=== PATIENT | male | born 1950 | race Caucasian/White ===

== ENCOUNTER 2018-07-17 23:53 | Inpatient (IN) | payer OTHER ==
--- NOTE | 2018-07-18 00:19 | PDOC ---
History of Present Illness - History of Present Illness Initial Comments: 07/18/18 00:20 Mr. Colon is a 68 yo male w/ pmh of alcohol abuse who presents for evaluation of N/V for the past 2 days. Patient reports this started after he was found by a neighbor in a stairwell on 07/16. Patient does not know how he ended up there. Reports he drinks up to 10 mini bottles of vodka per day. He has had nausea and vomiting after this episode. Was encouraged to present by friends. Currently complaining of posterior head pain. Has no other complaints at this time. The patient denies chest pain, shortness of breath and dizziness. Denies fever, chills, diarrhea and constipation. Denies dysuria, frequency, urgency and hematuria. <Socrates Gentile - Last Filed: 07/18/18 07:20> <Zainab Reardon - Last Filed: 07/18/18 07:39> - General Chief Complaint: Nausea/Vomiting Stated Complaint: VOMIT Time Seen by Provider: 07/18/18 00:19 Past History - Suicide/Smoking/Psychosocial Hx Smoking History: Never smoked Have you smoked in the past 12 months: No Information on smoking cessation initiated: No Hx Alcohol Use: No Drug/Substance Use Hx: No <Socrates Gentile - Last Filed: 07/18/18 07:20> <Zainab Reardon - Last Filed: 07/18/18 07:39> - Past Medical History Allergies/Adverse Reactions: Allergies Allergy/AdvReac Type Severity Reaction Status Date / Time No Known Allergies Allergy Verified 07/18/18 00:16 Home Medications: Ambulatory Orders NK [No Known Home Medication] 07/18/18 Review of Systems - Review of Systems Comments:: 07/18/18 00:19 GENERAL/CONSTITUTIONAL: No fever or chills. No weakness. HEAD, EYES, EARS, NOSE AND THROAT: No change in vision. No ear pain or discharge. No sore throat. CARDIOVASCULAR: No chest pain or shortness of breath RESPIRATORY: No cough, wheezing, or hemoptysis. GASTROINTESTINAL: No nausea, vomiting, diarrhea or constipation. GENITOURINARY: No dysuria, frequency, or change in urination. MUSCULOSKELETAL: No joint or muscle swelling or pain. No neck or back pain. SKIN: No rash NEUROLOGIC: +Headache w/ possible fall / LOC as described. No change in strength /sensation. ENDOCRINE: No increased thirst. No abnormal weight change HEMATOLOGIC/LYMPHATIC: No anemia, easy bleeding, or history of blood clots. ALLERGIC/IMMUNOLOGIC: No hives or skin allergy. <Socrates Gentile - Last Filed: 07/18/18 07:20> *Physical Exam - Vital Signs Last Vital Signs Temp Pulse Resp BP Pulse Ox 98.1 F 105 H 20 114/70 98 07/17/18 23:55 07/17/18 23:55 07/17/18 23:55 07/17/18 23:55 07/17/18 23:55 - Physical Exam Comments: 07/18/18 00:19 GENERAL: Awake, alert, and fully oriented, in no acute distress HEAD: +Small swelling noted to posterior head. Normocephalic EYES: PERRLA, EOMI, sclera anicteric, conjunctiva clear ENT: Auricles normal inspection, hearing grossly normal, nares patent, oropharynx clear without exudates. Moist mucosa NECK: Normal ROM, supple, no lymphadenopathy, JVD, or masses LUNGS: No distress, speaks full sentences, clear to auscultation bilaterally HEART: Regular rate and rhythm, normal S1 and S2, no murmurs, rubs or gallops, peripheral pulses normal and equal bilaterally. ABDOMEN: Soft, nontender, normoactive bowel sounds. No guarding, no rebound. No masses EXTREMITIES: Normal inspection, Normal range of motion, no edema. No clubbing or cyanosis. NEUROLOGICAL: Cranial nerves II through XII grossly intact. Normal speech, normal gait, no focal sensorimotor deficits SKIN: Warm, Dry, normal turgor, no rashes or lesions noted. <Socrates Gentile - Last Filed: 07/18/18 07:20> - Vital Signs Last Vital Signs Temp Pulse Resp BP Pulse Ox 98.1 F 88 20 112/62 97 07/17/18 23:55 07/18/18 04:19 07/18/18 04:19 07/18/18 04:19 07/18/18 04:19 <Zainab Reardon - Last Filed: 07/18/18 07:39> ED Treatment Course - LABORATORY CBC & Chemistry Diagram: 07/18/18 01:01 07/18/18 01:01 <Socrates Gentile - Last Filed: 07/18/18 07:20> - LABORATORY CBC & Chemistry Diagram: 07/18/18 01:01 07/18/18 01:01 - ADDITIONAL ORDERS Additional order review: Laboratory Results 07/18/18 07/18/18 05:35 01:01 PT with INR Cancelled INR Cancelled PTT (Actin FS) Cancelled Sodium 137 Potassium 3.6 Chloride 100 Carbon Dioxide 27 Anion Gap 10 BUN 10 Creatinine 1.0 Creat Clearance w eGFR > 60 Random Glucose 133 H Calcium 9.4 Total Bilirubin 1.7 H AST 53 H ALT 82 H Alkaline Phosphatase 94 Creatine Kinase 259 Creatine Kinase Index 0.3 CK-MB (CK-2) 1.0 Troponin I < 0.02 Total Protein 7.1 Albumin 3.9 07/18/18 01:01 RBC 4.17 MCV 102.3 H MCHC 35.3 RDW 13.5 MPV 9.2 Neutrophils % 83.5 H Lymphocytes % 5.4 L Monocytes % 10.9 H Eosinophils % 0.0 Basophils % 0.2 - Medications Given in the ED: ED Medications Discontinued Medications Generic Name Dose Route Start Last Admin Trade Name Freq PRN Reason Stop Dose Admin Chlordiazepoxide HCl 50 mg 07/18/18 06:38 07/18/18 06:45 Librium - PO 07/18/18 06:39 50 mg ONCE ONE Administration Levetiracetam 1,000 mg 07/18/18 03:29 07/18/18 04:07 Keppra Injection - IVPB 07/18/18 03:30 1,000 mg ONCE ONE Administration <Zainab Reardon - Last Filed: 07/18/18 07:39> Medical Decision Making - Medical Decision Making 07/18/18 02:49 Mr. Colon is a 68 yo male w/ pmh as described who presents for evaluation after suspected fall. Patient evaluation started w/ head CT and EKG/labs to evaluate for acute causes / injury. CT Head Read: Bilateral acute subdural hematoma measuring approximately 7 mm thick over frontal lobes, 2-3 mm thick over temporal lobes, up to 9 mm thick along right anterior falx and 5 mm thick along left tentorium. Acute bilateral subarachnoid hemorrhage. Acute parenchymal hematomas in left frontal lobe (1.6 cm and 2.5 cm) , and left temporal lobe (1.1 cm), each with surrounding edema but no substantial midline shift. Possible additional 1.6 cm acute cortical hematoma anterior right temporal lobe. Areas of bilateral sulcal effacement could be related to diffuse edema, generalized mass effect, and/or subarachnoid hemorrhage. Subarachnoid cisterns remain grossly patent. Acute comminuted fracture occipital bone near midline posterior, with fracture lines also extending to right jugular foramen and anterior aspect of foramen magnum, incompletely seen. Advise correlation with cervical spin CT. Age-related involutional changes. Mucoperiosteal thickening sphenoid sinuses with small fluid on left. Visualized mastoid air cells clear. Neurosurgery paged. 07/18/18 03:[address] Hayes (Neurosurgery) who recommended admission for observation and repeat CT in 24 hours as well as keppra for seizure prophylaxis. Patient pending CT C-spine for further evaluation. 07/18/18 06:35 C-spine negative for acute fracture. Admitting patient to hospitalist for further evaluation. 07/18/18 07:19 Patient signed out to Dr. Reardon for further evaluation. <Socrates Gentile - Last Filed: 07/18/18 07:20> *DC/Admit/Observation/Transfer - Discharge Dispostion Decision to Admit order: Yes <Socrates Gentile - Last Filed: 07/18/18 07:20> - Discharge Dispostion Decision to Admit order: Yes <Zainab Reardon - Last Filed: 07/18/18 07:39> Diagnosis at time of Disposition: Subdural hematoma, Subarachnoid hemorrhage Occipital bone fracture Qualifiers: Encounter type: initial encounter Fracture type: closed Occipital fracture type : unspecified fracture of occiput - Discharge Dispostion Condition at time of disposition: Fair
--- NOTE | 2018-07-18 00:39 | PDOC ---
Attending Attestation - Resident Resident Name: Socrates Gentile - HPI HPI: 07/18/18 01:43 Pt presents to the Ed complaining of nausea and vomiting after an episode of heavy drinking 2 days ago. Also reports that he fell during this episode. Vomit is non bloody non billious. Denies abdominal pain. Reports history of heavy drinking > 10 shots of vodka/day. 07/18/18 01:44 - Physicial Exam PE: 07/18/18 01:47 Agree with resident exam. Patient is alert and oriented x 3 and ambulatory with a steady gait. No tremor or tongue fasiculations. 07/18/18 01:50 - Medical Decision Making 07/18/18 01:50 Pt presents to the ED complaining of nausea and vomiting after heavy drinking two days ago. No signs of ETOH withdrawal. Will check labs to evaluate for infection or electrolyte disturbance. Will check CT head to evaluate for intracranial bleed.
[2018-07-18 01:44] LABS: BASO % 0.2 % (0-2.0); HEMATOCRIT 42.7 % (35.4-49); HEMOGLOBIN 15.1 GM/dL (11.7-16.9); LYMPH % 5.4 % (8-40); MCH 36.1 pg (25.7-33.7); MCHC 35.3 g/dl (32.0-35.9); MEAN CELL VOLUME 102.3 fl (80-96); MEAN PLT VOLUME 9.2 fl (7.5-11.1); MONO % 10.9 % (3.8-10.2); NEUT % 83.5 % (42.8-82.8); PLATELET COUNT 183 K/MM3 (134-434); RBC 4.17 M/mm3 (4.00-5.60); RDW 13.5 % (11.9-15.9); WHITE BLOOD COUNT 14.5 K/mm3 (4.0-10.0)
[2018-07-18 02:27] LABS: ALBUMIN 3.9 g/dl (3.4-5.0); ALK PHOS 94 U/L (45-117); ANION GAP 10 MMOL/L (8-16); BILIRUBIN,TOTAL 1.7 mg/dL (0.2-1); BLOOD UREA NITROGEN 10 mg/dL (7-18); CALCIUM 9.4 mg/dL (8.5-10.1); CHLORIDE 100 mmol/L (98-107); CO2 27 mmol/L (21-32); GLUCOSE,RANDOM 133 mg/dL (74-106); POTASSIUM 3.6 mmol/L (3.5-5.1); SGOT/AST 53 U/L (15-37); SGPT/ALT 82 U/L (13-61); SODIUM 137 mmol/L (136-145); TOT PROT 7.1 g/dl (6.4-8.2)
[2018-07-18] MEDS ORDERED: levETIRAcetam 500 MG/5 ML INJECTION VIAL IVPB ONE ×3 (03:29→03:52)
[2018-07-18] MEDS ORDERED: chlordiazePOXIDE HCL 25 MG CAPSULE PO ONE (06:38)
[2018-07-18] MEDS ORDERED: chlordiazePOXIDE HCL 25 MG CAPSULE ONE (06:40)
--- NOTE | 2018-07-18 07:33 | PDOC ---
*Physical Exam - Vital Signs Last Vital Signs Temp Pulse Resp BP Pulse Ox 98.1 F 88 20 112/62 97 07/17/18 23:55 07/18/18 04:19 07/18/18 04:19 07/18/18 04:19 07/18/18 04:19 ED Treatment Course - LABORATORY CBC & Chemistry Diagram: 07/18/18 08:00 07/18/18 08:00 - ADDITIONAL ORDERS Additional order review: Laboratory Results 07/18/18 07/18/18 05:35 01:01 PT with INR Cancelled INR Cancelled PTT (Actin FS) Cancelled Sodium 137 Potassium 3.6 Chloride 100 Carbon Dioxide 27 Anion Gap 10 BUN 10 Creatinine 1.0 Creat Clearance w eGFR > 60 Random Glucose 133 H Calcium 9.4 Total Bilirubin 1.7 H AST 53 H ALT 82 H Alkaline Phosphatase 94 Creatine Kinase 259 Creatine Kinase Index 0.3 CK-MB (CK-2) 1.0 Troponin I < 0.02 Total Protein 7.1 Albumin 3.9 07/18/18 01:01 RBC 4.17 MCV 102.3 H MCHC 35.3 RDW 13.5 MPV 9.2 Neutrophils % 83.5 H Lymphocytes % 5.4 L Monocytes % 10.9 H Eosinophils % 0.0 Basophils % 0.2 - Medications Given in the ED: ED Medications Discontinued Medications Generic Name Dose Route Start Last Admin Trade Name Freq PRN Reason Stop Dose Admin Chlordiazepoxide HCl 50 mg 07/18/18 06:38 07/18/18 06:45 Librium - PO 07/18/18 06:39 50 mg ONCE ONE Administration Levetiracetam 1,000 mg 07/18/18 03:29 07/18/18 04:07 Keppra Injection - IVPB 07/18/18 03:30 1,000 mg ONCE ONE Administration Medical Decision Making - Medical Decision Making Pt was signed out to me by resident Dr. Gentile, who explained the presentation, ED course, any pending results, and needed interventions. Pending results include admission. Pt is currently stable and is lying comfortably. 07/18/18 07:33 Spoke with admitting team (Dr. Hill) who spoke with neurosurgery and is requesting admission to the ICU. Will page ICU team. 07/18/18 07:40 Spoke with ICU team, who will accept the pt for admission. Beds are full, but they will be down within the hour to examine the pt. Pt is being moved from holding for frequent neuro checks. 07/18/18 07:53 Vitals stable (BP 101/70, HR 80s), pt lying comfortably and is responsive. No focal neurologic deficits. 07/18/18 10:30 Pt has become agitated/confused in the ER. Called ICU team, who have been busy with patients upstairs and have not been able to see the pt yet. Paging admitting team to determine librium vs repeat head CT. Pending call-back. 07/18/18 11:[address] De La Rosa, who will see the pt and go to the ICU. We will provide librium as, Dr. De La Rosa gave PRN order. Pt due for CT scan at 2 pm. 07/18/18 12:02 Pt with fever (100.7) per nursing staff, no IV tylenol order (pt is NPO). Admitting team informed. 07/18/18 13:37 Pt was taken to the ICU. Stable during ER stay. No focal neurologic deficits. 07/18/18 14:21 *DC/Admit/Observation/Transfer Diagnosis at time of Disposition: Subdural hematoma, Subarachnoid hemorrhage Occipital bone fracture Qualifiers: Encounter type: initial encounter Fracture type: closed Occipital fracture type : unspecified fracture of occiput Laterality: unspecified laterality Qualified Code(s): S02.119A - Unspecified fracture of occiput, initial encounter for closed fracture - Discharge Dispostion Condition at time of disposition: Fair - Referrals - Patient Instructions - Post Discharge Activity
--- NOTE | 2018-07-18 07:41 | HP ---
CHIEF COMPLAINT: S/P fall, N/V PCP: HISTORY OF PRESENT ILLNESS: 68 year old Alcoholic male presented to the hospital S/p fall, N/V for 2 days. his neighbor found him in stairs [place], last drink last night , he drink 10 shots of Vodka daily. pt is poor historian, he reports headache occipital, 5/10 , pulsating, local non radiating, he complain of neck pain as well. Pt dont remember what happened, he lost his consciousness, does not know how long he staid on the floor. Pt denies any fever, chills, blurry vision , denies any chest pain , palp- itation, denies any abdominal pain, D/C, denies any urinary symptoms, denies any withdrawal symptoms, anxiety. ER course was notable for: (1)Head CT with SDH, SAH (2)CBC, CMP (3)Neurosurgery consult Dr Hayes Recent Travel: denies PAST MEDICAL HISTORY: Alcoholic PAST SURGICAL HISTORY: none Social History: Smokin PPD since teenage Alcohol:10 small vodka daily Drugs: denies Family History: Allergies No Known Allergies Allergy (Verified 07/18/18 00:16) HOME MEDICATIONS: Home Medications Medication Instructions Recorded NK [No Known Home Medication] 07/18/18 REVIEW OF SYSTEMS CONSTITUTIONAL: Absent: fever, chills, diaphoresis, generalized weakness, malaise, loss of appetite, weight change HEENT: Absent: rhinorrhea, nasal congestion, throat pain, throat swelling, difficulty swallowing, mouth swelling, ear pain, eye pain, visual changes CARDIOVASCULAR: Absent: chest pain, syncope, palpitations, irregular heart rate, lightheadedness , peripheral edema RESPIRATORY: Absent: cough, shortness of breath, dyspnea with exertion, orthopnea, wheezing, stridor, hemoptysis GASTROINTESTINAL: Absent: abdominal pain, abdominal distension, nausea, vomiting, diarrhea, constipation, melena, hematochezia GENITOURINARY: Absent: dysuria, frequency, urgency, hesitancy, hematuria, flank pain, genital pain MUSCULOSKELETAL: Absent: myalgia, arthralgia, joint swelling, back pain, neck pain SKIN: Absent: rash, itching, pallor HEMATOLOGIC/IMMUNOLOGIC: Absent: easy bleeding, easy bruising, lymphadenopathy, frequent infections NEUROLOGIC: headache Absent:, focal weakness or paresthesias, dizziness, unsteady gait, seizure, mental status changes, bladder or bowel incontinence PSYCHIATRIC: Absent: anxiety, depression, suicidal or homicidal ideation, hallucinations. PHYSICAL EXAMINATION Vital Signs - 24 hr 07/17/18 07/18/18 07/18/18 23:55 04:19 07:36 Temperature 98.1 F 98.5 F Pulse Rate 105 H Pulse Rate [ 88 86 Apical] Respiratory 20 20 16 Rate Blood Pressure 114/70 Blood Pressure 112/62 114/51 L [Left Arm] O2 Sat by Pulse 98 97 97 Oximetry (%) GENERAL: AAOx3 in NAD , poor dental hygiene, HEAD: small parietal lump, no skin laceration EYES: pin point pupil , extraocular movements intact, ENT: dry mucous membranes. NECK: Normal range of motion, supple without lymphadenopathy, JVD, or masses.cervical tenderness. LUNGS: Breath sounds equal, clear to auscultation bilaterally. No wheezes, and no crackles. No accessory muscle use. HEART: Regular rate and rhythm, normal S1 and S2 without murmur, rub or gallop. ABDOMEN: Soft, nontender, not distended, normoactive bowel sounds, no guarding, MUSCULOSKELETAL: Normal range of motion at all joints. No bony deformities or tenderness. No CVA tenderness. UPPER EXTREMITIES: 2+ pulses, warm, well-perfused. No cyanosis. No clubbing. No peripheral edema. LOWER EXTREMITIES: 2+ pulses, warm, well-perfused. No calf tenderness. No peripheral edema. NEUROLOGICAL: Cranial nerves II-XII intact. Normal speech. Normal gait.no dysmetria, romberg negative PSYCHIATRIC: Cooperative. Good eye contact. SKIN: Warm, dry, Laboratory Results - last 24 hr 07/18/18 07/18/18 07/18/18 01:01 01:01 05:35 WBC 14.5 H RBC 4.17 Hgb 15.1 Hct 42.7 MCV 102.3 H MCH 36.1 H MCHC 35.3 RDW 13.5 Plt Count 183 MPV 9.2 Absolute Neuts (auto) 12.1 H Neutrophils % 83.5 H Lymphocytes % 5.4 L Monocytes % 10.9 H Eosinophils % 0.0 Basophils % 0.2 Nucleated RBC % 0 PT with INR Cancelled INR Cancelled PTT (Actin FS) Cancelled Sodium 137 Potassium 3.6 Chloride 100 Carbon Dioxide 27 Anion Gap 10 BUN 10 Creatinine 1.0 Creat Clearance w eGFR > 60 Random Glucose 133 H Calcium 9.4 Total Bilirubin 1.7 H AST 53 H ALT 82 H Alkaline Phosphatase 94 Creatine Kinase 259 Creatine Kinase Index 0.3 CK-MB (CK-2) 1.0 Troponin I < 0.02 Total Protein 7.1 Albumin 3.9 Blood Type Antibody Screen 07/18/18 05:35 WBC RBC Hgb Hct MCV MCH MCHC RDW Plt Count MPV Absolute Neuts (auto) Neutrophils % Lymphocytes % Monocytes % Eosinophils % Basophils % Nucleated RBC % PT with INR INR PTT (Actin FS) Sodium Potassium Chloride Carbon Dioxide Anion Gap BUN Creatinine Creat Clearance w eGFR Random Glucose Calcium Total Bilirubin AST ALT Alkaline Phosphatase Creatine Kinase Creatine Kinase Index CK-MB (CK-2) Troponin I Total Protein Albumin Blood Type B NEGATIVE Antibody Screen Negative CT Head Read:Primary read Bilateral acute subdural hematoma measuring approximately 7 mm thick over frontal lobes, 2-3 mm thick over temporal lobes, up to 9 mm thick along right anterior falx and 5 mm thick along left tentorium. Acute bilateral subarachnoid hemorrhage. Acute parenchymal hematomas in left frontal lobe (1.6 cm and 2.5 cm) , and left temporal lobe (1.1 cm), each with surrounding edema but no substantial midline shift. Possible additional 1.6 cm acute cortical hematoma anterior right temporal lobe. Areas of bilateral sulcal effacement could be related to diffuse edema, generalized mass effect, and/or subarachnoid hemorrhage. Subarachnoid cisterns remain grossly patent. Acute comminuted fracture occipital bone near midline posterior, with fracture lines also extending to right jugular foramen and anterior aspect of foramen magnum, incompletely seen. Advise correlation with cervical spin CT. # CT C spine with no fx per ED Pending official reading CBC, BMP 07/18/18 01:01 07/18/18 01:01 ASSESSMENT/PLAN: 68 year old male with pmhx of alcoholic abuse presented to the ED by his neighbor S/P fall, last drink last night. was found to have SDH/SAH ,admitted to ICU for further evaluation. # SDH, SAH * Noted on images * Complain of slight headache, no current focal deficit , needs neurocheck Q 1 hour * Monitor in ICU * Monitor BP * Seizure proph, Keppra * Neurosurgery consulted Dr Marcelino Hayes recommendation appreciated * Repeat CT scan later today * coagulation studies , LFts, PT, PTT , type and screen, type and cross * Tylenol for headache * Acoid Ibuprofen, ASA, risk of bleeding * CK, CKP to R/L rhabdo # S/p Fall * Fall precautions * continuous bed rest * PT after 24 hour * # alcohol abuse * Alcohol level * uine tox * no withdrawal symptoms yet * Banana bag * Thiamin, folic acid * Libirium PRN for anxiety or tremor * Educated about quit drinking , * Monitor LFts , coag studies # leuckocytosis likely reaction to bleeding * repeat in AM * no signs of infection or fever # FEN * F: Banan bag * E: WNL , monitor * N: NPO till we repeat CT @ 2 PM # proph * DVT: SCDS * GI: # Dispo * Admit to ICU * will repeat CT scan this afternoon Visit type - Emergency Visit Emergency Visit: Yes ED Registration Date: 07/18/18 Care time: The patient presented to the Emergency Department on the above date and was hospitalized for further evaluation of their emergent condition. - New Patient This patient is new to me today: Yes Date on this admission: 07/18/18 - Critical Care Critical Care patient: Yes Total Critical Care Time (in minutes): 45 Critical Care Statement: The care of this patient involved high complexity decision making to prevent further life threatening deterioration of the patient 's condition and/or to evaluate & treat vital organ system(s) failure or risk of failure.
[2018-07-18 08:16] LABS: BASO % 0.4 % (0-2.0); HEMATOCRIT 41.4 % (35.4-49); HEMOGLOBIN 13.8 GM/dL (11.7-16.9); LYMPH % 6.3 % (8-40); MCH 34.4 pg (25.7-33.7); MCHC 33.3 g/dl (32.0-35.9); MEAN CELL VOLUME 103.1 fl (80-96); MEAN PLT VOLUME 8.7 fl (7.5-11.1); MONO % 12.5 % (3.8-10.2); NEUT % 80.8 % (42.8-82.8); PLATELET COUNT 140 K/MM3 (134-434); RBC 4.01 M/mm3 (4.00-5.60); RDW 13.1 % (11.9-15.9); WHITE BLOOD COUNT 13.3 K/mm3 (4.0-10.0)
--- NOTE | 2018-07-18 08:20 | PN ---
Progress Note (short form) - Note Progress Note: NEUROSURGERY CONSULT DICTATED Chart reviewed Pt examined Poor historian CT scans reviewed H/A, N/V for the x 2 days. Found by a neighbor in a stairwell on 07/16. Drinks up to 10 shots of vodka per day. Headaches both anterior and posterior. No witnessed sz. PE: AF, VSS HEENT- no significant exterior sign of trauma; Neck- supple; Cor- RR; Lungs- CTA B; Abd- benign; Ext- no sign of DVT A/A/Ox3 CN- intact; Motor- 5/5 without drift; Sensation- intact LT; DTR- 1+ WBC 14.5, platelet 183k Head CT- Occipital bone midline fx to inion; B frontal hemorrhagic contusion with SDH; B anterior temporal contusion with SAH R > L and small SDH C spine CT- no C spine fx, preserved lordosis B fronto-temporal hemorrhagic contusion, SDH, SAH Keppra ICU monitoring Check INR/PTT and transfuse FFP prn elevated INR/PTT f/u Head CT later this afternoon to ascertain stability (some radiographic progression likely)
[2018-07-18] MEDS ORDERED: PROMETHAZINE HCL 25 MG/1 ML VIAL IM PRN (08:28)
[2018-07-18] MEDS ORDERED: ACETAMINOPHEN 325 MG TABLET (FP) PO PRN (08:28)
[2018-07-18 08:33] LABS: INR 0.84 (0.83-1.09); PROTHROMBIN TIME (PATIENT) 9.9 SEC (9.7-13.0)
[2018-07-18 08:35] LABS: ACTIVATED PTT 25.8 SECONDS (25.2-36.5)
[2018-07-18] MEDS ORDERED: FOLIC ACID INJECTION - 1 MG, THIAMINE HCL 100 MG, MULTIVIT INJECTION ADULT 10 ML in SOD... IVPB ONE (08:35)
[2018-07-18 09:28] LABS: BLOOD UREA NITROGEN 8 mg/dL (7-18); GLUCOSE,RANDOM 120 mg/dL (74-106)
[2018-07-18 09:29] LABS: CHLORIDE 104 mmol/L (98-107); CREATININE 0.7 mg/dL (0.55-1.3); POTASSIUM 3.7 mmol/L (3.5-5.1); SODIUM 140 mmol/L (136-145)
[2018-07-18 09:30] LABS: ALBUMIN 3.3 g/dl (3.4-5.0); ALK PHOS 83 U/L (45-117); ANION GAP 10 MMOL/L (8-16); BILIRUBIN,TOTAL 1.3 mg/dL (0.2-1); CALCIUM 8.7 mg/dL (8.5-10.1); CO2 26 mmol/L (21-32); SGOT/AST 47 U/L (15-37); SGPT/ALT 70 U/L (13-61); TOT PROT 6.3 g/dl (6.4-8.2)
[2018-07-18 09:48] LABS: BILIRUBIN,DIRECT 0.6 mg/dL (0.0-0.2); BILIRUBIN,TOTAL 1.7 mg/dL (0.2-1)
[2018-07-18] MEDS ORDERED: THIAMINE HCL 200 MG/2 ML VIAL IVPB SCH (10:00)
[2018-07-18] MEDS: levETIRAcetam 500 MG/5 ML INJECTION VIAL IVPB SCH ×2 (10:05→22:23)
[2018-07-18 10:12] LABS: PHOSPHOROUS 2.2 mg/dL (2.5-4.9)
--- NOTE | 2018-07-18 10:38 | EKG ---
Test Reason : Blood Pressure : / mmHG Vent. Rate : 088 BPM Atrial Rate : 088 BPM P-R Int : 130 ms QRS Dur : 080 ms QT Int : 372 ms P-R-T Axes : 069 073 044 degrees QTc Int : 450 ms SINUS RHYTHM WITH OCCASIONAL PREMATURE VENTRICULAR COMPLEXES OTHERWISE NORMAL ECG NO PREVIOUS ECGS AVAILABLE Confirmed by Chirag Mathew MD ([id number]) on 07/18/2018 10:38:23 AM Referred By: Confirmed By:Chirag Mathew MD
[2018-07-18] MEDS ORDERED: chlordiazePOXIDE 5 MG CAPSULE ONE (12:13)
[2018-07-18] MEDS: chlordiazePOXIDE 5 MG CAPSULE PO PRN ×2 (12:17→22:23)
--- NOTE | 2018-07-18 12:23 | CONS ---
DATE OF CONSULTATION: 07/18/2018 REQUESTING PHYSICIAN: Bello Santos MD, and the emergency department. CONSULTING PHSYICIAN: Marcelino Hyman MD, neurosurgery. CHIEF COMPLAINT: Status post probable fall/intoxication with hemorrhagic contusions, subdural hematoma, traumatic subarachnoid hemorrhage. HISTORY OF PRESENT ILLNESS: The patient is a 68-year-old right-handed male with history of heavy alcohol use, who was reportedly drinking about 2 days ago, was found by a staircase by his friends. He did not recall what happened. He complains of headache, mostly anterior and posterior. He has no neck pain, has no cervical radicular symptoms. He does experience nausea and vomiting. He had no witnessed seizure activity. He denies diplopia. He has not experienced any symptoms otherwise. He denies fever, chills. He has no chest pain. PAST MEDICAL HISTORY: Is significant for heavy alcohol use daily. MEDICATIONS: He does not take any medications. ALLERGIES: There are no known drug allergies. SOCIAL HISTORY: He smokes about 1 pack of cigarettes a day. He drinks 10 shots of vodka a day. He lives at home. He does not work. REVIEW OF SYSTEMS: Otherwise negative for other major constitutional, head and neck, cardiovascular, pulmonary, gastrointestinal, genitourinary, endocrinological, neurological, or psychological problems except for the above. PHYSICAL EXAMINATION: Vital signs: Temperature is 98.1, blood pressure is 114/51 with a pulse rate of 86, O2 saturation is 97% on room air. HEENT: Examination shows no significant external signs of clinical trauma. Neck: Supple with no carotid bruit. Coronary: Examination demonstrated regular rhythm. Lungs: Clear bilaterally. Abdomen: Benign. Extremities: Examination showed no signs of DVT. Neurologic: He is awake and alert and oriented x3. Cranial nerve examination is intact 2-12. Motor examination shows 5/5 strength without drift. Sensory examination is intact to light touch. Deep tendon reflexes are 1+ throughout. There is no pathological long tract sign. His gait was not tested for safety reasons. Cerebellar examination demonstrated no resting tremor. He has reasonably intact [id number] examination. LABORATORY EXAMINATION: Shows the white blood cell count to be 14.5, hemoglobin is 15.1, platelet count is 183,000. INR and PT are pending. Serum sodium is 137, potassium is 3.6, BUN is 10, creatinine is 1.0, glucose 133, calcium is 8.4. LFTs are slightly elevated in terms of a total bilirubin, AST, and ALT, alkaline phosphatase is normal at 94. Troponin was less than 0.02. Albumin 3.9. CT scan of the head preliminary reading demonstrated midline occipital fracture extending from the foramen magnum up to the inion. There was also bifrontal hemorrhagic contusion of mixed density with associated subdural hematoma as well as foramen subarachnoid and retinal hemorrhage. There was also a falcine subdural hematoma in the anterior midline. There is bitemporal hemorrhagic contusion with traumatic subarachnoid hemorrhoid and a distal mid Sylvian fissure, right greater than left. There was also a small area of associated subdural hematoma. C- spine CT scan demonstrated no cervical spine fracture. Cervical lordosis was well maintained. IMPRESSION: 1. Status post probable mechanical fall/intoxication with bifrontal and bitemporal hemorrhagic contusion, traumatic subarachnoid hemorrhage, and subdural hematoma. 2. Ethyl alcohol dependence. RECOMMENDATIONS: The patient presents with a mechanical fall most likely after intoxication. He has no other obvious trauma. He has sustained significant head trauma with significant bilateral frontal and temporal hemorrhagic contusions, traumatic subarachnoid hemorrhage, and subdural hematoma. These lesions could potentially blossom, and these should be monitored. INR and PT are still pending, and if they are abnormal, transfusion with FFP is recommended. He is recommended starting Keppra for seizure prophylaxis. He should also be observed for DTs because of his heavy regular alcohol abuse. Radiographic and clinical deterioration can occur. Hopefully, this will be somewhat less likely because his initial fall was 2 days ago, more than 1 day ago. The patient is surprisingly neurologically intact at this point, which is a good sign for him. He is advised, strongly urged to eventually quit drinking with alcohol rehabilitation program at some point when he is neurologically stabilized from his current medical problems. The above was discussed with the admitting team. MARCELINO HYMAN M.D. BELÉN/[id number] MTDD
--- NOTE | 2018-07-18 13:10 | CONSULT ---
Consultation: REQUESTING PROVIDER: CONSULT REQUEST: ICU HISTORY OF PRESENT ILLNESS: 68 yo alcoholic male, presented to the ED s/p fall 2 days ago. His friend found him unconscious, on the floor. Patient says he was drunk the night of the fall. He says he's been having nausea, vomiting and an pulsating, occipital headache since the fall. He rated the headache pain 5/10. He drinks 10 shots of Vodka daily. He currently denies symptoms. In the ER patient had a Head CT which revealed B frontal hemorrhagic contusion with SDH; B anterior temporal contusion with SAH R > L and small SDH. Dr. Benson was consulted who requested ICU monitoring. REVIEW OF SYSTEMS: CONSTITUTIONAL: Absent: fever, chills, diaphoresis, generalized weakness, malaise, loss of appetite, weight change HEENT: Absent: rhinorrhea, nasal congestion, throat pain, throat swelling, difficulty swallowing, mouth swelling, ear pain, eye pain, visual changes CARDIOVASCULAR: Absent: chest pain, syncope, palpitations, irregular heart rate, lightheadedness , peripheral edema RESPIRATORY: Absent: cough, shortness of breath, dyspnea with exertion, orthopnea, wheezing, stridor, hemoptysis GASTROINTESTINAL: Absent: abdominal pain, abdominal distension, nausea, vomiting, diarrhea, constipation, melena, hematochezia MUSCULOSKELETAL: Absent: myalgia, arthralgia, joint swelling, back pain, neck pain NEUROLOGIC: Absent: headache, focal weakness or paresthesias, dizziness, unsteady gait, seizure, mental status changes, bladder or bowel incontinence PSYCHIATRIC: Absent: anxiety, depression, suicidal or homicidal ideation, hallucinations. PHYSICAL EXAMINATION Vital Signs - 24 hr 07/17/18 07/18/18 07/18/18 23:55 04:19 07:36 Temperature 98.1 F 98.5 F Pulse Rate 105 H Pulse Rate [ 88 86 Apical] Respiratory 20 20 16 Rate Blood Pressure 114/70 Blood Pressure 112/62 114/51 L [Left Arm] O2 Sat by Pulse 98 97 97 Oximetry (%) 07/18/18 07/18/18 07/18/18 08:44 10:16 10:35 Temperature 97.8 F 99.8 F H 101.7 F H Pulse Rate Pulse Rate [ 84 92 H Apical] Respiratory 16 16 Rate Blood Pressure Blood Pressure 115/80 101/71 [Left Arm] O2 Sat by Pulse 98 97 Oximetry (%) 07/18/18 07/18/18 11:14 11:51 Temperature Pulse Rate Pulse Rate [ 92 H 76 Apical] Respiratory 16 16 Rate Blood Pressure Blood Pressure 137/59 L 104/71 [Left Arm] O2 Sat by Pulse 98 98 Oximetry (%) GENERAL: Awake, alert, and fully oriented, in no acute distress. HEAD: Normal with no signs of trauma. EYES: Pupils equal, round and reactive to light, extraocular movements intact, sclera anicteric, conjunctiva clear. No lid lag. EARS, NOSE, THROAT: Ears normal, nares patent, oropharynx clear without exudates. Moist mucous membranes. NECK: Normal range of motion, supple without lymphadenopathy, JVD, or masses. LUNGS: Breath sounds equal, clear to auscultation bilaterally. No wheezes, and no crackles. No accessory muscle use. HEART: Regular rate and rhythm, normal S1 and S2 without murmur, rub or gallop. ABDOMEN: Soft, nontender, not distended, normoactive bowel sounds, no guarding, no rebound, no masses. No hepatomegaly or splenomegaly. MUSCULOSKELETAL: Normal range of motion at all joints. No bony deformities or tenderness. No CVA tenderness. UPPER EXTREMITIES: 2+ pulses, warm, well-perfused. No cyanosis. No clubbing. Cap refill <2 seconds. No peripheral edema. LOWER EXTREMITIES: 2+ pulses, warm, well-perfused. No calf tenderness. No peripheral edema. NEUROLOGICAL: Cranial nerves II-XII intact. Normal speech. Normal gait. PSYCHIATRIC: Cooperative. Good eye contact. Appropriate mood and affect. SKIN: Warm, dry, normal turgor, no rashes or lesions noted. Laboratory Results - last 24 hr 07/18/18 07/18/18 07/18/18 01:01 01:01 05:35 WBC 14.5 H RBC 4.17 Hgb 15.1 Hct 42.7 MCV 102.3 H MCH 36.1 H MCHC 35.3 RDW 13.5 Plt Count 183 MPV 9.2 Absolute Neuts (auto) 12.1 H Neutrophils % 83.5 H Lymphocytes % 5.4 L Monocytes % 10.9 H Eosinophils % 0.0 Basophils % 0.2 Nucleated RBC % 0 PT with INR Cancelled INR Cancelled PTT (Actin FS) Cancelled Sodium 137 Potassium 3.6 Chloride 100 Carbon Dioxide 27 Anion Gap 10 BUN 10 Creatinine 1.0 Creat Clearance w eGFR > 60 Random Glucose 133 H Lactic Acid Calcium 9.4 Phosphorus Magnesium Total Bilirubin 1.7 H Direct Bilirubin AST 53 H ALT 82 H Alkaline Phosphatase 94 Creatine Kinase 259 Creatine Kinase Index 0.3 CK-MB (CK-2) 1.0 Troponin I < 0.02 Total Protein 7.1 Albumin 3.9 Alcohol, Quantitative Blood Type Antibody Screen 07/18/18 07/18/18 07/18/18 05:35 08:00 08:00 WBC 13.3 H RBC 4.01 Hgb 13.8 Hct 41.4 MCV 103.1 H MCH 34.4 H MCHC 33.3 RDW 13.1 Plt Count 140 D MPV 8.7 Absolute Neuts (auto) 10.7 H Neutrophils % 80.8 Lymphocytes % 6.3 L Monocytes % 12.5 H Eosinophils % 0.0 Basophils % 0.4 Nucleated RBC % 0 PT with INR 9.90 INR 0.84 PTT (Actin FS) 25.8 Sodium Potassium Chloride Carbon Dioxide Anion Gap BUN Creatinine Creat Clearance w eGFR Random Glucose Lactic Acid Calcium Phosphorus Magnesium Total Bilirubin Direct Bilirubin AST ALT Alkaline Phosphatase Creatine Kinase Creatine Kinase Index CK-MB (CK-2) Troponin I Total Protein Albumin Alcohol, Quantitative Blood Type B NEGATIVE Antibody Screen Negative 07/18/18 07/18/18 07/18/18 08:00 08:00 09:00 WBC RBC Hgb Hct MCV MCH MCHC RDW Plt Count MPV Absolute Neuts (auto) Neutrophils % Lymphocytes % Monocytes % Eosinophils % Basophils % Nucleated RBC % PT with INR INR PTT (Actin FS) Sodium 140 Potassium 3.7 Chloride 104 Carbon Dioxide 26 Anion Gap 10 BUN 8 Creatinine 0.7 Creat Clearance w eGFR > 60 Random Glucose 120 H Lactic Acid 1.3 Calcium 8.7 Phosphorus Magnesium Total Bilirubin 1.3 H Direct Bilirubin AST 47 H ALT 70 H Alkaline Phosphatase 83 Creatine Kinase 300 Creatine Kinase Index 0.4 CK-MB (CK-2) 1.2 Troponin I < 0.01 Total Protein 6.3 L Albumin 3.3 L Alcohol, Quantitative Blood Type B NEGATIVE Antibody Screen 07/18/18 07/18/18 07/18/18 09:01 09:01 09:01 WBC RBC Hgb Hct MCV MCH MCHC RDW Plt Count MPV Absolute Neuts (auto) Neutrophils % Lymphocytes % Monocytes % Eosinophils % Basophils % Nucleated RBC % PT with INR INR PTT (Actin FS) Sodium Potassium Chloride Carbon Dioxide Anion Gap BUN Creatinine Creat Clearance w eGFR Random Glucose Lactic Acid Calcium Phosphorus 2.2 L Magnesium 2.0 Total Bilirubin 1.7 H Direct Bilirubin 0.6 H AST ALT Alkaline Phosphatase Creatine Kinase Cancelled Creatine Kinase Index Cancelled CK-MB (CK-2) Cancelled Troponin I Total Protein Albumin Alcohol, Quantitative < 3.0 Blood Type Antibody Screen 07/18/18 09:01 WBC RBC Hgb Hct MCV MCH MCHC RDW Plt Count MPV Absolute Neuts (auto) Neutrophils % Lymphocytes % Monocytes % Eosinophils % Basophils % Nucleated RBC % PT with INR INR PTT (Actin FS) Sodium Potassium Chloride Carbon Dioxide Anion Gap BUN Creatinine Creat Clearance w eGFR Random Glucose Lactic Acid Calcium Phosphorus Magnesium Total Bilirubin Direct Bilirubin AST ALT Alkaline Phosphatase Creatine Kinase Creatine Kinase Index CK-MB (CK-2) Cancelled Troponin I Total Protein Albumin Alcohol, Quantitative Blood Type Antibody Screen Active Medications Generic Name Dose Route Start Last Admin Trade Name Freq PRN Reason Stop Dose Admin Acetaminophen 650 mg 07/18/18 08:28 Tylenol - PO Q6H PRN PAIN Chlordiazepoxide HCl 5 mg 07/18/18 08:43 07/18/18 12:17 Librium - PO 5 mg Q6H PRN Administration ANXIETY Chlorhexidine Gluconate 1 applic 07/18/18 22:00 Hibiclens For Decolonization - TP HS TRISHA Folic Acid 1 mg 07/19/18 10:00 Folic Acid - PO DAILY TRISHA Folic Acid 1 mg/ Thiamine HCl 1,000 mls @ 125 mls/hr 07/18/18 08:35 07/18/18 09:13 100 mg/ Multivitamins/Minerals IVPB 07/18/18 16:34 125 mls/hr 10 ml/ Sodium Chloride ONCE ONE Administration Levetiracetam 500 mg 07/18/18 10:00 07/18/18 10:05 Keppra Injection - IVPB 500 mg BID TRISHA Administration Mupirocin 1 applic 07/18/18 10:00 Bactroban Ointment (For Decolonization) - NS 07/23/18 09:59 BID TRISHA Promethazine HCl 25 mg 07/18/18 08:28 Phenergan Injection - IM Q6H PRN NAUSEA AND/OR VOMITING Thiamine HCl 100 mg 07/19/18 10:00 Vitamin B1 - PO DAILY TRISHA ASSESSMENT/PLAN: Neuro -Head CT which revealed B frontal hemorrhagic contusion with SDH; B anterior temporal contusion with SAH R > L and small SDH. -Neurosurgery on board: Dr. Hayes -SUAD repeat Head CT -Tylenol prn for headache -Neurochecks q1 -no current focal deficit -monitor BP -IV Keppra 500mg BID -Thiamine -No alcohol withdrawal symptoms at this time. -SCDs -No ASA, NSAIDS, antiplatelets -Follow Neuro exam #FEN Banana bag WNL , monitor NPO till we repeat CT @ 2 PM Dispo: We will continue to follow the patient. Thank you for this consultative opportunity. Visit type - Emergency Visit Emergency Visit: Yes ED Registration Date: 07/18/18 Care time: The patient presented to the Emergency Department on the above date and was hospitalized for further evaluation of their emergent condition. - New Patient This patient is new to me today: Yes Date on this admission: 07/19/18 - Critical Care Critical Care patient: Yes Total Critical Care Time (in minutes): 35 Critical Care Statement: The care of this patient involved high complexity decision making to prevent further life threatening deterioration of the patient 's condition and/or to evaluate & treat vital organ system(s) failure or risk of failure.
[2018-07-18 13:14] LABS: ANISOCYTOSIS 1+; MACROCYTOSIS 1+; OVALOCYTE 1+; PLATELET ESTIMATE DECREASED; TEAR DROP CELLS 1+
[2018-07-18 13:42] LABS: COCAINE, UR NEGATIVE ng/ml (CUTOFF=300); METHADONE, UR NEGATIVE ng/ml (CUTOFF=300); OPIATES, URI NEGATIVE ng/ml (CUTOFF=300); PHENCYCLIDINE,URINE NEGATIVE ng/ml (CUTOFF=25); URINE AMPHETAMINES NEGATIVE ng/ml (CUTOFF=500); URINE BARBITURATES NEGATIVE ng/ml (CUTOFF=200)
[2018-07-18] MEDS ORDERED: ACETAMINOPHEN 1000 MG/100 ML VIAL (NON FORMULARY) IVPB ONE (13:45)
--- NOTE | 2018-07-18 13:51 | PN ---
Teaching Attending Note Name of Resident: Prem Noble ATTENDING PHYSICIAN STATEMENT I saw and evaluated the patient. I reviewed the resident's note and discussed the case with the resident. I agree with the resident's findings and plan as documented. SUBJECTIVE: Patient seen and examined in the ICU. Awake and alert. No acute events overnight. Seen by Neurosurgery overnight. Recommended to monitor in ICU due to SDH / SAH. Intake & Output 07/15/18 07/16/18 07/17/18 07/18/18 23:59 23:59 23:59 23:59 Weight 140 lb Last Vital Signs Temp Pulse Resp BP Pulse Ox 101.7 F H 92 H 16 151/85 97 07/18/18 10:35 07/18/18 13:35 07/18/18 13:35 07/18/18 13:35 07/18/18 13:35 Active Medications Acetaminophen (Tylenol -) 650 mg PO Q6H PRN PRN Reason: PAIN Acetaminophen (Ofirmev Injection -) 1,000 mg IVPB ONCE ONE Stop: 07/18/18 13:46 Chlordiazepoxide HCl (Librium -) 5 mg PO Q6H PRN PRN Reason: ANXIETY Last Admin: 07/18/18 12:17 Dose: 5 mg Chlorhexidine Gluconate (Hibiclens For Decolonization -) 1 applic TP HS [facility] Folic Acid (Folic Acid -) 1 mg PO DAILY [facility] Folic Acid 1 mg/ Thiamine HCl 100 mg/ Multivitamins/Minerals 10 ml/ Sodium Chloride 1,000 mls @ 125 mls/hr IVPB ONCE ONE Stop: 07/18/18 16:34 Last Admin: 07/18/18 09:13 Dose: 125 mls/hr Levetiracetam (Keppra Injection -) 500 mg IVPB BID [facility] Last Admin: 07/18/18 10:05 Dose: 500 mg Mupirocin (Bactroban Ointment (For Decolonization) -) 1 applic NS BID [facility] Stop: 07/23/18 09:59 Promethazine HCl (Phenergan Injection -) 25 mg IM Q6H PRN PRN Reason: NAUSEA AND/OR VOMITING Thiamine HCl (Vitamin B1 -) 100 mg PO DAILY [facility] GENERAL: Awake, alert, and fully oriented, NAD HEAD: Normal with no signs of trauma. EYES: Pupils equal, round and reactive to light, extraocular movements intact, sclera anicteric, conjunctiva clear. No lid lag. EARS, NOSE, THROAT: Ears normal, nares patent, oropharynx clear without exudates. Moist mucous membranes. NECK: Normal range of motion, supple without lymphadenopathy, JVD, or masses. LUNGS: Breath sounds equal, clear to auscultation bilaterally. No wheezes, and no crackles. No accessory muscle use. HEART: Regular rate and rhythm, normal S1 and S2 without murmur, rub or gallop. ABDOMEN: Soft, nontender, not distended, normoactive bowel sounds, no guarding, no rebound, no masses. No hepatomegaly or splenomegaly. MUSCULOSKELETAL: Normal range of motion at all joints. No bony deformities or tenderness. No CVA tenderness. UPPER EXTREMITIES: 2+ pulses, warm, well-perfused. No cyanosis. No clubbing. Cap refill <2 seconds. No peripheral edema. LOWER EXTREMITIES: 2+ pulses, warm, well-perfused. No calf tenderness. No peripheral edema. NEUROLOGICAL: Non-focal PSYCHIATRIC: Agitated SKIN: Warm, dry, normal turgor, no rashes or lesions noted. Laboratory Results - last 24 hr 07/18/18 07/18/18 07/18/18 01:01 01:01 05:35 WBC 14.5 H RBC 4.17 Hgb 15.1 Hct 42.7 MCV 102.3 H MCH 36.1 H MCHC 35.3 RDW 13.5 Plt Count 183 MPV 9.2 Absolute Neuts (auto) 12.1 H Neutrophils % 83.5 H Lymphocytes % 5.4 L Monocytes % 10.9 H Eosinophils % 0.0 Basophils % 0.2 Nucleated RBC % 0 PT with INR Cancelled INR Cancelled PTT (Actin FS) Cancelled Sodium 137 Potassium 3.6 Chloride 100 Carbon Dioxide 27 Anion Gap 10 BUN 10 Creatinine 1.0 Creat Clearance w eGFR > 60 Random Glucose 133 H Lactic Acid Calcium 9.4 Phosphorus Magnesium Total Bilirubin 1.7 H Direct Bilirubin AST 53 H ALT 82 H Alkaline Phosphatase 94 Creatine Kinase 259 Creatine Kinase Index 0.3 CK-MB (CK-2) 1.0 Troponin I < 0.02 Total Protein 7.1 Albumin 3.9 Alcohol, Quantitative Blood Type Antibody Screen 07/18/18 07/18/18 07/18/18 05:35 08:00 08:00 WBC 13.3 H RBC 4.01 Hgb 13.8 Hct 41.4 MCV 103.1 H MCH 34.4 H MCHC 33.3 RDW 13.1 Plt Count 140 D MPV 8.7 Absolute Neuts (auto) 10.7 H Neutrophils % 80.8 Lymphocytes % 6.3 L Monocytes % 12.5 H Eosinophils % 0.0 Basophils % 0.4 Nucleated RBC % 0 PT with INR 9.90 INR 0.84 PTT (Actin FS) 25.8 Sodium Potassium Chloride Carbon Dioxide Anion Gap BUN Creatinine Creat Clearance w eGFR Random Glucose Lactic Acid Calcium Phosphorus Magnesium Total Bilirubin Direct Bilirubin AST ALT Alkaline Phosphatase Creatine Kinase Creatine Kinase Index CK-MB (CK-2) Troponin I Total Protein Albumin Alcohol, Quantitative Blood Type B NEGATIVE Antibody Screen Negative 07/18/18 07/18/18 07/18/18 08:00 08:00 09:00 WBC RBC Hgb Hct MCV MCH MCHC RDW Plt Count MPV Absolute Neuts (auto) Neutrophils % Lymphocytes % Monocytes % Eosinophils % Basophils % Nucleated RBC % PT with INR INR PTT (Actin FS) Sodium 140 Potassium 3.7 Chloride 104 Carbon Dioxide 26 Anion Gap 10 BUN 8 Creatinine 0.7 Creat Clearance w eGFR > 60 Random Glucose 120 H Lactic Acid 1.3 Calcium 8.7 Phosphorus Magnesium Total Bilirubin 1.3 H Direct Bilirubin AST 47 H ALT 70 H Alkaline Phosphatase 83 Creatine Kinase 300 Creatine Kinase Index 0.4 CK-MB (CK-2) 1.2 Troponin I < 0.01 Total Protein 6.3 L Albumin 3.3 L Alcohol, Quantitative Blood Type B NEGATIVE Antibody Screen 07/18/18 07/18/18 07/18/18 09:01 09:01 09:01 WBC RBC Hgb Hct MCV MCH MCHC RDW Plt Count MPV Absolute Neuts (auto) Neutrophils % Lymphocytes % Monocytes % Eosinophils % Basophils % Nucleated RBC % PT with INR INR PTT (Actin FS) Sodium Potassium Chloride Carbon Dioxide Anion Gap BUN Creatinine Creat Clearance w eGFR Random Glucose Lactic Acid Calcium Phosphorus 2.2 L Magnesium 2.0 Total Bilirubin 1.7 H Direct Bilirubin 0.6 H AST ALT Alkaline Phosphatase Creatine Kinase Cancelled Creatine Kinase Index Cancelled CK-MB (CK-2) Cancelled Troponin I Total Protein Albumin Alcohol, Quantitative < 3.0 Blood Type Antibody Screen 07/18/18 09:01 WBC RBC Hgb Hct MCV MCH MCHC RDW Plt Count MPV Absolute Neuts (auto) Neutrophils % Lymphocytes % Monocytes % Eosinophils % Basophils % Nucleated RBC % PT with INR INR PTT (Actin FS) Sodium Potassium Chloride Carbon Dioxide Anion Gap BUN Creatinine Creat Clearance w eGFR Random Glucose Lactic Acid Calcium Phosphorus Magnesium Total Bilirubin Direct Bilirubin AST ALT Alkaline Phosphatase Creatine Kinase Creatine Kinase Index CK-MB (CK-2) Cancelled Troponin I Total Protein Albumin Alcohol, Quantitative Blood Type Antibody Screen IMP: SAH SDH ETOH abuse S/P Fall Leukocytosis PLAN: Keppra for Seizure prophylaxis Fall precautions Follow head CT in 24 hours from first study or if new symptoms Coags are currently normal, follow and correct if appropriate No ASA / NSAIDS / antiplatelets Follow Neuro exam SCDs MVI Thiamine replacement FA ICU monitoring for close Neuro checks Dr Haskins Critical care time spent in reviewing chart, evaluating patient and formulating plan - 36 minutes.
[2018-07-18 14:04] LABS: URINE BENZODIAZEPINES POSITIVE ng/ml (CUTOFF=200)
[2018-07-18 15:39] LABS: URINE APPEARANCE CLEAR; URINE BILIRUBIN NEGATIVE (<2.0 mg/dL); URINE COLOR YELLOW; URINE GLUCOSE (UA) NEGATIVE (NEGATIVE); URINE KETONE TRACE (NEGATIVE); URINE LEUK ESTERASE NEGATIVE (NEGATIVE); URINE NITRITE NEGATIVE (NEGATIVE); URINE PROTEIN NEGATIVE (NEGATIVE)
--- NOTE | 2018-07-18 18:36 | PN ---
Teaching Attending Note Name of Resident: Johnny De La Rosa ATTENDING PHYSICIAN STATEMENT I saw and evaluated the patient. I reviewed the resident's note and discussed the case with the resident. I agree with the resident's findings and plan as documented with exceptions below. SUBJECTIVE: 68 yom with PMHx of alcohol abuse, brought in with fall 2 days ago. Patient with no recollection of events, reports drinks heavily daily. Per neighbor, fall 2 days ago, patient refused to come, so called 911 today and patient was brought in. Patient was noted with SDH/SAH/Intra parenchymal haemorrhage and occipital bone fracture. Patient reports some headache and pain back of the head, but no visual changes, chest pain, palpitations, dyspnea, dizziness, abdominal pain, diarrhea. Had some vomiting prior to admission but none since. 12 point ROS done, neg except above. OBJECTIVE: Vital Signs Period Temp Pulse Resp BP Sys/Dawn Pulse Ox Last 24 Hr 97.8 F-101.7 F 76-105 16-20 101-153/51-85 97-99 Intake & Output 07/15/18 07/16/18 07/17/18 07/18/18 23:59 23:59 23:59 23:59 Weight 140 lb GENERAL: Awake, alert, and fully oriented, in no acute distress. HEAD: Normal with no signs of trauma. EYES: Pupils 1 mm reactive to light symmetric, EOMI EARS, NOSE, THROAT: Ears normal, nares patent, oropharynx clear without exudates. Mildly dry mucous membrane NECK: Normal range of motion, supple without lymphadenopathy, JVD, or masses. LUNGS: Breath sounds equal, clear to auscultation bilaterally. No wheezes, and no crackles. No accessory muscle use. HEART: S1S2 regular rate rhythm ABDOMEN: Soft, nontender, not distended, normoactive bowel sounds, no guarding, no rebound, no masses. MUSCULOSKELETAL: Normal range of motion at all joints. No bony deformities or tenderness. No CVA tenderness. UPPER EXTREMITIES: 2+ pulses, warm, well-perfused. No cyanosis. No clubbing. No peripheral edema, some pain with left wrist ROM, mild ecchymosis over left elbow. LOWER EXTREMITIES: 2+ pulses, warm, well-perfused. No calf tenderness. No peripheral edema. NEUROLOGICAL: AAOX3, power 5/5 sensation intact and symmetric to light touch, DTR bilaterally symmetric, EOMI, tongue midline, facial symmetry, no pronator drift, toes down going PSYCHIATRIC: Cooperative. Good eye contact. Appropriate mood and affect. SKIN: Warm, dry, normal turgor, no rashes or lesions noted, normal capillary refill. Home Medications Medication Instructions Recorded NK [No Known Home Medication] 07/18/18 Active Medications Acetaminophen (Tylenol -) 650 mg PO Q6H PRN PRN Reason: PAIN Chlordiazepoxide HCl (Librium -) 5 mg PO Q6H PRN PRN Reason: ANXIETY Last Admin: 07/18/18 12:17 Dose: 5 mg Chlorhexidine Gluconate (Hibiclens For Decolonization -) 1 applic TP HS TRISHA Folic Acid (Folic Acid -) 1 mg PO DAILY [facility] Levetiracetam (Keppra Injection -) 500 mg IVPB BID [facility] Last Admin: 07/18/18 10:05 Dose: 500 mg Mupirocin (Bactroban Ointment (For Decolonization) -) 1 applic NS BID [facility] Stop: 07/23/18 09:59 Promethazine HCl (Phenergan Injection -) 25 mg IM Q6H PRN PRN Reason: NAUSEA AND/OR VOMITING Thiamine HCl (Vitamin B1 -) 100 mg PO DAILY [facility] Laboratory Results - last 24 hr 07/18/18 07/18/18 07/18/18 01:01 01:01 05:35 WBC 14.5 H RBC 4.17 Hgb 15.1 Hct 42.7 MCV 102.3 H MCH 36.1 H MCHC 35.3 RDW 13.5 Plt Count 183 MPV 9.2 Absolute Neuts (auto) 12.1 H Neutrophils % 83.5 H Neutrophils % (Manual) Band Neutrophils % Lymphocytes % 5.4 L Lymphocytes % (Manual) Monocytes % 10.9 H Monocytes % (Manual) Eosinophils % 0.0 Eosinophils % (Manual) Basophils % 0.2 Basophils % (Manual) Myelocytes % (Man) Promyelocytes % (Man) Blast Cells % (Manual) Nucleated RBC % 0 Metamyelocytes Hypochromia Platelet Estimate Polychromasia Poikilocytosis Anisocytosis Microcytosis Macrocytosis Tear Drop Cells Ovalocytes PT with INR Cancelled INR Cancelled PTT (Actin FS) Cancelled Sodium 137 Potassium 3.6 Chloride 100 Carbon Dioxide 27 Anion Gap 10 BUN 10 Creatinine 1.0 Creat Clearance w eGFR > 60 Random Glucose 133 H Lactic Acid Calcium 9.4 Phosphorus Magnesium Total Bilirubin 1.7 H Direct Bilirubin AST 53 H ALT 82 H Alkaline Phosphatase 94 Creatine Kinase 259 Creatine Kinase Index 0.3 CK-MB (CK-2) 1.0 Troponin I < 0.02 Total Protein 7.1 Albumin 3.9 Urine Color Urine Appearance Urine pH Ur Specific [place] Urine Protein Urine Glucose (UA) Urine Ketones Urine Blood Urine Nitrite Urine Bilirubin Urine Urobilinogen Ur Leukocyte Esterase Opiates Screen Methadone Screen Barbiturate Screen Phencyclidine Screen Ur Amphetamines Screen MDMA (Ecstasy) Screen Benzodiazepines Screen Cocaine Screen U Marijuana (THC) Screen Alcohol, Quantitative Blood Type Antibody Screen 07/18/18 07/18/18 07/18/18 05:35 08:00 08:00 WBC 13.3 H RBC 4.01 Hgb 13.8 Hct 41.4 MCV 103.1 H MCH 34.4 H MCHC 33.3 RDW 13.1 Plt Count 140 D MPV 8.7 Absolute Neuts (auto) 10.7 H Neutrophils % 80.8 Neutrophils % (Manual) 85.0 H Band Neutrophils % 1.0 Lymphocytes % 6.3 L Lymphocytes % (Manual) 3.0 L Monocytes % 12.5 H Monocytes % (Manual) 9 Eosinophils % 0.0 Eosinophils % (Manual) 0.0 Basophils % 0.4 Basophils % (Manual) 0.0 Myelocytes % (Man) 0 Promyelocytes % (Man) 0 Blast Cells % (Manual) 0 Nucleated RBC % 0 Metamyelocytes 0 Hypochromia 0 Platelet Estimate Decreased Polychromasia 0 Poikilocytosis 0 Anisocytosis 1+ Microcytosis 0 Macrocytosis 1+ Tear Drop Cells 1+ Ovalocytes 1+ PT with INR 9.90 INR 0.84 PTT (Actin FS) 25.8 Sodium Potassium Chloride Carbon Dioxide Anion Gap BUN Creatinine Creat Clearance w eGFR Random Glucose Lactic Acid Calcium Phosphorus Magnesium Total Bilirubin Direct Bilirubin AST ALT Alkaline Phosphatase Creatine Kinase Creatine Kinase Index CK-MB (CK-2) Troponin I Total Protein Albumin Urine Color Urine Appearance Urine pH Ur Specific [place] Urine Protein Urine Glucose (UA) Urine Ketones Urine Blood Urine Nitrite Urine Bilirubin Urine Urobilinogen Ur Leukocyte Esterase Opiates Screen Methadone Screen Barbiturate Screen Phencyclidine Screen Ur Amphetamines Screen MDMA (Ecstasy) Screen Benzodiazepines Screen Cocaine Screen U Marijuana (THC) Screen Alcohol, Quantitative Blood Type B NEGATIVE Antibody Screen Negative 07/18/18 07/18/18 07/18/18 08:00 08:00 09:00 WBC RBC Hgb Hct MCV MCH MCHC RDW Plt Count MPV Absolute Neuts (auto) Neutrophils % Neutrophils % (Manual) Band Neutrophils % Lymphocytes % Lymphocytes % (Manual) Monocytes % Monocytes % (Manual) Eosinophils % Eosinophils % (Manual) Basophils % Basophils % (Manual) Myelocytes % (Man) Promyelocytes % (Man) Blast Cells % (Manual) Nucleated RBC % Metamyelocytes Hypochromia Platelet Estimate Polychromasia Poikilocytosis Anisocytosis Microcytosis Macrocytosis Tear Drop Cells Ovalocytes PT with INR INR PTT (Actin FS) Sodium 140 Potassium 3.7 Chloride 104 Carbon Dioxide 26 Anion Gap 10 BUN 8 Creatinine 0.7 Creat Clearance w eGFR > 60 Random Glucose 120 H Lactic Acid 1.3 Calcium 8.7 Phosphorus Magnesium Total Bilirubin 1.3 H Direct Bilirubin AST 47 H ALT 70 H Alkaline Phosphatase 83 Creatine Kinase 300 Creatine Kinase Index 0.4 CK-MB (CK-2) 1.2 Troponin I < 0.01 Total Protein 6.3 L Albumin 3.3 L Urine Color Urine Appearance Urine pH Ur Specific [place] Urine Protein Urine Glucose (UA) Urine Ketones Urine Blood Urine Nitrite Urine Bilirubin Urine Urobilinogen Ur Leukocyte Esterase Opiates Screen Methadone Screen Barbiturate Screen Phencyclidine Screen Ur Amphetamines Screen MDMA (Ecstasy) Screen Benzodiazepines Screen Cocaine Screen U Marijuana (THC) Screen Alcohol, Quantitative Blood Type B NEGATIVE Antibody Screen 07/18/18 07/18/18 07/18/18 09:01 09:01 09:01 WBC RBC Hgb Hct MCV MCH MCHC RDW Plt Count MPV Absolute Neuts (auto) Neutrophils % Neutrophils % (Manual) Band Neutrophils % Lymphocytes % Lymphocytes % (Manual) Monocytes % Monocytes % (Manual) Eosinophils % Eosinophils % (Manual) Basophils % Basophils % (Manual) Myelocytes % (Man) Promyelocytes % (Man) Blast Cells % (Manual) Nucleated RBC % Metamyelocytes Hypochromia Platelet Estimate Polychromasia Poikilocytosis Anisocytosis Microcytosis Macrocytosis Tear Drop Cells Ovalocytes PT with INR INR PTT (Actin FS) Sodium Potassium Chloride Carbon Dioxide Anion Gap BUN Creatinine Creat Clearance w eGFR Random Glucose Lactic Acid Calcium Phosphorus 2.2 L Magnesium 2.0 Total Bilirubin 1.7 H Direct Bilirubin 0.6 H AST ALT Alkaline Phosphatase Creatine Kinase Cancelled Creatine Kinase Index Cancelled CK-MB (CK-2) Cancelled Troponin I Total Protein Albumin Urine Color Urine Appearance Urine pH Ur Specific [place] Urine Protein Urine Glucose (UA) Urine Ketones Urine Blood Urine Nitrite Urine Bilirubin Urine Urobilinogen Ur Leukocyte Esterase Opiates Screen Methadone Screen Barbiturate Screen Phencyclidine Screen Ur Amphetamines Screen MDMA (Ecstasy) Screen Benzodiazepines Screen Cocaine Screen U Marijuana (THC) Screen Alcohol, Quantitative < 3.0 Blood Type Antibody Screen 07/18/18 07/18/18 07/18/18 09:01 11:45 15:26 WBC RBC Hgb Hct MCV MCH MCHC RDW Plt Count MPV Absolute Neuts (auto) Neutrophils % Neutrophils % (Manual) Band Neutrophils % Lymphocytes % Lymphocytes % (Manual) Monocytes % Monocytes % (Manual) Eosinophils % Eosinophils % (Manual) Basophils % Basophils % (Manual) Myelocytes % (Man) Promyelocytes % (Man) Blast Cells % (Manual) Nucleated RBC % Metamyelocytes Hypochromia Platelet Estimate Polychromasia Poikilocytosis Anisocytosis Microcytosis Macrocytosis Tear Drop Cells Ovalocytes PT with INR INR PTT (Actin FS) Sodium Potassium Chloride Carbon Dioxide Anion Gap BUN Creatinine Creat Clearance w eGFR Random Glucose Lactic Acid Calcium Phosphorus Magnesium Total Bilirubin Direct Bilirubin AST ALT Alkaline Phosphatase Creatine Kinase Creatine Kinase Index CK-MB (CK-2) Cancelled Troponin I Total Protein Albumin Urine Color Yellow Urine Appearance Clear Urine pH 8.0 Ur Specific [place] 1.011 Urine Protein Negative Urine Glucose (UA) Negative Urine Ketones Trace H Urine Blood Negative Urine Nitrite Negative Urine Bilirubin Negative Urine Urobilinogen 2.0 Ur Leukocyte Esterase Negative Opiates Screen Negative Methadone Screen Negative Barbiturate Screen Negative Phencyclidine Screen Negative Ur Amphetamines Screen Negative MDMA (Ecstasy) Screen Negative Benzodiazepines Screen Positive A* Cocaine Screen Negative U Marijuana (THC) Screen Negative Alcohol, Quantitative Blood Type Antibody Screen CT head and repeat CT head images and results reviewed CXR/left wrist/left elbow xrays results reviewed CT C-spine results reviewed EKG NSR, no acute ST-T changes ASSESSMENT AND PLAN: 68 yom with alcohol abuse, with unwitnessed fall, suspected 2 days ago admitted with SDH/SAH/Intraparenchymal Haemorrhage with edema, Occipital bone fracture. -SDH/SAH/intraparenchymal haemorrhage with edema, suspect traumatic -Occipital bone fracture -Alcohol abuse/withdrawal -Fever, ?Aspiration Pneumonitis in the setting of vomiting/alcohol use Plan: Neurosurgery input appreciated. Jesse, neuro checks q1-2 h[address] ICU [address] head noted. IVF D5NS with K. Replete Phos Libirium withdrawal protocol, avoid aggressive benzos x 24 hours as will confound neurological exam Detox consult. Blood cx. Hold off on abx for now Repeat CXR in AM if recurrent fevers. CXR/urinalysis neg so far. DVTPPX with SCDs dispo admit to ICU given bleed with occipital bone fracture and edema. Total critical care time spent including discussion with patient, nursing, Dr. Hayes, ED, ICU and co-ordination of care 50 min.
[2018-07-18] MEDS: D5-NS + 20 MEQ KCL - 20 MEQ/1,000 ML INFUS.BAG IV SCH (18:56)
[2018-07-18] MEDS ORDERED: SODIUM PHOSPHATE - 20 MM in DEXTROSE 5%-WATER - 250 ML IVPB ONE (19:30)
[2018-07-18] MEDS: CHLORHEXIDINE GLUCONATE 4% CLEANSER FOR DECOLONIZATION TP SCH (22:23)
[2018-07-18] MEDS ORDERED: LORazepam 2 MG/ML SDV VIAL IVPUSH ONE (22:55)
[2018-07-18] MEDS ORDERED: chlordiazePOXIDE HCL 25 MG CAPSULE PO PRN (22:56)
[2018-07-18] MEDS ORDERED: chlordiazePOXIDE HCL 25 MG CAPSULE PO SCH (23:00)
[2018-07-18] MEDS: MUPIROCIN 2% TOPICAL OINTMENT FOR DECOLONIZATION NS SCH (23:00)
[2018-07-18] MEDS: chlordiazePOXIDE HCL 25 MG CAPSULE PO SCH (23:45)
[2018-07-19] MEDS: LORazepam 2 MG/ML SDV VIAL IVPUSH PRN ×3 (01:35→22:54)
[2018-07-19] MEDS: chlordiazePOXIDE HCL 25 MG CAPSULE PO SCH ×2 (05:49→10:22)
[2018-07-19 06:20] LABS: BASO % 0.4 % (0-2.0); EOS % 0.2 % (0-4.5); HEMOGLOBIN 13.3 GM/dL (11.7-16.9); LYMPH % 12.3 % (8-40); MCH 34.7 pg (25.7-33.7); MCHC 33.4 g/dl (32.0-35.9); MEAN CELL VOLUME 103.8 fl (80-96); MEAN PLT VOLUME 8.6 fl (7.5-11.1); MONO % 13.3 % (3.8-10.2); NEUT % 73.8 % (42.8-82.8); PLATELET COUNT 131 K/MM3 (134-434); RBC 3.85 M/mm3 (4.00-5.60); RDW 13.4 % (11.9-15.9); WHITE BLOOD COUNT 9.9 K/mm3 (4.0-10.0)
[2018-07-19 07:04] LABS: ALBUMIN 3.1 g/dl (3.4-5.0); ALK PHOS 82 U/L (45-117); ANION GAP 9 MMOL/L (8-16); BILIRUBIN,TOTAL 1.2 mg/dL (0.2-1); BLOOD UREA NITROGEN 6 mg/dL (7-18); CALCIUM 8.4 mg/dL (8.5-10.1); CHLORIDE 106 mmol/L (98-107); CO2 27 mmol/L (21-32); CREATININE 0.7 mg/dL (0.55-1.3); GLUCOSE,RANDOM 100 mg/dL (74-106); MAGNESIUM 2.2 mg/dL (1.8-2.4); PHOSPHOROUS 3.4 mg/dL (2.5-4.9); POTASSIUM 3.2 mmol/L (3.5-5.1); SGOT/AST 44 U/L (15-37); SGPT/ALT 63 U/L (13-61); SODIUM 143 mmol/L (136-145); TOT PROT 6.2 g/dl (6.4-8.2)
[2018-07-19] MEDS ORDERED: POTASSIUM CHLORIDE 20 MEQ PREMIX IVPB 100 ML IVPB ONE (08:05)
[2018-07-19 08:23] LABS: INR 0.9 (0.83-1.09); PROTHROMBIN TIME (PATIENT) 10.6 SEC (9.7-13.0)
[2018-07-19 08:25] LABS: ACTIVATED PTT 27.6 SECONDS (25.2-36.5)
[2018-07-19] MEDS: KCL 10 MEQ IVPB 10 MEQ/100 ML INFUS.BAG IVPB SCH ×3 (08:57→10:30)
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
[2018-07-19] MEDS ORDERED: FOLIC ACID INJECTION - 1 MG, THIAMINE HCL 100 MG, MULTIVIT INJECTION ADULT 10 ML in SOD... IVPB ONE (09:00)
[2018-07-19] MEDS: levETIRAcetam 500 MG/5 ML INJECTION VIAL IVPB SCH ×2 (09:47→21:52)
[2018-07-19] MEDS: NICOTINE 21 MG/24 HOURS TOPICAL PATCH TD SCH (09:48)
[2018-07-19] MEDS ORDERED: PNEUMOC 13-VAL CONJ-DIP CRM/PF 0.5 ML DISP.SYRIN IM ONE (10:00)
[2018-07-19] MEDS ORDERED: FLU VACCINE QUAD 60 MCG/0.5 ML (MDV 18-19) IM ONE (10:00)
[2018-07-19] MEDS ORDERED: FOLIC ACID 1 MG TABLET (FP) PO SCH (10:00)
[2018-07-19] MEDS ORDERED: THIAMINE HCL 100 MG TABLET (FP) PO SCH (10:00)
[2018-07-19] MEDS ORDERED: PT OWN MED DRAWER 7, Y5N ONE ×2 (10:10→21:49)
[2018-07-19] MEDS ORDERED: LORazepam 2 MG/ML SDV VIAL ONE (10:22)
[2018-07-19] MEDS ORDERED: LORazepam 2 MG/ML SDV VIAL IVPUSH ONE ×3 (10:24→16:40)
[2018-07-19] MEDS: MUPIROCIN 2% TOPICAL OINTMENT FOR DECOLONIZATION NS SCH ×2 (10:30→21:47)
--- NOTE | 2018-07-19 10:56 | EKG ---
Test Reason : Blood Pressure : / mmHG Vent. Rate : 098 BPM Atrial Rate : 098 BPM P-R Int : 122 ms QRS Dur : 084 ms QT Int : 332 ms P-R-T Axes : 076 077 033 degrees QTc Int : 423 ms NORMAL SINUS RHYTHM NORMAL ECG WHEN COMPARED WITH ECG OF 18-JUL-2018 01:12, PREMATURE VENTRICULAR COMPLEXES ARE NO LONGER PRESENT Confirmed by KARIS FATIMA, JOSÉ ([id number]) on 07/19/2018 10:55:54 AM Referred By: USMAN LEAL Confirmed By:JOSÉ DYSON MD
[2018-07-19] MEDS ORDERED: LABETALOL HCL 5 MG/1 ML (100MG/20 ML VIAL) IVPUSH PRN ×2 (12:06→12:18)
[2018-07-19] MEDS: D5-NS + 20 MEQ KCL - 20 MEQ/1,000 ML INFUS.BAG IV SCH ×2 (12:15→19:10)
--- NOTE | 2018-07-19 12:17 | PN ---
Physical Exam: SUBJECTIVE: Patient seen and examined Ativan given just prior to examination due to agitation. Arousable, able to follow simple commands. OBJECTIVE: Vital Signs Period Temp Pulse Resp BP Sys/Dawn Pulse Ox Last 24 Hr 98.3 F-101.8 F 86-101 15-108 118-170/69-88 97-99 GENERAL: lethargic 2/2 ativan HEAD: Normal with no signs of trauma. EYES: PERRL, extraocular movements intact, sclera anicteric, conjunctiva clear. No nystagmus. No ptosis. ENT: dry mucosa NECK: Trachea midline LUNGS: slightly coarse breath sounds bilaterally, no wheezes, no crackles, no accessory muscle use. HEART: Regular rate and rhythm, S1, S2 without murmur, rub or gallop. ABDOMEN: Soft, nontender, nondistended, normoactive bowel sounds, no guarding, no rebound, no hepatosplenomegaly, no masses. EXTREMITIES: 2+ pulses, warm, well-perfused, no edema. NEUROLOGICAL: lethargic 2/2 ativan SKIN: Warm, dry, normal turgor, no rashes or lesions noted Laboratory Results - last 24 hr 07/18/18 07/18/18 07/18/18 08:00 11:45 15:26 WBC RBC Hgb Hct MCV MCH MCHC RDW Plt Count MPV Absolute Neuts (auto) Neutrophils % Neutrophils % (Manual) 85.0 H Band Neutrophils % 1.0 Lymphocytes % Lymphocytes % (Manual) 3.0 L Monocytes % Monocytes % (Manual) 9 Eosinophils % Eosinophils % (Manual) 0.0 Basophils % Basophils % (Manual) 0.0 Myelocytes % (Man) 0 Promyelocytes % (Man) 0 Blast Cells % (Manual) 0 Nucleated RBC % Metamyelocytes 0 Hypochromia 0 Platelet Estimate Decreased Polychromasia 0 Poikilocytosis 0 Anisocytosis 1+ Microcytosis 0 Macrocytosis 1+ Tear Drop Cells 1+ Ovalocytes 1+ PT with INR INR PTT (Actin FS) Sodium Potassium Chloride Carbon Dioxide Anion Gap BUN Creatinine Creat Clearance w eGFR Random Glucose Calcium Phosphorus Magnesium Total Bilirubin AST ALT Alkaline Phosphatase Total Protein Albumin Urine Color Yellow Urine Appearance Clear Urine pH 8.0 Ur Specific [place] 1.011 Urine Protein Negative Urine Glucose (UA) Negative Urine Ketones Trace H Urine Blood Negative Urine Nitrite Negative Urine Bilirubin Negative Urine Urobilinogen 2.0 Ur Leukocyte Esterase Negative Opiates Screen Negative Methadone Screen Negative Barbiturate Screen Negative Phencyclidine Screen Negative Ur Amphetamines Screen Negative MDMA (Ecstasy) Screen Negative Benzodiazepines Screen Positive A* Cocaine Screen Negative U Marijuana (THC) Screen Negative 07/19/18 07/19/18 07/19/18 05:30 05:30 05:30 WBC 9.9 RBC 3.85 L Hgb 13.3 Hct 40.0 MCV 103.8 H MCH 34.7 H MCHC 33.4 RDW 13.4 Plt Count 131 L MPV 8.6 Absolute Neuts (auto) 7.3 Neutrophils % 73.8 Neutrophils % (Manual) Band Neutrophils % Lymphocytes % 12.3 D Lymphocytes % (Manual) Monocytes % 13.3 H Monocytes % (Manual) Eosinophils % 0.2 D Eosinophils % (Manual) Basophils % 0.4 Basophils % (Manual) Myelocytes % (Man) Promyelocytes % (Man) Blast Cells % (Manual) Nucleated RBC % 0 Metamyelocytes Hypochromia Platelet Estimate Polychromasia Poikilocytosis Anisocytosis Microcytosis Macrocytosis Tear Drop Cells Ovalocytes PT with INR 10.60 INR 0.90 PTT (Actin FS) 27.6 Sodium 143 Potassium 3.2 L Chloride 106 Carbon Dioxide 27 Anion Gap 9 BUN 6 L Creatinine 0.7 Creat Clearance w eGFR > 60 Random Glucose 100 Calcium 8.4 L Phosphorus 3.4 Magnesium 2.2 Total Bilirubin 1.2 H AST 44 H ALT 63 H Alkaline Phosphatase 82 Total Protein 6.2 L Albumin 3.1 L Urine Color Urine Appearance Urine pH Ur Specific [place] Urine Protein Urine Glucose (UA) Urine Ketones Urine Blood Urine Nitrite Urine Bilirubin Urine Urobilinogen Ur Leukocyte Esterase Opiates Screen Methadone Screen Barbiturate Screen Phencyclidine Screen Ur Amphetamines Screen MDMA (Ecstasy) Screen Benzodiazepines Screen Cocaine Screen U Marijuana (THC) Screen Active Medications Generic Name Dose Route Start Last Admin Trade Name Freq PRN Reason Stop Dose Admin Acetaminophen 650 mg 07/18/18 08:28 Tylenol - PO Q6H PRN PAIN Chlorhexidine Gluconate 1 applic 07/18/18 22:00 07/18/18 22:23 Hibiclens For Decolonization - TP 1 applic HS TRISHA Administration Folic Acid 1 mg 07/19/18 10:00 07/19/18 11:46 Folic Acid - PO Not Given DAILY TRISHA Dextrose/Sodium Chloride 20 meq in 1,000 mls @ 100 mls/hr 07/18/18 18:45 18:56 Dextrose 5%-Normal Saline+20 Meq Kcl - IV 100 mls/hr ASDIR TRISHA Administration Folic Acid 1 mg/ Thiamine HCl 1,000 mls @ 125 mls/hr 07/19/18 09:00 07/19/18 10:30 100 mg/ Multivitamins/Minerals IVPB 07/19/18 16:59 125 mls/hr 10 ml/ Sodium Chloride ONCE ONE Administration Famotidine/Sodium Chloride 20 mg in 50 mls @ 100 mls/hr 07/19/18 12:15 Pepcid 20 Mg Premixed Ivpb - IVPB DAILY@0800 [facility] Labetalol HCl 10 mg 07/19/18 12:06 Normodyne Injection - IVPUSH PRN PRN HYPERTENSION Levetiracetam 500 mg 07/18/18 10:00 07/19/18 09:47 Keppra Injection - IVPB 500 mg BID TRISHA Administration Lorazepam 2 mg 07/19/18 18:00 Ativan Injection - IVPUSH Q6H PRN ANXIETY Mupirocin 1 applic 07/18/18 22:15 07/19/18 10:30 Bactroban Ointment (For Decolonization) - NS 07/23/18 22:14 1 applic BID TRISHA Administration Nicotine 21 mg 07/19/18 10:00 07/19/18 09:48 Nicoderm Patch - TD 21 mg DAILY TRISHA Administration Promethazine HCl 25 mg 07/18/18 08:28 Phenergan Injection - IM Q6H PRN NAUSEA AND/OR VOMITING Thiamine HCl 100 mg 07/19/18 10:00 07/19/18 11:46 Vitamin B1 - PO Not Given DAILY [facility] ASSESSMENT/PLAN: 68 alcoholic man presenting s/p fall 3 days ago with N,V and headaches, found to have bilateral frontal contusion, subdural and subarachnoid hemorrhage and comminuted fracture of the occipital bone. Now with agitation and possible symptoms of alcohol withdrawal. No seizures witnessed. Neuro Subdural, subarachnoid, occipital fracture - Neurocheck Q1H - Keppra 500 mg BID seizure ppx - Ativan 2mg Q6H for agitation - Neurosurgery following (Dr. Hayes) - stable (07/18 - 07/19) recommend cont ICU monitoring and observe/tx for DT - Tylenol PRN for headaches - HOB elevated to 30degrees + - Repeat head CT Pulm Aspiration Risk - CXR daily - chlorhexidine mouthwash - oral suctioning - incentive spirometry HTN - Labetolol 5mg for SBP >140 F/E/N Alcohol Withdrawal, Hypokalemia - Banana bag daily - KCl repletion for K of 3.2, pending K recheck at 1400, trend - Glucose fingerstick Q4H GI ppx - Pepcid 20mg daily DVT ppx - SCDs Visit type - Emergency Visit Emergency Visit: Yes ED Registration Date: 07/18/18 Care time: The patient presented to the Emergency Department on the above date and was hospitalized for further evaluation of their emergent condition. - New Patient This patient is new to me today: Yes Date on this admission: 07/19/18 - Critical Care Critical Care patient: Yes Total Critical Care Time (in minutes): 35 Critical Care Statement: The care of this patient involved high complexity decision making to prevent further life threatening deterioration of the patient 's condition and/or to evaluate & treat vital organ system(s) failure or risk of failure.
[2018-07-19] MEDS ORDERED: LABETALOL HCL 5 MG/1 ML (100MG/20 ML VIAL) IVPUSH ONE ×2 (12:31)
[2018-07-19] MEDS: FAMOTIDINE 20 MG/50 ML IVPB 20 MG/50 ML MG IVPB SCH (12:33)
[2018-07-19] MEDS ORDERED: ACETAMINOPHEN 1000 MG/100 ML VIAL (NON FORMULARY) IVPB ONE (13:12)
--- NOTE | 2018-07-19 15:03 | PN ---
Teaching Attending Note Name of Resident: Nina Campos ATTENDING PHYSICIAN STATEMENT I saw and evaluated the patient. I reviewed the resident's note and discussed the case with the resident. I agree with the resident's findings and plan as documented. SUBJECTIVE: Pt seen and examined in the ICU. Poorly responsive but received sedation for agitation. Intermittent fevers overnight. OBJECTIVE: Vital Signs Period Temp Pulse Resp BP Sys/Dawn Pulse Ox Last 24 Hr 98.3 F-101.8 F 86-101 15-108 144-170/69-88 97-99 Intake & Output 07/16/18 07/17/18 07/18/18 07/19/18 23:59 23:59 23:59 23:59 Intake Total 100 850 Balance 100 850 Weight 63.503 kg 64.524 kg 64.524 kg Gen: lethargic Heart: RRR Lung: scattered rhonchi Abd: soft, nontender Ext: no edema CBC, BMP 07/19/18 05:30 07/19/18 05:30 Active Medications Acetaminophen (Tylenol -) 650 mg PO Q6H PRN PRN Reason: PAIN Chlorhexidine Gluconate (Hibiclens For Decolonization -) 1 applic TP HS [facility] Last Admin: 07/18/18 22:23 Dose: 1 applic Dextrose/Sodium Chloride (Dextrose 5%-Normal Saline+20 Meq Kcl -) 20 meq in 1, 000 mls @ 100 mls/hr IV ASDIR [facility] Last Admin: 07/19/18 12:15 Dose: 100 mls/hr Folic Acid 1 mg/ Thiamine HCl 100 mg/ Multivitamins/Minerals 10 ml/ Sodium Chloride 1,000 mls @ 125 mls/hr IVPB ONCE ONE Stop: 07/19/18 16:59 Last Admin: 07/19/18 10:30 Dose: 125 mls/hr Famotidine/Sodium Chloride (Pepcid 20 Mg Premixed Ivpb -) 20 mg in 50 mls @ 100 mls/hr IVPB DAILY@0800 [facility] Last Admin: 07/19/18 12:33 Dose: 100 mls/hr Folic Acid 1 mg/ Thiamine HCl 100 mg/ Multivitamins/Minerals 10 ml/ Sodium Chloride 1,000 mls @ 125 mls/hr IVPB ONCE ONE Stop: 07/20/18 13:59 Levetiracetam (Keppra Injection -) 500 mg IVPB BID [facility] Last Admin: 07/19/18 09:47 Dose: 500 mg Lorazepam (Ativan Injection -) 2 mg IVPUSH Q6H PRN PRN Reason: ANXIETY Mupirocin (Bactroban Ointment (For Decolonization) -) 1 applic NS BID [facility] Stop: 07/23/18 22:14 Last Admin: 07/19/18 10:30 Dose: 1 applic Nicotine (Nicoderm Patch -) 21 mg TD DAILY [facility] Last Admin: 07/19/18 09:48 Dose: 21 mg Promethazine HCl (Phenergan Injection -) 25 mg IM Q6H PRN PRN Reason: NAUSEA AND/OR VOMITING ASSESSMENT AND PLAN: s/p Fall Subarachnoid Hemorrhage Subdural Hematoma Alcohol Abuse r/o Alcohol Withdrawal Thrombocytopenia - continue empiric antiepileptics - neurosurgery f/u appreciated - benzos as needed - aspiration precautions - NPO - continue ICU monitoring for tenuous respiratory status/neuro checks critical care time spent in reviewing chart, evaluating patient and formulating plan 35 min
[2018-07-19 16:14] LABS: ALBUMIN 2.8 g/dl (3.4-5.0); ALK PHOS 72 U/L (45-117); ANION GAP 8 MMOL/L (8-16); BLOOD UREA NITROGEN 6 mg/dL (7-18); CHLORIDE 113 mmol/L (98-107); CO2 24 mmol/L (21-32); CREATININE 0.6 mg/dL (0.55-1.3); GLUCOSE,RANDOM 97 mg/dL (74-106); MAGNESIUM 1.9 mg/dL (1.8-2.4); PHOSPHOROUS 2.4 mg/dL (2.5-4.9); POTASSIUM 3.4 mmol/L (3.5-5.1); SGOT/AST 33 U/L (15-37); SGPT/ALT 53 U/L (13-61); SODIUM 145 mmol/L (136-145); TOT PROT 5.6 g/dl (6.4-8.2)
--- NOTE | 2018-07-19 16:28 | PN ---
S Progress Note (SOAP) Subjective: addiction medicine consult requested for this 68 y.o. male patient who presented to ED with nausea/ vomiting x 2 days after fall on stairs , reported 10 vodka drinks/ day , found to have subdural hematoma and occipital comminuted fracture , currently on prn Lorazepam 2 mg q 6 hrs . Patient is poor historian , sedated , unable to answer questions . Objective: patient is sedated , minimally responsive to verbal stimuli, awakens briefly when name is called . 07/19/18 16:24 Vital Signs Period Temp Pulse Resp BP Sys/Dawn Pulse Ox Last 24 Hr 98.3 F-101.8 F 84-101 15-108 137-170/69-88 98-99 Vital Signs - 24 hr 07/18/18 07/18/18 07/18/18 18:39 21:29 22:00 Temperature 98.8 F 98.3 F Pulse Rate 90 Pulse Rate [ 88 88 Apical] Respiratory 16 18 15 Rate Blood Pressure 163/82 Blood Pressure 149/75 148/70 [Left Arm] O2 Sat by Pulse 98 99 Oximetry (%) 07/19/18 07/19/18 07/19/18 00:00 02:00 04:00 Temperature 99 F Pulse Rate 95 H 95 H 91 H Pulse Rate [ Apical] Respiratory 15 16 15 Rate Blood Pressure 170/88 152/76 150/82 Blood Pressure [Left Arm] O2 Sat by Pulse Oximetry (%) 07/19/18 07/19/18 07/19/18 06:00 07:00 08:00 Temperature 100 F H 100.1 F H Pulse Rate 101 H 93 H 97 H Pulse Rate [ Apical] Respiratory 108 H 20 20 Rate Blood Pressure 167/83 144/78 156/78 Blood Pressure [Left Arm] O2 Sat by Pulse Oximetry (%) 07/19/18 07/19/18 07/19/18 10:00 11:30 12:00 Temperature 100 F H 101.8 F H Pulse Rate 98 H 88 86 Pulse Rate [ Apical] Respiratory 20 20 20 Rate Blood Pressure 144/81 150/78 153/80 Blood Pressure [Left Arm] O2 Sat by Pulse Oximetry (%) 07/19/18 14:00 Temperature 100.8 F H Pulse Rate 84 Pulse Rate [ Apical] Respiratory 20 Rate Blood Pressure 137/75 Blood Pressure [Left Arm] O2 Sat by Pulse Oximetry (%) 07/19/18 16:27 Assessment: 07/19/18 16:25 Alcohol use SUbdural Hematoma Occipital fracture - Plan: continue prn Lorazepam x 5 days , patient is on Levetiracetam 500 mg bid for seizure prophylaxis .
[2018-07-19] MEDS ORDERED: LORazepam 2 MG/ML SDV VIAL IVPUSH PRN (18:00)
--- NOTE | 2018-07-19 18:15 | PN ---
Physical Exam: SUBJECTIVE: Patient seen and examined at bedside. Poorly responsive. 101.8 fever earlier today. Received Ativan multiple times today due to agitation. OBJECTIVE: Vital Signs Period Temp Pulse Resp BP Sys/Dawn Pulse Ox Last 24 Hr 98.3 F-101.8 F 81-101 15-108 137-170/66-88 98-99 GENERAL: Snoring, difficult to arouse S/P ativan HEAD: Nl with no signs of External trauma. EYES: Conjunctiva not injected, no scleral icterus. Pupils symmetric ENT: dry mucosa NECK: Trachea midline LUNGS: Scattered Rhonchi. HEART: RRR No MRG [id number] ABDOMEN: NDNT EXTREMITIES: 2+ pulses, warm, well-perfused, no edema. NEUROLOGICAL: lethargic 2/2 ativan SKIN: Warm, dry, normal turgor, no rashes or lesions noted Laboratory Results - last 24 hr 07/19/18 07/19/18 07/19/18 05:30 05:30 05:30 WBC 9.9 RBC 3.85 L Hgb 13.3 Hct 40.0 MCV 103.8 H MCH 34.7 H MCHC 33.4 RDW 13.4 Plt Count 131 L MPV 8.6 Absolute Neuts (auto) 7.3 Neutrophils % 73.8 Lymphocytes % 12.3 D Monocytes % 13.3 H Eosinophils % 0.2 D Basophils % 0.4 Nucleated RBC % 0 PT with INR 10.60 INR 0.90 PTT (Actin FS) 27.6 Sodium 143 Potassium 3.2 L Chloride 106 Carbon Dioxide 27 Anion Gap 9 BUN 6 L Creatinine 0.7 Creat Clearance w eGFR > 60 Random Glucose 100 Calcium 8.4 L Phosphorus 3.4 Magnesium 2.2 Total Bilirubin 1.2 H AST 44 H ALT 63 H Alkaline Phosphatase 82 Total Protein 6.2 L Albumin 3.1 L 07/19/18 14:50 WBC RBC Hgb Hct MCV MCH MCHC RDW Plt Count MPV Absolute Neuts (auto) Neutrophils % Lymphocytes % Monocytes % Eosinophils % Basophils % Nucleated RBC % PT with INR INR PTT (Actin FS) Sodium 145 Potassium 3.4 L Chloride 113 H Carbon Dioxide 24 Anion Gap 8 BUN 6 L Creatinine 0.6 Creat Clearance w eGFR > 60 Random Glucose 97 Calcium 8.0 L Phosphorus 2.4 L Magnesium 1.9 Total Bilirubin 1.0 AST 33 ALT 53 Alkaline Phosphatase 72 Total Protein 5.6 L Albumin 2.8 L Active Medications Generic Name Dose Route Start Last Admin Trade Name Freq PRN Reason Stop Dose Admin Acetaminophen 650 mg 07/18/18 08:28 Tylenol - PO Q6H PRN PAIN Chlorhexidine Gluconate 1 applic 07/18/18 22:00 07/18/18 22:23 Hibiclens For Decolonization - TP 1 applic HS TRISHA Administration Dextrose/Sodium Chloride 20 meq in 1,000 mls @ 100 mls/hr 07/18/18 18:45 12:15 Dextrose 5%-Normal Saline+20 Meq Kcl - IV 100 mls/hr ASDIR TRISHA Administration Famotidine/Sodium Chloride 20 mg in 50 mls @ 100 mls/hr 07/19/18 12:15 12:33 Pepcid 20 Mg Premixed Ivpb - IVPB 100 mls/hr DAILY@0800 TRISHA Administration Folic Acid 1 mg/ Thiamine HCl 1,000 mls @ 125 mls/hr 07/20/18 06:00 100 mg/ Multivitamins/Minerals IVPB 07/20/18 13:59 10 ml/ Sodium Chloride ONCE ONE Levetiracetam 500 mg 07/18/18 10:00 07/19/18 09:47 Keppra Injection - IVPB 500 mg BID TRISHA Administration Lorazepam 2 mg 07/19/18 18:00 Ativan Injection - IVPUSH Q6H PRN ANXIETY Mupirocin 1 applic 07/18/18 22:15 07/19/18 10:30 Bactroban Ointment (For Decolonization) - NS 07/23/18 22:14 1 applic BID TRISHA Administration Nicotine 21 mg 07/19/18 10:00 07/19/18 09:48 Nicoderm Patch - TD 21 mg DAILY TRISHA Administration Promethazine HCl 25 mg 07/18/18 08:28 Phenergan Injection - IM Q6H PRN NAUSEA AND/OR VOMITING Imaging: IMPRESSION: Midline and left parasagittal nondepressed occipital bone fracture extending to the suboccipital region. There is also a a fracture of the right occipital condyle with minimal displacement, medially of approximately 2 mm deforming the right lateral wall of the foramen magnum. Small bilateral subdural acute hemorrhage with layering over the tentorium, left more the right as well as blood seen in the interhemispheric fissure measuring 11 mm in width, superiorly. There is also bilateral subarachnoid hemorrhage with blood seen along the anterior and lateral aspect of the frontal and temporal sulci including the sylvian fissures, right more than left. Focal intraparenchymal hematoma and the anterior/inferior aspect of the left frontal lobe and probably a smaller focus of intraparenchymal hematoma in the left temporal lobe, anteriorly. There is no shift of the midline structures Close follow-up is recommended. A preliminary report was forwarded by the [facility], [employer] CT scan of the cervical spine without intravenous contrast Coronal and sagittal reconstruction images were obtained. No gross fracture, subluxation or prevertebral soft tissue swelling is seen. No jumped facets are identified. There is marked left facet hypertrophy at C3-C4 level, moderate right facet hypertrophy at C4-C5 level and marked left facet hypertrophy at C5-C6 level. Lymph nodes are identified. Small calcified plaque at the right and left common carotid bifurcation. The airway is patent and symmetric without gross narrowing. Lung windows demonstrates biapical pleural thickening and suggestion of mild COPD changes. ASSESSMENT/PLAN: 68 alcoholic man presenting s/p fall 3 days ago with N,V and headaches, found to have bilateral frontal contusion, subdural and subarachnoid hemorrhage and comminuted fracture of the occipital bone. Now with agitation and possible symptoms of alcohol withdrawal. No seizures witnessed. 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 - New Patient This patient is new to me today: Yes Date on this admission: 07/19/18 - Critical Care Critical Care patient: Yes Total Critical Care Time (in minutes): 35 Critical Care Statement: The care of this patient involved high complexity decision making to prevent further life threatening deterioration of the patient 's condition and/or to evaluate & treat vital organ system(s) failure or risk of failure. - Discharge Referral Referred to [facility] Med P.C.: No
--- NOTE | 2018-07-19 18:51 | PN ---
Teaching Attending Note Name of Resident: Sebastien Villalobos ATTENDING PHYSICIAN STATEMENT I saw and evaluated the patient. I reviewed the resident's note and discussed the case with the resident. I agree with the resident's findings and plan as documented with exceptions below. SUBJECTIVE: Patient seen and examined. just sedated with ativan, per RN, was agitated and attempting to get out of bed. OBJECTIVE: Vital Signs Period Temp Pulse Resp BP Sys/Dawn Pulse Ox Last 24 Hr 98.3 F-101.8 F 81-101 13-108 137-170/66-88 95-99 Intake & Output 07/16/18 07/17/18 07/18/18 07/19/18 23:59 23:59 23:59 23:59 Intake Total 100 850 Balance 100 850 Weight 140 lb 142 lb 4 oz 142 lb 4 oz General: lying in bed, sedated, poorly responsive Chest: poor effort, limited exam Abdomen:soft, ND, positive bowel sounds Extremities: restrained, no new edema Neuro: sedated, facial symmetry, withdraws all extremities to pain, pupils reactive unchanged Active Medications Acetaminophen (Tylenol -) 650 mg PO Q6H PRN PRN Reason: PAIN Chlorhexidine Gluconate (Hibiclens For Decolonization -) 1 applic TP HS [facility] Last Admin: 07/18/18 22:23 Dose: 1 applic Dextrose/Sodium Chloride (Dextrose 5%-Normal Saline+20 Meq Kcl -) 20 meq in 1, 000 mls @ 100 mls/hr IV ASDIR [facility] Last Admin: 07/19/18 12:15 Dose: 100 mls/hr Famotidine/Sodium Chloride (Pepcid 20 Mg Premixed Ivpb -) 20 mg in 50 mls @ 100 mls/hr IVPB DAILY@0800 [facility] Last Admin: 07/19/18 12:33 Dose: 100 mls/hr Folic Acid 1 mg/ Thiamine HCl 100 mg/ Multivitamins/Minerals 10 ml/ Sodium Chloride 1,000 mls @ 125 mls/hr IVPB ONCE ONE Stop: 07/20/18 13:59 Ampicillin Sodium/Sulbactam (Sodium 3 gm/ Sodium Chloride) 100 mls @ 200 mls/ hr IVPB Q6H-IV TRISHA Levetiracetam (Keppra Injection -) 500 mg IVPB BID [facility] Last Admin: 07/19/18 09:47 Dose: 500 mg Lorazepam (Ativan Injection -) 2 mg IVPUSH Q6H PRN PRN Reason: ANXIETY Mupirocin (Bactroban Ointment (For Decolonization) -) 1 applic NS BID [facility] Stop: 07/23/18 22:14 Last Admin: 07/19/18 10:30 Dose: 1 applic Nicotine (Nicoderm Patch -) 21 mg TD DAILY [facility] Last Admin: 07/19/18 09:48 Dose: 21 mg Promethazine HCl (Phenergan Injection -) 25 mg IM Q6H PRN PRN Reason: NAUSEA AND/OR VOMITING Laboratory Results - last 24 hr 07/19/18 07/19/18 07/19/18 05:30 05:30 05:30 WBC 9.9 RBC 3.85 L Hgb 13.3 Hct 40.0 MCV 103.8 H MCH 34.7 H MCHC 33.4 RDW 13.4 Plt Count 131 L MPV 8.6 Absolute Neuts (auto) 7.3 Neutrophils % 73.8 Lymphocytes % 12.3 D Monocytes % 13.3 H Eosinophils % 0.2 D Basophils % 0.4 Nucleated RBC % 0 PT with INR 10.60 INR 0.90 PTT (Actin FS) 27.6 Sodium 143 Potassium 3.2 L Chloride 106 Carbon Dioxide 27 Anion Gap 9 BUN 6 L Creatinine 0.7 Creat Clearance w eGFR > 60 Random Glucose 100 Calcium 8.4 L Phosphorus 3.4 Magnesium 2.2 Total Bilirubin 1.2 H AST 44 H ALT 63 H Alkaline Phosphatase 82 Total Protein 6.2 L Albumin 3.1 L 07/19/18 14:50 WBC RBC Hgb Hct MCV MCH MCHC RDW Plt Count MPV Absolute Neuts (auto) Neutrophils % Lymphocytes % Monocytes % Eosinophils % Basophils % Nucleated RBC % PT with INR INR PTT (Actin FS) Sodium 145 Potassium 3.4 L Chloride 113 H Carbon Dioxide 24 Anion Gap 8 BUN 6 L Creatinine 0.6 Creat Clearance w eGFR > 60 Random Glucose 97 Calcium 8.0 L Phosphorus 2.4 L Magnesium 1.9 Total Bilirubin 1.0 AST 33 ALT 53 Alkaline Phosphatase 72 Total Protein 5.6 L Albumin 2.8 L Microbiology 07/18/18 14:30 Blood - Peripheral Venous Blood Culture - Preliminary NO GROWTH OBTAINED AFTER 24 HOURS, INCUBATION TO CONTINUE FOR 4 DAYS. 07/18/18 14:10 Blood - Peripheral Venous Blood Culture - Preliminary NO GROWTH OBTAINED AFTER 24 HOURS, INCUBATION TO CONTINUE FOR 4 DAYS. ASSESSMENT AND PLAN: 68 yom with alcohol abuse, with unwitnessed fall, suspected 2 days ago admitted with SDH/SAH/Intraparenchymal Haemorrhage with edema, Occipital bone fracture. -SDH/SAH/intraparenchymal haemorrhage with edema, suspect traumatic -Occipital bone fracture -Alcohol abuse/withdrawal, likely delirium tremens -Fever, ?Aspiration Pneumonitis in the setting of vomiting/alcohol use, ? central fevers, low suspicion of intracranial source Plan: Repeat CT head stable. Neurosurgery input noted. Keppra day 2, No ASA/NSAIDs/AC. Neuro checks. Persistent fevers, given AMS/sedation, aspiration high on differential. Start unasyn, Follow up blood cx sent on admission,neg so far. u/a, cXR noted. Low suspicion for intracranial source. ID input. IVF D5NS with K. NPO till mental status improved. Detox consult noted. Ativan. Replete lytes prn DVTPPX with SCDs dispo total critical care time spent in ICU 35min.
[2018-07-19] MEDS: CHLORHEXIDINE GLUCONATE 4% CLEANSER FOR DECOLONIZATION TP SCH (21:47)
[2018-07-19] MEDS: AMPICILLIN NA/SULBACTAM NA 3 GM in SODIUM CHLORIDE 100 ML IVPB SCH (21:52)
[2018-07-19] MEDS ORDERED: chlordiazePOXIDE HCL 25 MG CAPSULE PO SCH ×2 (23:00)
[2018-07-20] MEDS ORDERED: LABETALOL HCL 5 MG/1 ML (100MG/20 ML VIAL) IVPUSH ONE ×2 (01:28→21:26)
[2018-07-20] MEDS: LORazepam 2 MG/ML SDV VIAL IVPUSH PRN ×5 (02:41→19:51)
[2018-07-20] MEDS ORDERED: PT OWN MED DRAWER 7, Y5N ONE ×4 (03:44→19:26)
[2018-07-20] MEDS: AMPICILLIN NA/SULBACTAM NA 3 GM in SODIUM CHLORIDE 100 ML IVPB SCH ×4 (03:44→21:23)
[2018-07-20] MEDS ORDERED: FOLIC ACID INJECTION - 1 MG, THIAMINE HCL 100 MG, MULTIVIT INJECTION ADULT 10 ML in SOD... IVPB ONE (06:00)
[2018-07-20 06:07] LABS: BASO % 0.8 % (0-2.0); HEMATOCRIT 40.4 % (35.4-49); HEMOGLOBIN 13.5 GM/dL (11.7-16.9); LYMPH % 8.4 % (8-40); MCH 34.9 pg (25.7-33.7); MCHC 33.4 g/dl (32.0-35.9); MEAN CELL VOLUME 104.4 fl (80-96); MEAN PLT VOLUME 8.2 fl (7.5-11.1); MONO % 13.5 % (3.8-10.2); NEUT % 76.3 % (42.8-82.8); PLATELET COUNT 162 K/MM3 (134-434); RBC 3.87 M/mm3 (4.00-5.60)
[2018-07-20] MEDS: LABETALOL HCL 5 MG/1 ML (100MG/20 ML VIAL) IVPUSH PRN ×2 (06:14→10:30)
[2018-07-20 06:40] LABS: ALBUMIN 2.9 g/dl (3.4-5.0); ALK PHOS 78 U/L (45-117); ANION GAP 10 MMOL/L (8-16); BILIRUBIN,TOTAL 1.1 mg/dL (0.2-1); BLOOD UREA NITROGEN 5 mg/dL (7-18); CALCIUM 8.3 mg/dL (8.5-10.1); CHLORIDE 115 mmol/L (98-107); CO2 26 mmol/L (21-32); CREATININE 0.7 mg/dL (0.55-1.3); GLUCOSE,RANDOM 83 mg/dL (74-106); PHOSPHOROUS 2.7 mg/dL (2.5-4.9); POTASSIUM 3.6 mmol/L (3.5-5.1); SGOT/AST 33 U/L (15-37); SGPT/ALT 55 U/L (13-61); SODIUM 151 mmol/L (136-145); TOT PROT 5.9 g/dl (6.4-8.2)
--- NOTE | 2018-07-20 07:43 | CON.ID ---
Consult Consult Specialty:: infectious disease Referred by:: hospitalist Reason for Consultation:: fever - History of Present Illness Chief Complaint: fever History of Present Illness: 68 yo man PMH of ETOH use (drinkds cathydka), [facility] He was admitted 07/18 and found to have bilateral occipital fractures, bilateral SDH and bilateral SAH yesterday he started having fevers he has been agitated and trying to climb out of bed receiving ativan PRN started on unasyn last night for possible aspiration afebrile today - History Source History Provided By: Medical Record Limitations to Obtaining History: Clinical Condition - Alcohol/Substance Use Hx Alcohol Use: Yes - Smoking History Smoking history: Unknown if ever smoked Have you smoked in the past 12 months: No Aproximately how many cigarettes per day: 20 - Social History Usual Living Arrangement: Alone Home Medications - Allergies Allergies/Adverse Reactions: Allergies Allergy/AdvReac Type Severity Reaction Status Date / Time No Known Allergies Allergy Verified 07/18/18 00:16 - Home Medications Home Medications: Ambulatory Orders NK [No Known Home Medication] 07/18/18 Family Disease History - Family Disease History Family History: Unable to Obtain Review of Systems Unable to obtain ROS, reason: unable to obtain Physical Exam Vital Signs: Vital Signs Temperature 98.5 F 07/20/18 06:00 Pulse Rate 81 07/20/18 06:00 Respiratory Rate 18 07/20/18 06:00 Blood Pressure 165/86 07/20/18 06:00 O2 Sat by Pulse Oximetry (%) 100 07/19/18 22:00 Constitutional: Yes: Thin (mild agitation, squeezes hands to command, intermittently answers questions) Neck: Yes: Supple Cardiovascular: Yes: Regular Rate and Rhythm Respiratory: Yes: CTA Bilaterally, Diminished Gastrointestinal: Yes: Normal Bowel Sounds, Soft. No: Tenderness, Rebound Renal/: No: CVA Tenderness - Left, CVA Tenderness - Right Extremities: Yes: WNL Edema: No Neurological: Yes: Confusion Labs: CBC, BMP 07/20/18 05:30 07/20/18 05:30 Microbiology 07/18/18 14:30 Blood - Peripheral Venous Blood Culture - Preliminary NO GROWTH OBTAINED AFTER 24 HOURS, INCUBATION TO CONTINUE FOR 4 DAYS. 07/18/18 14:10 Blood - Peripheral Venous Blood Culture - Preliminary NO GROWTH OBTAINED AFTER 24 HOURS, INCUBATION TO CONTINUE FOR 4 DAYS. Imaging - Results Chest X-ray: Report Reviewed, Image Reviewed Cat Scan: Report Reviewed Problem List - Problems (1) Fever Code(s): R50.9 - FEVER, UNSPECIFIED (2) Subarachnoid hemorrhage Code(s): I60.9 - NONTRAUMATIC SUBARACHNOID HEMORRHAGE, UNSPECIFIED (3) Subdural hematoma Code(s): S06.5X9A - TRAUM SUBDR HEM W LOC OF UNSP DURATION, INIT (4) Alcohol abuse Code(s): F10.10 - ALCOHOL ABUSE, UNCOMPLICATED Assessment/Plan fevers- most likely etoh withdrawal, ?central from blood in his brain on unasyn, can continue awaiting repeat cxray this am and cultures if cxray and cultures are negative will d/c unasyn in am ETOH abuse 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
[2018-07-20] MEDS ORDERED: D5-1/2NS+20 MEQ KCL - 20 MEQ/1,000 ML INFUS.BAG IV SCH (07:45)
[2018-07-20] MEDS: FAMOTIDINE 20 MG/50 ML IVPB 20 MG/50 ML MG IVPB SCH (08:17)
[2018-07-20] MEDS: levETIRAcetam 500 MG/5 ML INJECTION VIAL IVPB SCH ×2 (09:36→21:24)
[2018-07-20] MEDS: MUPIROCIN 2% TOPICAL OINTMENT FOR DECOLONIZATION NS SCH ×2 (09:36→21:23)
[2018-07-20] MEDS: NICOTINE 21 MG/24 HOURS TOPICAL PATCH TD SCH (09:45)
--- NOTE | 2018-07-20 09:58 | PN ---
Progress Note (short form) - Note Progress Note: NEUROSURGERY Mild H/A On Unasyn PE: Tmax 98.3, VSS; mild systolic hypertension HEENT- no significant exterior sign of trauma; Neck- supple; Cor- RR; Lungs- CTA B; Abd- benign; Ext- no sign of DVT Received Ativan earlier, off librium Somewhat drowsy, arousable; garbled speech CN- intact; Motor- 4+-5/5; Sensation- intact LT; DTR- 1+ WBC 10 Blood culture negative to date Head CT- Occipital bone midline fx to inion, smaller occipital condylar fx; B frontal hemorrhagic contusion with SDH/SAH; B anterior temporal contusion with SAH R > L and small SDH F/U Head CT -- Bifrontal/bitemporal hemorrhagic contusion with associated SDH R frontal most prominent; less JOSIE F/U Head CT -- motion artifact; SDH settling along tentorium L > R; stable appearing contusions B fronto-temporal hemorrhagic contusion, SDH, SAH, overall pattern stable Keppra for sz prophylaxis ICU monitoring Observe/tx for DT Incentive spirometry Mechanical DVT prophylaxis Repeat CT tomorrow, if stable, could consider transfering out of ICU from neurosurgical standpoint
[2018-07-20] MEDS: D5-1/2NS+20 MEQ KCL - 20 MEQ/1,000 ML INFUS.BAG IV SCH (10:15)
--- NOTE | 2018-07-20 10:59 | PN ---
Teaching Attending Note Name of Resident: Prem Noble ATTENDING PHYSICIAN STATEMENT I saw and evaluated the patient. I reviewed the resident's note and discussed the case with the resident. I agree with the resident's findings and plan as documented. SUBJECTIVE: Pt seen and examined in the ICU. Remains lethargic. Fever curve trending down. OBJECTIVE: Vital Signs Period Temp Pulse Resp BP Sys/Dawn Pulse Ox Last 24 Hr 97.8 F-101.8 F 78-100 13-23 137-165/66-89 100-100 Intake & Output 07/17/18 07/18/18 07/19/18 07/20/18 23:59 23:59 23:59 23:59 Intake Total 100 4100 1550 Balance 100 4100 1550 Weight 63.503 kg 64.524 kg 64.524 kg 63.049 kg Gen: lethargic Heart: RRR Lung: scattered rhonchi Abd: soft, nontender Ext: no edema CBC, BMP 07/20/18 05:30 07/20/18 05:30 Active Medications Acetaminophen (Tylenol -) 650 mg PO Q6H PRN PRN Reason: PAIN Chlorhexidine Gluconate (Hibiclens For Decolonization -) 1 applic TP HS [facility]S INCLUDE 234 BEDS AT THE [facility] Last Admin: 07/19/18 21:47 Dose: 1 applic Famotidine/Sodium Chloride (Pepcid 20 Mg Premixed Ivpb -) 20 mg in 50 mls @ 100 mls/hr IVPB DAILY@0800 COUNTS INCLUDE 234 BEDS AT THE [facility] Last Admin: 07/20/18 08:17 Dose: 100 mls/hr Ampicillin Sodium/Sulbactam (Sodium 3 gm/ Sodium Chloride) 100 mls @ 200 mls/ hr IVPB Q6H-IV TRISHA Last Admin: 07/20/18 08:40 Dose: 200 mls/hr Potassium Chloride/Dextrose/Sod Cl (D5-1/2ns+20 Meq Kcl -) 20 meq in 1,000 mls @ 75 mls/hr IV ASDIR COUNTS INCLUDE 234 BEDS AT THE [facility] Last Admin: 07/20/18 10:15 Dose: 75 mls/hr Levetiracetam (Keppra Injection -) 500 mg IVPB BID COUNTS INCLUDE 234 BEDS AT THE [facility] Last Admin: 07/20/18 09:36 Dose: 500 mg Lorazepam (Ativan Injection -) 1 mg IVPUSH Q3H PRN PRN Reason: ANXIETY Last Admin: 07/20/18 07:25 Dose: 1 mg Mupirocin (Bactroban Ointment (For Decolonization) -) 1 applic NS BID COUNTS INCLUDE 234 BEDS AT THE [facility] Stop: 07/23/18 22:14 Last Admin: 07/20/18 09:36 Dose: 1 applic Nicotine (Nicoderm Patch -) 21 mg TD DAILY COUNTS INCLUDE 234 BEDS AT THE [facility] Last Admin: 07/20/18 09:45 Dose: 21 mg Promethazine HCl (Phenergan Injection -) 25 mg IM Q6H PRN PRN Reason: NAUSEA AND/OR VOMITING ASSESSMENT AND PLAN: s/p Fall Subarachnoid Hemorrhage Subdural Hematoma Alcohol Abuse r/o Alcohol Withdrawal Thrombocytopenia - continue empiric antiepileptics - hypotonic IVF - benzos as needed - agree with d/c antibiotics if CXR clear - aspiration precautions - NPO - continue ICU monitoring for tenuous respiratory status/neuro checks critical care time spent in reviewing chart, evaluating patient and formulating plan 35 min
--- NOTE | 2018-07-20 11:25 | PN ---
Physical Exam: SUBJECTIVE: Patient seen and examined. Lethargic. Afebrile overnight. OBJECTIVE: Vital Signs Period Temp Pulse Resp BP Sys/Dawn Pulse Ox Last 24 Hr 97.8 F-101.8 F 78-100 13-23 137-165/66-89 100-100 GENERAL: lethargic EYES: Conjunctiva not injected, no scleral icterus. Pupils symmetric ENT: dry mucous membranes NECK: Trachea midline LUNGS: Scattered Rhonchi. HEART: RRR No MRG S1S2 ABDOMEN: NDNT EXTREMITIES: 2+ pulses, warm, well-perfused, no edema. NEUROLOGICAL: lethargic Laboratory Results - last 24 hr 07/19/18 07/19/18 07/19/18 05:48 10:49 14:05 WBC RBC Hgb Hct MCV MCH MCHC RDW Plt Count MPV Absolute Neuts (auto) Neutrophils % Lymphocytes % Monocytes % Eosinophils % Basophils % Nucleated RBC % Sodium Potassium Chloride Carbon Dioxide Anion Gap BUN Creatinine Creat Clearance w eGFR POC Glucometer 108.53858 109.94989 111.40665 Random Glucose Calcium Phosphorus Magnesium Total Bilirubin AST ALT Alkaline Phosphatase Total Protein Albumin 07/19/18 07/19/18 07/20/18 14:50 17:47 05:30 WBC RBC Hgb Hct MCV MCH MCHC RDW Plt Count MPV Absolute Neuts (auto) Neutrophils % Lymphocytes % Monocytes % Eosinophils % Basophils % Nucleated RBC % Sodium 145 151 H Potassium 3.4 L 3.6 Chloride 113 H 115 H Carbon Dioxide 24 26 Anion Gap 8 10 BUN 6 L 5 L Creatinine 0.6 0.7 Creat Clearance w eGFR > 60 > 60 POC Glucometer 127.19534 Random Glucose 97 83 Calcium 8.0 L 8.3 L Phosphorus 2.4 L 2.7 Magnesium 1.9 2.0 Total Bilirubin 1.0 1.1 H AST 33 33 ALT 53 55 Alkaline Phosphatase 72 78 Total Protein 5.6 L 5.9 L Albumin 2.8 L 2.9 L 07/20/18 05:30 WBC 10.0 RBC 3.87 L Hgb 13.5 Hct 40.4 MCV 104.4 H MCH 34.9 H MCHC 33.4 RDW 13.0 Plt Count 162 D MPV 8.2 Absolute Neuts (auto) 7.6 Neutrophils % 76.3 Lymphocytes % 8.4 D Monocytes % 13.5 H Eosinophils % 1.0 D Basophils % 0.8 Nucleated RBC % 0 Sodium Potassium Chloride Carbon Dioxide Anion Gap BUN Creatinine Creat Clearance w eGFR POC Glucometer Random Glucose Calcium Phosphorus Magnesium Total Bilirubin AST ALT Alkaline Phosphatase Total Protein Albumin Active Medications Generic Name Dose Route Start Last Admin Trade Name Freq PRN Reason Stop Dose Admin Acetaminophen 650 mg 07/18/18 08:28 Tylenol - PO Q6H PRN PAIN Chlorhexidine Gluconate 1 applic 07/18/18 22:00 07/19/18 21:47 Hibiclens For Decolonization - TP 1 applic HS TRISHA Administration Famotidine/Sodium Chloride 20 mg in 50 mls @ 100 mls/hr 07/19/18 12:15 08:17 Pepcid 20 Mg Premixed Ivpb - IVPB 100 mls/hr DAILY@0800 TRISHA Administration Ampicillin Sodium/Sulbactam 100 mls @ 200 mls/hr 07/19/18 21:00 07/20/18 08: 40 Sodium 3 gm/ Sodium Chloride IVPB 200 mls/hr Q6H-IV TRISHA Administration Potassium Chloride/Dextrose/Sod Cl 20 meq in 1,000 mls @ 75 mls/hr 07/20/18 10 :15 07/20/18 10:15 D5-1/2ns+20 Meq Kcl - IV 75 mls/hr ASDIR TRISHA Administration Levetiracetam 500 mg 07/18/18 10:00 07/20/18 09:36 Keppra Injection - IVPB 500 mg BID TRISHA Administration Lorazepam 1 mg 07/19/18 19:08 07/20/18 07:25 Ativan Injection - IVPUSH 1 mg Q3H PRN Administration ANXIETY Mupirocin 1 applic 07/18/18 22:15 07/20/18 09:36 Bactroban Ointment (For Decolonization) - NS 07/23/18 22:14 1 applic BID TRISHA Administration Nicotine 21 mg 07/19/18 10:00 07/20/18 09:45 Nicoderm Patch - TD 21 mg DAILY TRISHA Administration Promethazine HCl 25 mg 07/18/18 08:28 Phenergan Injection - IM Q6H PRN NAUSEA AND/OR VOMITING ASSESSMENT/PLAN: 68 alcoholic man presenting s/p fall 3 days ago with N,V and headaches, found to have bilateral frontal contusion, subdural and subarachnoid hemorrhage and comminuted fracture of the occipital bone. Now with agitation and possible symptoms of alcohol withdrawal. No seizures witnessed. Neuro Subdural, subarachnoid, occipital fracture - Neurocheck Q1H - Keppra 500 mg BID seizure ppx - Ativan 2mg Q6H for agitation - Neurosurgery following (Dr. Hayes) - Tylenol PRN for headaches - HOB elevated to 30degrees + - Repeat head CT Pulm Aspiration Risk - CXR daily - chlorhexidine mouthwash - oral suctioning - incentive spirometry HTN - Labetolol 5mg for SBP >140 F/E/N Alcohol Withdrawal, Hypokalemia - D5 / NS @ 75 w K - KCl repletion GI ppx - Pepcid 20mg daily DVT ppx - SCDs Visit type - Emergency Visit Emergency Visit: Yes ED Registration Date: 07/18/18 Care time: The patient presented to the Emergency Department on the above date and was hospitalized for further evaluation of their emergent condition. - New Patient This patient is new to me today: Yes Date on this admission: 07/24/18 - Critical Care Critical Care patient: Yes Total Critical Care Time (in minutes): 35 Critical Care Statement: The care of this patient involved high complexity decision making to prevent further life threatening deterioration of the patient 's condition and/or to evaluate & treat vital organ system(s) failure or risk of failure.
--- NOTE | 2018-07-20 14:42 | PN ---
Teaching Attending Note Name of Resident: Sebastien Villalobos ATTENDING PHYSICIAN STATEMENT I saw and evaluated the patient. I reviewed the resident's note and discussed the case with the resident. I agree with the resident's findings and plan as documented with exceptions below. SUBJECTIVE: Patient seen and examined. Just received ativan, sleeping, unable to do ROS. OBJECTIVE: Vital Signs Period Temp Pulse Resp BP Sys/Dawn Pulse Ox Last 24 Hr 97.8 F-99.9 F 78-100 13-23 137-165/66-89 100-100 Intake & Output 07/17/18 07/18/18 07/19/18 07/20/18 23:59 23:59 23:59 23:59 Intake Total 100 4100 1550 Balance 100 4100 1550 Weight 140 lb 142 lb 4 oz 142 lb 4 oz 139 lb General: sleeping in bed no acute distress CVS:S1s2 regular Chest; limited exam given lack of effort or co-operation, decreased air entry, no rales or wheezing appreciated Abdomen:Soft,ND, positive bowel sounds Extremities: no edema, resolving left elbow ecchymosis Neuro: Sleeping, grimacing to sternal rub, withdraws all extremities to pain, facial symmetry, PERRL Active Medications Acetaminophen (Tylenol -) 650 mg PO Q6H PRN PRN Reason: PAIN Chlorhexidine Gluconate (Hibiclens For Decolonization -) 1 applic TP HS [facility] Last Admin: 07/19/18 21:47 Dose: 1 applic Famotidine/Sodium Chloride (Pepcid 20 Mg Premixed Ivpb -) 20 mg in 50 mls @ 100 mls/hr IVPB DAILY@0800 [facility] Last Admin: 07/20/18 08:17 Dose: 100 mls/hr Ampicillin Sodium/Sulbactam (Sodium 3 gm/ Sodium Chloride) 100 mls @ 200 mls/ hr IVPB Q6H-IV [facility] Last Admin: 07/20/18 08:40 Dose: 200 mls/hr Potassium Chloride/Dextrose/Sod Cl (D5-1/2ns+20 Meq Kcl -) 20 meq in 1,000 mls @ 75 mls/hr IV ASDIR [facility] Last Admin: 07/20/18 10:15 Dose: 75 mls/hr Levetiracetam (Keppra Injection -) 500 mg IVPB BID [facility] Last Admin: 07/20/18 09:36 Dose: 500 mg Lorazepam (Ativan Injection -) 1 mg IVPUSH Q3H PRN PRN Reason: ANXIETY Last Admin: 07/20/18 12:24 Dose: 1 mg Mupirocin (Bactroban Ointment (For Decolonization) -) 1 applic NS BID [facility] Stop: 07/23/18 22:14 Last Admin: 07/20/18 09:36 Dose: 1 applic Nicotine (Nicoderm Patch -) 21 mg TD DAILY [facility] Last Admin: 07/20/18 09:45 Dose: 21 mg Promethazine HCl (Phenergan Injection -) 25 mg IM Q6H PRN PRN Reason: NAUSEA AND/OR VOMITING Laboratory Results - last 24 hr 07/19/18 07/19/18 07/19/18 05:48 10:49 14:05 WBC RBC Hgb Hct MCV MCH MCHC RDW Plt Count MPV Absolute Neuts (auto) Neutrophils % Lymphocytes % Monocytes % Eosinophils % Basophils % Nucleated RBC % Sodium Potassium Chloride Carbon Dioxide Anion Gap BUN Creatinine Creat Clearance w eGFR POC Glucometer 108.94354 109.58258 111.50464 Random Glucose Calcium Phosphorus Magnesium Total Bilirubin AST ALT Alkaline Phosphatase Total Protein Albumin 07/19/18 07/19/18 07/20/18 14:50 17:47 05:30 WBC RBC Hgb Hct MCV MCH MCHC RDW Plt Count MPV Absolute Neuts (auto) Neutrophils % Lymphocytes % Monocytes % Eosinophils % Basophils % Nucleated RBC % Sodium 145 151 H Potassium 3.4 L 3.6 Chloride 113 H 115 H Carbon Dioxide 24 26 Anion Gap 8 10 BUN 6 L 5 L Creatinine 0.6 0.7 Creat Clearance w eGFR > 60 > 60 POC Glucometer 127.08535 Random Glucose 97 83 Calcium 8.0 L 8.3 L Phosphorus 2.4 L 2.7 Magnesium 1.9 2.0 Total Bilirubin 1.0 1.1 H AST 33 33 ALT 53 55 Alkaline Phosphatase 72 78 Total Protein 5.6 L 5.9 L Albumin 2.8 L 2.9 L 07/20/18 05:30 WBC 10.0 RBC 3.87 L Hgb 13.5 Hct 40.4 MCV 104.4 H MCH 34.9 H MCHC 33.4 RDW 13.0 Plt Count 162 D MPV 8.2 Absolute Neuts (auto) 7.6 Neutrophils % 76.3 Lymphocytes % 8.4 D Monocytes % 13.5 H Eosinophils % 1.0 D Basophils % 0.8 Nucleated RBC % 0 Sodium Potassium Chloride Carbon Dioxide Anion Gap BUN Creatinine Creat Clearance w eGFR POC Glucometer Random Glucose Calcium Phosphorus Magnesium Total Bilirubin AST ALT Alkaline Phosphatase Total Protein Albumin Microbiology 07/18/18 14:10 Blood - Peripheral Venous Blood Culture - Preliminary NO GROWTH OBTAINED AFTER 48 HOURS, INCUBATION TO CONTINUE FOR 3 DAYS. 07/18/18 13:45 Urine - Urine Clean Catch Urine Culture - Final NO GROWTH OBTAINED 07/18/18 14:30 Blood - Peripheral Venous Blood Culture - Preliminary NO GROWTH OBTAINED AFTER 24 HOURS, INCUBATION TO CONTINUE FOR 4 DAYS. CXR images reviewed, await official read. ASSESSMENT AND PLAN: 68 yom with alcohol abuse, with unwitnessed fall, suspected 2 days ago admitted with SDH/SAH/Intraparenchymal Haemorrhage with edema, Occipital bone fracture. -SDH/SAH/intraparenchymal haemorrhage with edema, suspect traumatic -Occipital bone fracture -Alcohol abuse/withdrawal, likely delirium tremens -Fever, ?Aspiration Pneumonitis in the setting of vomiting/alcohol use, ? central fevers, low suspicion of intracranial source -Hypernatremia, suspect from lack of oral intake and fluids with NS. Plan: Repeat CT head stable. Neurosurgery input noted. CT brain in AM. Keppra day 3, No ASA/NSAIDs/AC. Neuro checks. No further fevers. Follow up repeat CXR. Will d/c unasyn if non concerning. ID input appreciated Change IVF to D5-1/2 NS with K. discussed with nursing to try po once patient more awake. Detox consult noted. Ativan. Replete lytes prn DVTPPX with SCDs Plan discussed with nursing. Dispo total critical care time spent in ICU 35min.
--- NOTE | 2018-07-20 18:40 | PN ---
Physical Exam: SUBJECTIVE: Patient seen and examined at bedside. S/P ativan. Snoring loudly. Unresponsive. OBJECTIVE: Vital Signs Period Temp Pulse Resp BP Sys/Dawn Pulse Ox Last 24 Hr 97.8 F-98.9 F 78-100 13-23 144-165/73-89 100-100 GENERAL: Resting in bed, unresponsive to verbal stimuli. HEAD: NC/At no signs of external trauma EYES: Conjunctiva not injected, no scleral icterus. Pupils symmetric ENT: MMM NECK: Trachea midline No JVD LUNGS: Scattered Rhonchi HEART: RRR No MRG S1S2 ABDOMEN: NDNT EXTREMITIES: No CCE NEUROLOGICAL: lethargic 2/2 ativan SKIN: No rashes or lesions appreciated Laboratory Results - last 24 hr 07/19/18 07/19/18 07/19/18 05:48 10:49 14:05 WBC RBC Hgb Hct MCV MCH MCHC RDW Plt Count MPV Absolute Neuts (auto) Neutrophils % Lymphocytes % Monocytes % Eosinophils % Basophils % Nucleated RBC % Sodium Potassium Chloride Carbon Dioxide Anion Gap BUN Creatinine Creat Clearance w eGFR POC Glucometer 108.53831 109.05512 111.50816 Random Glucose Calcium Phosphorus Magnesium Total Bilirubin AST ALT Alkaline Phosphatase Total Protein Albumin 07/19/18 07/20/18 07/20/18 17:47 05:30 05:30 WBC 10.0 RBC 3.87 L Hgb 13.5 Hct 40.4 MCV 104.4 H MCH 34.9 H MCHC 33.4 RDW 13.0 Plt Count 162 D MPV 8.2 Absolute Neuts (auto) 7.6 Neutrophils % 76.3 Lymphocytes % 8.4 D Monocytes % 13.5 H Eosinophils % 1.0 D Basophils % 0.8 Nucleated RBC % 0 Sodium 151 H Potassium 3.6 Chloride 115 H Carbon Dioxide 26 Anion Gap 10 BUN 5 L Creatinine 0.7 Creat Clearance w eGFR > 60 POC Glucometer 127.37328 Random Glucose 83 Calcium 8.3 L Phosphorus 2.7 Magnesium 2.0 Total Bilirubin 1.1 H AST 33 ALT 55 Alkaline Phosphatase 78 Total Protein 5.9 L Albumin 2.9 L Active Medications Generic Name Dose Route Start Last Admin Trade Name Freq PRN Reason Stop Dose Admin Acetaminophen 650 mg 07/18/18 08:28 Tylenol - PO Q6H PRN PAIN Chlorhexidine Gluconate 1 applic 07/18/18 22:00 11/21/18 21:47 Hibiclens For Decolonization - TP 1 applic HS TRISHA Administration Famotidine/Sodium Chloride 20 mg in 50 mls @ 100 mls/hr 07/19/18 12:15 08:17 Pepcid 20 Mg Premixed Ivpb - IVPB 100 mls/hr DAILY@0800 TRISHA Administration Ampicillin Sodium/Sulbactam 100 mls @ 200 mls/hr 07/19/18 21:00 07/20/18 15: 49 Sodium 3 gm/ Sodium Chloride IVPB 200 mls/hr Q6H-IV TRISHA Administration Potassium Chloride/Dextrose/Sod Cl 20 meq in 1,000 mls @ 75 mls/hr 07/20/18 10 :15 07/20/18 10:15 D5-1/2ns+20 Meq Kcl - IV 75 mls/hr ASDIR TRISHA Administration Levetiracetam 500 mg 07/18/18 10:00 07/20/18 09:36 Keppra Injection - IVPB 500 mg BID TRISHA Administration Lorazepam 1 mg 07/19/18 19:08 07/20/18 16:25 Ativan Injection - IVPUSH 1 mg Q3H PRN Administration ANXIETY Mupirocin 1 applic 07/18/18 22:15 07/20/18 09:36 Bactroban Ointment (For Decolonization) - NS 07/23/18 22:14 1 applic BID TRISHA Administration Nicotine 21 mg 07/19/18 10:00 07/20/18 09:45 Nicoderm Patch - TD 21 mg DAILY TRISHA Administration Promethazine HCl 25 mg 07/18/18 08:28 Phenergan Injection - IM Q6H PRN NAUSEA AND/OR VOMITING ASSESSMENT/PLAN: 68 alcoholic man presenting s/p fall 3 days ago with N,V and headaches, found to have bilateral frontal contusion, subdural and subarachnoid hemorrhage and comminuted fracture of the occipital bone. Now with agitation and possible symptoms of alcohol withdrawal. No seizures witnessed. #SDH/SAH 2/2 Mechanical Fall - Neurocheck Q1H - Keppra 500 mg BID seizure ppx - Ativan 2mg Q6H for agitation - Neurosurgery on board - Tylenol PRN for headaches - HOB elevated to 30degrees + - Head CT- Occipital bone midline fx to inion; B frontal hemorrhagic contusion with SDH; B anterior temporal contusion with SAH R > L and small SDH -Repeat Head CT in AM -Started on Unasyn yesterday for possible aspiration, reese D/C in am if CXR improved. - Hypernatremic in light of NS and no oral intake. Fluids with d5 1/2 NS+K. Continue to follow. #Substance Abuse medicaid billing specialist on board, Dr Ayala--> continue prn Lorazepam x 5 days - Ativan 2 mg ivpush Q6H PRN -Monitor for signs of DT -Banana bag -Phenergan 25 MG IM Q6H PRN -Nicotine Patch #HTN - Labetolol 5mg for SBP >140, PRN #FEN: Dextrose 5%-Normal Saline+20 Meq [place] Monitor Electrolytes NPO GI ppx - Pepcid 20mg daily DVT ppx - SCDs Visit type - Emergency Visit Emergency Visit: Yes ED Registration Date: 07/18/18 Care time: The patient presented to the Emergency Department on the above date and was hospitalized for further evaluation of their emergent condition. - New Patient This patient is new to me today: No - Critical Care Critical Care patient: No - Discharge Referral Referred to [facility] Med P.C.: No
[2018-07-20] MEDS ORDERED: LABETALOL HCL 5 MG/1 ML (100MG/20 ML VIAL) ONE (21:16)
[2018-07-20] MEDS: CHLORHEXIDINE GLUCONATE 4% CLEANSER FOR DECOLONIZATION TP SCH (21:24)
[2018-07-20] MEDS ORDERED: LABETALOL HCL 5 MG/1 ML (100MG/20 ML VIAL) IVPUSH PRN (21:47)
[2018-07-20] MEDS ORDERED: chlordiazePOXIDE 5 MG CAPSULE PO SCH ×2 (23:00)
[2018-07-21] MEDS: LORazepam 2 MG/ML SDV VIAL IVPUSH PRN ×4 (02:16→23:25)
[2018-07-21] MEDS: AMPICILLIN NA/SULBACTAM NA 3 GM in SODIUM CHLORIDE 100 ML IVPB SCH ×2 (02:17→09:03)
[2018-07-21] MEDS ORDERED: ACETAMINOPHEN 1000 MG/100 ML VIAL (NON FORMULARY) IVPB ONE (06:03)
[2018-07-21 06:09] LABS: HEMATOCRIT 37.6 % (35.4-49); HEMOGLOBIN 12.9 GM/dL (11.7-16.9); MCH 35.5 pg (25.7-33.7); MCHC 34.3 g/dl (32.0-35.9); MEAN CELL VOLUME 103.4 fl (80-96); MEAN PLT VOLUME 8.5 fl (7.5-11.1); PLATELET COUNT 183 K/MM3 (134-434); RBC 3.64 M/mm3 (4.00-5.60); RDW 12.7 % (11.9-15.9); WHITE BLOOD COUNT 7.4 K/mm3 (4.0-10.0)
[2018-07-21 06:37] LABS: ALBUMIN 2.7 g/dl (3.4-5.0); ALK PHOS 76 U/L (45-117); ANION GAP 8 MMOL/L (8-16); BLOOD UREA NITROGEN 6 mg/dL (7-18); CALCIUM 8.5 mg/dL (8.5-10.1); CHLORIDE 111 mmol/L (98-107); CO2 26 mmol/L (21-32); CREATININE 0.6 mg/dL (0.55-1.3); GLUCOSE,RANDOM 97 mg/dL (74-106); PHOSPHOROUS 3.3 mg/dL (2.5-4.9); POTASSIUM 3.6 mmol/L (3.5-5.1); SGOT/AST 38 U/L (15-37); SGPT/ALT 50 U/L (13-61); SODIUM 145 mmol/L (136-145); TOT PROT 5.7 g/dl (6.4-8.2)
--- NOTE | 2018-07-21 08:36 | PN ---
Progress Note (short form) - Note Progress Note: NEUROSURGERY Mild H/A On Unasyn PE: Tmax 101.4, VSS; BP trending down HEENT- no significant exterior sign of trauma; Neck- supple; Cor- RR; Lungs- CTA B; Abd- benign; Ext- no sign of DVT Somewhat drowsy, arousable; garbled speech CN- intact; Motor- 4+-5/5; Sensation- intact LT; DTR- 1+ WBC 7.4 Blood culture negative to date Head CT- Occipital bone midline fx to inion, smaller occipital condylar fx; B frontal hemorrhagic contusion with SDH/SAH; B anterior temporal contusion with SAH R > L and small SDH F/U Head CT 07-18- Bifrontal/bitemporal hemorrhagic contusion with associated SDH R frontal most prominent; less JOSIE F/U Head CT 07-19- motion artifact; SDH settling along tentorium L > R; stable appearing contusions B fronto-temporal hemorrhagic contusion, SDH, SAH, overall pattern stable Keppra for sz prophylaxis Observe/tx for DT Incentive spirometry Mechanical DVT prophylaxis Repeat CT, if stable, could consider transferring out of ICU from neurosurgical standpoint D/w Dr De La O
[2018-07-21] MEDS ORDERED: PT OWN MED DRAWER 7, Y5N ONE ×2 (09:01→17:06)
[2018-07-21] MEDS: FAMOTIDINE 20 MG/50 ML IVPB 20 MG/50 ML MG IVPB SCH (09:03)
[2018-07-21] MEDS: MUPIROCIN 2% TOPICAL OINTMENT FOR DECOLONIZATION NS SCH ×2 (09:04→21:22)
[2018-07-21] MEDS: levETIRAcetam 500 MG/5 ML INJECTION VIAL IVPB SCH ×2 (09:04→21:23)
[2018-07-21] MEDS: NICOTINE 21 MG/24 HOURS TOPICAL PATCH TD SCH (09:04)
--- NOTE | 2018-07-21 09:13 | PN ---
Progress Note (short form) - Note Progress Note: intermittent fevers receiving ativan prn for agitation NAD Vital Signs Period Temp Pulse Resp BP Sys/Dawn Pulse Ox Last 24 Hr 98.2 F-101.4 F 83-98 13- 107-169/74-97 100-100 cor-rrr lungs clear abd soft,nt ext no edema CBC, BMP 07/21/18 05:30 07/21/18 05:30 Microbiology 07/18/18 14:30 Blood - Peripheral Venous Blood Culture - Preliminary NO GROWTH OBTAINED AFTER 48 HOURS, INCUBATION TO CONTINUE FOR 3 DAYS. 07/18/18 14:10 Blood - Peripheral Venous Blood Culture - Preliminary NO GROWTH OBTAINED AFTER 48 HOURS, INCUBATION TO CONTINUE FOR 3 DAYS. 07/18/18 13:45 Urine - Urine Clean Catch Urine Culture - Final NO GROWTH OBTAINED cxray no infiltrate Current Medications Acetaminophen (Tylenol -) 650 mg PO Q6H PRN PRN Reason: PAIN Chlorhexidine Gluconate (Hibiclens For Decolonization -) 1 applic TP HS [facility] Last Admin: 07/20/18 21:24 Dose: 1 applic Famotidine/Sodium Chloride (Pepcid 20 Mg Premixed Ivpb -) 20 mg in 50 mls @ 100 mls/hr IVPB DAILY@0800 [facility] Last Admin: 07/21/18 09:03 Dose: 100 mls/hr Ampicillin Sodium/Sulbactam (Sodium 3 gm/ Sodium Chloride) 100 mls @ 200 mls/ hr IVPB Q6H-IV [facility] Last Admin: 07/21/18 09:03 Dose: 200 mls/hr Potassium Chloride/Dextrose/Sod Cl (D5-1/2ns+20 Meq Kcl -) 20 meq in 1,000 mls @ 75 mls/hr IV ASDIR [facility] Last Admin: 07/20/18 10:15 Dose: 75 mls/hr Levetiracetam (Keppra Injection -) 500 mg IVPB BID [facility] Last Admin: 07/21/18 09:04 Dose: 500 mg Lorazepam (Ativan Injection -) 1 mg IVPUSH Q3H PRN PRN Reason: ANXIETY Last Admin: 07/21/18 08:27 Dose: 1 mg Mupirocin (Bactroban Ointment (For Decolonization) -) 1 applic NS BID [facility] Stop: 07/23/18 22:14 Last Admin: 07/21/18 09:04 Dose: 1 applic Nicotine (Nicoderm Patch -) 21 mg TD DAILY [facility] Last Admin: 07/21/18 09:04 Dose: 21 mg Promethazine HCl (Phenergan Injection -) 25 mg IM Q6H PRN PRN Reason: NAUSEA AND/OR VOMITING a/p fevers- no signs infection suspect either etoh withdrawal or from blood in [employer] cultures negative willl d/c unasyn s/p fall with fracture/SDH/SAH d/w Dr Hayes d/w hospitalist Problem List - Problems (1) Fever Code(s): R50.9 - FEVER, UNSPECIFIED (2) Subarachnoid hemorrhage Code(s): I60.9 - NONTRAUMATIC SUBARACHNOID HEMORRHAGE, UNSPECIFIED (3) Subdural hematoma Code(s): S06.5X9A - TRAUM SUBDR HEM W LOC OF UNSP DURATION, INIT (4) Alcohol abuse Code(s): F10.10 - ALCOHOL ABUSE, UNCOMPLICATED
--- NOTE | 2018-07-21 10:27 | PN ---
Physical Exam: SUBJECTIVE: Patient seen and examined Patient more conversational, but lethargic 2/2 ativan Febrile to 101.4F overnight. ua,ucx, blood cx sent, CXR repeated OBJECTIVE: Vital Signs Period Temp Pulse Resp BP Sys/Dawn Pulse Ox Last 24 Hr 98.3 F-101.4 F 78-98 13-20 107-169/74-105 100-100 GENERAL: lethargic 2/2 ativan HEAD: Normal with no signs of trauma. EYES: PERRL, extraocular movements intact, sclera anicteric, conjunctiva clear. No nystagmus. No ptosis. ENT: dry mucosa NECK: Trachea midline LUNGS: slightly coarse breath sounds bilaterally w/ some rhonchi, no wheezes, no crackles, no accessory muscle use. HEART: Regular rate and rhythm, S1, S2 without murmur, rub or gallop. ABDOMEN: Soft, nontender, nondistended, normoactive bowel sounds, no guarding, no rebound, no hepatosplenomegaly, no masses. EXTREMITIES: 2+ pulses, warm, well-perfused, no edema. NEUROLOGICAL: lethargic 2/2 ativan SKIN: Warm, dry, normal turgor, no rashes or lesions noted Laboratory Results - last 24 hr 07/19/18 07/19/18 07/19/18 05:48 10:49 14:05 WBC RBC Hgb Hct MCV MCH MCHC RDW Plt Count MPV Sodium Potassium Chloride Carbon Dioxide Anion Gap BUN Creatinine Creat Clearance w eGFR POC Glucometer 108.08985 109.29440 111.61157 Random Glucose Calcium Phosphorus Magnesium Total Bilirubin AST ALT Alkaline Phosphatase Total Protein Albumin 07/21/18 07/21/18 05:30 05:30 WBC 7.4 RBC 3.64 L Hgb 12.9 Hct 37.6 MCV 103.4 H MCH 35.5 H MCHC 34.3 RDW 12.7 Plt Count 183 MPV 8.5 Sodium 145 Potassium 3.6 Chloride 111 H Carbon Dioxide 26 Anion Gap 8 BUN 6 L Creatinine 0.6 Creat Clearance w eGFR > 60 POC Glucometer Random Glucose 97 Calcium 8.5 Phosphorus 3.3 Magnesium 2.0 Total Bilirubin 1.0 AST 38 H ALT 50 Alkaline Phosphatase 76 Total Protein 5.7 L Albumin 2.7 L Active Medications Generic Name Dose Route Start Last Admin Trade Name Freq PRN Reason Stop Dose Admin Acetaminophen 650 mg 11/20/18 08:28 Tylenol - PO Q6H PRN PAIN Chlorhexidine Gluconate 1 applic 07/18/18 22:00 07/20/18 21:24 Hibiclens For Decolonization - TP 1 applic HS TRISHA Administration Chlorhexidine Gluconate 15 ml 07/21/18 10:00 Peridex - MM BID TRISHA Famotidine/Sodium Chloride 20 mg in 50 mls @ 100 mls/hr 07/19/18 12:15 09:03 Pepcid 20 Mg Premixed Ivpb - IVPB 100 mls/hr DAILY@0800 TR[facility] Administration Ampicillin Sodium/Sulbactam 100 mls @ 200 mls/hr 07/19/18 21:00 07/21/18 09: 03 Sodium 3 gm/ Sodium Chloride IVPB 200 mls/hr Q6H-IV [facility]IS[facility] Administration Potassium Chloride/Dextrose/Sod Cl 20 meq in 1,000 mls @ 75 mls/hr 07/20/18 10 :15 07/20/18 10:15 D5-1/2ns+20 Meq Kcl - IV 75 mls/hr ASDIR TRISHA Administration Levetiracetam 500 mg 07/18/18 10:00 07/21/18 09:04 Keppra Injection - IVPB 500 mg BID TRIS[facility] Administration Lorazepam 1 mg 07/19/18 19:08 07/21/18 08:27 Ativan Injection - IVPUSH 1 mg Q3H PRN Administration ANXIETY Mupirocin 1 applic 07/18/18 22:15 07/21/18 09:04 Bactroban Ointment (For Decolonization) - NS 07/23/18 22:14 1 applic BID TRISHA Administration Nicotine 21 mg 07/19/18 10:00 07/21/18 09:04 Nicoderm Patch - TD 21 mg DAILY [facility]IS[facility] Administration Promethazine HCl 25 mg 07/18/18 08:28 Phenergan Injection - IM Q6H PRN NAUSEA AND/OR VOMITING ASSESSMENT/PLAN: 68 alcoholic man presenting s/p fall 3with N,V and headaches, found to have bilateral frontal contusion, subdural and subarachnoid hemorrhage and comminuted fracture of the occipital bone. Now with agitation and possible symptoms of alcohol withdrawal. No seizures witnessed. Neuro Subdural, subarachnoid, occipital fracture - Per neurosurgery: Head CT this AM if stable, can transfer - Neurocheck Q1H - Keppra 500 mg BID seizure ppx - Ativan 2mg Q6H for agitation - Neurosurgery following (Dr. Hayes) - Tylenol PRN for headaches - HOB elevated to 30degrees + Pulm Aspiration Risk - CXR daily - chlorhexidine mouthwash - oral suctioning - incentive spirometry ID Fever (central vs infectious) - D/c unasyn 2/2 negative cultures - fever overnight (07/20), pending UA, Ucx, blood cx HTN - Labetolol 5mg for SBP >140 F/E/N Alcohol Withdrawal, Hypokalemia - Trend K, replete as necessary - Glucose fingerstick Q4H - D51/2 NS + 20mEq KCl @ 75ml/hr GI ppx - Pepcid 20mg daily DVT ppx - SCDs Dispo: Repeat head CT if stable, transfer Visit type - Emergency Visit Emergency Visit: No - New Patient This patient is new to me today: No - Critical Care Critical Care patient: No
[2018-07-21] MEDS ORDERED: LORazepam 2 MG/ML SDV VIAL IVPUSH ONE (10:47)
--- NOTE | 2018-07-21 11:08 | PN ---
Teaching Attending Note Name of Resident: Nina Campos ATTENDING PHYSICIAN STATEMENT I saw and evaluated the patient. I reviewed the resident's note and discussed the case with the resident. I agree with the resident's findings and plan as documented. SUBJECTIVE: Pt seen and examined in the ICU. More awake, alert. Remains confused. Intermittent fevers. OBJECTIVE: Vital Signs Period Temp Pulse Resp BP Sys/Dawn Pulse Ox Last 24 Hr 98.3 F-101.4 F 78-98 13-20 107-169/74-105 100-100 Intake & Output 07/18/18 07/19/18 07/20/18 07/21/18 23:59 23:59 23:59 23:59 Intake Total 100 4100 2783.7 625 Balance 100 4100 2783.7 625 Weight 64.524 kg 64.524 kg 63.049 kg 63.503 kg Gen: somnolent but arousable Heart: RRR Lung: decreased breath sounds at the bases Abd: soft, nontender Ext: no edema CBC, BMP 07/21/18 05:30 07/21/18 05:30 Active Medications Acetaminophen (Tylenol -) 650 mg PO Q6H PRN PRN Reason: PAIN Chlorhexidine Gluconate (Hibiclens For Decolonization -) 1 applic TP HS [facility] Last Admin: 07/20/18 21:24 Dose: 1 applic Chlorhexidine Gluconate (Peridex -) 15 ml MM BID [facility] Famotidine/Sodium Chloride (Pepcid 20 Mg Premixed Ivpb -) 20 mg in 50 mls @ 100 mls/hr IVPB DAILY@0800 [facility] Last Admin: 07/21/18 09:03 Dose: 100 mls/hr Potassium Chloride/Dextrose/Sod Cl (D5-1/2ns+20 Meq Kcl -) 20 meq in 1,000 mls @ 75 mls/hr IV ASDIR [facility] Last Admin: 07/20/18 10:15 Dose: 75 mls/hr Levetiracetam (Keppra Injection -) 500 mg IVPB BID [facility] Last Admin: 07/21/18 09:04 Dose: 500 mg Lorazepam (Ativan Injection -) 1 mg IVPUSH Q3H PRN PRN Reason: ANXIETY Last Admin: 07/21/18 08:27 Dose: 1 mg Mupirocin (Bactroban Ointment (For Decolonization) -) 1 applic NS BID [facility] Stop: 07/23/18 22:14 Last Admin: 07/21/18 09:04 Dose: 1 applic Nicotine (Nicoderm Patch -) 21 mg TD DAILY [facility] Last Admin: 07/21/18 09:04 Dose: 21 mg Promethazine HCl (Phenergan Injection -) 25 mg IM Q6H PRN PRN Reason: NAUSEA AND/OR VOMITING ASSESSMENT AND PLAN: s/p Fall Subarachnoid Hemorrhage Subdural Hematoma Alcohol Abuse r/o Alcohol Withdrawal Thrombocytopenia - repeat CT head - continue empiric antiepileptics - hypotonic IVF - benzos as needed - agree with monitoring off antibiotics - aspiration precautions - NPO - can monitor on floor if repeat CT head unchanged critical care time spent in reviewing chart, evaluating patient and formulating plan 35 min
[2018-07-21] MEDS: CHLORHEXIDINE GLUCONATE 0.12% 15ML CUP MM SCH ×2 (11:37→21:23)
[2018-07-21] MEDS: D5-1/2NS+20 MEQ KCL - 20 MEQ/1,000 ML INFUS.BAG IV SCH ×2 (11:37→16:30)
--- NOTE | 2018-07-21 15:21 | PN ---
Physical Exam: SUBJECTIVE: Patient seen and examined at beside. Spiked fever of 10.4 overnight. Blood cultures taken. More alert today. OBJECTIVE: Vital Signs Period Temp Pulse Resp BP Sys/Dawn Pulse Ox Last 24 Hr 98.3 F-101.4 F 78-98 13-20 91-169/74-105 100-100 GENERAL: Responds to come commands, more alert HEAD: NC/At no signs of external trauma EYES: Pupils constricted b/l. Symmetric ENT: MMM NECK: Trachea midline No JVD LUNGS: Crackles Left Base HEART: RRR No MRG S1S2 ABDOMEN: NDNT EXTREMITIES: No CCE NEUROLOGICAL: Lethargic, responds to verbal and physical stimuli. SKIN: No rashes or lesions appreciated Laboratory Results - last 24 hr 07/21/18 07/21/18 05:30 05:30 WBC 7.4 RBC 3.64 L Hgb 12.9 Hct 37.6 MCV 103.4 H MCH 35.5 H MCHC 34.3 RDW 12.7 Plt Count 183 MPV 8.5 Sodium 145 Potassium 3.6 Chloride 111 H Carbon Dioxide 26 Anion Gap 8 BUN 6 L Creatinine 0.6 Creat Clearance w eGFR > 60 Random Glucose 97 Calcium 8.5 Phosphorus 3.3 Magnesium 2.0 Total Bilirubin 1.0 AST 38 H ALT 50 Alkaline Phosphatase 76 Total Protein 5.7 L Albumin 2.7 L Active Medications Generic Name Dose Route Start Last Admin Trade Name Freq PRN Reason Stop Dose Admin Acetaminophen 650 mg 07/18/18 08:28 Tylenol - PO Q6H PRN PAIN Chlorhexidine Gluconate 1 applic 07/18/18 22:00 07/20/18 21:24 Hibiclens For Decolonization - TP 1 applic HS [facility] Administration Chlorhexidine Gluconate 15 ml 07/21/18 10:00 Peridex - MM BID [facility] Famotidine/Sodium Chloride 20 mg in 50 mls @ 100 mls/hr 07/19/18 12:15 09:03 Pepcid 20 Mg Premixed Ivpb - IVPB 100 mls/hr DAILY@0800 [facility] Administration Potassium Chloride/Dextrose/Sod Cl 20 meq in 1,000 mls @ 75 mls/hr 07/20/18 10 :15 07/21/18 11:37 D5-1/2ns+20 Meq Kcl - IV Not Given ASDIR [facility] Levetiracetam 500 mg 07/18/18 10:00 07/21/18 09:04 Keppra Injection - IVPB 500 mg BID [facility] Administration Lorazepam 1 mg 07/19/18 19:08 07/21/18 13:40 Ativan Injection - IVPUSH 1 mg Q3H PRN Administration ANXIETY Mupirocin 1 applic 07/18/18 22:15 07/21/18 09:04 Bactroban Ointment (For Decolonization) - NS 07/23/18 22:14 1 applic BID [facility] Administration Nicotine 21 mg 07/19/18 10:00 07/21/18 09:04 Nicoderm Patch - TD 21 mg DAILY [facility] Administration Promethazine HCl 25 mg 07/18/18 08:28 Phenergan Injection - IM Q6H PRN NAUSEA AND/OR VOMITING ASSESSMENT/PLAN: 68 alcoholic man presenting s/p fall 3 days ago with N,V and headaches, found to have bilateral frontal contusion, subdural and subarachnoid hemorrhage and comminuted fracture of the occipital bone. Now with agitation and possible symptoms of alcohol withdrawal. No seizures witnessed. #SDH/SAH 2/2 Mechanical Fall - Neurocheck Q1H - Keppra 500 mg BID seizure ppx - Ativan 2mg Q6H for agitation - Neurosurgery on board Dr Marcelino Hayes - Tylenol PRN for headaches - HOB elevated to 30degrees + - Head CT- Occipital bone midline fx to inion; B frontal hemorrhagic contusion with SDH; B anterior temporal contusion with SAH R > L and small SDH -Repeat Head CT this AM 07/21/18---> interval increase edema in the left frontal lobe -Unasyn d/c'ed -Fever overnight (07/20), pending UA, Ucx, blood cx - Hypernatremic in light of NS and no oral intake. Fluids with d5 1/2 NS+K. Continue to follow. 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 - New Patient This patient is new to me today: No - Critical Care Critical Care patient: No - Discharge Referral Referred to [facility] Med [facility].: No
--- NOTE | 2018-07-21 17:29 | PN ---
Teaching Attending Note Name of Resident: Sebastien Villalobos ATTENDING PHYSICIAN STATEMENT I saw and evaluated the patient. I reviewed the resident's note and discussed the case with the resident. I agree with the resident's findings and plan as documented with exceptions below. SUBJECTIVE: Patient seen and examined. Sedated, but more responsive today, attempting to get out of bed, incomprehensible speech but monosyllable responses to questions. OBJECTIVE: Vital Signs Period Temp Pulse Resp BP Sys/Dawn Pulse Ox Last 24 Hr 98.3 F-101.4 F 78-98 13-20 91-169/74-105 100-100 Intake & Output 07/18/18 07/19/18 07/20/18 07/21/18 23:59 23:59 23:59 23:59 Intake Total 100 4100 2783.7 1575 Balance 100 4100 2783.7 1575 Weight 142 lb 4 oz 142 lb 4 oz 139 lb 140 lb General: sedated, in bed, attempting to get out of bed CVS:S1S2 regular Chest: decreased effort, no rales or wheezing appreciated Abdomen:Soft, ND, positive bowel sounds Extremities: no edema Neuro: sedated, few monosyllable responses, overall speech incomprehensible, pupils reactive bilaterally, moves all extremities freely, facial symmetry Home Medications Medication Instructions Recorded NK [No Known Home Medication] 07/18/18 Active Medications Acetaminophen (Tylenol -) 650 mg PO Q6H PRN PRN Reason: PAIN Chlorhexidine Gluconate (Hibiclens For Decolonization -) 1 applic TP HS [facility] Last Admin: 07/20/18 21:24 Dose: 1 applic Chlorhexidine Gluconate (Peridex -) 15 ml MM BID [facility] Famotidine/Sodium Chloride (Pepcid 20 Mg Premixed Ivpb -) 20 mg in 50 mls @ 100 mls/hr IVPB DAILY@0800 [facility] Last Admin: 07/21/18 09:03 Dose: 100 mls/hr Potassium Chloride/Dextrose/Sod Cl (D5-1/2ns+20 Meq Kcl -) 20 meq in 1,000 mls @ 75 mls/hr IV ASDIR [facility] Last Admin: 07/21/18 16:30 Dose: 75 mls/hr Levetiracetam (Keppra Injection -) 500 mg IVPB BID [facility] Last Admin: 07/21/18 09:04 Dose: 500 mg Lorazepam (Ativan Injection -) 1 mg IVPUSH Q3H PRN PRN Reason: ANXIETY Last Admin: 07/21/18 13:40 Dose: 1 mg Mupirocin (Bactroban Ointment (For Decolonization) -) 1 applic NS BID [facility] Stop: 07/23/18 22:14 Last Admin: 07/21/18 09:04 Dose: 1 applic Nicotine (Nicoderm Patch -) 21 mg TD DAILY [facility] Last Admin: 07/21/18 09:04 Dose: 21 mg Promethazine HCl (Phenergan Injection -) 25 mg IM Q6H PRN PRN Reason: NAUSEA AND/OR VOMITING Laboratory Results - last 24 hr 07/21/18 07/21/18 05:30 05:30 WBC 7.4 RBC 3.64 L Hgb 12.9 Hct 37.6 MCV 103.4 H MCH 35.5 H MCHC 34.3 RDW 12.7 Plt Count 183 MPV 8.5 Sodium 145 Potassium 3.6 Chloride 111 H Carbon Dioxide 26 Anion Gap 8 BUN 6 L Creatinine 0.6 Creat Clearance w eGFR > 60 Random Glucose 97 Calcium 8.5 Phosphorus 3.3 Magnesium 2.0 Total Bilirubin 1.0 AST 38 H ALT 50 Alkaline Phosphatase 76 Total Protein 5.7 L Albumin 2.7 L Microbiology 07/18/18 14:30 Blood - Peripheral Venous Blood Culture - Preliminary NO GROWTH OBTAINED AFTER 72 HOURS, INCUBATION TO CONTINUE FOR 2 DAYS. 07/18/18 14:10 Blood - Peripheral Venous Blood Culture - Preliminary NO GROWTH OBTAINED AFTER 72 HOURS, INCUBATION TO CONTINUE FOR 2 DAYS. 07/18/18 13:45 Urine - Urine Clean Catch Urine Culture - Final NO GROWTH OBTAINED ASSESSMENT AND PLAN: 68 yom with alcohol abuse, with unwitnessed fall, suspected 2 days ago admitted with SDH/SAH/Intraparenchymal Haemorrhage with edema, Occipital bone fracture. -SDH/SAH/intraparenchymal haemorrhage with edema, suspect traumatic -Occipital bone fracture -Alcohol abuse/withdrawal, likely delirium tremens -Fever, ?Aspiration Pneumonitis in the setting of vomiting/alcohol use, ? central fevers, low suspicion of intracranial source -Hypernatremia, suspect from lack of oral intake and fluids with NS. Plan: Repeat CT head with some worsening edema. Discussed with ICU, plan for monitor in ICU, hold off on steroids for now. Neuro checks. Tiburcioppra day 4, No ASA/NSAIDs/AC. Neuro checks. No further fevers. repeat CXR noted, ID input noted. Unasyn d/silas, monitor for now. Blood cx neg. Hypotonic fluids, discussed with nursing to try po once patient more awake. Detox consult noted. Ativan. Replete lytes prn DVTPPX with SCDs Plan discussed with nursing. Dispo total critical care time spent in ICU 35min.
[2018-07-21] MEDS: CHLORHEXIDINE GLUCONATE 4% CLEANSER FOR DECOLONIZATION TP SCH (21:22)
[2018-07-21] MEDS ORDERED: chlordiazePOXIDE 5 MG CAPSULE PO SCH ×2 (23:00)
[2018-07-22 05:55] LABS: BASO % 1.2 % (0-2.0); EOS % 2.9 % (0-4.5); HEMATOCRIT 38.7 % (35.4-49); HEMOGLOBIN 13.2 GM/dL (11.7-16.9); LYMPH % 9.8 % (8-40); MEAN PLT VOLUME 8.8 fl (7.5-11.1); MONO % 18.8 % (3.8-10.2); NEUT % 67.3 % (42.8-82.8); PLATELET COUNT 215 K/MM3 (134-434); RBC 3.76 M/mm3 (4.00-5.60); RDW 12.9 % (11.9-15.9); WHITE BLOOD COUNT 9.1 K/mm3 (4.0-10.0)
[2018-07-22 06:43] LABS: ALBUMIN 2.7 g/dl (3.4-5.0); ALK PHOS 83 U/L (45-117); ANION GAP 6 MMOL/L (8-16); BLOOD UREA NITROGEN 6 mg/dL (7-18); CALCIUM 8.7 mg/dL (8.5-10.1); CHLORIDE 109 mmol/L (98-107); CO2 27 mmol/L (21-32); CREATININE 0.6 mg/dL (0.55-1.3); GLUCOSE,RANDOM 105 mg/dL (74-106); PHOSPHOROUS 2.8 mg/dL (2.5-4.9); POTASSIUM 3.6 mmol/L (3.5-5.1); SGOT/AST 34 U/L (15-37); SGPT/ALT 47 U/L (13-61); SODIUM 142 mmol/L (136-145); TOT PROT 5.9 g/dl (6.4-8.2)
[2018-07-22] MEDS: FAMOTIDINE 20 MG/50 ML IVPB 20 MG/50 ML MG IVPB SCH (09:00)
[2018-07-22] MEDS: levETIRAcetam 500 MG/5 ML INJECTION VIAL IVPB SCH ×2 (09:00→21:47)
[2018-07-22] MEDS: NICOTINE 21 MG/24 HOURS TOPICAL PATCH TD SCH (09:00)
[2018-07-22] MEDS: MUPIROCIN 2% TOPICAL OINTMENT FOR DECOLONIZATION NS SCH ×2 (09:00→21:48)
[2018-07-22] MEDS: CHLORHEXIDINE GLUCONATE 0.12% 15ML CUP MM SCH ×2 (09:01→21:49)
--- NOTE | 2018-07-22 09:08 | PN ---
Physical Exam: SUBJECTIVE: Patient seen and examined at bedside. No acute events overnight. REVIEW OF SYSTEMS: Unable to obtain. OBJECTIVE: Vital Signs Period Temp Pulse Resp BP Sys/Dawn Pulse Ox Last 24 Hr 98.7 F-100.5 F 78-103 14-20 91-143/68-105 100-100 GENERAL: lethargic 2/2 ativan HEAD: Normal with no signs of trauma. EYES: PERRL, extraocular movements intact, sclera anicteric, conjunctiva clear. No nystagmus. No ptosis. ENT: dry mucosa NECK: Trachea midline LUNGS: slightly coarse breath sounds bilaterally w/ some rhonchi, no wheezes, no crackles, no accessory muscle use. HEART: Regular rate and rhythm, S1, S2 without murmur, rub or gallop. ABDOMEN: Soft, nontender, nondistended, normoactive bowel sounds, no guarding, no rebound, no hepatosplenomegaly, no masses. EXTREMITIES: 2+ pulses, warm, well-perfused, no edema. NEUROLOGICAL: lethargic 2/2 ativan SKIN: Warm, dry, normal turgor, no rashes or lesions noted Laboratory Results - last 24 hr 07/22/18 07/22/18 05:15 05:15 WBC 9.1 RBC 3.76 L Hgb 13.2 Hct 38.7 MCV 103.0 H MCH 35.0 H MCHC 34.0 RDW 12.9 Plt Count 215 MPV 8.8 Absolute Neuts (auto) 6.1 Neutrophils % 67.3 Lymphocytes % 9.8 Monocytes % 18.8 H Eosinophils % 2.9 D Basophils % 1.2 Nucleated RBC % 0 Sodium 142 Potassium 3.6 Chloride 109 H Carbon Dioxide 27 Anion Gap 6 L BUN 6 L Creatinine 0.6 Creat Clearance w eGFR > 60 Random Glucose 105 Calcium 8.7 Phosphorus 2.8 Magnesium 2.0 Total Bilirubin 1.0 AST 34 ALT 47 Alkaline Phosphatase 83 Total Protein 5.9 L Albumin 2.7 L Active Medications Generic Name Dose Route Start Last Admin Trade Name Freq PRN Reason Stop Dose Admin Acetaminophen 650 mg 07/18/18 08:28 Tylenol - PO Q6H PRN PAIN Chlorhexidine Gluconate 1 applic 07/18/18 22:00 07/21/18 21:22 Hibiclens For Decolonization - TP 1 applic HS [facility] Administration Chlorhexidine Gluconate 15 ml 11/23/18 10:00 07/22/18 09:01 Peridex - MM 15 ml BID [facility] Administration Famotidine/Sodium Chloride 20 mg in 50 mls @ 100 mls/hr 07/19/18 12:15 09:00 Pepcid 20 Mg Premixed Ivpb - IVPB 100 mls/hr DAILY@0800 [facility] Administration Potassium Chloride/Dextrose/Sod Cl 20 meq in 1,000 mls @ 75 mls/hr 07/20/18 10 :15 07/21/18 16:30 D5-1/2ns+20 Meq Kcl - IV 75 mls/hr ASDIR [facility] Administration Levetiracetam 500 mg 07/18/18 10:00 07/22/18 09:00 Keppra Injection - IVPB 500 mg BID [facility] Administration Lorazepam 1 mg 07/19/18 19:08 07/21/18 23:25 Ativan Injection - IVPUSH 1 mg Q3H PRN Administration ANXIETY Mupirocin 1 applic 07/18/18 22:15 07/22/18 09:00 Bactroban Ointment (For Decolonization) - NS 07/23/18 22:14 1 applic BID [facility] Administration Nicotine 21 mg 07/19/18 10:00 07/22/18 09:00 Nicoderm Patch - TD 21 mg DAILY [facility] Administration Promethazine HCl 25 mg 07/18/18 08:28 Phenergan Injection - IM Q6H PRN NAUSEA AND/OR VOMITING ASSESSMENT/PLAN: 68 alcoholic man presenting s/p fall 3with N,V and headaches, found to have bilateral frontal contusion, subdural and subarachnoid hemorrhage and comminuted fracture of the occipital bone. Now with agitation and possible symptoms of alcohol withdrawal. No seizures witnessed. Neuro #Subdural, subarachnoid, occipital fracture - Repeat Head CT showed interval increasing edema in L frontal lobe, anteriorly. - Per neurosurg, rec to repeat Head CT. Head CT ordered, await results. - Neurocheck Q1H - Keppra 500 mg BID seizure ppx - Ativan 1mg Q6H for agitation - Nicotine patch - Neurosurgery following (Dr. Hayes) - Tylenol PRN for headaches - HOB elevated to 30degrees + Pulm Aspiration Risk - CXR daily - chlorhexidine mouthwash - oral suctioning - incentive spirometry ID Fever (central vs infectious) - Unasyn D/C'd, BCx neg x24, x72 - Per ID, fevers may likely be due to EtOH withdrawal vs. central process; no signs of infection at this time. HTN - Labetolol 5mg for SBP >140 F/E/N Alcohol Withdrawal, Hypokalemia - Trend K, replete as necessary, - Glucose fingerstick BID, B9/B12 repleted - D51/2 NS + 20mEq KCl @ 75ml/hr GI ppx - Pepcid 20mg daily DVT ppx - SCDs Visit type - Emergency Visit Emergency Visit: Yes ED Registration Date: 07/18/18 Care time: The patient presented to the Emergency Department on the above date and was hospitalized for further evaluation of their emergent condition. - New Patient This patient is new to me today: Yes Date on this admission: 07/22/18 - Critical Care Critical Care patient: Yes Total Critical Care Time (in minutes): 30 Critical Care Statement: The care of this patient involved high complexity decision making to prevent further life threatening deterioration of the patient 's condition and/or to evaluate & treat vital organ system(s) failure or risk of failure.
--- NOTE | 2018-07-22 09:39 | PN ---
Progress Note, Physician History of Present Illness: Awake but confused in ICU Offers no complaints Low grade temp WBC WNL BC (-) - Current Medication List Current Medications: Active Medications Acetaminophen (Tylenol -) 650 mg PO Q6H PRN PRN Reason: PAIN Chlorhexidine Gluconate (Hibiclens For Decolonization -) 1 applic TP HS [facility] Last Admin: 07/21/18 21:22 Dose: 1 applic Chlorhexidine Gluconate (Peridex -) 15 ml MM BID [facility] Last Admin: 07/22/18 09:01 Dose: 15 ml Famotidine/Sodium Chloride (Pepcid 20 Mg Premixed Ivpb -) 20 mg in 50 mls @ 100 mls/hr IVPB DAILY@0800 [facility] Last Admin: 07/22/18 09:00 Dose: 100 mls/hr Potassium Chloride/Dextrose/Sod Cl (D5-1/2ns+20 Meq Kcl -) 20 meq in 1,000 mls @ 75 mls/hr IV ASDIR [facility] Last Admin: 07/21/18 16:30 Dose: 75 mls/hr Levetiracetam (Keppra Injection -) 500 mg IVPB BID [facility] Last Admin: 07/22/18 09:00 Dose: 500 mg Lorazepam (Ativan Injection -) 1 mg IVPUSH Q3H PRN PRN Reason: ANXIETY Last Admin: 07/21/18 23:25 Dose: 1 mg Mupirocin (Bactroban Ointment (For Decolonization) -) 1 applic NS BID [facility] Stop: 07/23/18 22:14 Last Admin: 07/22/18 09:00 Dose: 1 applic Nicotine (Nicoderm Patch -) 21 mg TD DAILY [facility] Last Admin: 07/22/18 09:00 Dose: 21 mg Promethazine HCl (Phenergan Injection -) 25 mg IM Q6H PRN PRN Reason: NAUSEA AND/OR VOMITING - Objective Vital Signs: Vital Signs Temperature 98.9 F 07/22/18 09:12 Pulse Rate 92 H 07/22/18 09:00 Respiratory Rate 18 07/22/18 09:00 Blood Pressure 130/98 07/22/18 09:00 O2 Sat by Pulse Oximetry (%) 100 07/22/18 08:30 Constitutional: Yes: No Distress Cardiovascular: Yes: Regular Rate and Rhythm, S1, S2 Respiratory: Yes: Diminished Gastrointestinal: Yes: Normal Bowel Sounds, Soft. No: Tenderness Edema: No Labs: CBC, BMP 07/22/18 05:15 07/22/18 05:15 INR, PTT INR 0.90 (0.83-1.09) 07/19/18 05:30 Assessment/Plan Low grade fever SDH/SAH Off antibiotics Observe Reculture for recurent temp
[2018-07-22] MEDS ORDERED: FOLIC ACID 5 MG/1 ML IVPB ONE (09:55)
--- NOTE | 2018-07-22 10:22 | PN ---
Physical Exam: SUBJECTIVE: Patient seen and examined at bedside. Pt poorly responsive. Speaks, but not clearly. Did not verbalize any complaint when asked. OBJECTIVE: Vital Signs Period Temp Pulse Resp BP Sys/Dawn Pulse Ox Last 24 Hr 98.7 F-100.5 F 82-103 14-20 91-143/68-99 100-100 Gen: rousable, oriented x 2, mumbling speech HEENT: moist membranes, Poor dentition, uncooperative for eye exam Neck: no jvd Cardio: rrr, normal s1s2, no mrg appreciated Pulm: limited exam. mild bibasilar rales Abd: nondistended, soft, no guarding Ext: no edema, 2+ pulses Neuro: limited exam. somnolent but rousable. obeys commands. squeezes hands when asked. Laboratory Results - last 24 hr 07/22/18 07/22/18 05:15 05:15 WBC 9.1 RBC 3.76 L Hgb 13.2 Hct 38.7 MCV 103.0 H MCH 35.0 H MCHC 34.0 RDW 12.9 Plt Count 215 MPV 8.8 Absolute Neuts (auto) 6.1 Neutrophils % 67.3 Lymphocytes % 9.8 Monocytes % 18.8 H Eosinophils % 2.9 D Basophils % 1.2 Nucleated RBC % 0 Sodium 142 Potassium 3.6 Chloride 109 H Carbon Dioxide 27 Anion Gap 6 L BUN 6 L Creatinine 0.6 Creat Clearance w eGFR > 60 Random Glucose 105 Calcium 8.7 Phosphorus 2.8 Magnesium 2.0 Total Bilirubin 1.0 AST 34 ALT 47 Alkaline Phosphatase 83 Total Protein 5.9 L Albumin 2.7 L Active Medications Generic Name Dose Route Start Last Admin Trade Name Freq PRN Reason Stop Dose Admin Acetaminophen 650 mg 07/18/18 08:28 Tylenol - PO Q6H PRN PAIN Chlorhexidine Gluconate 1 applic 07/18/18 22:00 07/21/18 21:22 Hibiclens For Decolonization - TP 1 applic HS [facility] Administration Chlorhexidine Gluconate 15 ml 07/21/18 10:00 07/22/18 09:01 Peridex - MM 15 ml BID [facility] Administration Cyanocobalamin 1,000 mcg 07/22/18 10:00 Vitamin B12 Injection - IM DAILY [facility] Folic Acid 0.4 mg 07/22/18 09:55 Folic Acid Injection - IVPB 11/24/18 09:56 DAILY [facility] Famotidine/Sodium Chloride 20 mg in 50 mls @ 100 mls/hr 07/19/18 12:15 09:00 Pepcid 20 Mg Premixed Ivpb - IVPB 100 mls/hr DAILY@0800 [facility] Administration Potassium Chloride/Dextrose/Sod Cl 20 meq in 1,000 mls @ 75 mls/hr 07/20/18 10 :15 07/21/18 16:30 D5-1/2ns+20 Meq Kcl - IV 75 mls/hr ASDIR [facility] Administration Levetiracetam 500 mg 07/18/18 10:00 07/22/18 09:00 Keppra Injection - IVPB 500 mg BID [facility] Administration Lorazepam 1 mg 07/19/18 19:08 07/21/18 23:25 Ativan Injection - IVPUSH 1 mg Q3H PRN Administration ANXIETY Mupirocin 1 applic 07/18/18 22:15 07/22/18 09:00 Bactroban Ointment (For Decolonization) - NS 07/23/18 22:14 1 applic BID [facility] Administration Nicotine 21 mg 07/19/18 10:00 07/22/18 09:00 Nicoderm Patch - TD 21 mg DAILY [facility] Administration Promethazine HCl 25 mg 07/18/18 08:28 Phenergan Injection - IM Q6H PRN NAUSEA AND/OR VOMITING Thiamine HCl 200 mg 07/22/18 10:00 Vitamin B1 Injection - IVPB DAILY [facility] ASSESSMENT/PLAN: Pt is a 68 y/o M with alcoholism and complaint of fall. Pt is in ICU with intracrainal bleed and skull fracture. #SAH/Subdural/intraparenchymal hemorrhage w/ occipital fracture -last CT with edema. Repeat today -Neurosurg on board. No intervention at this time. No indication for decadron at this time -c/w Keppra -avoid AC, NSAIDs -c/w neuro checks #EtOH abuse -Ativan PRN for signs of withdrawal -? DT's -Detox consulted #Fevers -pt currently afebrile -continue monitoring for fever #FEN -D5 1/2 NS with 20 Meq K -hyperchloremia -NPO currently. Will advance diet when pt can tolerate #PPx -no ac due to brain bleed #Dispo -ICU Sebastien Hilmy, MD PGY-2 IM Visit type - Emergency Visit Emergency Visit: No - New Patient This patient is new to me today: No - Critical Care Critical Care patient: Yes Total Critical Care Time (in minutes): 45 Critical Care Statement: The care of this patient involved high complexity decision making to prevent further life threatening deterioration of the patient 's condition and/or to evaluate & treat vital organ system(s) failure or risk of failure.
--- NOTE | 2018-07-22 10:38 | PN ---
Progress Note (short form) - Note Progress Note: NEUROSURGERY Mild H/A On Unasyn PE: Tmax 100.5, afebrile now, VSS HEENT- NC/AT; Neck- supple; Cor- RR; Lungs- CTA B; Abd- benign; Ext- no sign of DVT Somewhat drowsy, more awake than yesteday; arousable; garbled speech; following commands CN- intact; Motor- 4+-5/5; Sensation- intact LT; DTR- 1+ Blood culture negative to date Head CT- Occipital bone midline fx to inion, smaller occipital condylar fx; B frontal hemorrhagic contusion with SDH/SAH; B anterior temporal contusion with SAH R > L and small SDH F/U Head CT 07-18- Bifrontal/bitemporal hemorrhagic contusion with associated SDH R frontal most prominent; less JOSIE F/U Head CT 07-19- motion artifact; SDH settling along tentorium L > R; stable appearing contusions F/U Head CT 07-22- stable, minimally increased L anterior frontal lobe edema ( could be change of scan angle) B fronto-temporal hemorrhagic contusion, SDH, SAH, overall pattern stable Keppra for sz prophylaxis Incentive spirometry Mechanical DVT prophylaxis Edema is cytotoxic and steroid not indicated Repeat CT one more time, doubt additional edema 5-6 days out after hemorrhagic contusion
--- NOTE | 2018-07-22 10:42 | PN ---
Teaching Attending Note Name of Resident: Shu Bowen ATTENDING PHYSICIAN STATEMENT I saw and evaluated the patient. I reviewed the resident's note and discussed the case with the resident. I agree with the resident's findings and plan as documented. SUBJECTIVE: Pt seen and examined in the ICU. Lethargic but arousable. Low grade temps. Repeat CT head showing increased frontal edema. OBJECTIVE: Vital Signs Period Temp Pulse Resp BP Sys/Dawn Pulse Ox Last 24 Hr 98.7 F-100.5 F 82-103 14-20 91-143/68-99 100-100 Intake & Output 07/19/18 07/20/18 07/21/18 07/22/18 23:59 23:59 23:59 23:59 Intake Total 4100 2783.7 1974 525 Balance 4100 2783.7 1974 525 Weight 64.524 kg 63.049 kg 63.503 kg 63.503 kg Gen: lethargic but arousable Heart:RRR Lung: scattered rhonchi Abd: soft, nontender Ext: no edema CBC, BMP 07/22/18 05:15 07/22/18 05:15 Active Medications Acetaminophen (Tylenol -) 650 mg PO Q6H PRN PRN Reason: PAIN Chlorhexidine Gluconate (Hibiclens For Decolonization -) 1 applic TP HS [facility] Last Admin: 07/21/18 21:22 Dose: 1 applic Chlorhexidine Gluconate (Peridex -) 15 ml MM BID [facility] Last Admin: 07/22/18 09:01 Dose: 15 ml Cyanocobalamin (Vitamin B12 Injection -) 1,000 mcg IM DAILY [facility] Folic Acid (Folic Acid Injection -) 0.4 mg IVPB DAILY [facility] Stop: 07/22/18 09:56 Famotidine/Sodium Chloride (Pepcid 20 Mg Premixed Ivpb -) 20 mg in 50 mls @ 100 mls/hr IVPB DAILY@0800 [facility] Last Admin: 07/22/18 09:00 Dose: 100 mls/hr Potassium Chloride/Dextrose/Sod Cl (D5-1/2ns+20 Meq Kcl -) 20 meq in 1,000 mls @ 75 mls/hr IV ASDIR [facility] Last Admin: 07/21/18 16:30 Dose: 75 mls/hr Levetiracetam (Keppra Injection -) 500 mg IVPB BID [facility] Last Admin: 07/22/18 09:00 Dose: 500 mg Lorazepam (Ativan Injection -) 1 mg IVPUSH Q3H PRN PRN Reason: ANXIETY Last Admin: 07/21/18 23:25 Dose: 1 mg Mupirocin (Bactroban Ointment (For Decolonization) -) 1 applic NS BID [facility] Stop: 07/23/18 22:14 Last Admin: 07/22/18 09:00 Dose: 1 applic Nicotine (Nicoderm Patch -) 21 mg TD DAILY [facility] Last Admin: 07/22/18 09:00 Dose: 21 mg Promethazine HCl (Phenergan Injection -) 25 mg IM Q6H PRN PRN Reason: NAUSEA AND/OR VOMITING Thiamine HCl (Vitamin B1 Injection -) 200 mg IVPB DAILY [facility] ASSESSMENT AND PLAN: s/p Fall Subarachnoid Hemorrhage Subdural Hematoma Alcohol Abuse r/o Alcohol Withdrawal Thrombocytopenia - neurosurgery f/u - continue empiric antiepileptics - continue IVF - benzos as needed - monitoring off antibiotics - aspiration precautions - NPO - disposition per NS
[2018-07-22] MEDS: THIAMINE HCL 200 MG/2 ML VIAL IVPB SCH (10:53)
[2018-07-22] MEDS: CYANOCOBALAMIN (VITAMIN B-12) 1000 MCG/1 ML VIAL IM SCH (10:56)
[2018-07-22] MEDS: LORazepam 2 MG/ML SDV VIAL IVPUSH PRN ×3 (11:57→23:29)
[2018-07-22 12:15] LABS: HEMATOCRIT 38.9 % (35.4-49); HEMOGLOBIN 13.2 GM/dL (11.7-16.9); MCH 34.7 pg (25.7-33.7); MCHC 33.8 g/dl (32.0-35.9); MEAN CELL VOLUME 102.4 fl (80-96); PLATELET COUNT 228 K/MM3 (134-434); RDW 12.8 % (11.9-15.9); WHITE BLOOD COUNT 9.6 K/mm3 (4.0-10.0)
[2018-07-22] MEDS: D5-1/2NS+20 MEQ KCL - 20 MEQ/1,000 ML INFUS.BAG IV SCH ×2 (12:35→23:38)
[2018-07-22] MEDS ORDERED: PT OWN MED DRAWER 7, Y5N ONE (12:43)
[2018-07-22] MEDS: FOLIC ACID 5 MG/1 ML IVPB SCH (12:45)
--- NOTE | 2018-07-22 12:47 | PN ---
Teaching Attending Note Name of Resident: Sebastien Nolasco ATTENDING PHYSICIAN STATEMENT I saw and evaluated the patient. I reviewed the resident's note and discussed the case with the resident. I agree with the resident's findings and plan as documented with exceptions below. SUBJECTIVE: Patient seen and examined, few responses, but sleepy, trying to get out of bed. OBJECTIVE: Vital Signs Period Temp Pulse Resp BP Sys/Dawn Pulse Ox Last 24 Hr 98.7 F-100.5 F 82-103 14-20 91-144/68-102 100-100 Intake & Output 07/19/18 07/20/18 07/21/18 07/22/18 23:59 23:59 23:59 23:59 Intake Total 4100 2783.7 1974 525 Balance 4100 2783.7 1974 525 Weight 142 lb 4 oz 139 lb 140 lb 140 lb General: drowsy, attempting to get out of bed, confused, no acute distress Chest: poor effort, unable to appreciate rales or wheezing Abdomen:soft, ND, positive bowel sounds Extremities: restrained, no new edema Neuro: drowsy, PERRL, moves all extremities symmetrically, mono syllable responses to questions, oriented to self, further exam limited, overall calmer and more interactive than yesterday Active Medications Acetaminophen (Tylenol -) 650 mg PO Q6H PRN PRN Reason: PAIN Chlorhexidine Gluconate (Hibiclens For Decolonization -) 1 applic TP HS [facility] Last Admin: 07/21/18 21:22 Dose: 1 applic Chlorhexidine Gluconate (Peridex -) 15 ml MM BID [facility] Last Admin: 07/22/18 09:01 Dose: 15 ml Cyanocobalamin (Vitamin B12 Injection -) 1,000 mcg IM DAILY [facility] Last Admin: 07/22/18 10:56 Dose: 1,000 mcg Folic Acid (Folic Acid Injection -) 1 mg IVPB DAILY [facility] Last Admin: 07/22/18 12:45 Dose: 1 mg Famotidine/Sodium Chloride (Pepcid 20 Mg Premixed Ivpb -) 20 mg in 50 mls @ 100 mls/hr IVPB DAILY@0800 [facility] Last Admin: 07/22/18 09:00 Dose: 100 mls/hr Potassium Chloride/Dextrose/Sod Cl (D5-1/2ns+20 Meq Kcl -) 20 meq in 1,000 mls @ 75 mls/hr IV ASDIR [facility] Last Admin: 07/22/18 12:35 Dose: 75 mls/hr Levetiracetam (Keppra Injection -) 500 mg IVPB BID [facility] Last Admin: 07/22/18 09:00 Dose: 500 mg Lorazepam (Ativan Injection -) 1 mg IVPUSH Q3H PRN PRN Reason: ANXIETY Last Admin: 07/22/18 11:57 Dose: 1 mg Mupirocin (Bactroban Ointment (For Decolonization) -) 1 applic NS BID [facility] Stop: 07/23/18 22:14 Last Admin: 07/22/18 09:00 Dose: 1 applic Nicotine (Nicoderm Patch -) 21 mg TD DAILY [facility] Last Admin: 07/22/18 09:00 Dose: 21 mg Promethazine HCl (Phenergan Injection -) 25 mg IM Q6H PRN PRN Reason: NAUSEA AND/OR VOMITING Thiamine HCl (Vitamin B1 Injection -) 200 mg IVPB DAILY [facility] Last Admin: 07/22/18 10:53 Dose: 200 mg Laboratory Results - last 24 hr 07/22/18 07/22/18 07/22/18 05:15 05:15 11:30 WBC 9.1 9.6 RBC 3.76 L 3.80 L Hgb 13.2 13.2 Hct 38.7 38.9 MCV 103.0 H 102.4 H MCH 35.0 H 34.7 H MCHC 34.0 33.8 RDW 12.9 12.8 Plt Count 215 228 MPV 8.8 8.0 Absolute Neuts (auto) 6.1 Neutrophils % 67.3 Lymphocytes % 9.8 Monocytes % 18.8 H Eosinophils % 2.9 D Basophils % 1.2 Nucleated RBC % 0 Sodium 142 Potassium 3.6 Chloride 109 H Carbon Dioxide 27 Anion Gap 6 L BUN 6 L Creatinine 0.6 Creat Clearance w eGFR > 60 Random Glucose 105 Calcium 8.7 Phosphorus 2.8 Magnesium 2.0 Total Bilirubin 1.0 AST 34 ALT 47 Alkaline Phosphatase 83 Total Protein 5.9 L Albumin 2.7 L Microbiology 07/21/18 07:30 Blood - Peripheral Venous Blood Culture - Preliminary NO GROWTH OBTAINED AFTER 24 HOURS, INCUBATION TO CONTINUE FOR 4 DAYS. 07/18/18 14:30 Blood - Peripheral Venous Blood Culture - Preliminary NO GROWTH OBTAINED AFTER 72 HOURS, INCUBATION TO CONTINUE FOR 2 DAYS. 07/18/18 14:10 Blood - Peripheral Venous Blood Culture - Preliminary NO GROWTH OBTAINED AFTER 72 HOURS, INCUBATION TO CONTINUE FOR 2 DAYS. 07/18/18 13:45 Urine - Urine Clean Catch Urine Culture - Final NO GROWTH OBTAINED ASSESSMENT AND PLAN: 68 yom with alcohol abuse, with unwitnessed fall, suspected 2 days ago admitted with SDH/SAH/Intraparenchymal Haemorrhage with edema, Occipital bone fracture. -SDH/SAH/intraparenchymal haemorrhage with edema, suspect traumatic -Occipital bone fracture -Alcohol abuse/withdrawal, likely delirium tremens -Fever, ?Aspiration Pneumonitis in the setting of vomiting/alcohol use, ? central fevers, low suspicion of intracranial source -Hypernatremia, suspect from lack of oral intake and fluids with NS. Plan: Neurosurgery input noted. REpeat CT head today. Neuro checks, ICU monitoring. Keppra day 5, No ASA/NSAIDs/AC. No further fevers. repeat CXR noted, ID input noted. Unasyn d/silas, monitor for now. Blood cx neg. Hypotonic fluids, discussed with nursing to try po once patient more awake. Detox consult noted. Ativan. Replete lytes prn DVTPPX with SCDs Plan discussed with nursing. Dispo total critical care time spent in ICU 35min.
[2018-07-22] MEDS: CHLORHEXIDINE GLUCONATE 4% CLEANSER FOR DECOLONIZATION TP SCH (21:48)
[2018-07-23 05:50] LABS: BASO % 0.7 % (0-2.0); EOS % 3.4 % (0-4.5); HEMATOCRIT 38.9 % (35.4-49); HEMOGLOBIN 13.3 GM/dL (11.7-16.9); LYMPH % 11.1 % (8-40); MCH 34.8 pg (25.7-33.7); MCHC 34.1 g/dl (32.0-35.9); MEAN CELL VOLUME 102.2 fl (80-96); MEAN PLT VOLUME 7.8 fl (7.5-11.1); NEUT % 65.8 % (42.8-82.8); PLATELET COUNT 262 K/MM3 (134-434); RBC 3.81 M/mm3 (4.00-5.60); RDW 12.4 % (11.9-15.9); WHITE BLOOD COUNT 8.9 K/mm3 (4.0-10.0)
[2018-07-23 06:22] LABS: ALBUMIN 2.7 g/dl (3.4-5.0); ALK PHOS 84 U/L (45-117); ANION GAP 7 MMOL/L (8-16); BLOOD UREA NITROGEN 8 mg/dL (7-18); CALCIUM 8.8 mg/dL (8.5-10.1); CHLORIDE 107 mmol/L (98-107); CO2 26 mmol/L (21-32); CREATININE 0.7 mg/dL (0.55-1.3); GLUCOSE,RANDOM 111 mg/dL (74-106); MAGNESIUM 1.9 mg/dL (1.8-2.4); POTASSIUM 3.7 mmol/L (3.5-5.1); SGOT/AST 30 U/L (15-37); SGPT/ALT 43 U/L (13-61); SODIUM 141 mmol/L (136-145); TOT PROT 5.9 g/dl (6.4-8.2)
[2018-07-23] MEDS ORDERED: ACETAMINOPHEN 1000 MG/100 ML VIAL (NON FORMULARY) IVPB ONE (08:45)
[2018-07-23] MEDS: FAMOTIDINE 20 MG/50 ML IVPB 20 MG/50 ML MG IVPB SCH (09:30)
[2018-07-23] MEDS: THIAMINE HCL 200 MG/2 ML VIAL IVPB SCH (10:45)
[2018-07-23] MEDS: CYANOCOBALAMIN (VITAMIN B-12) 1000 MCG/1 ML VIAL IM SCH (10:45)
--- NOTE | 2018-07-23 10:49 | PN ---
Progress Note (short form) - Note Progress Note: NEUROSURGERY Denies H/A Off abx PE: Tmax 100, afebrile now, VSS HEENT- NC/AT; Neck- supple; Cor- RR; Lungs- CTA B; Abd- benign; Ext- no sign of DVT Somewhat drowsy, arousable; garbled speech; following commands CN- intact; Motor- 4+-5/5; Sensation- intact LT; DTR- 1+ Blood culture negative to date Head CT- Occipital bone midline fx to inion, smaller occipital condylar fx; B frontal hemorrhagic contusion with SDH/SAH; B anterior temporal contusion with SAH R > L and small SDH F/U Head CT 07-18- Bifrontal/bitemporal hemorrhagic contusion with associated SDH R frontal most prominent; less JOSIE F/U Head CT 07-19- motion artifact; SDH settling along tentorium L > R; stable appearing contusions F/U Head CT 07-21- stable, minimally increased L anterior frontal lobe edema ( could be change of scan angle) F/U Head CT 07-22- no significant changes c/w prior scan B fronto-temporal hemorrhagic contusion, SDH, SAH, overall pattern stable Keppra for sz prophylaxis Incentive spirometry Mechanical DVT prophylaxis Stable from neurosurgical standpoint for tx to floor care
[2018-07-23] MEDS: D5-1/2NS+20 MEQ KCL - 20 MEQ/1,000 ML INFUS.BAG IV SCH (10:50)
[2018-07-23] MEDS: CHLORHEXIDINE GLUCONATE 0.12% 15ML CUP MM SCH ×2 (10:56→21:14)
[2018-07-23] MEDS: NICOTINE 21 MG/24 HOURS TOPICAL PATCH TD SCH (11:03)
[2018-07-23] MEDS: levETIRAcetam 500 MG/5 ML INJECTION VIAL IVPB SCH ×2 (11:03→21:13)
[2018-07-23] MEDS: MUPIROCIN 2% TOPICAL OINTMENT FOR DECOLONIZATION NS SCH ×2 (12:01→21:10)
[2018-07-23] MEDS: FOLIC ACID 5 MG/1 ML IVPB SCH (12:02)
--- NOTE | 2018-07-23 12:11 | PN ---
Teaching Attending Note Name of Resident: Prem Noble ATTENDING PHYSICIAN STATEMENT I saw and evaluated the patient. I reviewed the resident's note and discussed the case with the resident. I agree with the resident's findings and plan as documented. SUBJECTIVE: Pt seen and examined in the ICU. Remains lethargic but arousable. Low grade fever this AM. OBJECTIVE: Vital Signs Period Temp Pulse Resp BP Sys/Dawn Pulse Ox Last 24 Hr 98.2 F-100.5 F 88-111 16-28 104-143/84-106 100-100 Intake & Output 07/20/18 07/21/18 07/22/18 07/23/18 23:59 23:59 23:59 23:59 Intake Total 2783.7 1974 Balance 2783.7 1974 Weight 63.049 kg 63.503 kg 63.503 kg 62.414 kg Gen: lethargic Heart: RRR Lung: scattered rhonchi Abd: soft, nontender Ext: no edema CBC, BMP 07/23/18 05:30 07/23/18 05:30 Active Medications Acetaminophen (Tylenol -) 650 mg PO Q6H PRN PRN Reason: PAIN Chlorhexidine Gluconate (Hibiclens For Decolonization -) 1 applic TP HS [facility] Last Admin: 07/22/18 21:48 Dose: 1 applic Chlorhexidine Gluconate (Peridex -) 15 ml MM BID [facility] Last Admin: 07/23/18 10:56 Dose: 15 ml Cyanocobalamin (Vitamin B12 Injection -) 1,000 mcg IM DAILY [facility] Last Admin: 07/23/18 10:45 Dose: 1,000 mcg Folic Acid (Folic Acid Injection -) 1 mg IVPB DAILY [facility] Last Admin: 07/23/18 12:02 Dose: Not Given Famotidine/Sodium Chloride (Pepcid 20 Mg Premixed Ivpb -) 20 mg in 50 mls @ 100 mls/hr IVPB DAILY@0800 [facility] Last Admin: 07/23/18 09:30 Dose: 100 mls/hr Potassium Chloride/Dextrose/Sod Cl (D5-1/2ns+20 Meq Kcl -) 20 meq in 1,000 mls @ 75 mls/hr IV ASDIR [facility] Last Admin: 07/23/18 10:50 Dose: 75 mls/hr Levetiracetam (Keppra Injection -) 500 mg IVPB BID [facility] Last Admin: 07/23/18 11:03 Dose: 500 mg Lorazepam (Ativan Injection -) 1 mg IVPUSH Q3H PRN PRN Reason: ANXIETY Last Admin: 07/22/18 23:29 Dose: 1 mg Mupirocin (Bactroban Ointment (For Decolonization) -) 1 applic NS BID [facility] Stop: 07/23/18 22:14 Last Admin: 07/23/18 12:01 Dose: 1 applic Nicotine (Nicoderm Patch -) 21 mg TD DAILY [facility] Last Admin: 07/23/18 11:03 Dose: 21 mg Promethazine HCl (Phenergan Injection -) 25 mg IM Q6H PRN PRN Reason: NAUSEA AND/OR VOMITING Thiamine HCl (Vitamin B1 Injection -) 200 mg IVPB DAILY [facility] Last Admin: 07/23/18 10:45 Dose: 200 mg ASSESSMENT AND PLAN: s/p Fall Subarachnoid Hemorrhage Subdural Hematoma Alcohol Abuse r/o Alcohol Withdrawal Thrombocytopenia - continue empiric antiepileptics - continue IVF - benzos as needed - monitoring off antibiotics - aspiration precautions - NPO - can transfer to floor
--- NOTE | 2018-07-23 12:15 | PN ---
Physical Exam: SUBJECTIVE: Patient seen and examined. Lethargic but arousable. febrile this am @ 100.5. OBJECTIVE: Vital Signs Period Temp Pulse Resp BP Sys/Dawn Pulse Ox Last 24 Hr 98.2 F-100.5 F 88-111 16-28 104-143/84-106 100-100 GENERAL: lethargic 2/2 ativan HEAD: Normal with no signs of trauma. EYES: PERRL, extraocular movements intact, sclera anicteric, conjunctiva clear. No nystagmus. No ptosis. ENT: dry mucosa NECK: Trachea midline LUNGS: slightly coarse breath sounds bilaterally w/ some rhonchi, no wheezes, no crackles, no accessory muscle use. HEART: Regular rate and rhythm, S1, S2 without murmur, rub or gallop. ABDOMEN: Soft, nontender, nondistended, normoactive bowel sounds, no guarding, no rebound, no hepatosplenomegaly, no masses. EXTREMITIES: 2+ pulses, warm, well-perfused, no edema. NEUROLOGICAL: lethargic 2/2 ativan SKIN: Warm, dry, normal turgor, no rashes or lesions noted Laboratory Results - last 24 hr 07/22/18 07/23/18 07/23/18 11:30 05:30 05:30 WBC 9.6 8.9 RBC 3.80 L 3.81 L Hgb 13.2 13.3 Hct 38.9 38.9 MCV 102.4 H 102.2 H MCH 34.7 H 34.8 H MCHC 33.8 34.1 RDW 12.8 12.4 Plt Count 228 262 MPV 8.0 7.8 Absolute Neuts (auto) 5.9 Neutrophils % 65.8 Lymphocytes % 11.1 Monocytes % 19.0 H Eosinophils % 3.4 Basophils % 0.7 Nucleated RBC % 0 Sodium 141 Potassium 3.7 Chloride 107 Carbon Dioxide 26 Anion Gap 7 L BUN 8 Creatinine 0.7 Creat Clearance w eGFR > 60 Random Glucose 111 H Calcium 8.8 Phosphorus 3.0 Magnesium 1.9 Total Bilirubin 1.0 AST 30 ALT 43 Alkaline Phosphatase 84 Total Protein 5.9 L Albumin 2.7 L Active Medications Generic Name Dose Route Start Last Admin Trade Name Freq PRN Reason Stop Dose Admin Acetaminophen 650 mg 07/18/18 08:28 Tylenol - PO Q6H PRN PAIN Chlorhexidine Gluconate 1 applic 07/18/18 22:00 07/22/18 21:48 Hibiclens For Decolonization - TP 1 applic HS [facility] Administration Chlorhexidine Gluconate 15 ml 07/21/18 10:00 07/23/18 10:56 Peridex - MM 15 ml BID [facility] Administration Cyanocobalamin 1,000 mcg 07/22/18 10:00 07/23/18 10:45 Vitamin B12 Injection - IM 1,000 mcg DAILY [facility] Administration Folic Acid 1 mg 07/22/18 11:15 07/23/18 12:02 Folic Acid Injection - IVPB Not Given DAILY [facility] Famotidine/Sodium Chloride 20 mg in 50 mls @ 100 mls/hr 07/19/18 12:15 09:30 Pepcid 20 Mg Premixed Ivpb - IVPB 100 mls/hr DAILY@0800 [facility] Administration Potassium Chloride/Dextrose/Sod Cl 20 meq in 1,000 mls @ 75 mls/hr 07/20/18 10 :15 07/23/18 10:50 D5-1/2ns+20 Meq Kcl - IV 75 mls/hr ASDIR [facility] Administration Levetiracetam 500 mg 07/18/18 10:00 07/23/18 11:03 Keppra Injection - IVPB 500 mg BID [facility] Administration Lorazepam 1 mg 07/19/18 19:08 07/22/18 23:29 Ativan Injection - IVPUSH 1 mg Q3H PRN Administration ANXIETY Mupirocin 1 applic 07/18/18 22:15 07/23/18 12:01 Bactroban Ointment (For Decolonization) - NS 07/23/18 22:14 1 applic BID [facility] Administration Nicotine 21 mg 07/19/18 10:00 07/23/18 11:03 Nicoderm Patch - TD 21 mg DAILY [facility] Administration Promethazine HCl 25 mg 07/18/18 08:28 Phenergan Injection - IM Q6H PRN NAUSEA AND/OR VOMITING Thiamine HCl 200 mg 07/22/18 10:00 07/23/18 10:45 Vitamin B1 Injection - IVPB 200 mg DAILY [facility] Administration ASSESSMENT/PLAN: 68 alcoholic man presenting s/p fall 3with N,V and headaches, found to have bilateral frontal contusion, subdural and subarachnoid hemorrhage and comminuted fracture of the occipital bone. Now with agitation and possible symptoms of alcohol withdrawal. No seizures witnessed. Neuro #Subdural, subarachnoid, occipital fracture - Repeat Head CT showed interval increasing edema in L frontal lobe, anteriorly. - Per neurosurg, rec to repeat Head CT. Head CT ordered, await results. - Neurocheck Q1H - Keppra 500 mg BID seizure ppx - Ativan 1mg Q6H for agitation - Nicotine patch - Neurosurgery following (Dr. Hayes) - Tylenol PRN for headaches, fevers - HOB elevated to 30degrees + Pulm Aspiration Risk - CXR daily - chlorhexidine mouthwash - oral suctioning - incentive spirometry ID Fever (central vs infectious) - Unasyn D/C'd, BCx x72 - Per ID, fevers may likely be due to EtOH withdrawal vs. central process; no signs of infection at this time. HTN - Labetolol 5mg for SBP >140 F/E/N Alcohol Withdrawal, Hypokalemia - Trend K, replete as necessary, - Glucose fingerstick BID, B9/B12 repleted - D51/2 NS + 20mEq KCl @ 75ml/hr GI ppx - Pepcid 20mg daily DVT ppx - SCDs Can transfer to Med-surge Visit type - Emergency Visit Emergency Visit: Yes ED Registration Date: 07/18/18 Care time: The patient presented to the Emergency Department on the above date and was hospitalized for further evaluation of their emergent condition. - New Patient This patient is new to me today: No - Critical Care Critical Care patient: Yes Total Critical Care Time (in minutes): 30 Critical Care Statement: The care of this patient involved high complexity decision making to prevent further life threatening deterioration of the patient 's condition and/or to evaluate & treat vital organ system(s) failure or risk of failure.
[2018-07-23] MEDS ORDERED: PT OWN MED DRAWER 7, Y5N ONE ×3 (12:19→21:12)
--- NOTE | 2018-07-23 15:05 | PN ---
Physical Exam: SUBJECTIVE: Patient seen and examined, lethargic, responds in mono syllables, less agitated today. Denies any pain. OBJECTIVE: Vital Signs Period Temp Pulse Resp BP Sys/Dawn Pulse Ox Last 24 Hr 98.2 F-100.5 F 88-111 16-28 104-143/84-106 100-100 GENERAL: drowsy in bed, answers in mono syllables,intermittent incomprehensible speech. calmer, not trying to get out of bed Chest: poor effort, positive air entry, limited exam Abdomen: soft, NT, ND Extremities: mitten, no edema Neuro: drowsy as above, some interaction in monosyllables, otherwise exam unchanged Laboratory Results - last 24 hr 07/23/18 07/23/18 05:30 05:30 WBC 8.9 RBC 3.81 L Hgb 13.3 Hct 38.9 MCV 102.2 H MCH 34.8 H MCHC 34.1 RDW 12.4 Plt Count 262 MPV 7.8 Absolute Neuts (auto) 5.9 Neutrophils % 65.8 Lymphocytes % 11.1 Monocytes % 19.0 H Eosinophils % 3.4 Basophils % 0.7 Nucleated RBC % 0 Sodium 141 Potassium 3.7 Chloride 107 Carbon Dioxide 26 Anion Gap 7 L BUN 8 Creatinine 0.7 Creat Clearance w eGFR > 60 Random Glucose 111 H Calcium 8.8 Phosphorus 3.0 Magnesium 1.9 Total Bilirubin 1.0 AST 30 ALT 43 Alkaline Phosphatase 84 Total Protein 5.9 L Albumin 2.7 L Active Medications Generic Name Dose Route Start Last Admin Trade Name Freq PRN Reason Stop Dose Admin Acetaminophen 650 mg 07/18/18 08:28 Tylenol - PO Q6H PRN PAIN Chlorhexidine Gluconate 1 applic 07/18/18 22:00 07/22/18 21:48 Hibiclens For Decolonization - TP 1 applic HS [facility] Administration Chlorhexidine Gluconate 15 ml 07/21/18 10:00 07/23/18 10:56 Peridex - MM 15 ml BID [facility] Administration Cyanocobalamin 1,000 mcg 07/22/18 10:00 07/23/18 10:45 Vitamin B12 Injection - IM 1,000 mcg DAILY [facility] Administration Folic Acid 1 mg 07/22/18 11:15 07/23/18 12:02 Folic Acid Injection - IVPB Not Given DAILY [facility] Famotidine/Sodium Chloride 20 mg in 50 mls @ 100 mls/hr 07/19/18 12:15 09:30 Pepcid 20 Mg Premixed Ivpb - IVPB 100 mls/hr DAILY@0800 [facility] Administration Potassium Chloride/Dextrose/Sod Cl 20 meq in 1,000 mls @ 75 mls/hr 07/20/18 10 :15 07/23/18 10:50 D5-1/2ns+20 Meq Kcl - IV 75 mls/hr ASDIR [facility] Administration Levetiracetam 500 mg 07/18/18 10:00 07/23/18 11:03 Keppra Injection - IVPB 500 mg BID [facility] Administration Lorazepam 1 mg 07/19/18 19:08 07/22/18 23:29 Ativan Injection - IVPUSH 1 mg Q3H PRN Administration ANXIETY Mupirocin 1 applic 07/18/18 22:15 07/23/18 12:01 Bactroban Ointment (For Decolonization) - NS 07/23/18 22:14 1 applic BID [facility] Administration Nicotine 21 mg 07/19/18 10:00 07/23/18 11:03 Nicoderm Patch - TD 21 mg DAILY [facility] Administration Promethazine HCl 25 mg 07/18/18 08:28 Phenergan Injection - IM Q6H PRN NAUSEA AND/OR VOMITING Thiamine HCl 200 mg 07/22/18 10:00 07/23/18 10:45 Vitamin B1 Injection - IVPB 200 mg DAILY [facility] Administration repeat CT brain unchanged. ASSESSMENT/PLAN: 68 yom with alcohol abuse, with unwitnessed fall, suspected 2 days ago admitted with SDH/SAH/Intraparenchymal Haemorrhage with edema, Occipital bone fracture. -SDH/SAH/intraparenchymal haemorrhage with edema, suspect traumatic -Occipital bone fracture -Alcohol abuse/withdrawal/Delirium tremens -Fever, ?Aspiration Pneumonitis in the setting of vomiting/alcohol use, ? central fevers, low suspicion of intracranial source -Hypernatremia, suspect from lack of oral intake and fluids with NS. Plan: Neurosurgery input noted. Repeat CT head unchanged. Keppra day 6, No ASA/NSAIDs/AC. Unasyn d/silas. Monitor off antibitocs. Low grade temps today suspect from aspiration vs atelectasis. Aspiration precautions and monitor for now. Hypotonic fluids, discussed with nursing to try po once patient more awake. Detox consult noted. Ativan. Overall patient seems calmer than before, requiring less ativan. continue to treat for withdrawal. Replete lytes prn DVTPPX with SCDs Plan discussed with nursing and ICU team. Agree with transfer to telemetry. Total critical care time spent in ICU 35min. Visit type - Emergency Visit Emergency Visit: Yes ED Registration Date: 07/18/18 Care time: The patient presented to the Emergency Department on the above date and was hospitalized for further evaluation of their emergent condition. - New Patient This patient is new to me today: No - Critical Care Critical Care patient: Yes Total Critical Care Time (in minutes): 35 Critical Care Statement: The care of this patient involved high complexity decision making to prevent further life threatening deterioration of the patient 's condition and/or to evaluate & treat vital organ system(s) failure or risk of failure.
[2018-07-23] MEDS: CHLORHEXIDINE GLUCONATE 4% CLEANSER FOR DECOLONIZATION TP SCH (21:09)
[2018-07-24 05:50] LABS: HEMOGLOBIN 13.7 GM/dL (11.7-16.9); MCH 34.7 pg (25.7-33.7); MCHC 34.3 g/dl (32.0-35.9); MEAN CELL VOLUME 101.3 fl (80-96); MEAN PLT VOLUME 7.9 fl (7.5-11.1); PLATELET COUNT 322 K/MM3 (134-434); RBC 3.95 M/mm3 (4.00-5.60); RDW 12.8 % (11.9-15.9); WHITE BLOOD COUNT 9.8 K/mm3 (4.0-10.0)
[2018-07-24 06:51] LABS: ALBUMIN 2.9 g/dl (3.4-5.0); ALK PHOS 95 U/L (45-117); ANION GAP 9 MMOL/L (8-16); BILIRUBIN,TOTAL 0.9 mg/dL (0.2-1); BLOOD UREA NITROGEN 7 mg/dL (7-18); CALCIUM 8.7 mg/dL (8.5-10.1); CHLORIDE 103 mmol/L (98-107); CO2 26 mmol/L (21-32); CREATININE 0.6 mg/dL (0.55-1.3); GLUCOSE,RANDOM 98 mg/dL (74-106); MAGNESIUM 2.2 mg/dL (1.8-2.4); PHOSPHOROUS 2.8 mg/dL (2.5-4.9); POTASSIUM 3.4 mmol/L (3.5-5.1); SGOT/AST 32 U/L (15-37); SGPT/ALT 41 U/L (13-61); SODIUM 138 mmol/L (136-145); TOT PROT 6.3 g/dl (6.4-8.2)
[2018-07-24] MEDS: FAMOTIDINE 20 MG/50 ML IVPB 20 MG/50 ML MG IVPB SCH (08:24)
--- NOTE | 2018-07-24 09:10 | PN ---
Progress Note (short form) - Note Progress Note: more awake Vital Signs Period Temp Pulse Resp BP Sys/Dawn Pulse Ox Last 24 Hr 98.1 F-99.6 F 80-96 12-23 103-151/73-112 100-100 cor-rrr lungs clear abd soft,nt ext no edema cxray no infiltrate CBC, BMP 07/24/18 05:30 07/24/18 05:[address] unchanged Microbiology 07/21/18 07:30 Blood - Peripheral Venous Blood Culture - Preliminary NO GROWTH OBTAINED AFTER 72 HOURS, INCUBATION TO CONTINUE FOR 2 DAYS. 07/18/18 14:30 Blood - Peripheral Venous Blood Culture - Final NO GROWTH AFTER 5 DAYS INCUBATION 07/18/18 14:10 Blood - Peripheral Venous Blood Culture - Final NO GROWTH AFTER 5 DAYS INCUBATION 07/18/18 13:45 Urine - Urine Clean Catch Urine Culture - Final NO GROWTH OBTAINED a/p fevers- resolving suspect either etoh withdrawal or from blood in [place] cultures negative stable off antibiotics s/p fall with fracture/SDH/SAH etoh abuse stable from ID standpoint please clal back if needed Problem List - Problems (1) Fever Code(s): R50.9 - FEVER, UNSPECIFIED (2) Subarachnoid hemorrhage Code(s): I60.9 - NONTRAUMATIC SUBARACHNOID HEMORRHAGE, UNSPECIFIED (3) Subdural hematoma Code(s): S06.5X9A - TRAUM SUBDR HEM W LOC OF UNSP DURATION, INIT (4) Alcohol abuse Code(s): F10.10 - ALCOHOL ABUSE, UNCOMPLICATED
[2018-07-24] MEDS: levETIRAcetam 500 MG/5 ML INJECTION VIAL IVPB SCH ×2 (11:00→21:47)
[2018-07-24] MEDS: THIAMINE HCL 200 MG/2 ML VIAL IVPB SCH (11:07)
[2018-07-24] MEDS: CYANOCOBALAMIN (VITAMIN B-12) 1000 MCG/1 ML VIAL IM SCH (11:07)
[2018-07-24] MEDS: D5-1/2NS+20 MEQ KCL - 20 MEQ/1,000 ML INFUS.BAG IV SCH (11:08)
[2018-07-24] MEDS: CHLORHEXIDINE GLUCONATE 0.12% 15ML CUP MM SCH (11:08)
[2018-07-24] MEDS: NICOTINE 21 MG/24 HOURS TOPICAL PATCH TD SCH (11:12)
[2018-07-24] MEDS ORDERED: PT OWN MED DRAWER 7, Y5N ONE (11:59)
[2018-07-24] MEDS: FOLIC ACID 5 MG/1 ML IVPB SCH (12:02)
--- NOTE | 2018-07-24 12:43 | PN ---
Physical Exam: SUBJECTIVE: Patient seen and examined Patient more alert, responsive, able to follow commands. OBJECTIVE: Vital Signs Period Temp Pulse Resp BP Sys/Dawn Pulse Ox Last 24 Hr 98.1 F-99.4 F 80-99 10-20 95-151/66-112 100-100 GENERAL: The patient is awake, alert, in no acute distress. HEAD: Normal with no signs of trauma. EYES: PERRL, extraocular movements intact, sclera anicteric, conjunctiva clear. No ptosis. ENT: moist mucous membranes. NECK: Trachea midline LUNGS: + slightly coarse breath sounds bilaterally, no wheezes, no crackles, no accessory muscle use. HEART: Regular rate and rhythm, S1, S2 without murmur, rub or gallop. ABDOMEN: Soft, nontender, nondistended, normoactive bowel sounds, no guarding, no rebound, no hepatosplenomegaly, no masses. EXTREMITIES: 2+ pulses, warm, well-perfused, no edema. NEUROLOGICAL: Cranial nerves II through XII grossly intact. Normal speech PSYCH: Normal mood, normal affect. SKIN: Warm, dry, normal turgor, no rashes or lesions noted Laboratory Results - last 24 hr 07/24/18 07/24/18 05:30 05:30 WBC 9.8 RBC 3.95 L Hgb 13.7 Hct 40.0 MCV 101.3 H MCH 34.7 H MCHC 34.3 RDW 12.8 Plt Count 322 D MPV 7.9 Sodium 138 Potassium 3.4 L Chloride 103 Carbon Dioxide 26 Anion Gap 9 BUN 7 Creatinine 0.6 Creat Clearance w eGFR > 60 Random Glucose 98 Calcium 8.7 Phosphorus 2.8 Magnesium 2.2 Total Bilirubin 0.9 AST 32 ALT 41 Alkaline Phosphatase 95 Total Protein 6.3 L Albumin 2.9 L Active Medications Generic Name Dose Route Start Last Admin Trade Name Freq PRN Reason Stop Dose Admin Acetaminophen 650 mg 07/18/18 08:28 Tylenol - PO Q6H PRN PAIN Chlorhexidine Gluconate 1 applic 07/18/18 22:00 07/23/18 21:09 Hibiclens For Decolonization - TP Not Given HS TRISHA Chlorhexidine Gluconate 15 ml 07/21/18 10:00 07/24/18 11:08 Peridex - MM 15 ml BID TRISHA Administration Cyanocobalamin 1,000 mcg 07/22/18 10:00 07/24/18 11:07 Vitamin B12 Injection - IM 1,000 mcg DAILY TR[facility] Administration Folic Acid 1 mg 07/22/18 11:15 07/24/18 12:02 Folic Acid Injection - IVPB 1 mg DAILY TRISHA Administration Famotidine/Sodium Chloride 20 mg in 50 mls @ 100 mls/hr 07/19/18 12:15 08:24 Pepcid 20 Mg Premixed Ivpb - IVPB 100 mls/hr DAILY@0800 [facility] Administration Potassium Chloride/Dextrose/Sod Cl 20 meq in 1,000 mls @ 75 mls/hr 07/20/18 10 :15 07/24/18 11:08 D5-1/2ns+20 Meq Kcl - IV 75 mls/hr ASDIR TRISHA Administration Levetiracetam 500 mg 07/18/18 10:00 07/24/18 11:00 Keppra Injection - IVPB 500 mg BID TRISHA Administration Nicotine 21 mg 07/19/18 10:00 07/24/18 11:12 Nicoderm Patch - TD 21 mg DAILY TRIS[facility] Administration Promethazine HCl 25 mg 07/18/18 08:28 Phenergan Injection - IM Q6H PRN NAUSEA AND/OR VOMITING Thiamine HCl 200 mg 07/22/18 10:00 07/24/18 11:07 Vitamin B1 Injection - IVPB 200 mg DAILY TRIS[facility] Administration ASSESSMENT/PLAN: 68 alcoholic man presenting s/p fall 3with N,V and headaches, found to have bilateral frontal contusion, subdural and subarachnoid hemorrhage and comminuted fracture of the occipital bone. Now with agitation and possible symptoms of alcohol withdrawal. No seizures witnessed. Neuro #Subdural, subarachnoid, occipital fracture Head CT with out interval changes btw 07/21-07/22, with neurological improvement , requiring less frequent Ativan for agitation, last dose 07/22. Neurosurgery cleared for transfer to med/surg. - Neurocheck Q1H - Keppra 500 mg BID seizure ppx - Ativan 1mg Q6H PRN for agitation - Nicotine patch - Neurosurgery following (Dr. Hayes) - Tylenol PRN for headaches, fevers - HOB elevated to 30degrees + Pulm Aspiration Risk - CXR daily - no changes from 07/22 - 07/24 - chlorhexidine mouthwash - oral suctioning - incentive spirometry ID Fever (central vs infectious) - Per ID, fevers may likely be due to EtOH withdrawal vs. central process; no signs of infection at this time. - Unasyn D/C'd, BCx x72 Cardiac BP at time of ICH between 150-220, sbp goal < 140 to improve functional outcomes. - Labetolol 5mg for SBP >140 F/E/N Alcohol Withdrawal, Hypokalemia - Trend K, replete as necessary, - Glucose fingerstick BID, B9/B12 repleted - D51/2 NS + 20mEq KCl @ 75ml/hr GI ppx - Pepcid 20mg daily DVT ppx - SCDs Dispo: Can transfer to Med-surg Visit type - Emergency Visit Emergency Visit: No - New Patient This patient is new to me today: No - Critical Care Critical Care patient: No
[2018-07-24] MEDS ORDERED: POTASSIUM CHLORIDE 20 MEQ PREMIX IVPB 100 ML IVPB ONE (12:59)
[2018-07-24] MEDS ORDERED: KCL 20 MEQ PREMIX BAG 100 ML IVPB ONE (13:30)
--- NOTE | 2018-07-24 13:46 | PN ---
Teaching Attending Note Name of Resident: Nina Campos ATTENDING PHYSICIAN STATEMENT I saw and evaluated the patient. I reviewed the resident's note and discussed the case with the resident. I agree with the resident's findings and plan as documented. SUBJECTIVE: Pt seen and examined in the ICU. More alert, awake. Oriented to place, person. OBJECTIVE: Vital Signs Period Temp Pulse Resp BP Sys/Dawn Pulse Ox Last 24 Hr 98.1 F-99.4 F 80-99 10-20 95-151/66-112 100-100 Intake & Output 07/21/18 07/22/18 07/23/18 07/24/18 23:59 23:59 23:59 23:59 Intake Total 1974 1974 1624 1000 Balance 1974 1974 1624 1000 Weight 63.503 kg 63.503 kg 62.414 kg 63 kg Gen: more alert, awake Heart: RRR Lung: scattered rhonchi Abd: soft, nontender Ext: no edema CBC, BMP 07/24/18 05:30 07/24/18 05:30 Active Medications Acetaminophen (Tylenol -) 650 mg PO Q6H PRN PRN Reason: PAIN Chlorhexidine Gluconate (Hibiclens For Decolonization -) 1 applic TP HS [facility] Last Admin: 07/23/18 21:09 Dose: Not Given Chlorhexidine Gluconate (Peridex -) 15 ml MM BID [facility] Last Admin: 07/24/18 11:08 Dose: 15 ml Cyanocobalamin (Vitamin B12 Injection -) 1,000 mcg IM DAILY [facility] Last Admin: 07/24/18 11:07 Dose: 1,000 mcg Folic Acid (Folic Acid Injection -) 1 mg IVPB DAILY [facility] Last Admin: 07/24/18 12:02 Dose: 1 mg Famotidine/Sodium Chloride (Pepcid 20 Mg Premixed Ivpb -) 20 mg in 50 mls @ 100 mls/hr IVPB DAILY@0800 [facility] Last Admin: 07/24/18 08:24 Dose: 100 mls/hr Potassium Chloride/Dextrose/Sod Cl (D5-1/2ns+20 Meq Kcl -) 20 meq in 1,000 mls @ 75 mls/hr IV ASDIR [facility] Last Admin: 07/24/18 11:08 Dose: 75 mls/hr Potassium Chloride (Potassium Chloride 20 Meq Premix Ivpb -) 100 mls @ 100 mls/ hr IVPB ONCE ONE Stop: 07/24/18 14:29 Levetiracetam (Keppra Injection -) 500 mg IVPB BID [facility] Last Admin: 07/24/18 11:00 Dose: 500 mg Nicotine (Nicoderm Patch -) 21 mg TD DAILY [facility] Last Admin: 07/24/18 11:12 Dose: 21 mg Promethazine HCl (Phenergan Injection -) 25 mg IM Q6H PRN PRN Reason: NAUSEA AND/OR VOMITING Thiamine HCl (Vitamin B1 Injection -) 200 mg IVPB DAILY [facility] Last Admin: 07/24/18 11:07 Dose: 200 mg ASSESSMENT AND PLAN: s/p Fall Subarachnoid Hemorrhage Subdural Hematoma Alcohol Abuse r/o Alcohol Withdrawal Thrombocytopenia - continue empiric antiepileptics - continue IVF - benzos as needed - monitoring off antibiotics - aspiration precautions - start PO - can transfer to floor
[2018-07-24] MEDS ORDERED: KCL 10 MEQ IVPB 10 MEQ/100 ML INFUS.BAG IVPB SCH (14:45)
--- NOTE | 2018-07-24 15:01 | PN ---
Teaching Attending Note Name of Resident: Sebastien Villalobos ATTENDING PHYSICIAN STATEMENT I saw and evaluated the patient. I reviewed the resident's note and discussed the case with the resident. I agree with the resident's findings and plan as documented with exceptions below. SUBJECTIVE: Patient seen and examined. More awake, calm, interactive. No complaints. OBJECTIVE: Vital Signs Period Temp Pulse Resp BP Sys/Dawn Pulse Ox Last 24 Hr 98.1 F-99.4 F 80-99 10-20 95-164/66-112 100-100 Intake & Output 07/21/18 07/22/18 07/23/18 07/24/18 23:59 23:59 23:59 23:59 Intake Total 1974 1974 1624 1000 Balance 1974 1974 1624 1000 Weight 140 lb 140 lb 137 lb 9.6 oz 138 lb 14.259 oz General: sitting in bed, more awake, responds in few words Chest: decreased effort, no rales or wheezing appreciated Abdomen: soft, NT, ND Extremities: no edema Neuro: calmer, few word responses, not agitated or getting out of bed, unchanged exam otherwise Active Medications Acetaminophen (Tylenol -) 650 mg PO Q6H PRN PRN Reason: PAIN Chlorhexidine Gluconate (Hibiclens For Decolonization -) 1 applic TP HS [facility] Last Admin: 07/23/18 21:09 Dose: Not Given Chlorhexidine Gluconate (Peridex -) 15 ml MM BID [facility] Last Admin: 07/24/18 11:08 Dose: 15 ml Cyanocobalamin (Vitamin B12 Injection -) 1,000 mcg IM DAILY [facility] Last Admin: 07/24/18 11:07 Dose: 1,000 mcg Folic Acid (Folic Acid Injection -) 1 mg IVPB DAILY [facility] Last Admin: 07/24/18 12:02 Dose: 1 mg Famotidine/Sodium Chloride (Pepcid 20 Mg Premixed Ivpb -) 20 mg in 50 mls @ 100 mls/hr IVPB DAILY@0800 [facility] Last Admin: 07/24/18 08:24 Dose: 100 mls/hr Potassium Chloride/Dextrose/Sod Cl (D5-1/2ns+20 Meq Kcl -) 20 meq in 1,000 mls @ 75 mls/hr IV ASDIR [facility] Last Admin: 07/24/18 11:08 Dose: 75 mls/hr Potassium Chloride (Potassium Chloride 10 Meq Premix Ivpb -) 10 meq in 100 mls @ 100 mls/hr IVPB Q60M [facility] Stop: 07/24/18 15:44 Levetiracetam (Keppra Injection -) 500 mg IVPB BID [facility] Last Admin: 07/24/18 11:00 Dose: 500 mg Nicotine (Nicoderm Patch -) 21 mg TD DAILY [facility] Last Admin: 07/24/18 11:12 Dose: 21 mg Promethazine HCl (Phenergan Injection -) 25 mg IM Q6H PRN PRN Reason: NAUSEA AND/OR VOMITING Thiamine HCl (Vitamin B1 Injection -) 200 mg IVPB DAILY [facility] Last Admin: 07/24/18 11:07 Dose: 200 mg Laboratory Results - last 24 hr 07/24/18 07/24/18 05:30 05:30 WBC 9.8 RBC 3.95 L Hgb 13.7 Hct 40.0 MCV 101.3 H MCH 34.7 H MCHC 34.3 RDW 12.8 Plt Count 322 D MPV 7.9 Sodium 138 Potassium 3.4 L Chloride 103 Carbon Dioxide 26 Anion Gap 9 BUN 7 Creatinine 0.6 Creat Clearance w eGFR > 60 Random Glucose 98 Calcium 8.7 Phosphorus 2.8 Magnesium 2.2 Total Bilirubin 0.9 AST 32 ALT 41 Alkaline Phosphatase 95 Total Protein 6.3 L Albumin 2.9 L Microbiology 07/21/18 07:30 Blood - Peripheral Venous Blood Culture - Preliminary NO GROWTH OBTAINED AFTER 72 HOURS, INCUBATION TO CONTINUE FOR 2 DAYS. 07/18/18 14:30 Blood - Peripheral Venous Blood Culture - Final NO GROWTH AFTER 5 DAYS INCUBATION 07/18/18 14:10 Blood - Peripheral Venous Blood Culture - Final NO GROWTH AFTER 5 DAYS INCUBATION 07/18/18 13:45 Urine - Urine Clean Catch Urine Culture - Final NO GROWTH OBTAINED ASSESSMENT AND PLAN: 68 yom with alcohol abuse, with unwitnessed fall, suspected 2 days ago admitted with SDH/SAH/Intraparenchymal Haemorrhage with edema, Occipital bone fracture. -SDH/SAH/intraparenchymal haemorrhage with edema, suspect traumatic -Occipital bone fracture -Alcohol abuse/withdrawal/Delirium tremens -Fever, ?Aspiration Pneumonitis in the setting of vomiting/alcohol use, ? central fevers, low suspicion of intracranial source -Hypernatremia, suspect from lack of oral intake and fluids with NS. Plan: Neurosurgery input noted. Repeat CT head unchanged. Tiburcioppra day 7, No ASA/NSAIDs/AC. Unasyn d/silas. Low grade temps today suspect from aspiration vs atelectasis. Monitor off antibiotics. Aspiration precautions and monitor for now. Mental status improving. D/c IV ativan. PO intake when awake. Bed side swallow eval. Speech/swallow eval. Detox consult noted. Replete lytes prn DVTPPX with SCDs Encourage OOB, PT eval. Agree with transfer to [facility] [place]. Dispo d/c planning in 24-48 hours if continues to improve Plan discussed with nursing and ICU team. Total critical care time spent in ICU 35min.
--- NOTE | 2018-07-24 15:14 | CONSULT ---
Admitting History and Physical - Primary Care Physician PCP: Natanael Santos - Admission History of Present Illness: 68 yo man PMH of ETOH use (drinkds vodka), found by neighbor in [facility] and called for ambulance He was admitted 07/18 and found to have bilateral occipital fractures, bilateral SDH and bilateral SAH Head CT- Occipital bone midline fx to inion, smaller occipital condylar fx; B frontal hemorrhagic contusion with SDH/SAH; B anterior temporal contusion with SAH R > L and small SDH F/U Head CT 07-18- Bifrontal/bitemporal hemorrhagic contusion with associated SDH R frontal most prominent; less JOSIE F/U Head CT 07-19- motion artifact; SDH settling along tentorium L > R; stable appearing contusions F/U Head CT 07-21- stable, minimally increased L anterior frontal lobe edema ( could be change of scan angle) F/U Head CT 07-22- no significant changes c/w prior scan B fronto-temporal hemorrhagic contusion, SDH, SAH, Occipital bone fx Per ID-fevers- resolving suspect either etoh withdrawal or from blood in [employer] cultures negative stable off antibiotics Pt npo. Extensive mouth care provided by nursing. This is my first consult with this pt. Per EMR-Upon admission, elvia was alert and oriented x 3 and ambulatory with a steady gait. History Source: Medical Record Limitations to Obtaining History: Clinical Condition - Smoking History Smoking history: Unknown if ever smoked Have you smoked in the past 12 months: No Aproximately how many cigarettes per day: 20 - Alcohol/Substance Use Hx Alcohol Use: Yes History - Admission Reason For Visit: SUBDURAL HEMATOMA FX OF OCCIPITAL - Diagnostics X-ray: Report Reviewed CT Scan: Report Reviewed - General Mental Status: Confused, Lethargic Attention: Severe Impairment Ability to Follow Directions: Poor Head/Neck Control: Needs Assist - Hearing Hearing: Normal Speech Evaluation - Communication Primary Language: [place] Oral Expression Ability: Yes: Severe Impairment - Speech Production Able to Make Needs Known: Yes: Severely Impaired Intelligibility: Yes: Severely Impaired - Speech Characteristics Voice Loudness: Moderately Soft/Quiet Voice Pitch: Yes: Normal Voice Phonatory-based Quality: Yes: Weak Speech Pattern: Impaired Speech Clarity: < 25% Nasal Resonance: Hypernasal Articulation: Yes: Imprecise Rate of Speech: Too Fast - Language/Auditory Comprehension Observation: Able to respond to yes/no queries: No, Comprehends Conversational Speech: Yes (simple social maybe) - Language/Verbal Expression Able to Respond to Simple Queries: Yes: Severely Impaired Able to Communicate Wants and Needs: Yes: Severely Impaired - Swallow Evaluation/Bedside Assessment Current Nutritional Intake: NPO Oral Secretions: Yes: Dryness Dentition: Yes: Missing Teeth Recommendations - Speech Evaluation, Impression/Plan Impression: Bifrontal hem contusion/edema,Head injury, Ativan over 24 hours ago , detox, on Kepra. Limited ability to cooperate, eyes insufficiently open, mumbles, gave me first name only. Unable to respond to questions. Did not orally manipulate applesauce and swallow. Pt was reportedly more interactive this am and somewhat verbal. - Dysphagia Impressions/Plan Swallowing Skills: Impaired Dysphagia Impressions: Suspect Aspiration *Silent aspiration: cannot be R/O at bedside Recommendations: Other (To reassess when more alert and cooperative. Defer NGT if pt continues to thrash,roll around in bed, throw legs over railing. Risk of aspiration with NGT at present.Pt reported to be very strong bilaterally. Will resist restraints with NGT.) - Recommendations Diet Consistency: NPO Liquids: NPO Supplement: Other (Consider Clinimix if not medically contraindicated.)
[2018-07-24] MEDS ORDERED: PROMETHAZINE HCL 25 MG/1 ML VIAL IM PRN (16:29)
[2018-07-24] MEDS ORDERED: D5-1/2NS+20 MEQ KCL - 20 MEQ/1,000 ML INFUS.BAG IV SCH (16:29)
[2018-07-24 17:13] LABS: ANION GAP 11 MMOL/L (8-16); BLOOD UREA NITROGEN 9 mg/dL (7-18); CALCIUM 8.5 mg/dL (8.5-10.1); CHLORIDE 105 mmol/L (98-107); CO2 22 mmol/L (21-32); CREATININE 0.6 mg/dL (0.55-1.3); GLUCOSE,RANDOM 81 mg/dL (74-106); POTASSIUM 3.4 mmol/L (3.5-5.1); SODIUM 137 mmol/L (136-145)
[2018-07-24] MEDS: MULTIVIT INJ. ADULT COMBO WITH VIT K 1 COMBO 10 ML VIAL IV SCH (18:24)
[2018-07-24] MEDS: AMINO ACIDS 4.25%/D5W 1,000 ML IV SCH (18:24)
--- NOTE | 2018-07-24 19:37 | PN ---
Physical Exam: SUBJECTIVE: Patient seen and examined at bedside. No acute events overnight. OBJECTIVE: Vital Signs Period Temp Pulse Resp BP Sys/Dawn Pulse Ox Last 24 Hr 98.1 F-99.1 F 84-99 10-19 95-164/66-103 100-100 GENERAL: Somnolent, NAD HEAD: NC/AT EYES:Pupils symmetric constricted. ENT: MMM LUNGS: Poor inspiratory effort HEART: RRR ABDOMEN: Soft No facial grimacing to deep palpation EXTREMITIES: No CCE NEUROLOGICAL:Responds to commands, squeezes hands when prompted. garbled speech PSYCH: Normal mood, normal affect. SKIN: No rashes or lesions appreciated Laboratory Results - last 24 hr 07/24/18 07/24/18 07/24/18 05:30 05:30 15:40 WBC 9.8 RBC 3.95 L Hgb 13.7 Hct 40.0 MCV 101.3 H MCH 34.7 H MCHC 34.3 RDW 12.8 Plt Count 322 D MPV 7.9 Sodium 138 137 Potassium 3.4 L 3.4 L Chloride 103 105 Carbon Dioxide 26 22 Anion Gap 9 11 BUN 7 9 Creatinine 0.6 0.6 Creat Clearance w eGFR > 60 > 60 POC Glucometer Random Glucose 98 81 Calcium 8.7 8.5 Phosphorus 2.8 Magnesium 2.2 Total Bilirubin 0.9 AST 32 ALT 41 Alkaline Phosphatase 95 Total Protein 6.3 L Albumin 2.9 L 07/24/18 18:29 WBC RBC Hgb Hct MCV MCH MCHC RDW Plt Count MPV Sodium Potassium Chloride Carbon Dioxide Anion Gap BUN Creatinine Creat Clearance w eGFR POC Glucometer 101 Random Glucose Calcium Phosphorus Magnesium Total Bilirubin AST ALT Alkaline Phosphatase Total Protein Albumin Active Medications Generic Name Dose Route Start Last Admin Trade Name Freq PRN Reason Stop Dose Admin Acetaminophen 650 mg 07/24/18 16:29 Tylenol - PO Q6H PRN PAIN LEVEL 1 - 3 Cyanocobalamin 1,000 mcg 07/25/18 10:00 Vitamin B12 Injection - IM DAILY [facility] Folic Acid 1 mg 07/25/18 10:00 Folic Acid Injection - IVPB DAILY [facility] Famotidine/Sodium Chloride 20 mg in 50 mls @ 100 mls/hr 07/25/18 08:00 Pepcid 20 Mg Premixed Ivpb - IVPB DAILY@0800 [facility] Amino Acids 1,000 mls @ 75 mls/hr 07/24/18 18:00 07/24/18 18:24 Clinimix - IV 75 mls/hr Q12H TRISHA Administration Fat Emulsion Intravenous 250 mls @ 20.833 mls/hr 07/24/18 22:00 Intralipid - IV DAILY@2200 TRISHA Levetiracetam 500 mg 07/24/18 22:00 Keppra Injection - IVPB BID [facility] Multivitamins/Minerals 10 ml 07/24/18 18:00 07/24/18 18:24 Infuvite Adult - IV 10 ml DAILY [facility] Administration Nicotine 21 mg 07/25/18 10:00 Nicoderm Patch - TD DAILY [facility] Promethazine HCl 25 mg 07/24/18 16:29 Phenergan Injection - IM Q6H PRN NAUSEA AND/OR VOMITING Thiamine HCl 200 mg 07/25/18 10:00 Vitamin B1 Injection - IVPB DAILY [facility] ASSESSMENT/PLAN: 68 alcoholic man presenting s/p fall 3 days ago with N,V and headaches, found to have bilateral frontal contusion, subdural and subarachnoid hemorrhage and comminuted fracture of the occipital bone. Now with agitation and possible symptoms of alcohol withdrawal. No seizures witnessed. #SDH/SAH 2/2 Mechanical Fall - Neurocheck Q1H - Keppra 500 mg BID seizure ppx - Neurosurgery on board Dr Marcelino Hayes - Tylenol PRN for headaches - HOB elevated to 30degrees + - Head CT- Occipital bone midline fx to inion; B frontal hemorrhagic contusion with SDH; B anterior temporal contusion with SAH R > L and small SDH -Repeat Head CT 07/21/18---> interval increase edema in the left frontal lobe. Head CT 07/22--> unchanged from CT on 07/21/18. #Substance Abuse coding specialist home health on board, Dr Ayala -Phenergan 25 MG IM Q6H PRN -Nicotine Patch #HTN - Labetolol 5mg for SBP >140, PRN #FEN: No Fluids Monitor Electrolytes Speech/Swallow Eval today. Aspiration risk. Started on Clinimix. GI ppx - Pepcid 20mg daily DVT ppx - SCDs Visit type - Emergency Visit Emergency Visit: Yes ED Registration Date: 07/18/18 Care time: The patient presented to the Emergency Department on the above date and was hospitalized for further evaluation of their emergent condition. - New Patient This patient is new to me today: No - Critical Care Critical Care patient: Yes Total Critical Care Time (in minutes): 35 Critical Care Statement: The care of this patient involved high complexity decision making to prevent further life threatening deterioration of the patient 's condition and/or to evaluate & treat vital organ system(s) failure or risk of failure. - Discharge Referral Referred to [facility] Med P.C.: No
[2018-07-24] MEDS ORDERED: FAT EMULSIONS 20% 250 ML PREMIX INFUS.BAG IV SCH (22:00)
[2018-07-24] MEDS: FAT EMULSIONS 250 ML IV SCH (22:34)
[2018-07-25 07:46] LABS: BASO % 0.6 % (0-2.0); EOS % 3.2 % (0-4.5); HEMATOCRIT 38.4 % (35.4-49); HEMOGLOBIN 14.1 GM/dL (11.7-16.9); LYMPH % 13.7 % (8-40); MCH 36.9 pg (25.7-33.7); MCHC 36.7 g/dl (32.0-35.9); MEAN CELL VOLUME 100.4 fl (80-96); MEAN PLT VOLUME 8.5 fl (7.5-11.1); MONO % 18.2 % (3.8-10.2); NEUT % 64.3 % (42.8-82.8); PLATELET COUNT 392 K/MM3 (134-434); RBC 3.82 M/mm3 (4.00-5.60); RDW 12.6 % (11.9-15.9); WHITE BLOOD COUNT 9.9 K/mm3 (4.0-10.0)
[2018-07-25 08:13] LABS: ALBUMIN 2.8 g/dl (3.4-5.0); ALK PHOS 96 U/L (45-117); ANION GAP 8 MMOL/L (8-16); BILIRUBIN,TOTAL 0.8 mg/dL (0.2-1); BLOOD UREA NITROGEN 13 mg/dL (7-18); CALCIUM 8.6 mg/dL (8.5-10.1); CHLORIDE 101 mmol/L (98-107); CO2 27 mmol/L (21-32); CREATININE 0.6 mg/dL (0.55-1.3); GLUCOSE,RANDOM 97 mg/dL (74-106); PHOSPHOROUS 2.6 mg/dL (2.5-4.9); POTASSIUM 3.9 mmol/L (3.5-5.1); SGOT/AST 26 U/L (15-37); SGPT/ALT 36 U/L (13-61); SODIUM 135 mmol/L (136-145); TOT PROT 6.2 g/dl (6.4-8.2)
[2018-07-25] MEDS: FAMOTIDINE 20 MG/50 ML IVPB 20 MG/50 ML MG IVPB SCH (09:52)
[2018-07-25] MEDS: NICOTINE 21 MG/24 HOURS TOPICAL PATCH TD SCH (09:53)
[2018-07-25] MEDS ORDERED: PT OWN MED DRAWER 7, Y5N ONE (10:54)
[2018-07-25] MEDS: MULTIVIT INJ. ADULT COMBO WITH VIT K 1 COMBO 10 ML VIAL IV SCH (10:56)
[2018-07-25] MEDS: THIAMINE HCL 200 MG/2 ML VIAL IVPB SCH (10:56)
[2018-07-25] MEDS: CYANOCOBALAMIN (VITAMIN B-12) 1000 MCG/1 ML VIAL IM SCH (10:56)
[2018-07-25] MEDS: levETIRAcetam 500 MG/5 ML INJECTION VIAL IVPB SCH ×2 (10:57→22:00)
[2018-07-25] MEDS: AMINO ACIDS 4.25%/D5W 1,000 ML IV SCH ×2 (10:59→17:08)
--- NOTE | 2018-07-25 11:37 | PN ---
Progress Note (short form) - Note Progress Note: Somnolent but arousable. No acute events overnight. OBJECTIVE: Intake & Output 07/22/18 07/23/18 07/24/18 07/25/18 23:59 23:59 23:59 23:59 Intake Total 19745 1900 0 Balance 1974 1624 1900 0 Weight 140 lb 137 lb 9.6 oz 138 lb 14.259 oz 133 lb 9.6 oz Last Vital Signs Temp Pulse Resp BP Pulse Ox 97.7 F 87 18 165/90 100 07/25/18 06:00 07/25/18 06:00 07/25/18 06:00 07/25/18 06:00 07/24/18 22:00 Active Medications Acetaminophen (Tylenol -) 650 mg PO Q6H PRN PRN Reason: PAIN LEVEL 1 - 3 Cyanocobalamin (Vitamin B12 Injection -) 1,000 mcg IM DAILY [facility] Last Admin: 07/25/18 10:56 Dose: 1,000 mcg Folic Acid (Folic Acid Injection -) 1 mg IVPB DAILY [facility] Famotidine/Sodium Chloride (Pepcid 20 Mg Premixed Ivpb -) 20 mg in 50 mls @ 100 mls/hr IVPB DAILY@0800 [facility] Last Admin: 07/25/18 09:52 Dose: 100 mls/hr Amino Acids (Clinimix -) 1,000 mls @ 75 mls/hr IV Q12H [facility] Last Admin: 07/25/18 10:59 Dose: 75 mls/hr Fat Emulsion Intravenous (Intralipid -) 250 mls @ 20.833 mls/hr IV DAILY@2200 [facility] Last Admin: 07/24/18 22:34 Dose: 20.833 mls/hr Levetiracetam (Keppra Injection -) 500 mg IVPB BID [facility] Last Admin: 07/25/18 10:57 Dose: 500 mg Multivitamins/Minerals (Infuvite Adult -) 10 ml IV DAILY [facility] Last Admin: 07/25/18 10:56 Dose: 10 ml Nicotine (Nicoderm Patch -) 21 mg TD DAILY [facility] Last Admin: 07/25/18 09:53 Dose: 21 mg Promethazine HCl (Phenergan Injection -) 25 mg IM Q6H PRN PRN Reason: NAUSEA AND/OR VOMITING Thiamine HCl (Vitamin B1 Injection -) 200 mg IVPB DAILY [facility] Last Admin: 07/25/18 10:56 Dose: 200 mg Gen: somnolent, NAD Heart: RRR Lung: scattered rhonchi Abd: soft, nontender Ext: no edema Laboratory Results - last 24 hr 07/24/18 07/24/18 07/25/18 15:40 18:29 06:09 WBC RBC Hgb Hct MCV MCH MCHC RDW Plt Count MPV Absolute Neuts (auto) Neutrophils % Lymphocytes % Monocytes % Eosinophils % Basophils % Nucleated RBC % Sodium 137 Potassium 3.4 L Chloride 105 Carbon Dioxide 22 Anion Gap 11 BUN 9 Creatinine 0.6 Creat Clearance w eGFR > 60 POC Glucometer 101 111 Random Glucose 81 Calcium 8.5 Phosphorus Magnesium Total Bilirubin AST ALT Alkaline Phosphatase Total Protein Albumin 07/25/18 07/25/18 06:15 06:15 WBC 9.9 RBC 3.82 L Hgb 14.1 Hct 38.4 MCV 100.4 H MCH 36.9 H MCHC 36.7 H RDW 12.6 Plt Count 392 D MPV 8.5 Absolute Neuts (auto) 6.4 Neutrophils % 64.3 Lymphocytes % 13.7 D Monocytes % 18.2 H Eosinophils % 3.2 Basophils % 0.6 Nucleated RBC % 0 Sodium 135 L Potassium 3.9 Chloride 101 Carbon Dioxide 27 Anion Gap 8 BUN 13 Creatinine 0.6 Creat Clearance w eGFR > 60 POC Glucometer Random Glucose 97 Calcium 8.6 Phosphorus 2.6 Magnesium 2.0 Total Bilirubin 0.8 AST 26 ALT 36 Alkaline Phosphatase 96 Total Protein 6.2 L Albumin 2.8 L ASSESSMENT AND PLAN: s/p Fall Subarachnoid Hemorrhage Subdural Hematoma Alcohol Abuse r/o Alcohol Withdrawal Thrombocytopenia - continue empiric antiepileptics - IVF - benzos as needed - monitoring off antibiotics - aspiration precautions - Consider NGT feeds if cannot safely take PO Dr Haskins
--- NOTE | 2018-07-25 12:27 | PN ---
Teaching Attending Note Name of Resident: Sebastien Villalobos ATTENDING PHYSICIAN STATEMENT I saw and evaluated the patient. I reviewed the resident's note and discussed the case with the resident. I agree with the resident's findings and plan as documented. SUBJECTIVE:asymptomatic. denies CP, SOB, fever, chills, N/V/C/D OBJECTIVE: Last Vital Signs Temp Pulse Resp BP Pulse Ox 97.7 F 87 18 165/90 100 07/25/18 06:00 07/25/18 06:00 07/25/18 06:00 07/25/18 06:00 07/24/18 22:00 General alert. dysarthric. confused. unable to say name CV S1 S2 RRR no murmur/rub/gallop Lungs CTA B/L no wheezing/rales/rhonchi Neuro confused. follow some commands. very slow to follow commands. ASSESSMENT AND PLAN: 68 yo M with PMH continuous alcohol abuse presented to the ER with unwitnessed fall, suspected 2 days ago admitted with SDH/SAH/Intraparenchymal Haemorrhage with edema, Occipital bone fracture. 1. SDH/SAH/intraparenchymal haemorrhage with edema, suspect traumatic- as per report from staff pt is more alert than he has been since arrival. able to phonate some words which still are slurred and following some commands. has not received any sedating medications for over 48H. will need to cont to monitor mental status closely. high aspiration risk and failed swallowing eval yesterday. will request for them to come re-assess today as well. evaluated by neurosurg with no intervention at this time and repeat CT showing no changes. on keppra for seizure ppx. will cont seizure and fall precautions 2. Occipital bone fracture- due to mechanical fall 3. Fever- possible aspiration. [id number]. repeat CXR negative for signs of aspiration. would hold abx at tis time. swallowing eval. elevate HOB, NPO for now 4. Continuous ETOH abuse- no signs of withdrawal. CIWA 0. hold detox at this time. detox consulted 5. Hypernatremia- resolved 6. DVT ppx- SCD. hold pharmacologic in setting of ICH 7. PT assessment. will liekly require SANAZ on discharge. possible TBI center. will also place call out to family to obtain baseline mental status
--- NOTE | 2018-07-25 12:55 | PN ---
Progress Note, LOGISTICS TEAM LEAD - Note Progress Note: Bifrontal hem contusion/edema,Head injury, Ativan over 36 hours ago?, detox, on Kepra. Selected Entries 07/25/18 07/25/18 07/25/18 02:10 06:00 09:34 Breakfast NPO Temperature 100.9 F H 97.7 F Laboratory Tests 07/25/18 06:15 WBC 9.9 Pt is still lethargic, moving arms and legs in bed. Still with limited ability to cooperate, eyes insufficiently open, mumbles with unintelligible speech. Unable to respond to questions. Continue strict NPO/mouth care. Consider Neurosurgery input regarding anticipated timeline of improvement. Is PEG insertion indicated in short term for improved nutrition?
--- NOTE | 2018-07-25 15:54 | PN ---
Physical Exam: SUBJECTIVE: Patient seen and examined at bedside. Spiked fever of 100.9 overnight. OBJECTIVE: Vital Signs Period Temp Pulse Resp BP Sys/Dawn Pulse Ox Last 24 Hr 97.7 F-100.9 F 82-106 18-20 129-165/74-90 97-100 GENERAL: Remains lethargic, garbled speech HEAD: NC/AT EYES: Pupils symmetric constricted. ENT: MMM LUNGS: Poor inspiratory effort HEART: RRR No MRG S1S2 ABDOMEN: No facial grimacing upon palpation EXTREMITIES: No CCE NEUROLOGICAL: Squeezes hands upon commands. SILT. SKIN: No rashes or lesions appreciated Laboratory Results - last 24 hr 07/24/18 07/24/18 07/25/18 15:40 18:29 06:09 WBC RBC Hgb Hct MCV MCH MCHC RDW Plt Count MPV Absolute Neuts (auto) Neutrophils % Lymphocytes % Monocytes % Eosinophils % Basophils % Nucleated RBC % Sodium 137 Potassium 3.4 L Chloride 105 Carbon Dioxide 22 Anion Gap 11 BUN 9 Creatinine 0.6 Creat Clearance w eGFR > 60 POC Glucometer 101 111 Random Glucose 81 Calcium 8.5 Phosphorus Magnesium Total Bilirubin AST ALT Alkaline Phosphatase Total Protein Albumin 07/25/18 07/25/18 07/25/18 06:15 06:15 12:59 WBC 9.9 RBC 3.82 L Hgb 14.1 Hct 38.4 MCV 100.4 H MCH 36.9 H MCHC 36.7 H RDW 12.6 Plt Count 392 D MPV 8.5 Absolute Neuts (auto) 6.4 Neutrophils % 64.3 Lymphocytes % 13.7 D Monocytes % 18.2 H Eosinophils % 3.2 Basophils % 0.6 Nucleated RBC % 0 Sodium 135 L Potassium 3.9 Chloride 101 Carbon Dioxide 27 Anion Gap 8 BUN 13 Creatinine 0.6 Creat Clearance w eGFR > 60 POC Glucometer 105 Random Glucose 97 Calcium 8.6 Phosphorus 2.6 Magnesium 2.0 Total Bilirubin 0.8 AST 26 ALT 36 Alkaline Phosphatase 96 Total Protein 6.2 L Albumin 2.8 L Active Medications Generic Name Dose Route Start Last Admin Trade Name Freq PRN Reason Stop Dose Admin Acetaminophen 650 mg 07/24/18 16:29 Tylenol - PO Q6H PRN PAIN LEVEL 1 - 3 Cyanocobalamin 1,000 mcg 07/25/18 10:00 07/25/18 10:56 Vitamin B12 Injection - IM 1,000 mcg DAILY TRISHA Administration Folic Acid 1 mg 07/25/18 10:00 Folic Acid Injection - IVPB DAILY TRISHA Famotidine/Sodium Chloride 20 mg in 50 mls @ 100 mls/hr 07/25/18 08:00 09:52 Pepcid 20 Mg Premixed Ivpb - IVPB 100 mls/hr DAILY@0800 TRISHA Administration Amino Acids 1,000 mls @ 75 mls/hr 07/24/18 18:00 07/25/18 10:59 Clinimix - IV 75 mls/hr Q12H TRISHA Administration Fat Emulsion Intravenous 250 mls @ 20.833 mls/hr 07/24/18 22:00 07/24/18 22: 34 Intralipid - IV 20.833 mls/hr DAILY@2200 TRISHA Administration Levetiracetam 500 mg 07/24/18 22:00 07/25/18 10:57 Keppra Injection - IVPB 500 mg BID TRISHA Administration Multivitamins/Minerals 10 ml 07/24/18 18:00 07/25/18 10:56 Infuvite Adult - IV 10 ml DAILY TRISHA Administration Nicotine 21 mg 07/25/18 10:00 07/25/18 09:53 Nicoderm Patch - TD 21 mg DAILY TRISHA Administration Promethazine HCl 25 mg 07/24/18 16:29 Phenergan Injection - IM Q6H PRN NAUSEA AND/OR VOMITING Thiamine HCl 200 mg 07/25/18 10:00 07/25/18 10:56 Vitamin B1 Injection - IVPB 200 mg DAILY TRISHA Administration ASSESSMENT/PLAN: 68 alcoholic man presenting s/p fall 3 days ago with N,V and headaches, found to have bilateral frontal contusion, subdural and subarachnoid hemorrhage and comminuted fracture of the occipital bone. Now with agitation and possible symptoms of alcohol withdrawal. No seizures witnessed. #SDH/SAH 2/2 Mechanical Fall - Neurocheck Q1H - Keppra 500 mg BID seizure ppx - Neurosurgery on board Dr Marcelino Hayes - Tylenol PRN for headaches - HOB elevated to 30degrees + - Head CT- Occipital bone midline fx to inion; B frontal hemorrhagic contusion with SDH; B anterior temporal contusion with SAH R > L and small SDH -Repeat Head CT 07/21/18---> interval increase edema in the left frontal lobe. Head CT 07/22--> unchanged from CT on 07/21/18. -Chest XRAY 07/24/18--> no acute pathology -Blood/Urine cultures both negative - #Substance Abuse internal medicine specialist on board, Dr Ayala -Phenergan 25 MG IM Q6H PRN -Nicotine Patch #HTN - Labetolol 5mg for SBP >140, PRN #FEN: No Fluids Monitor Electrolytes Speech/Swallow Eval today again. Remains Aspiration risk. Clinimix. GI ppx - Pepcid 20mg daily DVT ppx - SCDs Visit type - Emergency Visit Emergency Visit: Yes ED Registration Date: 07/18/18 Care time: The patient presented to the Emergency Department on the above date and was hospitalized for further evaluation of their emergent condition. - New Patient This patient is new to me today: No - Critical Care Critical Care patient: No - Discharge Referral [facility]erred to [facility] Med P.C.: No
--- NOTE | 2018-07-25 16:23 | PN ---
Progress Note (short form) - Note Progress Note: NEUROSURGERY Denies H/A On 8W PE: Tmax 100.9, 99.7 now, VSS HEENT- NC/AT; Neck- supple; Cor- RR; Lungs- CTA B; Abd- benign; Ext- no sign of DVT Somewhat drowsy, arousable; garbled speech; following commands CN- intact; Motor- 4+-5/5; Sensation- intact LT; DTR- 1+ Blood culture negative B fronto-temporal hemorrhagic contusion, SDH, SAH, overall pattern stable Keppra for sz prophylaxis Incentive spirometry Mechanical DVT prophylaxis PT/rehab Drinking cessation urged
[2018-07-25] MEDS: FOLIC ACID 5 MG/1 ML IVPB SCH (16:35)
[2018-07-25] MEDS: FAT EMULSIONS 250 ML IV SCH (22:41)
[2018-07-26] MEDS: AMINO ACIDS 4.25%/D5W 1,000 ML IV SCH ×3 (01:47→18:36)
--- NOTE | 2018-07-26 08:43 | PN ---
Progress Note (short form) - Note Progress Note: NEUROSURGERY Denies H/A On 8W PE: T 97.9 now, VSS HEENT- NC/AT; Neck- supple; Cor- RR; Lungs- CTA B; Abd- benign; Ext- no sign of DVT A little more awake; garbled speech; following commands CN- intact; Motor- 4+-5/5; Sensation- intact LT; DTR- 1+ WBC 9.9 Blood culture negative B fronto-temporal hemorrhagic contusion, SDH, SAH, overall pattern stable Keppra for sz prophylaxis Incentive spirometry Mechanical DVT prophylaxis PT/rehab Drinking cessation urged
[2018-07-26 08:45] LABS: HEMATOCRIT 38.2 % (35.4-49); HEMOGLOBIN 13.5 GM/dL (11.7-16.9); MCHC 35.3 g/dl (32.0-35.9); MEAN CELL VOLUME 99.1 fl (80-96); MEAN PLT VOLUME 8.6 fl (7.5-11.1); PLATELET COUNT 385 K/MM3 (134-434); RBC 3.86 M/mm3 (4.00-5.60); RDW 12.5 % (11.9-15.9); WHITE BLOOD COUNT 9.5 K/mm3 (4.0-10.0)
[2018-07-26 09:30] LABS: ANION GAP 10 MMOL/L (8-16); BLOOD UREA NITROGEN 14 mg/dL (7-18); CALCIUM 8.6 mg/dL (8.5-10.1); CHLORIDE 100 mmol/L (98-107); CO2 22 mmol/L (21-32); CREATININE 0.5 mg/dL (0.55-1.3); GLUCOSE,RANDOM 102 mg/dL (74-106); MAGNESIUM 1.8 mg/dL (1.8-2.4); POTASSIUM 3.3 mmol/L (3.5-5.1); SODIUM 132 mmol/L (136-145)
[2018-07-26] MEDS: FAMOTIDINE 20 MG/50 ML IVPB 20 MG/50 ML MG IVPB SCH (10:58)
[2018-07-26] MEDS: levETIRAcetam 500 MG/5 ML INJECTION VIAL IVPB SCH ×2 (10:59→22:24)
[2018-07-26] MEDS: NICOTINE 21 MG/24 HOURS TOPICAL PATCH TD SCH (10:59)
[2018-07-26] MEDS: CYANOCOBALAMIN (VITAMIN B-12) 1000 MCG/1 ML VIAL IM SCH (10:59)
[2018-07-26] MEDS: THIAMINE HCL 200 MG/2 ML VIAL IVPB SCH (11:00)
--- NOTE | 2018-07-26 12:03 | PN ---
Teaching Attending Note Name of Resident: Sebastien Villalobos ATTENDING PHYSICIAN STATEMENT I saw and evaluated the patient. I reviewed the resident's note and discussed the case with the resident. I agree with the resident's findings and plan as documented. SUBJECTIVE:no complaints. denies CP, SOB, fever, chills, N/V/C/D OBJECTIVE: Last Vital Signs Temp Pulse Resp BP Pulse Ox 97.7 F 78 18 144/75 97 07/26/18 06:00 07/26/18 06:00 07/26/18 06:00 07/26/18 06:00 07/25/18 22:00 General alert. A&O x2 (self and location) CV S1 S2 RRR no murmur/rub/gallop Lungs CTA B/L no wheezing/rales/rhonchi Neuro speech is more fluid, more alert. follow some commands. very slow to follow commands. ASSESSMENT AND PLAN: 68 yo M with PMH continuous alcohol abuse presented to the ER with unwitnessed fall, suspected 2 days ago admitted with SDH/SAH/Intraparenchymal Haemorrhage with edema, Occipital bone fracture. 1. SDH/SAH/intraparenchymal haemorrhage with edema, suspect traumatic- some improvement in mental status from yesterday. some of this is likely due to edema and bleeding however would want to r/o alternative causes of encephalopathy. check VitB12, TSH, RPR, ammonia, folate. cont with daily assessments of swallowing. may need to consider short term PEG if mental status does not improve. speak with neurosurgery to determine expected course from significant bleeding to have mental status impact. consider neuro if pt does not improve. keppra can also cause lethargy however require it short term for seizure ppx. will cont seizure and fall precautions 2. Occipital bone fracture- due to mechanical fall 3. Fever- possible aspiration. afebrile. no leukocytosis. will hold abx at this time 4. dysphagia- likely due to deconditioning. re-evaluate for swallowing if able to advance diet. on clinimix. will need to consider PEG placement if not able to tolerate po. 4. Continuous ETOH abuse- no signs of withdrawal. CIWA 0. hold detox at this time. detox consulted 5. Hypernatremia- resolved 6. DVT ppx- SCD. hold pharmacologic in setting of ICH 7. PT assessment. will likely require SANAZ on discharge. possible TBI center. will also place call out to family to obtain baseline mental status
--- NOTE | 2018-07-26 12:42 | PN ---
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 Impaired intelligibility with limited mouth open and reduced articulatory excursion. Pt oriented to "[facility]" and visiting landlord's name . Slow to respond.Extended oral holding withy delayed swallow onset with multiple verbal cues provided to "swallow" and weak, responsive cough. Swallowing is not yet functional, however BECCA improving slowly. Temporary NGT? Hopefully pt will improve soon with plan for bedside reassessment and maybe MBS , if clinically improved. PEG may be needed. Request Neurosurgery input regarding anticipated timeline of improvement.
[2018-07-26] MEDS: FOLIC ACID 5 MG/1 ML IVPB SCH (15:02)
[2018-07-26] MEDS ORDERED: POTASSIUM CHLORIDE TABS 20 MEQ TABLET.ER (FP) PO ONE (15:34)
--- NOTE | 2018-07-26 17:50 | PN ---
Physical Exam: SUBJECTIVE: Patient seen and examined at bedside. No acute events overnight. Re- evaluated by Speech/Swallow today. OBJECTIVE: Vital Signs Period Temp Pulse Resp BP Sys/Dawn Pulse Ox Last 24 Hr 97.7 F-97.9 F 78-91 18-20 129-148/72-78 97-97 GENERAL: More Alert. Follows commands. AAOx2 HEAD: NC/AT EYES: Conjunctiva injected. PERRL ENT: MMM LUNGS: Poor inspiratory effort HEART: RRR No MRG S1S2 ABDOMEN: NDNT No HSM EXTREMITIES: No CCE NEUROLOGICAL: Follows commands, Gait not observed. SILT. SKIN: No rashes or lesions appreciated Laboratory Results - last 24 hr 07/25/18 07/25/18 07/25/18 17:40 18:30 23:35 WBC RBC Hgb Hct MCV MCH MCHC RDW Plt Count MPV Sodium Potassium Chloride Carbon Dioxide Anion Gap BUN Creatinine Creat Clearance w eGFR POC Glucometer 113 111 Random Glucose Calcium Phosphorus Magnesium Vitamin B12 Serum Folate TSH Stool Occult Blood Negative RPR Titer 07/26/18 07/26/18 07/26/18 05:54 08:03 08:03 WBC 9.5 RBC 3.86 L Hgb 13.5 Hct 38.2 MCV 99.1 H MCH 35.0 H MCHC 35.3 RDW 12.5 Plt Count 385 MPV 8.6 Sodium 132 L Potassium 3.3 L Chloride 100 Carbon Dioxide 22 Anion Gap 10 BUN 14 Creatinine 0.5 L Creat Clearance w eGFR > 60 POC Glucometer 104 Random Glucose 102 Calcium 8.6 Phosphorus 3.0 Magnesium 1.8 Vitamin B12 2665 H Serum Folate 18 H TSH 2.71 Stool Occult Blood RPR Titer 07/26/18 07/26/18 08:03 12:08 WBC RBC Hgb Hct MCV MCH MCHC RDW Plt Count MPV Sodium Potassium Chloride Carbon Dioxide Anion Gap BUN Creatinine Creat Clearance w eGFR POC Glucometer 112 Random Glucose Calcium Phosphorus Magnesium Vitamin B12 Serum Folate TSH Stool Occult Blood RPR Titer Nonreactive Active Medications Generic Name Dose Route Start Last Admin Trade Name Freq PRN Reason Stop Dose Admin Acetaminophen 650 mg 07/24/18 16:29 Tylenol - PO Q6H PRN PAIN LEVEL 1 - 3 Cyanocobalamin 1,000 mcg 07/25/18 10:00 07/26/18 10:59 Vitamin B12 Injection - IM 1,000 mcg DAILY TRISHA Administration Folic Acid 1 mg 07/25/18 10:00 07/26/18 15:02 Folic Acid Injection - IVPB 1 mg DAILY TRISHA Administration Famotidine/Sodium Chloride 20 mg in 50 mls @ 100 mls/hr 07/25/18 08:00 10:58 Pepcid 20 Mg Premixed Ivpb - IVPB 100 mls/hr DAILY@0800 TRISHA Administration Amino Acids 1,000 mls @ 75 mls/hr 07/24/18 18:00 07/26/18 05:31 Clinimix - IV 75 mls/hr Q12H TRISHA Administration Fat Emulsion Intravenous 250 mls @ 20.833 mls/hr 07/24/18 22:00 07/25/18 22: 41 Intralipid - IV 20.833 mls/hr DAILY@2200 TRISHA Administration Potassium Chloride 10 meq in 100 mls @ 100 mls/hr 07/26/18 17:15 Potassium Chloride 10 Meq Premix Ivpb - IVPB 07/26/18 20:14 Q60M TRISHA Levetiracetam 500 mg 07/24/18 22:00 07/26/18 10:59 Keppra Injection - IVPB 500 mg BID TRISHA Administration Multivitamins/Minerals 10 ml 07/24/18 18:00 07/25/18 10:56 Infuvite Adult - IV 10 ml DAILY TRISHA Administration Nicotine 21 mg 07/25/18 10:00 07/26/18 10:59 Nicoderm Patch - TD 21 mg DAILY TRISHA Administration Promethazine HCl 25 mg 07/24/18 16:29 Phenergan Injection - IM Q6H PRN NAUSEA AND/OR VOMITING Thiamine HCl 200 mg 07/25/18 10:00 07/26/18 11:00 Vitamin B1 Injection - IVPB 200 mg DAILY TRISHA Administration ASSESSMENT/PLAN: 68 alcoholic man presenting s/p fall 3 days ago with N,V and headaches, found to have bilateral frontal contusion, subdural and subarachnoid hemorrhage and comminuted fracture of the occipital bone. Now with agitation and possible symptoms of alcohol withdrawal. No seizures witnessed. #SDH/SAH 2/2 Mechanical Fall - Neurocheck Q1H - Keppra 500 mg BID seizure ppx - Neurosurgery on board Dr Marcelino Hayes - Tylenol PRN for headaches - HOB elevated to 30degrees + - Head CT- Occipital bone midline fx to inion; B frontal hemorrhagic contusion with SDH; B anterior temporal contusion with SAH R > L and small SDH -Repeat Head CT 07/21/18---> interval increase edema in the left frontal lobe. Head CT 07/22--> unchanged from CT on 07/21/18. -Chest XRAY 07/24/18--> no acute pathology -Blood/Urine cultures both negative #Substance Abuse marketing programs specialist on board, Dr Ayala -Phenergan 25 MG IM Q6H PRN -Nicotine Patch #HTN - Labetolol 5mg for SBP >140, PRN #FEN: No Fluids Monitor Electrolytes . Clinimix. MBS if clinically improved. Possible PEG as pt still aspiration risk. GI ppx - Pepcid 20mg daily DVT ppx - SCDs Visit type - Emergency Visit Emergency Visit: Yes ED Registration Date: 07/18/18 Care time: The patient presented to the Emergency Department on the above date and was hospitalized for further evaluation of their emergent condition. - New Patient This patient is new to me today: No - Critical Care Critical Care patient: No - Discharge Referral Referred to [facility] Med P.C.: No
[2018-07-26] MEDS: MULTIVIT INJ. ADULT COMBO WITH VIT K 1 COMBO 10 ML VIAL IV SCH (18:36)
[2018-07-26] MEDS: KCL 10 MEQ IVPB 10 MEQ/100 ML INFUS.BAG IVPB SCH ×3 (18:47→20:30)
[2018-07-26] MEDS ORDERED: PT OWN MED DRAWER 7, Y5N ONE ×2 (21:08→22:25)
[2018-07-26] MEDS: FAT EMULSIONS 250 ML IV SCH (22:26)
[2018-07-27] MEDS: AMINO ACIDS 4.25%/D5W 1,000 ML IV SCH ×3 (06:10→18:34)
[2018-07-27 07:25] LABS: BASO % 0.8 % (0-2.0); EOS % 3.1 % (0-4.5); HEMATOCRIT 38.7 % (35.4-49); HEMOGLOBIN 13.5 GM/dL (11.7-16.9); LYMPH % 13.1 % (8-40); MCH 34.9 pg (25.7-33.7); MEAN CELL VOLUME 99.6 fl (80-96); MEAN PLT VOLUME 8.1 fl (7.5-11.1); MONO % 14.1 % (3.8-10.2); NEUT % 68.9 % (42.8-82.8); PLATELET COUNT 418 K/MM3 (134-434); RBC 3.88 M/mm3 (4.00-5.60); RDW 12.4 % (11.9-15.9); WHITE BLOOD COUNT 10.1 K/mm3 (4.0-10.0)
[2018-07-27 08:05] LABS: ALBUMIN 2.7 g/dl (3.4-5.0); ALK PHOS 93 U/L (45-117); ANION GAP 8 MMOL/L (8-16); BILIRUBIN,TOTAL 0.5 mg/dL (0.2-1); BLOOD UREA NITROGEN 13 mg/dL (7-18); CALCIUM 8.6 mg/dL (8.5-10.1); CHLORIDE 99 mmol/L (98-107); CO2 25 mmol/L (21-32); CREATININE 0.6 mg/dL (0.55-1.3); GLUCOSE,RANDOM 94 mg/dL (74-106); PHOSPHOROUS 3.3 mg/dL (2.5-4.9); POTASSIUM 3.5 mmol/L (3.5-5.1); SGOT/AST 28 U/L (15-37); SGPT/ALT 35 U/L (13-61); SODIUM 132 mmol/L (136-145)
--- NOTE | 2018-07-27 08:06 | PN ---
Progress Note (short form) - Note Progress Note: NEUROSURGERY Denies H/A On 8W PE: AF, VSS HEENT- NC/AT; Neck- supple; Cor- RR; Lungs- CTA B; Abd- benign; Ext- no sign of DVT A little more awake; garbled speech; not speaking much, following commands CN- intact; Motor- 4+-5/5; Sensation- intact LT; DTR- 1+ B fronto-temporal hemorrhagic contusion, SDH, SAH, overall pattern stable Incentive spirometry Mechanical DVT prophylaxis PT/rehab No neurosurgical intervention indicated Prognosis and care d/w medical team yesterday
--- NOTE | 2018-07-27 08:39 | PN ---
Progress Note (short form) - Note Progress Note: Awake, confused but able to follow some commands. No acute events overnight. OBJECTIVE: Intake & Output 07/24/18 07/25/18 07/26/18 07/27/18 23:59 23:59 23:59 23:59 Intake Total 1900 1500 2350 300 Balance 1900 1500 2350 300 Weight 138 lb 14.259 oz 133 lb 9.6 oz 133 lb 11.2 oz 132 lb 14.4 oz Last Vital Signs Temp Pulse Resp BP Pulse Ox 97.5 F L 89 18 133/79 97 07/27/18 06:00 07/27/18 06:00 07/27/18 06:00 07/27/18 06:00 07/25/18 22:00 Active Medications Acetaminophen (Tylenol -) 650 mg PO Q6H PRN PRN Reason: PAIN LEVEL 1 - 3 Cyanocobalamin (Vitamin B12 Injection -) 1,000 mcg IM DAILY [facility] Last Admin: 07/26/18 10:59 Dose: 1,000 mcg Folic Acid (Folic Acid Injection -) 1 mg IVPB DAILY [facility] Last Admin: 07/26/18 15:02 Dose: 1 mg Famotidine/Sodium Chloride (Pepcid 20 Mg Premixed Ivpb -) 20 mg in 50 mls @ 100 mls/hr IVPB DAILY@0800 [facility] Last Admin: 07/26/18 10:58 Dose: 100 mls/hr Amino Acids (Clinimix -) 1,000 mls @ 75 mls/hr IV Q12H [facility] Last Admin: 07/27/18 06:10 Dose: Not Given Fat Emulsion Intravenous (Intralipid -) 250 mls @ 20.833 mls/hr IV DAILY@2200 [facility] Last Admin: 07/26/18 22:26 Dose: 20.833 mls/hr Levetiracetam (Keppra Injection -) 500 mg IVPB BID [facility] Last Admin: 07/26/18 22:24 Dose: 500 mg Multivitamins/Minerals (Infuvite Adult -) 10 ml IV DAILY [facility] Last Admin: 07/26/18 18:36 Dose: 10 ml Nicotine (Nicoderm Patch -) 21 mg TD DAILY [facility] Last Admin: 07/26/18 10:59 Dose: 21 mg Promethazine HCl (Phenergan Injection -) 25 mg IM Q6H PRN PRN Reason: NAUSEA AND/OR VOMITING Thiamine HCl (Vitamin B1 Injection -) 200 mg IVPB DAILY TRISHA Last Admin: 07/26/18 11:00 Dose: 200 mg Gen: awake, NAD Heart: RRR Lung: scattered rhonchi Abd: soft, nontender Ext: no edema Laboratory Results - last 24 hr 07/26/18 07/26/18 07/26/18 08:03 08:03 08:03 WBC 9.5 RBC 3.86 L Hgb 13.5 Hct 38.2 MCV 99.1 H MCH 35.0 H MCHC 35.3 RDW 12.5 Plt Count 385 MPV 8.6 Absolute Neuts (auto) Neutrophils % Lymphocytes % Monocytes % Eosinophils % Basophils % Nucleated RBC % Sodium 132 L Potassium 3.3 L Chloride 100 Carbon Dioxide 22 Anion Gap 10 BUN 14 Creatinine 0.5 L Creat Clearance w eGFR > 60 POC Glucometer Random Glucose 102 Calcium 8.6 Phosphorus 3.0 Magnesium 1.8 Total Bilirubin AST ALT Alkaline Phosphatase Ammonia Total Protein Albumin Vitamin B12 2665 H Serum Folate 18 H TSH 2.71 RPR Titer Nonreactive 07/26/18 07/26/18 07/27/18 12:08 17:48 00:39 WBC RBC Hgb Hct MCV MCH MCHC RDW Plt Count MPV Absolute Neuts (auto) Neutrophils % Lymphocytes % Monocytes % Eosinophils % Basophils % Nucleated RBC % Sodium Potassium Chloride Carbon Dioxide Anion Gap BUN Creatinine Creat Clearance w eGFR POC Glucometer 112 113 110 Random Glucose Calcium Phosphorus Magnesium Total Bilirubin AST ALT Alkaline Phosphatase Ammonia Total Protein Albumin Vitamin B12 Serum Folate TSH RPR Titer 07/27/18 07/27/18 07/27/18 05:39 06:00 06:00 WBC 10.1 H RBC 3.88 L Hgb 13.5 Hct 38.7 MCV 99.6 H MCH 34.9 H MCHC 35.0 RDW 12.4 Plt Count 418 MPV 8.1 Absolute Neuts (auto) 6.9 Neutrophils % 68.9 Lymphocytes % 13.1 Monocytes % 14.1 H Eosinophils % 3.1 Basophils % 0.8 Nucleated RBC % 0 Sodium 132 L Potassium 3.5 Chloride 99 Carbon Dioxide 25 Anion Gap 8 BUN 13 Creatinine 0.6 Creat Clearance w eGFR > 60 POC Glucometer 103 Random Glucose 94 Calcium 8.6 Phosphorus 3.3 Magnesium 2.0 Total Bilirubin 0.5 AST 28 ALT 35 Alkaline Phosphatase 93 Ammonia Total Protein 6.0 L Albumin 2.7 L Vitamin B12 Serum Folate TSH RPR Titer 07/27/18 06:00 WBC RBC Hgb Hct MCV MCH MCHC RDW Plt Count MPV Absolute Neuts (auto) Neutrophils % Lymphocytes % Monocytes % Eosinophils % Basophils % Nucleated RBC % Sodium Potassium Chloride Carbon Dioxide Anion Gap BUN Creatinine Creat Clearance w eGFR POC Glucometer Random Glucose Calcium Phosphorus Magnesium Total Bilirubin AST ALT Alkaline Phosphatase Ammonia 28.00 Total Protein Albumin Vitamin B12 Serum Folate TSH RPR Titer ASSESSMENT AND PLAN: s/p Fall Subarachnoid Hemorrhage Subdural Hematoma Alcohol Abuse r/o Alcohol Withdrawal Thrombocytopenia - AEDS - benzos as needed - aspiration precautions - Consider NGT feeds instead of Clinimix Dr Haskins
[2018-07-27] MEDS ORDERED: PT OWN MED DRAWER 7, Y5N ONE (08:47)
[2018-07-27] MEDS: FAMOTIDINE 20 MG/50 ML IVPB 20 MG/50 ML MG IVPB SCH (09:02)
[2018-07-27] MEDS: levETIRAcetam 500 MG/5 ML INJECTION VIAL IVPB SCH ×2 (09:09→21:21)
[2018-07-27] MEDS: NICOTINE 21 MG/24 HOURS TOPICAL PATCH TD SCH (09:11)
[2018-07-27] MEDS: CYANOCOBALAMIN (VITAMIN B-12) 1000 MCG/1 ML VIAL IM SCH (09:12)
[2018-07-27] MEDS: MULTIVIT INJ. ADULT COMBO WITH VIT K 1 COMBO 10 ML VIAL IV SCH (09:15)
[2018-07-27] MEDS: THIAMINE HCL 200 MG/2 ML VIAL IVPB SCH (09:18)
[2018-07-27] MEDS: FOLIC ACID 5 MG/1 ML IVPB SCH (14:54)
--- NOTE | 2018-07-27 14:59 | PN ---
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 No improved function. Consider PEG insertion. What are pt's end of life wishes? He is a full code.
--- NOTE | 2018-07-27 15:59 | PN ---
Teaching Attending Note Name of Resident: Sebastien Villalobos ATTENDING PHYSICIAN STATEMENT I saw and evaluated the patient. I reviewed the resident's note and discussed the case with the resident. I agree with the resident's findings and plan as documented. SUBJECTIVE:more lethargic today. not giving verbal responses or following commands OBJECTIVE: Last Vital Signs Temp Pulse Resp BP Pulse Ox 98.4 F 79 16 130/64 97 07/27/18 15:10 07/27/18 15:10 07/27/18 15:10 07/27/18 15:10 07/25/18 22:00 General more lethargic. not answering questions CV S1 S2 RRR no murmur/rub/gallop Lungs CTA B/L no wheezing/rales/rhonchi Neuro lethargic but responds to verbal stimuli, moves all 4 extremities ASSESSMENT AND PLAN: 68 yo M with PMH continuous alcohol abuse presented to the ER with unwitnessed fall, suspected 2 days ago admitted with SDH/SAH/Intraparenchymal Haemorrhage with edema, Occipital bone fracture. 1. SDH/SAH/intraparenchymal haemorrhage with edema, suspect traumatic- appears more lethargic today and less interactive. as per RN said he has been like that all day. has not received any sedating medications. as per neurourg will likely have a prolonged imporvemebt from bleed and swelling. remaining workup is negative for alternative causes, on keppra which can aid to lethargy however high risk for seizures. will cont seizure and fall precautions 2. Occipital bone fracture- due to mechanical fall 3. Fever- possible aspiration. afebrile x48H. no leukocytosis. will hold abx at this time 4. dysphagia- likely due to deconditioning. has not improved. will place NGT for enteral feeds. will reach out to sister for PEG placement. could be reversed if patient;s mental status improved. 4. Continuous ETOH abuse- no signs of withdrawal. CIWA 0. hold detox at this time. detox consulted 5. Hypernatremia- resolved 6. DVT ppx- SCD. hold pharmacologic in setting of ICH 7. Appears patient has been an alcoholic since he was a teenager which became exacerbated since loosing his job. has become increasingly forgetful and confused since then. pt will likely require placement at possible TBi center to monitor patient in hopes he will regain some more functioning and ability to perform ADL;s
--- NOTE | 2018-07-27 17:27 | PN ---
Physical Exam: SUBJECTIVE: Patient seen and examined at bedside. No acute events overnight. OBJECTIVE: Vital Signs Period Temp Pulse Resp BP Sys/Dawn Pulse Ox Last 24 Hr 97.3 F-98.4 F 79-99 16-20 94-146/62-85 GENERAL: Somnolent, responds to verbal/physical stimuli HEAD:NC/AT EYES: Pupils constricted equal. Injected conjunctivae left eye ENT: Poor dentition. Poor oral hygiene NECK: Trachea midline, full range of motion, supple. LUNGS: Scattered Rhonchi HEART: RRR No MRG S1S2 ABDOMEN: NDNT No HSM Hypoactive bowel sounds EXTREMITIES: 2+ pulses, warm, well-perfused, no edema. NEUROLOGICAL: Able to perform finger to nose when prompted. Moves extremities when prompted. SILT. SKIN: No rashes or lesions appreciated Laboratory Results - last 24 hr 07/26/18 07/27/18 07/27/18 17:48 00:39 05:39 WBC RBC Hgb Hct MCV MCH MCHC RDW Plt Count MPV Absolute Neuts (auto) Neutrophils % Lymphocytes % Monocytes % Eosinophils % Basophils % Nucleated RBC % Sodium Potassium Chloride Carbon Dioxide Anion Gap BUN Creatinine Creat Clearance w eGFR POC Glucometer 113 110 103 Random Glucose Calcium Phosphorus Magnesium Total Bilirubin AST ALT Alkaline Phosphatase Ammonia Total Protein Albumin 07/27/18 07/27/18 07/27/18 06:00 06:00 06:00 WBC 10.1 H RBC 3.88 L Hgb 13.5 Hct 38.7 MCV 99.6 H MCH 34.9 H MCHC 35.0 RDW 12.4 Plt Count 418 MPV 8.1 Absolute Neuts (auto) 6.9 Neutrophils % 68.9 Lymphocytes % 13.1 Monocytes % 14.1 H Eosinophils % 3.1 Basophils % 0.8 Nucleated RBC % 0 Sodium 132 L Potassium 3.5 Chloride 99 Carbon Dioxide 25 Anion Gap 8 BUN 13 Creatinine 0.6 Creat Clearance w eGFR > 60 POC Glucometer Random Glucose 94 Calcium 8.6 Phosphorus 3.3 Magnesium 2.0 Total Bilirubin 0.5 AST 28 ALT 35 Alkaline Phosphatase 93 Ammonia 28.00 Total Protein 6.0 L Albumin 2.7 L 07/27/18 11:40 WBC RBC Hgb Hct MCV MCH MCHC RDW Plt Count MPV Absolute Neuts (auto) Neutrophils % Lymphocytes % Monocytes % Eosinophils % Basophils % Nucleated RBC % Sodium Potassium Chloride Carbon Dioxide Anion Gap BUN Creatinine Creat Clearance w eGFR POC Glucometer 111 Random Glucose Calcium Phosphorus Magnesium Total Bilirubin AST ALT Alkaline Phosphatase Ammonia Total Protein Albumin Active Medications Generic Name Dose Route Start Last Admin Trade Name Jackson PRN Reason Stop Dose Admin Acetaminophen 650 mg 07/24/18 16:29 Tylenol - PO Q6H PRN PAIN LEVEL 1 - 3 Cyanocobalamin 1,000 mcg 07/25/18 10:00 07/27/18 09:12 Vitamin B12 Injection - IM 1,000 mcg DAILY TRISHA Administration Folic Acid 1 mg 07/25/18 10:00 07/27/18 14:54 Folic Acid Injection - IVPB 1 mg DAILY TRISHA Administration Famotidine/Sodium Chloride 20 mg in 50 mls @ 100 mls/hr 07/25/18 08:00 09:02 Pepcid 20 Mg Premixed Ivpb - IVPB 100 mls/hr DAILY@0800 TRISAH Administration Amino Acids 1,000 mls @ 75 mls/hr 07/24/18 18:00 07/27/18 09:02 Clinimix - IV 75 mls/hr Q12H TRISHA Administration Fat Emulsion Intravenous 250 mls @ 20.833 mls/hr 07/24/18 22:00 07/26/18 22: 26 Intralipid - IV 20.833 mls/hr DAILY@2200 TRISHA Administration Levetiracetam 500 mg 07/24/18 22:00 07/27/18 09:09 Keppra Injection - IVPB 500 mg BID TRISHA Administration Multivitamins/Minerals 10 ml 07/24/18 18:00 07/27/18 09:15 Infuvite Adult - IV 10 ml DAILY TRISHA Administration Nicotine 21 mg 07/25/18 10:00 07/27/18 09:11 Nicoderm Patch - TD 21 mg DAILY TRISHA Administration Promethazine HCl 25 mg 07/24/18 16:29 Phenergan Injection - IM Q6H PRN NAUSEA AND/OR VOMITING Thiamine HCl 200 mg 07/25/18 10:00 07/27/18 09:18 Vitamin B1 Injection - IVPB 200 mg DAILY TRISHA Administration ASSESSMENT/PLAN: 68 alcoholic man presenting s/p fall 3 days ago with N,V and headaches, found to have bilateral frontal contusion, subdural and subarachnoid hemorrhage and comminuted fracture of the occipital bone. Now with agitation and possible symptoms of alcohol withdrawal. No seizures witnessed. #SDH/SAH 2/2 Mechanical Fall - Neurocheck Q1H - Keppra 500 mg BID seizure ppx - Neurosurgery on board Dr Marcelino Hayes - Tylenol PRN for headaches - HOB elevated to 30degrees + - Head CT- Occipital bone midline fx to inion; B frontal hemorrhagic contusion with SDH; B anterior temporal contusion with SAH R > L and small SDH -Repeat Head CT 07/21/18---> interval increase edema in the left frontal lobe. Head CT 07/22--> unchanged from CT on 07/21/18. -Chest XRAY 07/24/18--> no acute pathology -Blood/Urine cultures both negative -Will have to speak with pt's sister in regards to PEG tube placement. #Substance Abuse commodity specialist on board, Dr Ayala -Phenergan 25 MG IM Q6H PRN -Nicotine Patch #HTN - Labetolol 5mg for SBP >140, PRN #FEN: No Fluids Monitor Electrolytes Clinimix. Will place NGT tonight for enteral feeds. Wrist restraints ordered. GI ppx -Famotidine 20mg daily DVT ppx - SCDs Visit type - Emergency Visit Emergency Visit: Yes ED Registration Date: 07/18/18 Care time: The patient presented to the Emergency Department on the above date and was hospitalized for further evaluation of their emergent condition. - New Patient This patient is new to me today: No - Critical Care Critical Care patient: No - Discharge Referral Referred to [facility] Med P.C.: No
[2018-07-27] MEDS: FAT EMULSIONS 250 ML IV SCH (22:48)
[2018-07-28] MEDS ORDERED: PT OWN MED DRAWER 7, Y5N ONE (05:52)
[2018-07-28] MEDS: AMINO ACIDS 4.25%/D5W 1,000 ML IV SCH ×3 (06:33→21:39)
--- NOTE | 2018-07-28 08:12 | PN ---
Progress Note (short form) - Note Progress Note: NEUROSURGERY Mild H/A On 8W PE: Tmax 98.2, AF, VSS HEENT- NC/AT; Neck- supple; Cor- RR; Lungs- CTA B; Abd- benign; Ext- no sign of DVT More awake; garbled speech; following commands CN- intact; Motor- 4+-5/5; Sensation- intact LT; DTR- 1+ Stable B fronto-temporal hemorrhagic contusion, SDH, SAH Incentive spirometry Mechanical DVT prophylaxis PT/rehab No neurosurgical intervention indicated Nutritional support
[2018-07-28 08:24] LABS: HEMATOCRIT 40.7 % (35.4-49); MCH 34.4 pg (25.7-33.7); MCHC 34.5 g/dl (32.0-35.9); MEAN CELL VOLUME 99.7 fl (80-96); MEAN PLT VOLUME 8.1 fl (7.5-11.1); PLATELET COUNT 475 K/MM3 (134-434); RBC 4.08 M/mm3 (4.00-5.60); RDW 12.6 % (11.9-15.9); WHITE BLOOD COUNT 13.4 K/mm3 (4.0-10.0)
[2018-07-28 09:00] LABS: ANION GAP 9 MMOL/L (8-16); BLOOD UREA NITROGEN 14 mg/dL (7-18); CHLORIDE 103 mmol/L (98-107); CO2 24 mmol/L (21-32); CREATININE 0.6 mg/dL (0.55-1.3); GLUCOSE,RANDOM 114 mg/dL (74-106); MAGNESIUM 1.8 mg/dL (1.8-2.4); PHOSPHOROUS 3.6 mg/dL (2.5-4.9); POTASSIUM 3.7 mmol/L (3.5-5.1); SODIUM 136 mmol/L (136-145)
[2018-07-28] MEDS: THIAMINE HCL 200 MG/2 ML VIAL IVPB SCH (10:32)
[2018-07-28] MEDS: FAMOTIDINE 20 MG/50 ML IVPB 20 MG/50 ML MG IVPB SCH (10:32)
[2018-07-28] MEDS: levETIRAcetam 500 MG/5 ML INJECTION VIAL IVPB SCH ×2 (10:34→21:43)
[2018-07-28] MEDS: CYANOCOBALAMIN (VITAMIN B-12) 1000 MCG/1 ML VIAL IM SCH (10:35)
[2018-07-28] MEDS: MULTIVIT INJ. ADULT COMBO WITH VIT K 1 COMBO 10 ML VIAL IV SCH (10:35)
[2018-07-28] MEDS: NICOTINE 21 MG/24 HOURS TOPICAL PATCH TD SCH (10:35)
--- NOTE | 2018-07-28 11:52 | PN ---
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 Strong cough with clearance of phlegm reported by nursing. More alert. Speech still limited, intelligible single words eg name. Swallow reassessed with multiple swallows generated with throat clearing after pt was given 1/2 tsp of nectar thick liquid on a tsp, at which time he put his hand up and said "Enough." Suggest PEG insertion, with goal to wean in future oif performance improves.
--- NOTE | 2018-07-28 14:11 | PN ---
Teaching Attending Note Name of Resident: Sebastien Villalobos ATTENDING PHYSICIAN STATEMENT I saw and evaluated the patient. I reviewed the resident's note and discussed the case with the resident. I agree with the resident's findings and plan as documented. SUBJECTIVE: does not respond when asked if he has any complaints or pains pt pulled out NGT this AM OBJECTIVE: Last Vital Signs Temp Pulse Resp BP Pulse Ox 98.2 F 100 H 20 126/67 97 07/28/18 06:00 07/28/18 06:00 07/28/18 06:00 07/28/18 06:00 07/25/18 22:00 General NAD A&O x2 (self and location) CV S1 S2 RRR no murmur/rub/gallop Lungs CTA B/L no wheezing/rales/rhonchi Neuro CN grossly intact, moves all 4 extremities. follows some commands ASSESSMENT AND PLAN: 68 yo M with PMH continuous alcohol abuse presented to the ER with unwitnessed fall, suspected 2 days ago admitted with SDH/SAH/Intraparenchymal Haemorrhage with edema, Occipital bone fracture. 1. SDH/SAH/intraparenchymal haemorrhage with edema, suspect traumatic-alert today. as per neurosurg will takes everal weeks to show improvment but not expected to recover to previous baseline. on keppra for seizure ppx. will cont seizure and fall precautions 2. Occipital bone fracture- due to mechanical fall 3. Fever- possible aspiration. afebrile x48H. leukocytosis trending up. if continues to trend up will evaluate for infection. will hold abx at this time 4. dysphagia- likely due to deconditioning. has not improved. NGT placed which patient pulled out. will d/w family about PEG placement. hopefully can be reveresed in the future. 4. Continuous ETOH abuse- no signs of withdrawal. CIWA 0. hold detox at this time. detox consulted 5. Hypernatremia- resolved 6. DVT ppx- SCD. hold pharmacologic in setting of ICH 7. spoke with friend and neighbor Ms galvan who stated his drinking spiraled out of control since the beginning of the year when he lost his job. that he was still able to carry out his own ADL and manage his finances. he was becoming increasingly forgetful however it was not severe to the point where it was affecting his life. states that he is not and does not have any children. Believes he has many siblings but he mainly only speaks about his sister Dania in [place] and his brother Micha in [place] but mentions he is closer to his sister.
[2018-07-28] MEDS: FOLIC ACID 5 MG/1 ML IVPB SCH (17:26)
--- NOTE | 2018-07-28 20:08 | PN ---
Physical Exam: SUBJECTIVE: Patient seen and examined at bedside. Pulled NGT out overnight. OBJECTIVE: Vital Signs Period Temp Pulse Resp BP Sys/Dawn Pulse Ox Last 24 Hr 97.6 F-99.7 F 78-124 18-96 96-128/49-78 GENERAL: More alert, responds to questions when prompted. HEAD:NC/AT EYES: EOMI, Pupils symmetric. pupillary reflex sluggish ENT: Oral hygiene remains poor NECK: Trachea midline, full range of motion, supple. LUNGS: Coarse breath sounds , poor inspiratory effort HEART: RRR No MRG S1S2 ABDOMEN: NDNT No HSM EXTREMITIES: 2+ pulses, warm, well-perfused, no edema. NEUROLOGICAL: Sensation fully intact throughout. Finger to nose intact. Can move specific extremity upon being prompted to do so. SKIN: No rashes or lesions appreciated Laboratory Results - last 24 hr 07/28/18 07/28/18 07/28/18 06:59 07:10 07:10 WBC 13.4 H RBC 4.08 Hgb 14.0 Hct 40.7 MCV 99.7 H MCH 34.4 H MCHC 34.5 RDW 12.6 Plt Count 475 H MPV 8.1 Sodium 136 Potassium 3.7 Chloride 103 Carbon Dioxide 24 Anion Gap 9 BUN 14 Creatinine 0.6 Creat Clearance w eGFR > 60 POC Glucometer 112 Random Glucose 114 H Calcium 9.0 Phosphorus 3.6 Magnesium 1.8 07/28/18 17:10 WBC RBC Hgb Hct MCV MCH MCHC RDW Plt Count MPV Sodium Potassium Chloride Carbon Dioxide Anion Gap BUN Creatinine Creat Clearance w eGFR POC Glucometer 130 Random Glucose Calcium Phosphorus Magnesium Active Medications Generic Name Dose Route Start Last Admin Trade Name Jackson PRN Reason Stop Dose Admin Acetaminophen 650 mg 07/24/18 16:29 Tylenol - PO Q6H PRN PAIN LEVEL 1 - 3 Cyanocobalamin 1,000 mcg 07/25/18 10:00 07/28/18 10:35 Vitamin B12 Injection - IM 1,000 mcg DAILY TRISHA Administration Folic Acid 1 mg 07/25/18 10:00 07/28/18 17:26 Folic Acid Injection - IVPB 1 mg DAILY TRISHA Administration Famotidine/Sodium Chloride 20 mg in 50 mls @ 100 mls/hr 07/25/18 08:00 10:32 Pepcid 20 Mg Premixed Ivpb - IVPB 100 mls/hr DAILY@0800 TRISHA Administration Amino Acids 1,000 mls @ 75 mls/hr 07/24/18 18:00 07/28/18 17:26 Clinimix - IV Not Given Q12H TRISHA Fat Emulsion Intravenous 250 mls @ 20.833 mls/hr 07/24/18 22:00 07/27/18 22: 48 Intralipid - IV 20.833 mls/hr DAILY@2200 TRISHA Administration Levetiracetam 500 mg 07/24/18 22:00 07/28/18 10:34 Keppra Injection - IVPB 500 mg BID TRISHA Administration Multivitamins/Minerals 10 ml 07/24/18 18:00 07/28/18 10:35 Infuvite Adult - IV Not Given DAILY TRISHA Nicotine 21 mg 07/25/18 10:00 07/28/18 10:35 Nicoderm Patch - TD 21 mg DAILY TRISHA Administration Promethazine HCl 25 mg 07/24/18 16:29 Phenergan Injection - IM Q6H PRN NAUSEA AND/OR VOMITING Thiamine HCl 200 mg 07/25/18 10:00 07/28/18 10:32 Vitamin B1 Injection - IVPB 200 mg DAILY TRISHA Administration ASSESSMENT/PLAN: 68 alcoholic man presenting s/p fall 3 days ago with N,V and headaches, found to have bilateral frontal contusion, subdural and subarachnoid hemorrhage and comminuted fracture of the occipital bone. Now with agitation and possible symptoms of alcohol withdrawal. No seizures witnessed. #SDH/SAH 2/2 Mechanical Fall - Neurocheck Q4H - Keppra 500 mg BID seizure ppx - Neurosurgery on board Dr Marcelino Hayes - Tylenol PRN for headaches - HOB elevated to 30degrees + - Head CT- Occipital bone midline fx to inion; B frontal hemorrhagic contusion with SDH; B anterior temporal contusion with SAH R > L and small SDH -Repeat Head CT 07/21/18---> interval increase edema in the left frontal lobe. Head CT 07/22--> unchanged from CT on 07/21/18. -Chest XRAY 07/24/18--> no acute pathology -Blood/Urine cultures both negative -Will have to speak with pt's sister in regards to PEG tube placement. -Will need to establish contact with TBI facility as pt will require longterm rehabilitation #Substance Abuse firefighting equipment specialist on board, Dr Ayala -Phenergan 25 MG IM Q6H PRN -Nicotine Patch #HTN - Labetolol 5mg for SBP >140, PRN #FEN: No Fluids Monitor Electrolytes Clinimix. NGT To be placed this tuesday GI ppx -Famotidine 20mg daily DVT ppx - SCDs Visit type - Emergency Visit Emergency Visit: Yes ED Registration Date: 07/18/18 Care time: The patient presented to the Emergency Department on the above date and was hospitalized for further evaluation of their emergent condition. - New Patient This patient is new to me today: No - Critical Care Critical Care patient: No - Discharge Referral Referred to [facility] Med P.C.: No
[2018-07-28] MEDS: FAT EMULSIONS 250 ML IV SCH (23:45)
[2018-07-29] MEDS: FAMOTIDINE 20 MG/50 ML IVPB 20 MG/50 ML MG IVPB SCH (08:57)
--- NOTE | 2018-07-29 09:45 | PN ---
Progress Note (short form) - Note Progress Note: says no when asked if he has any pain or difficulty breathing. stats he is hungry Current Medications Generic Name Dose Route Start Last Admin Trade Name Jackson PRN Reason Stop Dose Admin Acetaminophen 650 mg 07/24/18 16:29 Tylenol - PO Q6H PRN PAIN LEVEL 1 - 3 Cyanocobalamin 1,000 mcg 07/25/18 10:00 07/28/18 10:35 Vitamin B12 Injection - IM 1,000 mcg DAILY TRISHA Administration Folic Acid 1 mg 07/25/18 10:00 07/28/18 17:26 Folic Acid Injection - IVPB 1 mg DAILY TRISHA Administration Famotidine/Sodium Chloride 20 mg in 50 mls @ 100 mls/hr 07/25/18 08:00 08:57 Pepcid 20 Mg Premixed Ivpb - IVPB 100 mls/hr DAILY@0800 TRISHA Administration Amino Acids 1,000 mls @ 75 mls/hr 07/24/18 18:00 07/28/18 21:39 Clinimix - IV 75 mls/hr Q12H TRISHA Administration Fat Emulsion Intravenous 250 mls @ 20.833 mls/hr 07/24/18 22:00 07/28/18 23: 45 Intralipid - IV 20.833 mls/hr DAILY@2200 TRISHA Administration Levetiracetam 500 mg 07/24/18 22:00 07/28/18 21:43 Keppra Injection - IVPB 500 mg BID TRISHA Administration Multivitamins/Minerals 10 ml 07/24/18 18:00 07/28/18 10:35 Infuvite Adult - IV Not Given DAILY TRISHA Nicotine 21 mg 07/25/18 10:00 07/28/18 10:35 Nicoderm Patch - TD 21 mg DAILY TRISHA Administration Promethazine HCl 25 mg 07/24/18 16:29 Phenergan Injection - IM Q6H PRN NAUSEA AND/OR VOMITING Thiamine HCl 200 mg 07/25/18 10:00 07/28/18 10:32 Vitamin B1 Injection - IVPB 200 mg DAILY TRISHA Administration Last Vital Signs Temp Pulse Resp BP Pulse Ox 98.2 F 91 H 20 96/62 97 07/29/18 06:00 07/29/18 06:00 07/29/18 06:00 07/29/18 06:00 07/25/18 22:00 General NAD A&O x3 CV S1 S2 RRR no murmur/rub/gallop Lungs CTA B/L no wheezing/rales/rhonchi Neuro CN grossly intact, moves all 4 extremities. follows some commands ASSESSMENT AND PLAN: 68 yo M with PMH continuous alcohol abuse presented to the ER with unwitnessed fall, suspected 2 days ago admitted with SDH/SAH/Intraparenchymal Haemorrhage with edema, Occipital bone fracture. 1. SDH/SAH/intraparenchymal haemorrhage with edema, suspect traumatic-more alert and oriented today. as per neurosurg will takes several weeks to show improvement but not expected to recover to previous baseline. on keppra for seizure ppx. will cont seizure and fall precautions 2. Occipital bone fracture- due to mechanical fall 3. Fever- possible aspiration. afebrile x48H. leukocytosis trending up. if continues to trend up will evaluate for infection. will hold abx at this time. awaiting todays labs 4. dysphagia- likely due to deconditioning. has not improved. multiple attempts to place NGT, pt kept pulling out once placed. will need to continue with clinimix for now. plan for PEG on tuesday by IR. 4. Continuous ETOH abuse- no signs of withdrawal. CIWA 0. hold detox at this time. detox consulted 5. Hypernatremia- resolved 6. DVT ppx- SCD. hold pharmacologic in setting of ICH Visit type - Emergency Visit Emergency Visit: Yes ED Registration Date: 07/18/18 Care time: The patient presented to the Emergency Department on the above date and was hospitalized for further evaluation of their emergent condition. - New Patient This patient is new to me today: No - Critical Care Critical Care patient: No - Discharge Referral Referred to [facility] Med P.C.: No
[2018-07-29] MEDS: NICOTINE 21 MG/24 HOURS TOPICAL PATCH TD SCH (10:30)
[2018-07-29] MEDS: levETIRAcetam 500 MG/5 ML INJECTION VIAL IVPB SCH ×2 (10:30→22:02)
[2018-07-29] MEDS: CYANOCOBALAMIN (VITAMIN B-12) 1000 MCG/1 ML VIAL IM SCH (10:32)
[2018-07-29] MEDS: FOLIC ACID 5 MG/1 ML IVPB SCH (10:42)
[2018-07-29] MEDS: THIAMINE HCL 200 MG/2 ML VIAL IVPB SCH (10:42)
--- NOTE | 2018-07-29 11:22 | PN ---
Progress Note (short form) - Note Progress Note: NEUROSURGERY On 8W PE: Tmax 99.7, VSS HEENT- NC/AT; Neck- supple; Cor- RR; Lungs- CTA B; Abd- benign; Ext- no sign of DVT Sleepy today; garbled speech; following commands CN- intact; Motor- 4+-5/5; Sensation- intact LT; DTR- 1+ WBC 13.4 Sputum negative CXR- suboptimal/motion Stable B fronto-temporal hemorrhagic contusion, SDH, SAH Incentive spirometry Mechanical DVT prophylaxis PT/rehab No neurosurgical intervention indicated Nutritional support Repeat CT if persistent drowsiness to assess evolution of contusion/SDH/SAH
[2018-07-29 11:48] LABS: BASO % 0.9 % (0-2.0); EOS % 2.6 % (0-4.5); HEMATOCRIT 38.7 % (35.4-49); HEMOGLOBIN 14.1 GM/dL (11.7-16.9); LYMPH % 9.8 % (8-40); MCH 36.4 pg (25.7-33.7); MCHC 36.4 g/dl (32.0-35.9); MEAN CELL VOLUME 100.1 fl (80-96); MEAN PLT VOLUME 8.6 fl (7.5-11.1); MONO % 11.1 % (3.8-10.2); NEUT % 75.6 % (42.8-82.8); PLATELET COUNT 488 K/MM3 (134-434); RBC 3.86 M/mm3 (4.00-5.60); RDW 12.7 % (11.9-15.9); WHITE BLOOD COUNT 12.3 K/mm3 (4.0-10.0)
[2018-07-29] MEDS ORDERED: PT OWN MED DRAWER 7, Y5N ONE (12:10)
[2018-07-29] MEDS: AMINO ACIDS 4.25%/D5W 1,000 ML IV SCH (16:57)
[2018-07-29] MEDS: MULTIVIT INJ. ADULT COMBO WITH VIT K 1 COMBO 10 ML VIAL IV SCH (16:57)
[2018-07-29] MEDS: FAT EMULSIONS 250 ML IV SCH (23:57)
[2018-07-30] MEDS: AMINO ACIDS 4.25%/D5W 1,000 ML IV SCH ×4 (06:11→20:34)
[2018-07-30 08:01] LABS: BASO % 0.9 % (0-2.0); EOS % 2.8 % (0-4.5); HEMATOCRIT 38.9 % (35.4-49); HEMOGLOBIN 13.2 GM/dL (11.7-16.9); MCH 34.3 pg (25.7-33.7); MEAN PLT VOLUME 8.4 fl (7.5-11.1); MONO % 11.9 % (3.8-10.2); NEUT % 73.4 % (42.8-82.8); PLATELET COUNT 493 K/MM3 (134-434); RBC 3.85 M/mm3 (4.00-5.60); RDW 12.6 % (11.9-15.9)
[2018-07-30] MEDS ORDERED: PT OWN MED DRAWER 7, Y5N ONE (10:43)
[2018-07-30] MEDS: levETIRAcetam 500 MG/5 ML INJECTION VIAL IVPB SCH ×2 (10:45→21:26)
[2018-07-30] MEDS: NICOTINE 21 MG/24 HOURS TOPICAL PATCH TD SCH (10:45)
[2018-07-30] MEDS: FAMOTIDINE 20 MG/50 ML IVPB 20 MG/50 ML MG IVPB SCH (10:58)
[2018-07-30] MEDS: CYANOCOBALAMIN (VITAMIN B-12) 1000 MCG/1 ML VIAL IM SCH (11:13)
[2018-07-30] MEDS: THIAMINE HCL 200 MG/2 ML VIAL IVPB SCH (11:15)
--- NOTE | 2018-07-30 11:27 | PN ---
Teaching Attending Note Name of Resident: Sebastien Nolasco ATTENDING PHYSICIAN STATEMENT I saw and evaluated the patient. I reviewed the resident's note and discussed the case with the resident. I agree with the resident's findings and plan as documented. SUBJECTIVE:asymptomatic. requests to be left alone. denies CP or SOB OBJECTIVE: Last Vital Signs Temp Pulse Resp BP Pulse Ox 98.8 F 96 H 20 140/75 97 07/30/18 06:00 07/30/18 06:00 07/30/18 06:00 07/30/18 06:00 07/29/18 21:00 General NAD would not answer questions but told me " leave me alone" CV S1 S2 RRR no murmur/rub/gallop Lungs CTA B/L no wheezing/rales/rhonchi Neuro CN grossly intact, moves all 4 extremities. follows some basic commands ASSESSMENT AND PLAN: 68 yo M with PMH continuous alcohol abuse presented to the ER with unwitnessed fall, suspected 2 days ago admitted with SDH/SAH/Intraparenchymal Haemorrhage with edema, Occipital bone fracture. 1. SDH/SAH/intraparenchymal haemorrhage with edema, suspect traumatic-alert. as per neurosurg will takes several weeks to show improvement but not expected to recover to previous baseline. on keppra for seizure ppx. will cont seizure and fall precautions 2. Occipital bone fracture- due to mechanical fall 3. Fever- possible aspiration. afebrile x48H. leukocytosis stable. will hold further workup or intervention at this time. if continues to trend up will evaluate for infection. will hold abx at this time. awaiting todays labs 4. dysphagia- likely due to deconditioning. has not improved. multiple attempts to place NGT, pt kept pulling out once placed. will need to continue with clinimix for now. plan for PEG on tuesday by IR. 4. Continuous ETOH abuse- no signs of withdrawal. CIWA 0. hold detox at this time. detox consulted 5. Hypernatremia- resolved 6. DVT ppx- SCD. hold pharmacologic in setting of ICH 7. will reach out to sister about placement of PEG. will need SANAZ when medically stable
--- NOTE | 2018-07-30 12:46 | PN ---
Physical Exam: SUBJECTIVE: Patient seen and examined at bedside. No acute events. Improved today since my last conversation with him OBJECTIVE: Vital Signs Period Temp Pulse Resp BP Sys/Dawn Pulse Ox Last 24 Hr 98.8 F-99 F 83-96 18-20 119-140/60-75 97 Gen: AAO x 2 to person and time HEENT: NCAT, EOMI (follows with difficulty), poor dentition Neck: supple, no jvd Cardio: rrr, normal s1s2, no mrg Pulm: poor insp effort, no rales/ronchi appreciated Abd: soft, nondistended, nontender Ext: moves 4 limbs independently. Difficulty following commands for strength testing Laboratory Results - last 24 hr 07/30/18 07:00 WBC 13.0 H RBC 3.85 L Hgb 13.2 Hct 38.9 MCV 101.0 H MCH 34.3 H MCHC 34.0 RDW 12.6 Plt Count 493 H MPV 8.4 Absolute Neuts (auto) 9.5 H Neutrophils % 73.4 Lymphocytes % 11.0 Monocytes % 11.9 H Eosinophils % 2.8 Basophils % 0.9 Nucleated RBC % 0 Active Medications Generic Name Dose Route Start Last Admin Trade Name Freq PRN Reason Stop Dose Admin Acetaminophen 650 mg 07/24/18 16:29 Tylenol - PO Q6H PRN PAIN LEVEL 1 - 3 Cyanocobalamin 1,000 mcg 07/25/18 10:00 07/30/18 11:13 Vitamin B12 Injection - IM 1,000 mcg DAILY TRISHA Administration Folic Acid 1 mg 07/25/18 10:00 07/29/18 10:42 Folic Acid Injection - IVPB 1 mg DAILY TRISHA Administration Famotidine/Sodium Chloride 20 mg in 50 mls @ 100 mls/hr 07/25/18 08:00 10:58 Pepcid 20 Mg Premixed Ivpb - IVPB 100 mls/hr DAILY@0800 TRISHA Administration Amino Acids 1,000 mls @ 75 mls/hr 07/24/18 18:00 07/30/18 06:11 Clinimix - IV 75 mls/hr Q12H TRISHA Administration Fat Emulsion Intravenous 250 mls @ 20.833 mls/hr 07/24/18 22:00 07/29/18 23: 57 Intralipid - IV 20.833 mls/hr DAILY@2200 TRISHA Administration Levetiracetam 500 mg 07/24/18 22:00 07/30/18 10:45 Keppra Injection - IVPB 500 mg BID TRISHA Administration Multivitamins/Minerals 10 ml 07/24/18 18:00 07/29/18 16:57 Infuvite Adult - IV 10 ml DAILY TRISHA Administration Nicotine 21 mg 07/25/18 10:00 07/30/18 10:45 Nicoderm Patch - TD 21 mg DAILY TRISHA Administration Promethazine HCl 25 mg 07/24/18 16:29 Phenergan Injection - IM Q6H PRN NAUSEA AND/OR VOMITING Thiamine HCl 200 mg 07/25/18 10:00 07/30/18 11:15 Vitamin B1 Injection - IVPB 200 mg DAILY TRISHA Administration ASSESSMENT/PLAN: Pt is a 68 y/o M with PMH EtOH abuse, who presented to ED after a fall with head trauma. Pt was found to have skull fracture and several bleeding foci intracranially #SDB/SAH/Intraparenchymal hemorrhage w/ occiptial skull fracture -seen by neurosurg -no intervention at this time -improving -Keppra -no indication for decadron #Fever: resolved -no abx at this time -continue to monitor #dysphagia -speech and swallow rec NGT/G-tube -NGT tube placed and pulled by pt x 2 -for G-tube by IR Mon -clinimix #EtOH -no withdrawal at this time #Hyper Na: resolved #FEN -NPO -lytes wnl -clinimix. NPO pending G tube #PPx -holding AC in setting of brain bleed #Dispo -Med surg for G tube Donna Nolasco MD PGY-2 IM Visit type - Emergency Visit Emergency Visit: No - New Patient This patient is new to me today: No - Critical Care Critical Care patient: No
[2018-07-30] MEDS: FOLIC ACID 5 MG/1 ML IVPB SCH (18:04)
[2018-07-30] MEDS: FAT EMULSIONS 250 ML IV SCH (23:50)
[2018-07-31] MEDS: MULTIVIT INJ. ADULT COMBO WITH VIT K 1 COMBO 10 ML VIAL IV SCH ×2 (04:10→16:52)
[2018-07-31 07:03] LABS: BASO % 1.2 % (0-2.0); EOS % 3.7 % (0-4.5); HEMATOCRIT 39.9 % (35.4-49); HEMOGLOBIN 13.5 GM/dL (11.7-16.9); LYMPH % 12.3 % (8-40); MCH 33.7 pg (25.7-33.7); MCHC 33.8 g/dl (32.0-35.9); MEAN CELL VOLUME 99.7 fl (80-96); MEAN PLT VOLUME 8.1 fl (7.5-11.1); MONO % 13.1 % (3.8-10.2); NEUT % 69.7 % (42.8-82.8); PLATELET COUNT 536 K/MM3 (134-434); RDW 12.4 % (11.9-15.9); WHITE BLOOD COUNT 9.9 K/mm3 (4.0-10.0)
[2018-07-31] MEDS ORDERED: PT OWN MED DRAWER 7, Y5N ONE ×2 (09:35→20:34)
[2018-07-31] MEDS: levETIRAcetam 500 MG/5 ML INJECTION VIAL IVPB SCH ×2 (09:42→21:37)
[2018-07-31] MEDS: CYANOCOBALAMIN (VITAMIN B-12) 1000 MCG/1 ML VIAL IM SCH (09:46)
[2018-07-31] MEDS: NICOTINE 21 MG/24 HOURS TOPICAL PATCH TD SCH (09:48)
[2018-07-31] MEDS: THIAMINE HCL 200 MG/2 ML VIAL IVPB SCH (10:23)
[2018-07-31] MEDS: FAMOTIDINE 20 MG/50 ML IVPB 20 MG/50 ML MG IVPB SCH (12:03)
[2018-07-31] MEDS: FOLIC ACID 5 MG/1 ML IVPB SCH (12:11)
--- NOTE | 2018-07-31 12:29 | PN ---
Teaching Attending Note Name of Resident: Sebastien Villalobos ATTENDING PHYSICIAN STATEMENT I saw and evaluated the patient. I reviewed the resident's note and discussed the case with the resident. I agree with the resident's findings and plan as documented. SUBJECTIVE:asymptomatic. denies Cp, SOB, fever, chills, N/V/C/D OBJECTIVE: Last Vital Signs Temp Pulse Resp BP Pulse Ox 99.3 F 88 18 158/75 97 07/31/18 06:41 07/31/18 06:41 07/31/18 06:41 07/31/18 06:41 07/29/18 21:00 General NAD A&O x2 (self and time), speech is very fluent and comprehensible. answers most questions appropriately CV S1 S2 RRR no murmur/rub/gallop Lungs CTA B/L no wheezing/rales/rhonchi Neuro CN grossly intact, follows commands ASSESSMENT AND PLAN: 68 yo M with PMH continuous alcohol abuse presented to the ER with unwitnessed fall, suspected 2 days ago admitted with SDH/SAH/Intraparenchymal Haemorrhage with edema, Occipital bone fracture. 1. SDH/SAH/intraparenchymal haemorrhage with edema, suspect traumatic-alert today speaking in long full conversations, answers most questions appropriately. speech is fluid. on keppra for seizure ppx. will cont seizure and fall precautions 2. Occipital bone fracture- due to mechanical fall 3. Fever- possible aspiration. afebrile x48H. leukocytosis resolved. no abx at this time. 4. dysphagia- likely due to deconditioning. pt is most alert I have seen him and requesting food. will request Swallow eval to assess if can advance diet. if unable to advance will need to consider PEG. 4. Continuous ETOH abuse- no signs of withdrawal. CIWA 0. hold detox at this time. detox consulted 5. Hypernatremia- resolved 6. DVT ppx- SCD. hold pharmacologic in setting of ICH 7. will reach out to sister about placement of PEG if unable to advance diet. will need SANAZ when medically stable
--- NOTE | 2018-07-31 13:13 | PN ---
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 Confused. Asking for food. 1/2 tsp applesauce given with delayed swallow. Pt then refused additional trials. Then given water with good overt tolerance of a few continuous sips. When offered more, he said "I can't. My esophagus is not opening." Suggest MBS to include esophagus. r/o Dysphagia to determine nutritional plan.
--- NOTE | 2018-07-31 14:54 | PN ---
Physical Exam: SUBJECTIVE: Patient seen and examined at bedside. Agitated overnight per RN. No acute events. Speech much more coherent this AM. OBJECTIVE: Vital Signs Period Temp Pulse Resp BP Sys/Dawn Pulse Ox Last 24 Hr 97.5 F-99.3 F 88-89 101-158/66-79 GENERAL: AAOx2, Speech coherent HEAD:NC/AT EYES: Conjunctivae inhected, EOMI ENT: Oral hygiene remains poor NECK: Trachea midline, full range of motion, supple. LUNGS: CTA B/L HEART: RRR No MRG S1S2 ABDOMEN: NDNT No HSM EXTREMITIES: No CCE, Muscle NEUROLOGICAL: Responds to commands. Able to perform finger to nose testing. Speech clear. SKIN: No rashes or lesions appreciated Laboratory Results - last 24 hr 07/30/18 07/31/18 17:55 06:00 WBC 9.9 RBC 4.00 Hgb 13.5 Hct 39.9 MCV 99.7 H MCH 33.7 MCHC 33.8 RDW 12.4 Plt Count 536 H MPV 8.1 Absolute Neuts (auto) 6.9 Neutrophils % 69.7 Lymphocytes % 12.3 Monocytes % 13.1 H Eosinophils % 3.7 Basophils % 1.2 Nucleated RBC % 0 POC Glucometer 111 Active Medications Generic Name Dose Route Start Last Admin Trade Name Jackson PRN Reason Stop Dose Admin Acetaminophen 650 mg 07/24/18 16:29 Tylenol - PO Q6H PRN PAIN LEVEL 1 - 3 Cyanocobalamin 1,000 mcg 07/25/18 10:00 07/31/18 09:46 Vitamin B12 Injection - IM 1,000 mcg DAILY TRISHA Administration Folic Acid 1 mg 07/25/18 10:00 07/31/18 12:11 Folic Acid Injection - IVPB 1 mg DAILY TRISHA Administration Famotidine/Sodium Chloride 20 mg in 50 mls @ 100 mls/hr 07/25/18 08:00 12:03 Pepcid 20 Mg Premixed Ivpb - IVPB 100 mls/hr DAILY@0800 TRISHA Administration Amino Acids 1,000 mls @ 75 mls/hr 07/24/18 18:00 07/30/18 20:34 Clinimix - IV 75 mls/hr Q12H TRISHA Administration Fat Emulsion Intravenous 250 mls @ 20.833 mls/hr 07/24/18 22:00 07/30/18 23: 50 Intralipid - IV 20.833 mls/hr DAILY@2200 TRISHA Administration Levetiracetam 500 mg 07/24/18 22:00 07/31/18 09:42 Keppra Injection - IVPB 500 mg BID TRISHA Administration Multivitamins/Minerals 10 ml 07/24/18 18:00 07/31/18 04:10 Infuvite Adult - IV Not Given DAILY TRISHA Nicotine 21 mg 07/25/18 10:00 07/31/18 09:48 Nicoderm Patch - TD 21 mg DAILY TRISHA Administration Promethazine HCl 25 mg 07/24/18 16:29 Phenergan Injection - IM Q6H PRN NAUSEA AND/OR VOMITING Thiamine HCl 200 mg 07/25/18 10:00 07/31/18 10:23 Vitamin B1 Injection - IVPB 200 mg DAILY TRISHA Administration ASSESSMENT/PLAN: 68 alcoholic man presenting s/p fall 3 days ago with N,V and headaches, found to have bilateral frontal contusion, subdural and subarachnoid hemorrhage and comminuted fracture of the occipital bone. Now with agitation and possible symptoms of alcohol withdrawal. No seizures witnessed. #SDH/SAH 2/2 Mechanical Fall - Neurocheck Q4H - Keppra 500 mg BID seizure ppx - Neurosurgery on board Dr Marcelino Hayes - Tylenol PRN for headaches - HOB elevated to 30degrees + - Head CT- Occipital bone midline fx to inion; B frontal hemorrhagic contusion with SDH; B anterior temporal contusion with SAH R > L and small SDH -Repeat Head CT 07/21/18---> interval increase edema in the left frontal lobe. Head CT 07/22--> unchanged from CT on 07/21/18. -Chest XRAY 07/24/18--> no acute pathology -Blood/Urine cultures both negative -Will have to speak with pt's sister in regards to PEG tube placement. 07/31/18 -Speech/Swallow eval today. " Suggest MBS to include esophagus. r/o Dysphagia to determine nutritional plan." MBS --> Trace aspiration. 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 GI ppx -Famotidine 20mg daily DVT ppx - SCDs Visit type - Emergency Visit Emergency Visit: Yes ED Registration Date: 07/18/18 Care time: The patient presented to the Emergency Department on the above date and was hospitalized for further evaluation of their emergent condition. - New Patient This patient is new to me today: No - Critical Care Critical Care patient: No - Discharge Referral Referred to [facility] Med P.C.: No
[2018-07-31] MEDS: AMINO ACIDS 4.25%/D5W 1,000 ML IV SCH (16:52)
[2018-07-31] MEDS ORDERED: HALOPERIDOL 0.5 MG TABLET PO ONE (17:11)
[2018-07-31] MEDS ORDERED: HALOPERIDOL LACTATE 5 MG/ML IM ONE (17:19)
[2018-07-31] MEDS ORDERED: HALOPERIDOL 1 MG TABLET (FP) PO ONE (17:30)
[2018-07-31] MEDS: FAT EMULSIONS 250 ML IV SCH (21:37)
[2018-08-01] MEDS ORDERED: HALOPERIDOL LACTATE 5 MG/ML IM ONE ×2 (00:38→21:26)
[2018-08-01 07:24] LABS: HEMATOCRIT 41.5 % (35.4-49); HEMOGLOBIN 14.1 GM/dL (11.7-16.9); MCH 34.2 pg (25.7-33.7); MCHC 33.8 g/dl (32.0-35.9); MEAN CELL VOLUME 101.1 fl (80-96); MEAN PLT VOLUME 7.9 fl (7.5-11.1); PLATELET COUNT 545 K/MM3 (134-434); RBC 4.11 M/mm3 (4.00-5.60); RDW 12.5 % (11.9-15.9)
[2018-08-01 07:45] LABS: ANION GAP 11 MMOL/L (8-16); BLOOD UREA NITROGEN 15 mg/dL (7-18); CALCIUM 9.2 mg/dL (8.5-10.1); CHLORIDE 106 mmol/L (98-107); CO2 24 mmol/L (21-32); CREATININE 0.7 mg/dL (0.55-1.3); GLUCOSE,RANDOM 86 mg/dL (74-106); MAGNESIUM 1.8 mg/dL (1.8-2.4); PHOSPHOROUS 3.9 mg/dL (2.5-4.9); POTASSIUM 3.5 mmol/L (3.5-5.1); SODIUM 141 mmol/L (136-145)
[2018-08-01] MEDS: FAMOTIDINE 20 MG/50 ML IVPB 20 MG/50 ML MG IVPB SCH (07:49)
[2018-08-01] MEDS ORDERED: PT OWN MED DRAWER 7, Y5N ONE (11:34)
[2018-08-01] MEDS: levETIRAcetam 500 MG/5 ML INJECTION VIAL IVPB SCH ×2 (12:01→23:04)
[2018-08-01] MEDS: NICOTINE 21 MG/24 HOURS TOPICAL PATCH TD SCH (12:04)
[2018-08-01] MEDS: CYANOCOBALAMIN (VITAMIN B-12) 1000 MCG/1 ML VIAL IM SCH (12:41)
[2018-08-01] MEDS: THIAMINE HCL 200 MG/2 ML VIAL IVPB SCH (12:47)
--- NOTE | 2018-08-01 12:58 | PN ---
Progress Note, NEGOTIATOR - Note Progress Note: Verbal, good vocal quality, confused.Impaired insight. MBS reviewed with staff. Pt continues to improve. Overtly tolerated sips of water and Club soda. 3-4 swallows generated with applesauce- Stasis? REC: Mouth care before meal Suction set up/available trial of Water, Club soda, Ensure Clear, Broth, Vanilla ice cream Constant supervision with verbal cues for compensatory strategies to maximize PO tolerance. Chin tuck, effortful swallow, multiple swallow, alternate with thin liquid to reduce residue. Monitor for SOB, cough, congestion, throat clearing. D/c PO if c/o dysphagia or signs of difficulty.
[2018-08-01 13:10] LABS: URINE APPEARANCE CLEAR; URINE BILIRUBIN NEGATIVE (<2.0 mg/dL); URINE COLOR YELLOW; URINE GLUCOSE (UA) NEGATIVE (NEGATIVE); URINE KETONE NEGATIVE (NEGATIVE); URINE LEUK ESTERASE NEGATIVE (NEGATIVE); URINE NITRITE NEGATIVE (NEGATIVE); URINE PROTEIN NEGATIVE (NEGATIVE)
--- NOTE | 2018-08-01 13:12 | PN ---
Physical Exam: SUBJECTIVE: Patient seen and examined at beside. Agitated overnight. Haldol given by night team. OBJECTIVE: Vital Signs Period Temp Pulse Resp BP Sys/Dawn Pulse Ox Last 24 Hr 97.7 F-98.2 F 90-100 20-20 105-107/64-67 GENERAL: Alert Oriented x 2, Speech is coherent, More alert HEAD:NC/AT EYES: EOMI ENT: Oral hygiene remains poor NECK: Trachea midline, full range of motion, supple. LUNGS: CTA B/L HEART: RRR No MRG S1S2 ABDOMEN: NDNT No HSM EXTREMITIES: No CCE, Muscle NEUROLOGICAL: Moves all extremities upon command. Able to perform finger to nose SKIN: No rashes or lesions appreciated Laboratory Results - last 24 hr 07/31/18 08/01/18 08/01/18 17:14 06:15 06:15 WBC 10.0 RBC 4.11 Hgb 14.1 Hct 41.5 MCV 101.1 H MCH 34.2 H MCHC 33.8 RDW 12.5 Plt Count 545 H MPV 7.9 Sodium 141 Potassium 3.5 Chloride 106 Carbon Dioxide 24 Anion Gap 11 BUN 15 Creatinine 0.7 Creat Clearance w eGFR > 60 POC Glucometer 95 Random Glucose 86 Calcium 9.2 Phosphorus 3.9 Magnesium 1.8 08/01/18 06:32 WBC RBC Hgb Hct MCV MCH MCHC RDW Plt Count MPV Sodium Potassium Chloride Carbon Dioxide Anion Gap BUN Creatinine Creat Clearance w eGFR POC Glucometer 118 Random Glucose Calcium Phosphorus Magnesium Active Medications Generic Name Dose Route Start Last Admin Trade Name Freq PRN Reason Stop Dose Admin Acetaminophen 650 mg 07/24/18 16:29 Tylenol - PO Q6H PRN PAIN LEVEL 1 - 3 Cyanocobalamin 1,000 mcg 07/25/18 10:00 08/01/18 12:41 Vitamin B12 Injection - IM 1,000 mcg DAILY TRISHA Administration Folic Acid 1 mg 07/25/18 10:00 07/31/18 12:11 Folic Acid Injection - IVPB 1 mg DAILY TRISHA Administration Famotidine/Sodium Chloride 20 mg in 50 mls @ 100 mls/hr 07/25/18 08:00 07:49 Pepcid 20 Mg Premixed Ivpb - IVPB 100 mls/hr DAILY@0800 TRISHA Administration Fat Emulsion Intravenous 250 mls @ 20.833 mls/hr 11/26/18 22:00 07/31/18 21: 37 Intralipid - IV 20.833 mls/hr DAILY@2200 TRISHA Administration Amino Acids 1,000 mls @ 84 mls/hr 08/01/18 12:15 Clinimix - IV Q12H TRISHA Levetiracetam 500 mg 07/24/18 22:00 08/01/18 12:01 Keppra Injection - IVPB 500 mg BID TRISHA Administration Multivitamins/Minerals 10 ml 07/24/18 18:00 07/31/18 16:52 Infuvite Adult - IV 10 ml DAILY TRISHA Administration Nicotine 21 mg 07/25/18 10:00 08/01/18 12:04 Nicoderm Patch - TD 21 mg DAILY TRISHA Administration Promethazine HCl 25 mg 07/24/18 16:29 Phenergan Injection - IM Q6H PRN NAUSEA AND/OR VOMITING Thiamine HCl 200 mg 07/25/18 10:00 08/01/18 12:47 Vitamin B1 Injection - IVPB 200 mg DAILY TRISHA Administration ASSESSMENT/PLAN: 68 alcoholic man presenting s/p fall 3 days ago with N,V and headaches, found to have bilateral frontal contusion, subdural and subarachnoid hemorrhage and comminuted fracture of the occipital bone. Now with agitation and possible symptoms of alcohol withdrawal. No seizures witnessed. #SDH/SAH 2/2 Mechanical Fall - Neurocheck Q4H - Keppra 500 mg BID seizure ppx - Neurosurgery on board Dr Marcelino Hayes - Tylenol PRN for headaches - HOB elevated to 30degrees + - Head CT- Occipital bone midline fx to inion; B frontal hemorrhagic contusion with SDH; B anterior temporal contusion with SAH R > L and small SDH -Repeat Head CT 07/21/18---> interval increase edema in the left frontal lobe. Head CT 07/22--> unchanged from CT on 07/21/18. 07/31/18 -Speech/Swallow eval. " Suggest MBS to include esophagus. r/o Dysphagia to determine nutritional plan." MBS --> Trace aspiration. Will need to establish contact with TBI facility as pt will require longterm rehabilitation -Reevaluated today by Heather Regan. Recommendations appreciated. Not moving forward with PEG in light of pt's mental improvement. #Substance Abuse nuisance wildlife specialist on board, Dr Ayala -Phenergan 25 MG IM Q6H PRN -Nicotine Patch #HTN - Labetolol 5mg for SBP >140, PRN #FEN: No Fluids Monitor Electrolytes Clinimix. GI ppx -Famotidine 20mg daily DVT ppx - SCDs Visit type - Emergency Visit Emergency Visit: Yes ED Registration Date: 07/18/18 Care time: The patient presented to the Emergency Department on the above date and was hospitalized for further evaluation of their emergent condition. - New Patient This patient is new to me today: No - Critical Care Critical Care patient: No - Discharge Referral Referred to [facility] Med P.C.: No
--- NOTE | 2018-08-01 13:13 | PN ---
Progress Note (short form) - Note Progress Note: Paged overnight to evaluate a Pt. who fell out of bed. Per nursing staff and per Pt. in adjacent bed, Pt. slid off his bed when trying to go to the bathroom landing only on his buttocks. Pt. did not hit his head, Pt. did not lose consciousness. Vital signs were stable at that time. Physical exam was unremarkable including a neurological examination where Pt. had no focal neurological deficits. Pt. was able to hold both arms and both feet off the bed for 10 seconds and 5 seconds respectively. Pt. was able to use muscle groups in the thighs and upper extremities against resistance without evidence of focal weakness. Pt. did not have any gross head trauma, bruises or concerning lesions. Pt. had pupils that equal and reactive to light. Decision was made at this time not to send the Pt. down for head CT. Advised nurse to check in on the Pt. within the hour's time and every 2 hours thereafter to assess for neurological deficits and to page me directly if there was any concerning findings.
[2018-08-01] MEDS: AMINO ACIDS 4.25%/D5W 1,000 ML IV SCH ×2 (13:47→13:48)
[2018-08-01] MEDS: MULTIVIT INJ. ADULT COMBO WITH VIT K 1 COMBO 10 ML VIAL IV SCH (13:48)
[2018-08-01] MEDS: FOLIC ACID 5 MG/1 ML IVPB SCH (13:52)
--- NOTE | 2018-08-01 16:47 | PN ---
Teaching Attending Note Name of Resident: Sebastien Villalobos ATTENDING PHYSICIAN STATEMENT I saw and evaluated the patient. I reviewed the resident's note and discussed the case with the resident. I agree with the resident's findings and plan as documented with exceptions below. SUBJECTIVE: Patient seen and examined, Awake, appropriate, thirsty, asking to drink. no complaints. OBJECTIVE: Vital Signs Period Temp Pulse Resp BP Sys/Dawn Pulse Ox Last 24 Hr 97.7 F-99.0 F 77-100 18-20 105-123/51-67 Intake & Output 07/29/18 07/30/18 07/31/18 08/01/18 23:59 23:59 23:59 23:59 Intake Total 1550 632 447 4077 Balance 1550 264 890 3342 Weight 131 lb 8 oz 133 lb 8 oz General: sitting in bed awake, markedly improved mental status, Neuro: AA, oriented x 3, power 5/5 sensation intact to light touch and symmetric , facial symmetry, no pronator drift Abdomen:soft, NT, nD Extremities: no edema Home Medications Medication Instructions Recorded NK [No Known Home Medication] 07/18/18 Active Medications Acetaminophen (Tylenol -) 650 mg PO Q6H PRN PRN Reason: PAIN LEVEL 1 - 3 Cyanocobalamin (Vitamin B12 Injection -) 1,000 mcg IM DAILY COUNT INCLUDES THE [facility] Last Admin: 08/01/18 12:41 Dose: 1,000 mcg Folic Acid (Folic Acid Injection -) 1 mg IVPB DAILY COUNT INCLUDES THE [facility] Last Admin: 08/01/18 13:52 Dose: 1 mg Famotidine/Sodium Chloride (Pepcid 20 Mg Premixed Ivpb -) 20 mg in 50 mls @ 100 mls/hr IVPB DAILY@0800 COUNT INCLUDES THE [facility] Last Admin: 08/01/18 07:49 Dose: 100 mls/hr Fat Emulsion Intravenous (Intralipid -) 250 mls @ 20.833 mls/hr IV DAILY@2200 COUNT INCLUDES THE [facility] Last Admin: 07/31/18 21:37 Dose: 20.833 mls/hr Amino Acids (Clinimix -) 1,000 mls @ 84 mls/hr IV Q12H COUNT INCLUDES THE [facility] Last Admin: 08/01/18 13:48 Dose: Not Given Levetiracetam (Keppra Injection -) 500 mg IVPB BID COUNT INCLUDES THE [facility] Last Admin: 08/01/18 12:01 Dose: 500 mg Multivitamins/Minerals (Infuvite Adult -) 10 ml IV DAILY COUNT INCLUDES THE [facility] Last Admin: 08/01/18 13:48 Dose: 10 ml Nicotine (Nicoderm Patch -) 21 mg TD DAILY COUNT INCLUDES THE [facility] Last Admin: 08/01/18 12:04 Dose: 21 mg Promethazine HCl (Phenergan Injection -) 25 mg IM Q6H PRN PRN Reason: NAUSEA AND/OR VOMITING Thiamine HCl (Vitamin B1 Injection -) 200 mg IVPB DAILY COUNT INCLUDES THE [facility] Last Admin: 08/01/18 12:47 Dose: 200 mg Laboratory Results - last 24 hr 07/31/18 08/01/18 08/01/18 17:14 06:15 06:15 WBC 10.0 RBC 4.11 Hgb 14.1 Hct 41.5 MCV 101.1 H MCH 34.2 H MCHC 33.8 RDW 12.5 Plt Count 545 H MPV 7.9 Sodium 141 Potassium 3.5 Chloride 106 Carbon Dioxide 24 Anion Gap 11 BUN 15 Creatinine 0.7 Creat Clearance w eGFR > 60 POC Glucometer 95 Random Glucose 86 Calcium 9.2 Phosphorus 3.9 Magnesium 1.8 Urine Color Urine Appearance Urine pH Ur Specific [place] Urine Protein Urine Glucose (UA) Urine Ketones Urine Blood Urine Nitrite Urine Bilirubin Urine Urobilinogen Ur Leukocyte Esterase 08/01/18 08/01/18 06:32 12:12 WBC RBC Hgb Hct MCV MCH MCHC RDW Plt Count MPV Sodium Potassium Chloride Carbon Dioxide Anion Gap BUN Creatinine Creat Clearance w eGFR POC Glucometer 118 Random Glucose Calcium Phosphorus Magnesium Urine Color Yellow Urine Appearance Clear Urine pH 6.0 D Ur Specific [place] 1.018 Urine Protein Negative Urine Glucose (UA) Negative Urine Ketones Negative Urine Blood Negative Urine Nitrite Negative Urine Bilirubin Negative Urine Urobilinogen 2.0 Ur Leukocyte Esterase Negative ASSESSMENT AND PLAN: 68 yo M with PMH continuous alcohol abuse presented to the ER with unwitnessed fall, suspected 2 days ago admitted with SDH/SAH/Intraparenchymal Haemorrhage with edema, Occipital bone fracture, course complicated by severe alcohol withdrawal, now with concerns on MBS -Acute SDH/SAH/intraparenchymal haemorrhage with edema, likely traumatic from unwitnessed fall while intoxicated (Found on floor) -Traumatic occipital bone fracture -Fever on admission ,likely aspiration, no resolved -Severe alcohol withdrawal/Delirium tremens, now improved -Dysphagia -ETOH abuse/dependence -Hypovolumic hypernatremia, resolved Plan: Mental status markedly improved. MBS noted, given improvement, hold off on PEG for now (Patient pulled NG tube this AM) Discussed with patient, OX3, currently able to provide fair understanding of the results of swallowing study. Would want to avoid feeding tube if possible. Discussed with Heather Regan, input appreciated, Cautious trial with thin liquids with full aspiration precautions Clinimix/Lipids for now. S/p Keppra. Neurosurgery input appreciated. Detox consult appreciated. DVTPPX SCDs given recent ICH Dispo pending clinical improvement. Anticipate SNF later this week if tolerating diet better and no concerns. Plan discussed with patient and nursing.
[2018-08-01] MEDS: FAT EMULSIONS 250 ML IV SCH (23:06)
[2018-08-02] MEDS: AMINO ACIDS 4.25%/D5W 1,000 ML IV SCH ×5 (00:53→22:05)
[2018-08-02 08:20] LABS: ANION GAP 10 MMOL/L (8-16); BLOOD UREA NITROGEN 14 mg/dL (7-18); CALCIUM 8.9 mg/dL (8.5-10.1); CHLORIDE 107 mmol/L (98-107); CO2 24 mmol/L (21-32); CREATININE 0.6 mg/dL (0.55-1.3); GLUCOSE,RANDOM 99 mg/dL (74-106); MAGNESIUM 1.8 mg/dL (1.8-2.4); PHOSPHOROUS 3.5 mg/dL (2.5-4.9); POTASSIUM 3.1 mmol/L (3.5-5.1); SODIUM 141 mmol/L (136-145)
[2018-08-02 10:05] LABS: HEMOGLOBIN 13.2 GM/dL (11.7-16.9); MCH 35.9 pg (25.7-33.7); MCHC 36.3 g/dl (32.0-35.9); MEAN CELL VOLUME 98.9 fl (80-96); MEAN PLT VOLUME 8.2 fl (7.5-11.1); PLATELET COUNT 524 K/MM3 (134-434); RBC 3.67 M/mm3 (4.00-5.60); RDW 12.4 % (11.9-15.9); WHITE BLOOD COUNT 8.6 K/mm3 (4.0-10.0)
[2018-08-02 10:10] LABS: HEMATOCRIT 36.3 % (35.4-49)
[2018-08-02] MEDS: NICOTINE 21 MG/24 HOURS TOPICAL PATCH TD SCH (12:27)
[2018-08-02] MEDS: CYANOCOBALAMIN (VITAMIN B-12) 1000 MCG/1 ML VIAL IM SCH (12:28)
[2018-08-02] MEDS: levETIRAcetam 500 MG/5 ML INJECTION VIAL IVPB SCH ×2 (12:28→22:03)
[2018-08-02] MEDS: THIAMINE HCL 200 MG/2 ML VIAL IVPB SCH (12:29)
[2018-08-02] MEDS: FAMOTIDINE 20 MG/50 ML IVPB 20 MG/50 ML MG IVPB SCH (12:47)
[2018-08-02] MEDS: MULTIVIT INJ. ADULT COMBO WITH VIT K 1 COMBO 10 ML VIAL IV SCH (12:56)
--- NOTE | 2018-08-02 13:04 | PN ---
Progress Note, WELDER PRODUCTION LINE COMBINATION - Note Progress Note: Selected Entries 08/01/18 08/01/18 08/01/18 06:34 07:55 11:21 Breakfast NPO Lunch NPO Supper Temperature 97.7 F 97.8 F 08/01/18 08/01/18 08/01/18 15:49 16:30 18:30 Breakfast Lunch Supper 25% Temperature 99.0 F 98 F 08/01/18 08/02/18 08/02/18 22:00 02:00 06:00 Breakfast Lunch Supper Temperature 98 F 98.0 F 97.6 F 08/02/18 12:04 Breakfast <25% Lunch Supper Temperature Laboratory Tests 08/02/18 06:15 WBC 8.6 Per nursing note last night dinner time, 6pm Clear liquid for dinner started, consume 25% of the liquid, and well-tolerated. Refusing lunch today. Confused. Suggest encourage Ensure clear. Calorie count. Indication for TF? PEG to supplement PO until PO intake improves?
[2018-08-02] MEDS ORDERED: PT OWN MED DRAWER 7, Y5N ONE (15:37)
[2018-08-02] MEDS: FOLIC ACID 5 MG/1 ML IVPB SCH (15:40)
--- NOTE | 2018-08-02 17:49 | PN ---
Teaching Attending Note Name of Resident: Sebastien Villalobos ATTENDING PHYSICIAN STATEMENT I saw and evaluated the patient. I reviewed the resident's note and discussed the case with the resident. I agree with the resident's findings and plan as documented with exceptions below. SUBJECTIVE: Patient seen and examined. Awake, oriented to self, thought is June 2017. no complaints. OBJECTIVE: Vital Signs Period Temp Pulse Resp BP Sys/Dawn Pulse Ox Last 24 Hr 97.6 F-98.0 F 76-90 98-132/54-67 98 Intake & Output 07/30/18 07/31/18 08/01/18 08/02/18 23:59 23:59 23:59 23:59 Intake Total 378 188 4943 1155 Output Total 800 Balance 627 689 5914 1155 Weight 133 lb 8 oz 131 lb 14.4 oz General: sitting in bed, awake in no acute distress, pleasant interactive Chest: decreased effort, no rales or wheezing Abdomen:soft, NT, nD Extremities: no edema or tremors Home Medications Medication Instructions Recorded NK [No Known Home Medication] 07/18/18 Active Medications Acetaminophen (Tylenol -) 650 mg PO Q6H PRN PRN Reason: PAIN LEVEL 1 - 3 Cyanocobalamin (Vitamin B12 Injection -) 1,000 mcg IM DAILY [facility] Last Admin: 08/02/18 12:28 Dose: 1,000 mcg Folic Acid (Folic Acid Injection -) 1 mg IVPB DAILY [facility] Last Admin: 08/02/18 15:40 Dose: 1 mg Famotidine/Sodium Chloride (Pepcid 20 Mg Premixed Ivpb -) 20 mg in 50 mls @ 100 mls/hr IVPB DAILY@0800 [facility] Last Admin: 08/02/18 12:47 Dose: 100 mls/hr Fat Emulsion Intravenous (Intralipid -) 250 mls @ 20.833 mls/hr IV DAILY@2200 [facility] Last Admin: 08/01/18 23:06 Dose: 20.833 mls/hr Amino Acids (Clinimix -) 1,000 mls @ 84 mls/hr IV Q12H [facility] Last Admin: 08/02/18 12:30 Dose: Not Given Levetiracetam (Keppra Injection -) 500 mg IVPB BID [facility] Last Admin: 08/02/18 12:28 Dose: 500 mg Mirtazapine (Remeron -) 15 mg PO HS [facility] Multivitamins/Minerals (Infuvite Adult -) 10 ml IV DAILY [facility] Last Admin: 08/02/18 12:56 Dose: Not Given Nicotine (Nicoderm Patch -) 21 mg TD DAILY [facility] Last Admin: 08/02/18 12:27 Dose: 21 mg Promethazine HCl (Phenergan Injection -) 25 mg IM Q6H PRN PRN Reason: NAUSEA AND/OR VOMITING Thiamine HCl (Vitamin B1 Injection -) 200 mg IVPB DAILY [facility] Last Admin: 08/02/18 12:29 Dose: 200 mg Laboratory Results - last 24 hr 08/02/18 08/02/18 08/02/18 06:15 06:15 06:19 WBC 8.6 RBC 3.67 L Hgb 13.2 Hct 36.3 MCV 98.9 H MCH 35.9 H MCHC 36.3 H RDW 12.4 Plt Count 524 H MPV 8.2 Sodium 141 Potassium 3.1 L Chloride 107 Carbon Dioxide 24 Anion Gap 10 BUN 14 Creatinine 0.6 Creat Clearance w eGFR > 60 POC Glucometer 185 Random Glucose 99 Calcium 8.9 Phosphorus 3.5 Magnesium 1.8 ASSESSMENT AND PLAN: 8 yo M with PMH continuous alcohol abuse presented to the ER with unwitnessed fall, suspected 2 days ago admitted with SDH/SAH/Intraparenchymal Haemorrhage with edema, Occipital bone fracture, course complicated by severe alcohol withdrawal, now with concerns on MBS -Acute SDH/SAH/intraparenchymal haemorrhage with edema, likely traumatic from unwitnessed fall while intoxicated (Found on floor) -Traumatic occipital bone fracture -Fever on admission ,likely aspiration, no resolved -Severe alcohol withdrawal/Delirium tremens, now improved -Dysphagia -ETOH abuse/dependence -Hypovolumic hypernatremia, resolved Plan: Mental status improved, still intermittently confused. MBS noted. PO as tolerated, encourage oral intake. Hold off on PEG, will need to address if nutritional intake fails to improve. Speech/swallow input appreciated. Clinimix/Lipids for now. S/p Keppra. Neurosurgery input appreciated. Detox consult appreciated. DVTPPX SCDs given recent ICH Dispo pending clinical improvement. Anticipate SNF later this week if tolerating diet better and no concerns Plan discussed with patient and nursing.
--- NOTE | 2018-08-02 20:56 | PN ---
Physical Exam: SUBJECTIVE: Patient seen and examined at bedside. Haldol given per night team as pt agitated per RN. OBJECTIVE: Vital Signs Period Temp Pulse Resp BP Sys/Dawn Pulse Ox Last 24 Hr 97.6 F-98.0 F 76-103 -18 98-140/54-73 98-98 GENERAL: AAOx2, NAD, restraint VEST in place HEAD: NC/AT EYES: EOMI Conjunctiva injected NECK: Trachea midline, full range of motion, supple. LUNGS: CTA B/L HEART: RRR No MRG S1S2 ABDOMEN: NDNT No HSM EXTREMITIES: No CCE NEUROLOGICAL: Moves all extremities upon command. Able to perform finger to nose SKIN: No rashes or lesions appreciated Laboratory Results - last 24 hr 08/02/18 08/02/18 08/02/18 06:15 06:15 06:19 WBC 8.6 RBC 3.67 L Hgb 13.2 Hct 36.3 MCV 98.9 H MCH 35.9 H MCHC 36.3 H RDW 12.4 Plt Count 524 H MPV 8.2 Sodium 141 Potassium 3.1 L Chloride 107 Carbon Dioxide 24 Anion Gap 10 BUN 14 Creatinine 0.6 Creat Clearance w eGFR > 60 POC Glucometer 185 Random Glucose 99 Calcium 8.9 Phosphorus 3.5 Magnesium 1.8 Active Medications Generic Name Dose Route Start Last Admin Trade Name Freq PRN Reason Stop Dose Admin Acetaminophen 650 mg 07/24/18 16:29 Tylenol - PO Q6H PRN PAIN LEVEL 1 - 3 Cyanocobalamin 1,000 mcg 07/25/18 10:00 08/02/18 12:28 Vitamin B12 Injection - IM 1,000 mcg DAILY [facility] Administration Folic Acid 1 mg 07/25/18 10:00 08/02/18 15:40 Folic Acid Injection - IVPB 1 mg DAILY [facility] Administration Famotidine/Sodium Chloride 20 mg in 50 mls @ 100 mls/hr 07/25/18 08:00 12:47 Pepcid 20 Mg Premixed Ivpb - IVPB 100 mls/hr DAILY@0800 [facility] Administration Fat Emulsion Intravenous 250 mls @ 20.833 mls/hr 07/24/18 22:00 08/01/18 23: 06 Intralipid - IV 20.833 mls/hr DAILY@2200 [facility] Administration Amino Acids 1,000 mls @ 84 mls/hr 08/01/18 12:15 08/02/18 12:30 Clinimix - IV Not Given Q12H [facility] Levetiracetam 500 mg 07/24/18 22:00 08/02/18 12:28 Keppra Injection - IVPB 500 mg BID [facility] Administration Mirtazapine 15 mg 08/02/18 22:00 Remeron - PO HS COUNT INCLUDES [facility] Multivitamins/Minerals 10 ml 07/24/18 18:00 08/02/18 12:56 Infuvite Adult - IV Not Given DAILY [facility] Nicotine 21 mg 07/25/18 10:00 08/02/18 12:27 Nicoderm Patch - TD 21 mg DAILY [facility] Administration Promethazine HCl 25 mg 07/24/18 16:29 Phenergan Injection - IM Q6H PRN NAUSEA AND/OR VOMITING Thiamine HCl 200 mg 07/25/18 10:00 08/02/18 12:29 Vitamin B1 Injection - IVPB 200 mg DAILY [facility] Administration ASSESSMENT/PLAN: 68 alcoholic man presenting s/p fall 3 days ago with N,V and headaches, found to have bilateral frontal contusion, subdural and subarachnoid hemorrhage and comminuted fracture of the occipital bone. Now with agitation and possible symptoms of alcohol withdrawal. No seizures witnessed. #SDH/SAH 2/2 Mechanical Fall - Neurocheck Q4H - Keppra 500 mg BID seizure ppx - Neurosurgery on board Dr Marcelino Hayes - Tylenol PRN for headaches - HOB elevated to 30degrees + - Head CT- Occipital bone midline fx to inion; B frontal hemorrhagic contusion with SDH; B anterior temporal contusion with SAH R > L and small SDH -Repeat Head CT 07/21/18---> interval increase edema in the left frontal lobe. Head CT 07/22--> unchanged from CT on 07/21/18. 07/31/18 -Speech/Swallow eval. " Suggest MBS to include esophagus. r/o Dysphagia to determine nutritional plan." MBS --> Trace aspiration. Will need to establish contact with TBI facility as pt will require long term care pharmacist rehabilitation #Agitation -Remeron 15 mg HS #Substance Abuse crime victim specialist on board, Dr Ayala -Phenergan 25 MG IM Q6H PRN -Nicotine Patch #HTN - Labetolol 5mg for SBP >140, PRN #FEN: No Fluids Monitor Electrolytes Clinimix. Tolerating Clears. Remeron will also aid in PO intake GI ppx -Famotidine 20mg daily DVT ppx - SCDs Visit type - Emergency Visit Emergency Visit: Yes ED Registration Date: 07/18/18 Care time: The patient presented to the Emergency Department on the above date and was hospitalized for further evaluation of their emergent condition. - New Patient This patient is new to me today: No - Critical Care Critical Care patient: No - Discharge Referral Referred to [facility] Med P.C.: No
[2018-08-02] MEDS: MIRTAZAPINE 15 MG TABLET (FP) PO SCH (22:03)
[2018-08-02] MEDS: FAT EMULSIONS 250 ML IV SCH (23:05)
[2018-08-03] MEDS: AMINO ACIDS 4.25%/D5W 1,000 ML IV SCH ×3 (00:11→14:53)
[2018-08-03 08:13] LABS: HEMATOCRIT 39.9 % (35.4-49); HEMOGLOBIN 13.5 GM/dL (11.7-16.9); MCH 33.6 pg (25.7-33.7); MCHC 33.8 g/dl (32.0-35.9); MEAN CELL VOLUME 99.4 fl (80-96); MEAN PLT VOLUME 8.2 fl (7.5-11.1); PLATELET COUNT 548 K/MM3 (134-434); RBC 4.02 M/mm3 (4.00-5.60); RDW 12.4 % (11.9-15.9); WHITE BLOOD COUNT 11.9 K/mm3 (4.0-10.0)
[2018-08-03 08:34] LABS: ANION GAP 13 MMOL/L (8-16); BLOOD UREA NITROGEN 14 mg/dL (7-18); CALCIUM 9.2 mg/dL (8.5-10.1); CHLORIDE 108 mmol/L (98-107); CO2 21 mmol/L (21-32); CREATININE 0.7 mg/dL (0.55-1.3); GLUCOSE,RANDOM 103 mg/dL (74-106); MAGNESIUM 1.6 mg/dL (1.8-2.4); PHOSPHOROUS 2.8 mg/dL (2.5-4.9); POTASSIUM 3.4 mmol/L (3.5-5.1); SODIUM 142 mmol/L (136-145)
[2018-08-03] MEDS: FAMOTIDINE 20 MG/50 ML IVPB 20 MG/50 ML MG IVPB SCH (08:39)
--- NOTE | 2018-08-03 08:43 | PN ---
Teaching Attending Note Name of Resident: Sebastien Villalobos ATTENDING PHYSICIAN STATEMENT I saw and evaluated the patient. I reviewed the resident's note and discussed the case with the resident. I agree with the resident's findings and plan as documented with exceptions below. SUBJECTIVE: Patient seen and examined. OBJECTIVE: Vital Signs Period Temp Pulse Resp BP Sys/Dawn Pulse Ox Last 24 Hr 97.7 F-99.6 F 88-103 18-18 98-140/58-82 97-98 Intake & Output 07/31/18 08/01/18 08/02/18 08/03/18 23:59 23:59 23:59 23:59 Intake Total 969 1864 1505 1292 Output Total 800 Balance 969 1064 1505 1292 Weight 133 lb 8 oz 131 lb 14.4 oz 130 lb General: awake, but confused, oriented to self Chest: poor effort, no rales or wheezing Abdomen: soft, NT, nD extremities: no edema Active Medications Acetaminophen (Tylenol -) 650 mg PO Q6H PRN PRN Reason: PAIN LEVEL 1 - 3 Cyanocobalamin (Vitamin B12 Injection -) 1,000 mcg IM DAILY [facility] Last Admin: 08/02/18 12:28 Dose: 1,000 mcg Folic Acid (Folic Acid Injection -) 1 mg IVPB DAILY [facility] Last Admin: 08/02/18 15:40 Dose: 1 mg Famotidine/Sodium Chloride (Pepcid 20 Mg Premixed Ivpb -) 20 mg in 50 mls @ 100 mls/hr IVPB DAILY@0800 [facility] Last Admin: 08/02/18 12:47 Dose: 100 mls/hr Fat Emulsion Intravenous (Intralipid -) 250 mls @ 20.833 mls/hr IV DAILY@2200 [facility] Last Admin: 08/02/18 23:05 Dose: 20.833 mls/hr Amino Acids (Clinimix -) 1,000 mls @ 84 mls/hr IV Q12H [facility] Last Admin: 08/03/18 00:11 Dose: Not Given Levetiracetam (Keppra Injection -) 500 mg IVPB BID [facility] Last Admin: 08/02/18 22:03 Dose: 500 mg Mirtazapine (Remeron -) 15 mg PO HS [facility] Last Admin: 08/02/18 22:03 Dose: 15 mg Multivitamins/Minerals (Infuvite Adult -) 10 ml IV DAILY [facility] Last Admin: 08/02/18 12:56 Dose: Not Given Nicotine (Nicoderm Patch -) 21 mg TD DAILY [facility] Last Admin: 08/02/18 12:27 Dose: 21 mg Promethazine HCl (Phenergan Injection -) 25 mg IM Q6H PRN PRN Reason: NAUSEA AND/OR VOMITING Thiamine HCl (Vitamin B1 Injection -) 200 mg IVPB DAILY [facility] Last Admin: 08/02/18 12:29 Dose: 200 mg Laboratory Results - last 24 hr 08/02/18 08/03/18 08/03/18 06:15 06:00 06:00 WBC 8.6 11.9 H RBC 3.67 L 4.02 Hgb 13.2 13.5 Hct 36.3 39.9 MCV 98.9 H 99.4 H MCH 35.9 H 33.6 MCHC 36.3 H 33.8 RDW 12.4 12.4 Plt Count 524 H 548 H MPV 8.2 8.2 Sodium 142 Potassium 3.4 L Chloride 108 H Carbon Dioxide 21 Anion Gap 13 BUN 14 Creatinine 0.7 Creat Clearance w eGFR > 60 Random Glucose 103 Calcium 9.2 Phosphorus 2.8 Magnesium 1.6 L ASSESSMENT AND PLAN: 8 yo M with PMH continuous alcohol abuse presented to the ER with unwitnessed fall, suspected 2 days ago admitted with SDH/SAH/Intraparenchymal Haemorrhage with edema, Occipital bone fracture, course complicated by severe alcohol withdrawal, now with concerns on MBS -Acute SDH/SAH/intraparenchymal haemorrhage with edema, likely traumatic from unwitnessed fall while intoxicated (Found on floor) -Traumatic occipital bone fracture -Fever on admission ,likely aspiration, no resolved -Severe alcohol withdrawal/Delirium tremens, now improved -Dysphagia -ETOH abuse/dependence -Hypovolumic hypernatremia, resolved Plan: Mental status improved, still intermittently confused. MBS noted. Aspiration risk. Minimal to none PO intake on clears. Calorie count of unclear benefit as patient not eating. Was trial with ensure today, episode of cough. Discussed with Heather Regan, will place GI consult for PEG as anticipate atleast few months till mental status improves and patient able to take PO. NPO . Clinimix/Lipids for now. S/p Keppra. Neurosurgery input appreciated. Detox consult appreciated. Remeron started. psych consult to address intermittent agitation, confusion. DVTPPX SCDs given recent ICH Dispo pending clinical improvement. Anticipate SNF after PEG placement if no concerns. Plan discussed with nursing and social work.
[2018-08-03] MEDS: NICOTINE 21 MG/24 HOURS TOPICAL PATCH TD SCH (09:05)
[2018-08-03] MEDS: CYANOCOBALAMIN (VITAMIN B-12) 1000 MCG/1 ML VIAL IM SCH (09:06)
[2018-08-03] MEDS: THIAMINE HCL 200 MG/2 ML VIAL IVPB SCH (09:22)
[2018-08-03] MEDS ORDERED: PT OWN MED DRAWER 7, Y5N ONE ×2 (10:00→11:04)
[2018-08-03] MEDS: levETIRAcetam 500 MG/5 ML INJECTION VIAL IVPB SCH ×2 (10:04→21:28)
--- NOTE | 2018-08-03 10:37 | PN ---
Progress Note, ORTHODONTIC LABORATORY TECHNICIAN - Note Progress Note: Pt accepting very little by mouth. I suggested a Calorie count, however, the results will show poor caloric intake. Reassessed swallowing with cough response on Ensure, c/w aspiration.Pt stated "it gets stuck" IMP: Dysphagia noted on MBS, especially with anything thicker than thin liquids Risk of aspiration with thin liquid, likely with intermittent aspiration, clinically observed today during reassessment Poor nutrition WBC 11.6 Selected Entries 08/02/18 08/02/18 08/02/18 02:00 06:00 15:26 Temperature 98.0 F 97.6 F 97.7 F 08/02/18 08/03/18 22:00 06:00 Temperature 98.2 F 99.6 F Laboratory Tests 08/03/18 06:00 WBC 11.9 H Reviewed with medical team REC: PEG insertion/Abdominal binder NPO, Sips of water ok following mouth care STR for PT/OT/swallowing rehabilitation.
[2018-08-03] MEDS: FOLIC ACID 5 MG/1 ML IVPB SCH (11:18)
[2018-08-03] MEDS: MULTIVIT INJ. ADULT COMBO WITH VIT K 1 COMBO 10 ML VIAL IV SCH (11:19)
--- NOTE | 2018-08-03 13:12 | PN ---
Physical Exam: SUBJECTIVE: Patient seen and examined at bedside. Agitated overnight. Resting in bed. OBJECTIVE: Vital Signs Period Temp Pulse Resp BP Sys/Dawn Pulse Ox Last 24 Hr 97.7 F-99.6 F 88-103 18-18 98-140/58-82 97-97 GENERAL: Confused, speech coherent. HEAD: NC/AT EYES: EOMI NECK: Trachea midline, full range of motion, supple. LUNGS: CTA B/L HEART: RRR No MRG S1S2 ABDOMEN: NDNT No HSM EXTREMITIES: No CCE NEUROLOGICAL: Speech coherent, strength 5/5 upper/lower extremities. Gait not observed. SKIN: No rashes or lesions appreciated Laboratory Results - last 24 hr 08/03/18 08/03/18 06:00 06:00 WBC 11.9 H RBC 4.02 Hgb 13.5 Hct 39.9 MCV 99.4 H MCH 33.6 MCHC 33.8 RDW 12.4 Plt Count 548 H MPV 8.2 Sodium 142 Potassium 3.4 L Chloride 108 H Carbon Dioxide 21 Anion Gap 13 BUN 14 Creatinine 0.7 Creat Clearance w eGFR > 60 Random Glucose 103 Calcium 9.2 Phosphorus 2.8 Magnesium 1.6 L Active Medications Generic Name Dose Route Start Last Admin Trade Name Freq PRN Reason Stop Dose Admin Acetaminophen 650 mg 07/24/18 16:29 Tylenol - PO Q6H PRN PAIN LEVEL 1 - 3 Cyanocobalamin 1,000 mcg 07/25/18 10:00 08/03/18 09:06 Vitamin B12 Injection - IM 1,000 mcg DAILY [facility] Administration Famotidine/Sodium Chloride 20 mg in 50 mls @ 100 mls/hr 07/25/18 08:00 08:39 Pepcid 20 Mg Premixed Ivpb - IVPB 100 mls/hr DAILY@0800 [facility] Administration Fat Emulsion Intravenous 250 mls @ 20.833 mls/hr 07/24/18 22:00 08/02/18 23: 05 Intralipid - IV 20.833 mls/hr DAILY@2200 [facility] Administration Folic Acid 5 mg/ Thiamine HCl 1,013 mls @ 84 mls/hr 08/04/18 10:00 200 mg/ Multivitamins/Minerals IVPB 10 ml/ Amino Acids Q24H [facility] Amino Acids 1,000 mls @ 84 mls/hr 08/03/18 10:53 Clinimix - IV Q24H [facility] Levetiracetam 500 mg 07/24/18 22:00 08/03/18 10:04 Keppra Injection - IVPB 500 mg BID [facility] Administration Mirtazapine 15 mg 08/02/18 22:00 08/02/18 22:03 Remeron - PO 15 mg HS [facility] Administration Nicotine 21 mg 07/25/18 10:00 08/03/18 09:05 Nicoderm Patch - TD 21 mg DAILY [facility] Administration Promethazine HCl 25 mg 07/24/18 16:29 Phenergan Injection - IM Q6H PRN NAUSEA AND/OR VOMITING ASSESSMENT/PLAN: 68 alcoholic man presenting s/p fall 3 days ago with N,V and headaches, found to have bilateral frontal contusion, subdural and subarachnoid hemorrhage and comminuted fracture of the occipital bone. Now with agitation and possible symptoms of alcohol withdrawal. No seizures witnessed. #SDH/SAH 2/2 Mechanical Fall - Neurocheck Q4H - Keppra 500 mg BID seizure ppx - Neurosurgery on board Dr Marcelino Hayes - Head CT- Occipital bone midline fx to inion; B frontal hemorrhagic contusion with SDH; B anterior temporal contusion with SAH R > L and small SDH -Repeat Head CT 07/21/18---> interval increase edema in the left frontal lobe. Head CT 07/22--> unchanged from CT on 07/21/18. 07/31/18 -Speech/Swallow eval. " Suggest MBS to include esophagus. r/o Dysphagia to determine nutritional plan." MBS --> Trace aspiration. Will need to establish contact with TBI facility as pt will require manager terminal rehabilitation #Agitation -Remeron 15 mg HS #Substance Abuse research computing specialist on board, Dr Ayala -Phenergan 25 MG IM Q6H PRN -Nicotine Patch #HTN - Labetolol 5mg for SBP >140, PRN #FEN: No Fluids Monitor Electrolytes Clinimix. Remeron will also aid in PO intake. Remains on Clear diet. Calorie futile as pt PO intake very minimal. GI Consulted. plan for PEg tube Placement. GI ppx -Famotidine 20mg daily DVT ppx - SCDs Visit type - Emergency Visit Emergency Visit: Yes ED Registration Date: 07/18/18 Care time: The patient presented to the Emergency Department on the above date and was hospitalized for further evaluation of their emergent condition. - New Patient This patient is new to me today: No - Critical Care Critical Care patient: No - Discharge Referral Referred to [facility] No
[2018-08-03] MEDS: MIRTAZAPINE 15 MG TABLET (FP) PO SCH (21:28)
[2018-08-03] MEDS: FAT EMULSIONS 250 ML IV SCH (21:28)
[2018-08-04 08:28] LABS: HEMATOCRIT 41.8 % (35.4-49); HEMOGLOBIN 14.2 GM/dL (11.7-16.9); MCH 33.7 pg (25.7-33.7); MCHC 33.9 g/dl (32.0-35.9); MEAN CELL VOLUME 99.4 fl (80-96); PLATELET COUNT 562 K/MM3 (134-434); RBC 4.21 M/mm3 (4.00-5.60); RDW 12.5 % (11.9-15.9); WHITE BLOOD COUNT 10.7 K/mm3 (4.0-10.0)
[2018-08-04 08:44] LABS: ANION GAP 10 MMOL/L (8-16); BLOOD UREA NITROGEN 15 mg/dL (7-18); CALCIUM 9.1 mg/dL (8.5-10.1); CHLORIDE 110 mmol/L (98-107); CO2 22 mmol/L (21-32); CREATININE 0.7 mg/dL (0.55-1.3); GLUCOSE,RANDOM 103 mg/dL (74-106); MAGNESIUM 1.6 mg/dL (1.8-2.4); PHOSPHOROUS 3.2 mg/dL (2.5-4.9); POTASSIUM 3.3 mmol/L (3.5-5.1); SODIUM 142 mmol/L (136-145)
[2018-08-04] MEDS: NICOTINE 21 MG/24 HOURS TOPICAL PATCH TD SCH (10:33)
[2018-08-04] MEDS: FAMOTIDINE 20 MG/50 ML IVPB 20 MG/50 ML MG IVPB SCH (10:33)
[2018-08-04] MEDS: levETIRAcetam 500 MG/5 ML INJECTION VIAL IVPB SCH ×2 (10:33→22:03)
[2018-08-04] MEDS: CYANOCOBALAMIN (VITAMIN B-12) 1000 MCG/1 ML VIAL IM SCH (10:33)
[2018-08-04] MEDS: AMINO ACIDS 4.25%/D5W 1,000 ML IV SCH ×3 (10:54→23:13)
[2018-08-04] MEDS: [UNRECOGNIZED DRUG - OTHER] IVPB SCH (11:36)
[2018-08-04] MEDS: THIAMINE HCL IVPB SCH (11:36)
[2018-08-04] MEDS: MULTIVIT IVPB SCH (11:36)
[2018-08-04] MEDS: FOLIC ACID IVPB SCH (11:36)
--- NOTE | 2018-08-04 12:39 | PN ---
Progress Note, CHILD CARE TEACHER - Note Progress Note: Selected Entries 08/04/18 08/04/18 06:00 10:12 Breakfast 25% Temperature 98.1 F Laboratory Tests 08/02/18 08/03/18 08/04/18 06:15 06:00 06:15 WBC 8.6 11.9 H 10.7 H Doctor's orders- clear liquids. Limited PO acceptance. Took a few sips of Ensure Enlive for me, with multiple swallows generatd c/w stasis, but not overt signs of aspiration. Monitor pulmonary status/WBC/temp Alternate means of nutritional intake.
--- NOTE | 2018-08-04 13:47 | CON.GI ---
Consult Consult Specialty:: Gastroenterology ( covering Dr. Santamaria) Referred by:: Dr Diane Reason for Consultation:: PEG insertion - History of Present Illness Chief Complaint: Offers no complaints History of Present Illness: 68M presented to the ER with c/o N/V. He was apparently found confused by a neighbor on a stairwell but has no recollection. CT reveal subarachnoid and subdural hemorrhages for which he has been followed by Dr Hayes and managed conservatively. His oral intake has been poor and he has been evalated by Dariela Regan who found that he is prone to aspiration and advised PEG insertion until he regains the ability to swallow and eat adequately. He is unable to give a pertinent history and confabulates. He apparently was drinking about 10 shots of vodka daily. He denies every having had any surgery or GI problems. He similarly denies liver disease. 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 Place of : [facility] Home Medications - Allergies Allergies/Adverse Reactions: Allergies Allergy/AdvReac Type Severity Reaction Status Date / Time No Known Allergies Allergy Verified 07/18/18 00:16 - Home Medications Home Medications: Ambulatory Orders NK [No Known Home Medication] 07/18/18 Family Disease History - Family Disease History Family History: Unable to Obtain Review of Systems Unable to obtain ROS, reason: confabulating Physical Exam-GI Vital Signs: Vital Signs Temperature 98.1 F 08/04/18 06:00 Pulse Rate 78 08/04/18 06:00 Respiratory Rate 20 08/04/18 06:00 Blood Pressure 110/69 08/04/18 06:00 O2 Sat by Pulse Oximetry (%) 97 08/03/18 22:00 CBC,CMP WBC 10.7 K/mm3 (4.0-10.0) H 08/04/18 06:15 RBC 4.21 M/mm3 (4.00-5.60) 08/04/18 06:15 Hgb 14.2 GM/dL (11.7-16.9) 08/04/18 06:15 Hct 41.8 % (35.4-49) 08/04/18 06:15 MCV 99.4 fl (80-96) H 08/04/18 06:15 MCH 33.7 pg (25.7-33.7) 08/04/18 06:15 MCHC 33.9 g/dl (32.0-35.9) 08/04/18 06:15 RDW 12.5 % (11.9-15.9) 08/04/18 06:15 Plt Count 562 K/MM3 (134-434) H 08/04/18 06:15 MPV 8.0 fl (7.5-11.1) 08/04/18 06:15 Absolute Neuts (auto) 6.9 K/mm3 (1.5-8.0) 07/31/18 06:00 Neutrophils % 69.7 % (42.8-82.8) 07/31/18 06:00 Neutrophils % (Manual) 85.0 % (42.8-82.8) H 07/18/18 08:00 Band Neutrophils % 1.0 % 07/18/18 08:00 Lymphocytes % 12.3 % (8-40) 07/31/18 06:00 Lymphocytes % (Manual) 3.0 % (8-40) L 07/18/18 08:00 Monocytes % 13.1 % (3.8-10.2) H 07/31/18 06:00 Monocytes % (Manual) 9 % (3.8-10.2) 07/18/18 08:00 Eosinophils % 3.7 % (0-4.5) 07/31/18 06:00 Eosinophils % (Manual) 0.0 % (0-4.5) 07/18/18 08:00 Basophils % 1.2 % (0-2.0) 07/31/18 06:00 Basophils % (Manual) 0.0 % (0-2.0) 07/18/18 08:00 Myelocytes % (Man) 0 % (0-2) 07/18/18 08:00 Promyelocytes % (Man) 0 % (0-2) 07/18/18 08:00 Blast Cells % (Manual) 0 % (0-0) 07/18/18 08:00 Nucleated RBC % 0 % (0-0) 07/31/18 06:00 Metamyelocytes 0 % (0-2) 07/18/18 08:00 Hypochromia 0 07/18/18 08:00 Platelet Estimate Decreased 07/18/18 08:00 Polychromasia 0 07/18/18 08:00 Poikilocytosis 0 07/18/18 08:00 Anisocytosis 1+ 07/18/18 08:00 Microcytosis 0 07/18/18 08:00 Macrocytosis 1+ 07/18/18 08:00 Tear Drop Cells 1+ 07/18/18 08:00 Ovalocytes 1+ 07/18/18 08:00 Sodium 142 mmol/L (136-145) 08/04/18 06:15 Potassium 3.3 mmol/L (3.5-5.1) L 08/04/18 06:15 Chloride 110 mmol/L (98-107) H 08/04/18 06:15 Carbon Dioxide 22 mmol/L (21-32) 08/04/18 06:15 Anion Gap 10 MMOL/L (8-16) 08/04/18 06:15 BUN 15 mg/dL (7-18) 08/04/18 06:15 Creatinine 0.7 mg/dL (0.55-1.3) 08/04/18 06:15 Creat Clearance w eGFR > 60 (>60) 08/04/18 06:15 POC Glucometer 114 UNITS (80-120) 08/04/18 07:47 Random Glucose 103 mg/dL (74-106) 08/04/18 06:15 Lactic Acid 1.3 mmol/L (0.4-2.0) 07/18/18 09:00 Calcium 9.1 mg/dL (8.5-10.1) 08/04/18 06:15 Phosphorus 3.2 mg/dL (2.5-4.9) 08/04/18 06:15 Magnesium 1.6 mg/dL (1.8-2.4) L 08/04/18 06:15 Total Bilirubin 0.5 mg/dL (0.2-1) 07/27/18 06:00 Direct Bilirubin 0.6 mg/dL (0.0-0.2) H 07/18/18 09:01 AST 28 U/L (15-37) 07/27/18 06:00 ALT 35 U/L (13-61) 07/27/18 06:00 Alkaline Phosphatase 93 U/L (45-117) 07/27/18 06:00 Ammonia 28.00 umol/L (11-32) 07/27/18 06:00 Creatine Kinase 300 IU/L (26-308) 07/18/18 08:00 Creatine Kinase Index 0.4 % (0.0-5.0) 07/18/18 08:00 CK-MB (CK-2) 1.2 ng/mL (0.5-3.6) 07/18/18 08:00 Troponin I < 0.01 ng/ml (0.00-0.05) 07/18/18 08:00 Total Protein 6.0 g/dl (6.4-8.2) L 07/27/18 06:00 Albumin 2.7 g/dl (3.4-5.0) L 07/27/18 06:00 Vitamin B12 2665 pg/ml (193-986) H 07/26/18 08:03 Serum Folate 18 ng/mL (3.1-17.5) H 07/26/18 08:03 TSH 2.71 uIU/ml (0.358-3.74) 07/26/18 08:03 Current Medications Generic Name Dose Route Start Last Admin Trade Name Freq PRN Reason Stop Dose Admin Acetaminophen 650 mg 07/24/18 16:29 Tylenol - PO Q6H PRN PAIN LEVEL 1 - 3 Cyanocobalamin 1,000 mcg 07/25/18 10:00 08/04/18 10:33 Vitamin B12 Injection - IM 1,000 mcg DAILY [facility] Administration Famotidine/Sodium Chloride 20 mg in 50 mls @ 100 mls/hr 07/25/18 08:00 10:33 Pepcid 20 Mg Premixed Ivpb - IVPB 100 mls/hr DAILY@0800 [facility] Administration Fat Emulsion Intravenous 250 mls @ 20.833 mls/hr 07/24/18 22:00 08/03/18 21: 28 Intralipid - IV 20.833 mls/hr DAILY@2200 [facility] Administration Folic Acid 5 mg/ Thiamine HCl 1,013 mls @ 84 mls/hr 08/04/18 10:00 08/04/18 11:36 200 mg/ Multivitamins/Minerals IVPB 84 mls/hr 10 ml/ Amino Acids Q24H [facility] Administration Amino Acids 1,000 mls @ 84 mls/hr 08/03/18 10:53 08/04/18 11:35 Clinimix - IV Not Given Q24H [facility] Levetiracetam 500 mg 07/24/18 22:00 08/04/18 10:33 Keppra Injection - IVPB 500 mg BID [facility] Administration Mirtazapine 15 mg 08/02/18 22:00 08/03/18 21:28 Remeron - PO 15 mg HS [facility] Administration Nicotine 21 mg 07/25/18 10:00 08/04/18 10:33 Nicoderm Patch - TD 21 mg DAILY [facility] Administration Promethazine HCl 25 mg 07/24/18 16:29 Phenergan Injection - IM Q6H PRN NAUSEA AND/OR VOMITING Constitutional: Yes: No Distress, Other (has full restraints) Eyes: Yes: Conjunctiva Clear HENT: Yes: Atraumatic Neck: Yes: Supple Cardiovascular: Yes: Regular Rate and Rhythm Respiratory: Yes: CTA Bilaterally Gastrointestinal Inspection: Yes: WNL ...Auscultate: Yes: Normoactive Bowel Sounds ...Palpate: Yes: Soft, Other (nontender) ...Rectal Exam: Yes: Deferred (declined) Edema: No Labs: CBC, BMP 08/04/18 06:15 08/04/18 06:15 INR, PTT INR 0.90 (0.83-1.09) 07/19/18 05:30 Problem List - Problems (1) Dysphagia as late effect of cerebrovascular accident (CVA) Assessment/Plan: I am not able to engage Tyshawn in a discussion about a PEG at this time. If his mental status is not attributabe to his cerebral hemorrhages then alcohol withdrawal confusion or a Wernicke's encepalopathy would appear to be more likely than hepatic encephalopathy as the cause of his confusion. Dr. Santamaria can re-eveluate when he returns on 08/07. Code(s): I69.391 - DYSPHAGIA FOLLOWING CEREBRAL INFARCTION (2) Alcohol abuse Code(s): F10.10 - ALCOHOL ABUSE, UNCOMPLICATED (3) Subarachnoid hemorrhage Code(s): I60.9 - NONTRAUMATIC SUBARACHNOID HEMORRHAGE, UNSPECIFIED (4) Subdural hematoma Code(s): S06.5X9A - TRAUM SUBDR HEM W LOC OF UNSP DURATION, INIT Assessment/Plan Oropharyngeal dysphagia with aspiration risk Patient is unable to consent to any procedures at this time and is inable to identify any family members Given his compensated liver function alcohol withdrawal confusion or Wernicke's appear to more likely account for his confusion if it is not attributable to the hemorrhages. Consider a neurological evaluation. NG tube can be inserted for feeding and medication administration in the interim.
--- NOTE | 2018-08-04 17:57 | PN ---
Physical Exam: SUBJECTIVE: Patient seen and examined at bedside. Agitated overnight. One to One supervision remains in place. OBJECTIVE: Vital Signs Period Temp Pulse Resp BP Sys/Dawn Pulse Ox Last 24 Hr 98.1 F-98.3 F 78-78 18-20 110-128/69-70 97-97 GENERAL: Responds to verbal stimuli. Remains confused, rambling. AAOx2 HEAD: NC/AT EYES: EOMI NECK: Trachea midline, full range of motion, supple. LUNGS: CTA B/L HEART: RRR No MRG S1S2 ABDOMEN: NDNT No HSM EXTREMITIES: No CCE NEUROLOGICAL: Speech is clear, Strength is 5/5 upper/lower extremities, SILT SKIN: No rashes or lesions appreciated Laboratory Results - last 24 hr 08/04/18 08/04/18 08/04/18 06:15 06:15 07:47 WBC 10.7 H RBC 4.21 Hgb 14.2 Hct 41.8 MCV 99.4 H MCH 33.7 MCHC 33.9 RDW 12.5 Plt Count 562 H MPV 8.0 Sodium 142 Potassium 3.3 L Chloride 110 H Carbon Dioxide 22 Anion Gap 10 BUN 15 Creatinine 0.7 Creat Clearance w eGFR > 60 POC Glucometer 114 Random Glucose 103 Calcium 9.1 Phosphorus 3.2 Magnesium 1.6 L 08/04/18 17:32 WBC RBC Hgb Hct MCV MCH MCHC RDW Plt Count MPV Sodium Potassium Chloride Carbon Dioxide Anion Gap BUN Creatinine Creat Clearance w eGFR POC Glucometer 106 Random Glucose Calcium Phosphorus Magnesium Active Medications Generic Name Dose Route Start Last Admin Trade Name Freq PRN Reason Stop Dose Admin Acetaminophen 650 mg 07/24/18 16:29 Tylenol - PO Q6H PRN PAIN LEVEL 1 - 3 Cyanocobalamin 1,000 mcg 07/25/18 10:00 08/04/18 10:33 Vitamin B12 Injection - IM 1,000 mcg DAILY TRISHA Administration Famotidine/Sodium Chloride 20 mg in 50 mls @ 100 mls/hr 07/25/18 08:00 10:33 Pepcid 20 Mg Premixed Ivpb - IVPB 100 mls/hr DAILY@0800 TRISHA Administration Fat Emulsion Intravenous 250 mls @ 20.833 mls/hr 07/24/18 22:00 08/03/18 21: 28 Intralipid - IV 20.833 mls/hr DAILY@2200 TRISHA Administration Folic Acid 5 mg/ Thiamine HCl 1,013 mls @ 84 mls/hr 08/04/18 10:00 08/04/18 11:36 200 mg/ Multivitamins/Minerals IVPB 84 mls/hr 10 ml/ Amino Acids Q24H TRISHA Administration Amino Acids 1,000 mls @ 84 mls/hr 08/03/18 10:53 08/04/18 11:35 Clinimix - IV Not Given Q24H TRISHA Levetiracetam 500 mg 07/24/18 22:00 08/04/18 10:33 Keppra Injection - IVPB 500 mg BID TRISHA Administration Mirtazapine 15 mg 08/02/18 22:00 08/03/18 21:28 Remeron - PO 15 mg HS TRISHA Administration Nicotine 21 mg 07/25/18 10:00 08/04/18 10:33 Nicoderm Patch - TD 21 mg DAILY TRISHA Administration Promethazine HCl 25 mg 07/24/18 16:29 Phenergan Injection - IM Q6H PRN NAUSEA AND/OR VOMITING ASSESSMENT/PLAN: 68 alcoholic man presenting s/p fall 3 days ago with N,V and headaches, found to have bilateral frontal contusion, subdural and subarachnoid hemorrhage and comminuted fracture of the occipital bone. Now with agitation and possible symptoms of alcohol withdrawal. No seizures witnessed. #SDH/SAH 2/2 Mechanical Fall - Neurocheck Q4H - Keppra 500 mg BID seizure ppx - Neurosurgery on board Dr Marcelino Hayes - Head CT- Occipital bone midline fx to inion; B frontal hemorrhagic contusion with SDH; B anterior temporal contusion with SAH R > L and small SDH -Repeat Head CT 07/21/18---> interval increase edema in the left frontal lobe. Head CT 07/22--> unchanged from CT on 07/21/18. 07/31/18 -Speech/Swallow eval. " Suggest MBS to include esophagus. r/o Dysphagia to determine nutritional plan." MBS --> Trace aspiration. Will need to establish contact with TBI facility as pt will require [facility] rehabilitation #Agitation -Remeron 15 mg HS #Substance Abuse -Phenergan 25 MG IM Q6H PRN -Nicotine Patch #HTN - Labetolol 5mg for SBP >140, PRN #FEN: No Fluids Monitor Electrolytes Clinimix. Remeron will also aid in PO intake. Remains on Clear diet. G.I physician evaluated pt earlier today. Recommends NGT until Tuesday when returning G.I physician is back. GI ppx -Famotidine 20mg daily DVT ppx - SCDs Visit type - Emergency Visit Emergency Visit: Yes ED Registration Date: 07/18/18 Care time: The patient presented to the Emergency Department on the above date and was hospitalized for further evaluation of their emergent condition. - New Patient This patient is new to me today: No - Critical Care Critical Care patient: No - Discharge Referral Referred to [facility] Med P.C.: No
--- NOTE | 2018-08-04 18:10 | PN ---
Teaching Attending Note Name of Resident: Sebastien Villalobos ATTENDING PHYSICIAN STATEMENT I saw and evaluated the patient. I reviewed the resident's note and discussed the case with the resident. I agree with the resident's findings and plan as documented with exceptions below. SUBJECTIVE: Patient seen and examined. AAOx3, able to engage conversation and on repetition able to verbalize need for feeding tube though occasionally goes on tangent. no complaints. OBJECTIVE: Vital Signs Period Temp Pulse Resp BP Sys/Dawn Pulse Ox Last 24 Hr 98.1 F-98.3 F 78-78 18-20 110-128/69-70 97-97 Intake & Output 08/01/18 08/02/18 08/03/18 08/04/18 23:59 23:59 23:59 23:59 Intake Total 1864 1505 1492 1210 Output Total 800 Balance 1064 1505 1492 1210 Weight 131 lb 14.4 oz 130 lb 127 lb 8 oz General: sitting in bed, pleasant, conversant Chest: no rales or wheezing Abdomen:Soft, NT, ND Extremities; no edema or tremors Neuro: AAOx 3 currently on few cues, occasionally goes on tangent but able to engage in conversation unchanged non focal neuro exam otherwise Active Medications Acetaminophen (Tylenol -) 650 mg PO Q6H PRN PRN Reason: PAIN LEVEL 1 - 3 Cyanocobalamin (Vitamin B12 Injection -) 1,000 mcg IM DAILY [facility] Last Admin: 08/04/18 10:33 Dose: 1,000 mcg Famotidine/Sodium Chloride (Pepcid 20 Mg Premixed Ivpb -) 20 mg in 50 mls @ 100 mls/hr IVPB DAILY@0800 [facility] Last Admin: 08/04/18 10:33 Dose: 100 mls/hr Fat Emulsion Intravenous (Intralipid -) 250 mls @ 20.833 mls/hr IV DAILY@2200 [facility] Last Admin: 08/03/18 21:28 Dose: 20.833 mls/hr Folic Acid 5 mg/ Thiamine HCl 200 mg/ Multivitamins/Minerals 10 ml/ Amino Acids 1,013 mls @ 84 mls/hr IVPB Q24H [facility] Last Admin: 08/04/18 11:36 Dose: 84 mls/hr Amino Acids (Clinimix -) 1,000 mls @ 84 mls/hr IV Q24H [facility] Last Admin: 08/04/18 11:35 Dose: Not Given Levetiracetam (Keppra Injection -) 500 mg IVPB BID [facility] Last Admin: 08/04/18 10:33 Dose: 500 mg Mirtazapine (Remeron -) 15 mg PO HS [facility] Last Admin: 08/03/18 21:28 Dose: 15 mg Nicotine (Nicoderm Patch -) 21 mg TD DAILY [facility] Last Admin: 08/04/18 10:33 Dose: 21 mg Promethazine HCl (Phenergan Injection -) 25 mg IM Q6H PRN PRN Reason: NAUSEA AND/OR VOMITING Laboratory Results - last 24 hr 08/04/18 08/04/18 08/04/18 06:15 06:15 07:47 WBC 10.7 H RBC 4.21 Hgb 14.2 Hct 41.8 MCV 99.4 H MCH 33.7 MCHC 33.9 RDW 12.5 Plt Count 562 H MPV 8.0 Sodium 142 Potassium 3.3 L Chloride 110 H Carbon Dioxide 22 Anion Gap 10 BUN 15 Creatinine 0.7 Creat Clearance w eGFR > 60 POC Glucometer 114 Random Glucose 103 Calcium 9.1 Phosphorus 3.2 Magnesium 1.6 L 08/04/18 17:32 WBC RBC Hgb Hct MCV MCH MCHC RDW Plt Count MPV Sodium Potassium Chloride Carbon Dioxide Anion Gap BUN Creatinine Creat Clearance w eGFR POC Glucometer 106 Random Glucose Calcium Phosphorus Magnesium ASSESSMENT AND PLAN: 8 yo M with PMH continuous alcohol abuse presented to the ER with unwitnessed fall, suspected 2 days ago admitted with SDH/SAH/Intraparenchymal Haemorrhage with edema, Occipital bone fracture, course complicated by severe alcohol withdrawal, now with concerns on MBS -Acute SDH/SAH/intraparenchymal haemorrhage with edema, likely traumatic from unwitnessed fall while intoxicated (Found on floor) -Traumatic occipital bone fracture -Fever on admission ,likely aspiration, no resolved -Severe alcohol withdrawal/Delirium tremens, now improved -Dysphagia -ETOH abuse/dependence -Hypovolumic hypernatremia, resolved Plan: Mental status improved, still intermittently confused. On my interview was OX3 with few cues, able to engage in conversation though occasionally goes on tangent. ABle to verbalize some understanding as to why needs a feeding tube, though component of intermittent confusion. MBS noted. Aspiration risk. Clears with aspiration precautions. Calorie count of unclear benefit unless PO intake improves. GI input noted, will discuss with rn social work to address surrogate/next of kin. Clinimix/Lipids for now. S/p Jesse. Neurosurgery input appreciated. Detox consult appreciated. Remeron started. psych consult to address intermittent agitation, confusion. DVTPPX SCDs given recent ICH Dispo pending clinical improvement. Anticipate SNF after PEG placement if no concerns. Plan discussed with nursing.
[2018-08-04] MEDS: FAT EMULSIONS 250 ML IV SCH (22:01)
[2018-08-04] MEDS: MIRTAZAPINE 15 MG TABLET (FP) PO SCH (22:03)
[2018-08-05 06:55] LABS: HEMATOCRIT 39.5 % (35.4-49); HEMOGLOBIN 13.5 GM/dL (11.7-16.9); MCH 33.8 pg (25.7-33.7); MCHC 34.1 g/dl (32.0-35.9); MEAN CELL VOLUME 98.9 fl (80-96); PLATELET COUNT 500 K/MM3 (134-434); RBC 3.99 M/mm3 (4.00-5.60); RDW 12.5 % (11.9-15.9); WHITE BLOOD COUNT 9.9 K/mm3 (4.0-10.0)
[2018-08-05 07:23] LABS: ANION GAP 11 MMOL/L (8-16); BLOOD UREA NITROGEN 16 mg/dL (7-18); CALCIUM 8.6 mg/dL (8.5-10.1); CHLORIDE 110 mmol/L (98-107); CO2 22 mmol/L (21-32); CREATININE 0.6 mg/dL (0.55-1.3); GLUCOSE,RANDOM 99 mg/dL (74-106); MAGNESIUM 1.7 mg/dL (1.8-2.4); PHOSPHOROUS 3.6 mg/dL (2.5-4.9); POTASSIUM 3.1 mmol/L (3.5-5.1); SODIUM 143 mmol/L (136-145)
[2018-08-05] MEDS ORDERED: MAGNESIUM SULF 50% (8.12 MEQ/2 ML-1 GM VIAL) IVPB ONE (07:28)
[2018-08-05] MEDS: KCL 10 MEQ IVPB 10 MEQ/100 ML INFUS.BAG IVPB SCH ×3 (08:09→16:06)
--- NOTE | 2018-08-05 10:51 | PN ---
Progress Note (short form) - Note Progress Note: Awake, and responsive, confused. No acute events overnight. OBJECTIVE: Intake & Output 08/02/18 08/03/18 08/04/18 08/05/18 23:59 23:59 23:59 23:59 Intake Total 1505 1492 1410 1283 Output Total 500 325 Balance 1505 1492 910 958 Weight 131 lb 14.4 oz 130 lb 127 lb 8 oz Last Vital Signs Temp Pulse Resp BP Pulse Ox 97.9 F 85 20 102/53 L 99 08/05/18 06:00 08/05/18 06:00 08/05/18 06:00 08/05/18 06:00 08/05/18 10:00 Active Medications Acetaminophen (Tylenol -) 650 mg PO Q6H PRN PRN Reason: PAIN LEVEL 1 - 3 Cyanocobalamin (Vitamin B12 Injection -) 1,000 mcg IM DAILY [facility] Last Admin: 08/04/18 10:33 Dose: 1,000 mcg Famotidine/Sodium Chloride (Pepcid 20 Mg Premixed Ivpb -) 20 mg in 50 mls @ 100 mls/hr IVPB DAILY@0800 [facility] Last Admin: 08/04/18 10:33 Dose: 100 mls/hr Fat Emulsion Intravenous (Intralipid -) 250 mls @ 20.833 mls/hr IV DAILY@2200 [facility] Last Admin: 08/04/18 22:01 Dose: 20.833 mls/hr Folic Acid 5 mg/ Thiamine HCl 200 mg/ Multivitamins/Minerals 10 ml/ Amino Acids 1,013 mls @ 84 mls/hr IVPB Q24H [facility] Last Admin: 08/04/18 11:36 Dose: 84 mls/hr Amino Acids (Clinimix -) 1,000 mls @ 84 mls/hr IV Q24H [facility] Last Admin: 08/04/18 23:13 Dose: 84 mls/hr Levetiracetam (Keppra Injection -) 500 mg IVPB BID [facility] Last Admin: 08/04/18 22:03 Dose: 500 mg Mirtazapine (Remeron -) 15 mg PO HS [facility] Last Admin: 08/04/18 22:03 Dose: 15 mg Nicotine (Nicoderm Patch -) 21 mg TD DAILY [facility] Last Admin: 12/07/18 10:33 Dose: 21 mg Promethazine HCl (Phenergan Injection -) 25 mg IM Q6H PRN PRN Reason: NAUSEA AND/OR VOMITING Gen: awake, NAD Heart: RRR Lung: scattered rhonchi Abd: soft, nontender Ext: no edema Laboratory Results - last 24 hr 08/04/18 08/05/18 08/05/18 17:32 06:13 06:30 WBC 9.9 RBC 3.99 L Hgb 13.5 Hct 39.5 MCV 98.9 H MCH 33.8 H MCHC 34.1 RDW 12.5 Plt Count 500 H MPV 8.0 Sodium Potassium Chloride Carbon Dioxide Anion Gap BUN Creatinine Creat Clearance w eGFR POC Glucometer 106 105 Random Glucose Calcium Phosphorus Magnesium 08/05/18 06:30 WBC RBC Hgb Hct MCV MCH MCHC RDW Plt Count MPV Sodium 143 Potassium 3.1 L Chloride 110 H Carbon Dioxide 22 Anion Gap 11 BUN 16 Creatinine 0.6 Creat Clearance w eGFR > 60 POC Glucometer Random Glucose 99 Calcium 8.6 Phosphorus 3.6 Magnesium 1.7 L ASSESSMENT AND PLAN: s/p Fall Subarachnoid Hemorrhage Subdural Hematoma Alcohol Abuse r/o Alcohol Withdrawal Thrombocytopenia - AEDS - benzos as needed - aspiration precautions - Being considered for a PEG Dr Haskins
[2018-08-05] MEDS: ACETAMINOPHEN 325 MG TABLET (FP) PO PRN (10:56)
--- NOTE | 2018-08-05 11:22 | PN ---
Teaching Attending Note Name of Resident: Sebastien Villalobos ATTENDING PHYSICIAN STATEMENT I saw and evaluated the patient. I reviewed the resident's note and discussed the case with the resident. I agree with the resident's findings and plan as documented with exceptions below. SUBJECTIVE: Patient seen and examined. awake, OX2, appropriate, no pain or complaints. OBJECTIVE: Vital Signs Period Temp Pulse Resp BP Sys/Dawn Pulse Ox Last 24 Hr 97.3 F-98.7 F 85-89 18-20 91-130/53-77 99-99 Intake & Output 08/02/18 08/03/18 08/04/18 08/05/18 23:59 23:59 23:59 23:59 Intake Total 1505 1492 1410 1283 Output Total 500 325 Balance 1505 1492 910 958 Weight 131 lb 14.4 oz 130 lb 127 lb 8 oz General: sitting in bed in no acute distress Neuro: AAOx2, unchanged exam Abdomen:Soft, NT Extremities: no edema ASSESSMENT AND PLAN: 68 yo M with PMH continuous alcohol abuse presented to the ER with unwitnessed fall, suspected 2 days ago admitted with SDH/SAH/Intraparenchymal Haemorrhage with edema, Occipital bone fracture, course complicated by severe alcohol withdrawal, now with concerns on MBS -Acute SDH/SAH/intraparenchymal haemorrhage with edema, likely traumatic from unwitnessed fall while intoxicated (Found on floor) -Traumatic occipital bone fracture -Fever on admission ,likely aspiration, no resolved -Severe alcohol withdrawal/Delirium tremens, now improved -Dysphagia -ETOH abuse/dependence -Hypovolumic hypernatremia, resolved Plan: Mental status improved, still intermittently confused. On my interview was OX3 with few cues, able to engage in conversation though occasionally goes on tangent. ABle to verbalize some understanding as to why needs a feeding tube, though component of intermittent confusion. MBS noted. Aspiration risk. Clears with aspiration precautions. Calorie count of unclear benefit unless PO intake improves. GI input noted, will discuss with hospice social worker to address surrogate/next of kin. Clinimix/Lipids for now. S/p Keppra. Neurosurgery input appreciated. Detox consult appreciated. Remeron started. psych consult to address intermittent agitation, confusion. DVTPPX SCDs given recent ICH Dispo pending clinical improvement. Anticipate SNF after PEG placement if no concerns. Plan discussed with nursing.
[2018-08-05] MEDS ORDERED: PT OWN MED DRAWER 7, Y5N ONE ×2 (11:23→21:22)
[2018-08-05] MEDS: AMINO ACIDS 4.25%/D5W 1,000 ML IV SCH (11:24)
[2018-08-05] MEDS: CYANOCOBALAMIN (VITAMIN B-12) 1000 MCG/1 ML VIAL IM SCH (11:25)
[2018-08-05] MEDS: NICOTINE 21 MG/24 HOURS TOPICAL PATCH TD SCH (11:25)
[2018-08-05] MEDS: levETIRAcetam 500 MG/5 ML INJECTION VIAL IVPB SCH ×2 (11:25→21:56)
--- NOTE | 2018-08-05 12:16 | PN ---
Physical Exam: SUBJECTIVE: Patient seen and examined at bedside. Conversant, denies any complaints. Agitated overnight. OBJECTIVE: Vital Signs Period Temp Pulse Resp BP Sys/Dawn Pulse Ox Last 24 Hr 97.3 F-98.7 F 85-89 18-20 91-130/53-77 99-99 GENERAL: AAOx2. NAD. Pleasant. Vest Restraint in place HEAD: NC/AT EYES: EOMI NECK: Supple LUNGS: CTA B/L Anteriorly HEART: RRR No MRG S1S2 ABDOMEN: NDNT No HSM EXTREMITIES: No CCE NEUROLOGICAL: Speech is clear, Strength is 5/5 upper/lower extremities, SILT. Unchanged from previous exam SKIN: No rashes or lesions appreciated Laboratory Results - last 24 hr 08/04/18 08/05/18 08/05/18 17:32 06:13 06:30 WBC 9.9 RBC 3.99 L Hgb 13.5 Hct 39.5 MCV 98.9 H MCH 33.8 H MCHC 34.1 RDW 12.5 Plt Count 500 H MPV 8.0 Sodium Potassium Chloride Carbon Dioxide Anion Gap BUN Creatinine Creat Clearance w eGFR POC Glucometer 106 105 Random Glucose Calcium Phosphorus Magnesium 08/05/18 06:30 WBC RBC Hgb Hct MCV MCH MCHC RDW Plt Count MPV Sodium 143 Potassium 3.1 L Chloride 110 H Carbon Dioxide 22 Anion Gap 11 BUN 16 Creatinine 0.6 Creat Clearance w eGFR > 60 POC Glucometer Random Glucose 99 Calcium 8.6 Phosphorus 3.6 Magnesium 1.7 L Active Medications Generic Name Dose Route Start Last Admin Trade Name Freq PRN Reason Stop Dose Admin Acetaminophen 650 mg 07/24/18 16:29 08/05/18 10:56 Tylenol - PO 650 mg Q6H PRN Administration PAIN LEVEL 1 - 3 Cyanocobalamin 1,000 mcg 07/25/18 10:00 08/05/18 11:25 Vitamin B12 Injection - IM 1,000 mcg DAILY TRISHA Administration Famotidine/Sodium Chloride 20 mg in 50 mls @ 100 mls/hr 07/25/18 08:00 10:33 Pepcid 20 Mg Premixed Ivpb - IVPB 100 mls/hr DAILY@0800 TRISHA Administration Fat Emulsion Intravenous 250 mls @ 20.833 mls/hr 07/24/18 22:00 08/04/18 22: 01 Intralipid - IV 20.833 mls/hr DAILY@2200 TRISHA Administration Folic Acid 5 mg/ Thiamine HCl 1,013 mls @ 84 mls/hr 08/04/18 10:00 08/04/18 11:36 200 mg/ Multivitamins/Minerals IVPB 84 mls/hr 10 ml/ Amino Acids Q24H TRISHA Administration Amino Acids 1,000 mls @ 84 mls/hr 08/03/18 10:53 08/05/18 11:24 Clinimix - IV 84 mls/hr Q24H TRISHA Administration Levetiracetam 500 mg 07/24/18 22:00 08/05/18 11:25 Keppra Injection - IVPB 500 mg BID TRISHA Administration Mirtazapine 15 mg 08/02/18 22:00 08/04/18 22:03 Remeron - PO 15 mg HS TRISHA Administration Nicotine 21 mg 07/25/18 10:00 08/05/18 11:25 Nicoderm Patch - TD 21 mg DAILY TRISHA Administration Promethazine HCl 25 mg 07/24/18 16:29 Phenergan Injection - IM Q6H PRN NAUSEA AND/OR VOMITING ASSESSMENT/PLAN: 68 alcoholic man presenting s/p fall 3 days ago with N,V and headaches, found to have bilateral frontal contusion, subdural and subarachnoid hemorrhage and comminuted fracture of the occipital bone. Now with agitation and possible symptoms of alcohol withdrawal. No seizures witnessed. #SDH/SAH 2/2 Mechanical Fall - Neurocheck Q4H - Keppra 500 mg BID seizure ppx - Neurosurgery on board Dr Marcelino Hayes - Head CT- Occipital bone midline fx to inion; B frontal hemorrhagic contusion with SDH; B anterior temporal contusion with SAH R > L and small SDH -Repeat Head CT 07/21/18---> interval increase edema in the left frontal lobe. Head CT 07/22--> unchanged from CT on 07/21/18. 07/31/18 -Speech/Swallow eval. " Suggest MBS to include esophagus. r/o Dysphagia to determine nutritional plan." MBS --> Trace aspiration. Will need to establish contact with TBI facility as pt will require [facility] rehabilitation -Will need to contact surrogate regarding PEG tube placement. Social work on board #Agitation -Remeron 15 mg HS #Substance Abuse -Phenergan 25 MG IM Q6H PRN -Nicotine Patch #HTN - Labetolol 5mg for SBP >140, PRN #FEN: No Fluids Monitor Electrolytes Clinimix. Remeron will also aid in PO intake. Remains on Clear diet. For tentative PEG tube Tuesday. GI ppx -Famotidine 20mg daily DVT ppx - SCDs Dispo: SNF after PEG placement Visit type - Emergency Visit Emergency Visit: Yes ED Registration Date: 07/18/18 Care time: The patient presented to the Emergency Department on the above date and was hospitalized for further evaluation of their emergent condition. - New Patient This patient is new to me today: No - Critical Care Critical Care patient: No - Discharge Referral Referred to [facility] Med P.C.: No
[2018-08-05] MEDS: [UNRECOGNIZED DRUG - OTHER] IVPB SCH (13:24)
[2018-08-05] MEDS: THIAMINE HCL IVPB SCH (13:24)
[2018-08-05] MEDS: MULTIVIT IVPB SCH (13:24)
[2018-08-05] MEDS: FOLIC ACID IVPB SCH (13:24)
--- NOTE | 2018-08-05 14:46 | CON.PSY ---
Psychiatry Consult Chief Complaint: 68 year old with Alcohol abuse and dependence, S/P Subdural hematoma seen for psych evaluation for aggressive behavior. Patient is alert but angry, confused and thought disorganized. and Hostile. Symptoms: reports: Inability to Control Temper, Aggressivity, Disorganized/ Disruptive Thoughts, Oppositionalism - Previous Psychiatric Treatment Outpatient: None Inpatient: None - Previous Substance Abuse Treatment Outpatient: None Inpatient: None - Current Medications Current Medications: Active Medications Acetaminophen (Tylenol -) 650 mg PO Q6H PRN PRN Reason: PAIN LEVEL 1 - 3 Last Admin: 08/05/18 10:56 Dose: 650 mg Cyanocobalamin (Vitamin B12 Injection -) 1,000 mcg IM DAILY [facility] Last Admin: 08/05/18 11:25 Dose: 1,000 mcg Famotidine/Sodium Chloride (Pepcid 20 Mg Premixed Ivpb -) 20 mg in 50 mls @ 100 mls/hr IVPB DAILY@0800 [facility] Last Admin: 08/04/18 10:33 Dose: 100 mls/hr Fat Emulsion Intravenous (Intralipid -) 250 mls @ 20.833 mls/hr IV DAILY@2200 [facility] Last Admin: 08/04/18 22:01 Dose: 20.833 mls/hr Folic Acid 5 mg/ Thiamine HCl 200 mg/ Multivitamins/Minerals 10 ml/ Amino Acids 1,013 mls @ 84 mls/hr IVPB Q24H [facility] Last Admin: 08/05/18 13:24 Dose: 84 mls/hr Amino Acids (Clinimix -) 1,000 mls @ 84 mls/hr IV Q24H [facility] Last Admin: 08/05/18 11:24 Dose: 84 mls/hr Levetiracetam (Keppra Injection -) 500 mg IVPB BID [facility] Last Admin: 08/05/18 11:25 Dose: 500 mg Mirtazapine (Remeron -) 15 mg PO HS [facility] Last Admin: 08/04/18 22:03 Dose: 15 mg Nicotine (Nicoderm Patch -) 21 mg TD DAILY [facility] Last Admin: 08/05/18 11:25 Dose: 21 mg Promethazine HCl (Phenergan Injection -) 25 mg IM Q6H PRN PRN Reason: NAUSEA AND/OR VOMITING - Allergies Allergies: Allergies Allergy/AdvReac Type Severity Reaction Status Date / Time No Known Allergies Allergy Verified 07/18/18 00:16 - Current Living Status Usual Living Arrangement: Alone - Current Mental Status Evaluation Appearance: Disheveled Attitude: Guarded - Affect Affect: Constrictive Appropriateness: Not Appropriate - Mood Mood: Angry - Speech/Language Expressive: Delayed Receptive: Unable to Receive/Comprehend Spoken Words - Psychomotor Activity Psychomotor Activity: Hyperactive - Thought Process Thought Process: Circumstantial - Thought Content Hallucinations: Absent Delusions: Absent - Self Perception Self Perception: No Impairment - Cognition Attention: Diminished Orientation: Time Memory, Short Term: 1/3 Memory, Remote: Impaired - Concentration Serial Sevens Intact: No Simple Calculations Intact: No - Abstraction Proverb Interpretation: Impaired Judgement: Moderately Impaired - Insight Insight: Impaired - Impulse Control Impulse Control: Minimally Impaired - Suicidal Ideation Suicidal Ideation: No - Homicidal Ideation Homicidal Ideation: No Assessment/Plan 1) d?c Remeron. 2) Abilify 5mg po od for aggtression and impulsdivity.
[2018-08-05] MEDS: FAMOTIDINE 20 MG/50 ML IVPB 20 MG/50 ML MG IVPB SCH (18:59)
[2018-08-05] MEDS: FAT EMULSIONS 250 ML IV SCH (21:55)
[2018-08-06] MEDS: AMINO ACIDS 4.25%/D5W 1,000 ML IV SCH ×2 (02:03→12:14)
[2018-08-06 07:33] LABS: HEMATOCRIT 38.5 % (35.4-49); MCH 33.6 pg (25.7-33.7); MCHC 33.9 g/dl (32.0-35.9); MEAN CELL VOLUME 99.3 fl (80-96); MEAN PLT VOLUME 7.8 fl (7.5-11.1); PLATELET COUNT 471 K/MM3 (134-434); RBC 3.88 M/mm3 (4.00-5.60); RDW 12.5 % (11.9-15.9); WHITE BLOOD COUNT 8.7 K/mm3 (4.0-10.0)
[2018-08-06 08:18] LABS: ANION GAP 10 MMOL/L (8-16); BLOOD UREA NITROGEN 16 mg/dL (7-18); CALCIUM 8.6 mg/dL (8.5-10.1); CHLORIDE 110 mmol/L (98-107); CO2 22 mmol/L (21-32); CREATININE 0.7 mg/dL (0.55-1.3); GLUCOSE,RANDOM 96 mg/dL (74-106); MAGNESIUM 1.9 mg/dL (1.8-2.4); PHOSPHOROUS 2.8 mg/dL (2.5-4.9); POTASSIUM 3.2 mmol/L (3.5-5.1); SODIUM 142 mmol/L (136-145)
[2018-08-06] MEDS ORDERED: MAGNESIUM SULF 50% (8.12 MEQ/2 ML-1 GM VIAL) IVPB ONE (08:32)
[2018-08-06] MEDS: levETIRAcetam 500 MG/5 ML INJECTION VIAL IVPB SCH ×2 (09:24→22:08)
[2018-08-06] MEDS: CYANOCOBALAMIN (VITAMIN B-12) 1000 MCG/1 ML VIAL IM SCH (09:24)
--- NOTE | 2018-08-06 09:24 | PN ---
Physical Exam: SUBJECTIVE: Patient seen and examined, sleeping but arousable no complaints. OBJECTIVE: Vital Signs Period Temp Pulse Resp BP Sys/Dawn Pulse Ox Last 24 Hr 97.5 F-98.0 F 75-103 18-20 114-127/55-70 97-99 GENERAL: in bed in no acute distress Chest: decreased effort, no rales or wheezing Abdomen:Soft NT ND Extremities: no edema or tremors Laboratory Results - last 24 hr 08/06/18 08/06/18 08/06/18 06:48 07:00 07:00 WBC 8.7 RBC 3.88 L Hgb 13.0 Hct 38.5 MCV 99.3 H MCH 33.6 MCHC 33.9 RDW 12.5 Plt Count 471 H MPV 7.8 Sodium 142 Potassium 3.2 L Chloride 110 H Carbon Dioxide 22 Anion Gap 10 BUN 16 Creatinine 0.7 Creat Clearance w eGFR > 60 POC Glucometer 108 Random Glucose 96 Calcium 8.6 Phosphorus 2.8 Magnesium 1.9 Active Medications Generic Name Dose Route Start Last Admin Trade Name Freq PRN Reason Stop Dose Admin Acetaminophen 650 mg 07/24/18 16:29 08/05/18 10:56 Tylenol - PO 650 mg Q6H PRN Administration PAIN LEVEL 1 - 3 Aripiprazole 5 mg 08/06/18 10:00 Abilify PO DAILY TRISHA Cyanocobalamin 1,000 mcg 07/25/18 10:00 08/05/18 11:25 Vitamin B12 Injection - IM 1,000 mcg DAILY TRISHA Administration Famotidine/Sodium Chloride 20 mg in 50 mls @ 100 mls/hr 07/25/18 08:00 18:59 Pepcid 20 Mg Premixed Ivpb - IVPB 100 mls/hr DAILY@0800 TRISHA Administration Fat Emulsion Intravenous 250 mls @ 20.833 mls/hr 07/24/18 22:00 08/05/18 21: 55 Intralipid - IV 20.833 mls/hr DAILY@2200 TRISHA Administration Folic Acid 5 mg/ Thiamine HCl 1,013 mls @ 84 mls/hr 08/04/18 10:00 08/05/18 13:24 200 mg/ Multivitamins/Minerals IVPB 84 mls/hr 10 ml/ Amino Acids Q24H TRISHA Administration Amino Acids 1,000 mls @ 84 mls/hr 08/03/18 10:53 08/06/18 02:03 Clinimix - IV 84 mls/hr Q24H TRISHA Administration Potassium Chloride 10 meq in 100 mls @ 100 mls/hr 08/06/18 08:45 Potassium Chloride 10 Meq Premix Ivpb - IVPB 08/06/18 11:44 Q60M TRISHA Levetiracetam 500 mg 07/24/18 22:00 08/05/18 21:56 Keppra Injection - IVPB 500 mg BID TRISHA Administration Nicotine 21 mg 07/25/18 10:00 08/05/18 11:25 Nicoderm Patch - TD 21 mg DAILY TRISHA Administration Promethazine HCl 25 mg 07/24/18 16:29 Phenergan Injection - IM Q6H PRN NAUSEA AND/OR VOMITING ASSESSMENT/PLAN: 68 yo M with PMH continuous alcohol abuse presented to the ER with unwitnessed fall, suspected 2 days ago admitted with SDH/SAH/Intraparenchymal Haemorrhage with edema, Occipital bone fracture, course complicated by severe alcohol withdrawal, now with concerns on MBS -Acute SDH/SAH/intraparenchymal haemorrhage with edema, likely traumatic from unwitnessed fall while intoxicated (Found on floor) -Traumatic occipital bone fracture -Fever on admission ,likely aspiration, no resolved -Severe alcohol withdrawal/Delirium tremens, now improved -Dysphagia -ETOH abuse/dependence -Hypovolumic hypernatremia, resolved -Hypokalemia -Hypomagnesemia Plan: Mental status improved, still intermittently confused. Psych input appreciated. Started on abilify. MBS noted. Aspiration risk. Clears with aspiration precautions. Unable to do calorie count on clears and with minimal po intake. GI input noted, will discuss with social insurance adviser to address surrogate/next of kin for consent. Clinimix/Lipids for now. S/p Keppra. Neurosurgery input appreciated. Discuss duration of keppra indicated Detox consult appreciated. Replete K/Mg. DVTPPX SCDs given recent ICH Dispo pending clinical improvement. Anticipate SNF after PEG placement if no concerns. Plan discussed with nursing. Visit type - Emergency Visit Emergency Visit: Yes ED Registration Date: 07/18/18 Care time: The patient presented to the Emergency Department on the above date and was hospitalized for further evaluation of their emergent condition. - New Patient This patient is new to me today: No - Critical Care Critical Care patient: No - Discharge Referral Referred to [facility] Med P.C.: No
[2018-08-06] MEDS: NICOTINE 21 MG/24 HOURS TOPICAL PATCH TD SCH (09:25)
[2018-08-06] MEDS: FAMOTIDINE 20 MG/50 ML IVPB 20 MG/50 ML MG IVPB SCH (09:25)
[2018-08-06] MEDS: ARIPiprazole 5 MG TABLET (FP) PO SCH (09:30)
[2018-08-06] MEDS: FOLIC ACID IVPB SCH (09:30)
[2018-08-06] MEDS: MULTIVIT IVPB SCH (09:30)
[2018-08-06] MEDS: THIAMINE HCL IVPB SCH (09:30)
[2018-08-06] MEDS: [UNRECOGNIZED DRUG - OTHER] IVPB SCH (09:30)
[2018-08-06] MEDS: KCL 10 MEQ IVPB 10 MEQ/100 ML INFUS.BAG IVPB SCH ×2 (09:33→20:15)
--- NOTE | 2018-08-06 13:01 | FALL ---
Fall Exam - Event Witnessed fall: Yes Location of Fall: Patient Room Fall from: from chair and sat down on floor (Patient on 1:1, was noted to get out of chair support himself to the floor with no LOC,head trauma or injurty) - Pre-Fall Mental Status: Oriented Current Medications: Current Medications Generic Name Dose Route Start Last Admin Trade Name Freq PRN Reason Stop Dose Admin Acetaminophen 650 mg 07/24/18 16:29 08/05/18 10:56 Tylenol - PO 650 mg Q6H PRN Administration PAIN LEVEL 1 - 3 Aripiprazole 5 mg 08/06/18 10:00 08/06/18 09:30 Abilify PO 5 mg DAILY TRISHA Administration Cyanocobalamin 1,000 mcg 07/25/18 10:00 08/06/18 09:24 Vitamin B12 Injection - IM 1,000 mcg DAILY TRISHA Administration Famotidine/Sodium Chloride 20 mg in 50 mls @ 100 mls/hr 07/25/18 08:00 09:25 Pepcid 20 Mg Premixed Ivpb - IVPB 100 mls/hr DAILY@0800 TRISHA Administration Fat Emulsion Intravenous 250 mls @ 20.833 mls/hr 07/24/18 22:00 08/05/18 21: 55 Intralipid - IV 20.833 mls/hr DAILY@2200 TRISHA Administration Folic Acid 5 mg/ Thiamine HCl 1,013 mls @ 84 mls/hr 08/04/18 10:00 08/06/18 09:30 200 mg/ Multivitamins/Minerals IVPB 84 mls/hr 10 ml/ Amino Acids Q24H TRISHA Administration Amino Acids 1,000 mls @ 84 mls/hr 08/03/18 10:53 08/06/18 12:14 Clinimix - IV 84 mls/hr Q24H TRISHA Administration Levetiracetam 500 mg 07/24/18 22:00 08/06/18 09:24 Keppra Injection - IVPB 500 mg BID TRISHA Administration Nicotine 21 mg 07/25/18 10:00 08/06/18 09:25 Nicoderm Patch - TD 21 mg DAILY TRISHA Administration Promethazine HCl 25 mg 07/24/18 16:29 Phenergan Injection - IM Q6H PRN NAUSEA AND/OR VOMITING - Post-Fall Patient Outcome: No Injury Exam Findings: Sitting in bed in no acute distress, mental status unchanged from this AM. moves all extremities freely, no erythema/edema or limitation of ROM noted. 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
[2018-08-06] MEDS ORDERED: HALOPERIDOL LACTATE 5 MG/ML IM ONE ×2 (13:15→23:14)
[2018-08-06] MEDS: FAT EMULSIONS 250 ML IV SCH (21:11)
[2018-08-07] MEDS: KCL 10 MEQ IVPB 10 MEQ/100 ML INFUS.BAG IVPB SCH (00:25)
[2018-08-07] MEDS: AMINO ACIDS 4.25%/D5W 1,000 ML IV SCH ×2 (02:14→12:24)
[2018-08-07 07:53] LABS: INR 1.03 (0.83-1.09); PROTHROMBIN TIME (PATIENT) 12.1 SEC (9.7-13.0)
[2018-08-07] MEDS: FAMOTIDINE 20 MG/50 ML IVPB 20 MG/50 ML MG IVPB SCH (08:45)
--- NOTE | 2018-08-07 08:55 | PN ---
Teaching Attending Note Name of Resident: Sebastien Villalobos ATTENDING PHYSICIAN STATEMENT I saw and evaluated the patient. I reviewed the resident's note and discussed the case with the resident. I agree with the resident's findings and plan as documented with exceptions below. SUBJECTIVE: Patient seen and examined. upset and wants to go out, wants his "hat and coat". OBJECTIVE: Vital Signs Period Temp Pulse Resp BP Sys/Dawn Pulse Ox Last 24 Hr 97.7 F-98.5 F 66-79 18-20 86-136/51-65 96-96 Intake & Output 08/04/18 08/05/18 08/06/18 08/07/18 23:59 23:59 23:59 23:59 Intake Total 1410 2757 2505 1150 Output Total 500 325 Balance 910 2432 2505 1150 Weight 127 lb 8 oz 135 lb 9.6 oz 139 lb 8 oz General: sitting in bed in no acute distress Chest: CTAB, no rales or wheezing Abdomen:Soft, NT Extremities: no edema or tremors Active Medications Acetaminophen (Tylenol -) 650 mg PO Q6H PRN PRN Reason: PAIN LEVEL 1 - 3 Last Admin: 08/05/18 10:56 Dose: 650 mg Aripiprazole (Abilify) 5 mg PO DAILY [facility] Last Admin: 08/06/18 09:30 Dose: 5 mg Cyanocobalamin (Vitamin B12 Injection -) 1,000 mcg IM DAILY [facility] Last Admin: 08/06/18 09:24 Dose: 1,000 mcg Famotidine/Sodium Chloride (Pepcid 20 Mg Premixed Ivpb -) 20 mg in 50 mls @ 100 mls/hr IVPB DAILY@0800 [facility] Last Admin: 08/06/18 09:25 Dose: 100 mls/hr Fat Emulsion Intravenous (Intralipid -) 250 mls @ 20.833 mls/hr IV DAILY@2200 [facility] Last Admin: 08/06/18 21:11 Dose: 20.833 mls/hr Folic Acid 5 mg/ Thiamine HCl 200 mg/ Multivitamins/Minerals 10 ml/ Amino Acids 1,013 mls @ 84 mls/hr IVPB Q24H [facility] Last Admin: 08/06/18 09:30 Dose: 84 mls/hr Amino Acids (Clinimix -) 1,000 mls @ 84 mls/hr IV Q24H [facility] Last Admin: 08/07/18 02:14 Dose: 84 mls/hr Levetiracetam (Keppra Injection -) 500 mg IVPB BID [facility] Last Admin: 08/06/18 22:08 Dose: 500 mg Nicotine (Nicoderm Patch -) 21 mg TD DAILY [facility] Last Admin: 08/06/18 09:25 Dose: 21 mg Promethazine HCl (Phenergan Injection -) 25 mg IM Q6H PRN PRN Reason: NAUSEA AND/OR VOMITING Laboratory Results - last 24 hr 08/07/18 06:15 PT with INR 12.10 INR 1.03 ASSESSMENT AND PLAN: 68 yo M with PMH continuous alcohol abuse presented to the ER with unwitnessed fall, suspected 2 days ago admitted with SDH/SAH/Intraparenchymal Haemorrhage with edema, Occipital bone fracture, course complicated by severe alcohol withdrawal, now with concerns on MBS -Acute SDH/SAH/intraparenchymal haemorrhage with edema, likely traumatic from unwitnessed fall while intoxicated (Found on floor) -Traumatic occipital bone fracture -Fever on admission ,likely aspiration, no resolved -Severe alcohol withdrawal/Delirium tremens, now improved -Dysphagia -ETOH abuse/dependence -Hypovolumic hypernatremia, resolved -Hypokalemia -Hypomagnesemia Plan: Mental status improved, still intermittently confused. Witnessed fall yesterday , asking to get out but not directable and unable to have a full coherent conversation. Psych input appreciated. Started on abilify. MBS noted. Aspiration risk. CLears wtih caution Unable to do calorie count on clears and with minimal po intake. Await GI input for PEG placement, will need binder. Clinimix/Lipids for now. Discussed with Dr. Hayes, continue Keppra for now given multiple areas of bleed. Detox consult appreciated. Replete K/Mg prn. DVTPPX SCDs given recent ICH Dispo pending clinical improvement. Anticipate SNF after PEG placement if no concerns. Plan discussed with nursing.
[2018-08-07 08:58] LABS: ANION GAP 8 MMOL/L (8-16); BLOOD UREA NITROGEN 16 mg/dL (7-18); CALCIUM 8.5 mg/dL (8.5-10.1); CHLORIDE 112 mmol/L (98-107); CO2 22 mmol/L (21-32); CREATININE 0.6 mg/dL (0.55-1.3); GLUCOSE,RANDOM 98 mg/dL (74-106); MAGNESIUM 2.1 mg/dL (1.8-2.4); PHOSPHOROUS 2.5 mg/dL (2.5-4.9); POTASSIUM 3.4 mmol/L (3.5-5.1); SODIUM 142 mmol/L (136-145)
[2018-08-07] MEDS: CYANOCOBALAMIN (VITAMIN B-12) 1000 MCG/1 ML VIAL IM SCH (10:03)
[2018-08-07] MEDS: NICOTINE 21 MG/24 HOURS TOPICAL PATCH TD SCH (10:03)
[2018-08-07] MEDS: levETIRAcetam 500 MG/5 ML INJECTION VIAL IVPB SCH ×2 (10:03→22:55)
[2018-08-07] MEDS: ARIPiprazole 5 MG TABLET (FP) PO SCH (10:04)
[2018-08-07] MEDS: THIAMINE HCL IVPB SCH (10:31)
[2018-08-07] MEDS: MULTIVIT IVPB SCH (10:31)
[2018-08-07] MEDS: FOLIC ACID IVPB SCH (10:31)
[2018-08-07] MEDS: [UNRECOGNIZED DRUG - OTHER] IVPB SCH (10:31)
--- NOTE | 2018-08-07 12:04 | PN ---
Physical Exam: SUBJECTIVE: Patient seen and examined at bedside. Pt sitting in chair, responds to questions appropriately. Agitated overnight, haldol 2 mg given per night team. OBJECTIVE: Vital Signs Period Temp Pulse Resp BP Sys/Dawn Pulse Ox Last 24 Hr 97.7 F-98.5 F 66-79 18-20 110-136/60-65 96 GENERAL: AAOx2, sitting in chair, NAD HEAD: NC/AT EYES: EOMI NECK: Supple LUNGS: CTA B/L, Good inspiratory effort HEART: RRR No MRG S1S2 ABDOMEN: NDNT No HSM EXTREMITIES: No CCE NEUROLOGICAL: Strength 5/5 upper and lower extremities. Sensation intact throughout. Follows commands SKIN: No rashes or lesions appreciated Laboratory Results - last 24 hr 08/07/18 08/07/18 06:15 06:15 PT with INR 12.10 INR 1.03 Sodium 142 Potassium 3.4 L Chloride 112 H Carbon Dioxide 22 Anion Gap 8 BUN 16 Creatinine 0.6 Creat Clearance w eGFR > 60 Random Glucose 98 Calcium 8.5 Phosphorus 2.5 Magnesium 2.1 Active Medications Generic Name Dose Route Start Last Admin Trade Name Freq PRN Reason Stop Dose Admin Acetaminophen 650 mg 07/24/18 16:29 08/05/18 10:56 Tylenol - PO 650 mg Q6H PRN Administration PAIN LEVEL 1 - 3 Aripiprazole 5 mg 08/06/18 10:00 08/07/18 10:04 Abilify PO 5 mg DAILY TRISHA Administration Cyanocobalamin 1,000 mcg 07/25/18 10:00 08/07/18 10:03 Vitamin B12 Injection - IM 1,000 mcg DAILY TRISHA Administration Famotidine/Sodium Chloride 20 mg in 50 mls @ 100 mls/hr 07/25/18 08:00 08:45 Pepcid 20 Mg Premixed Ivpb - IVPB 100 mls/hr DAILY@0800 TRISHA Administration Fat Emulsion Intravenous 250 mls @ 20.833 mls/hr 07/24/18 22:00 08/06/18 21: 11 Intralipid - IV 20.833 mls/hr DAILY@2200 TRISHA Administration Folic Acid 5 mg/ Thiamine HCl 1,013 mls @ 84 mls/hr 08/04/18 10:00 08/07/18 10:31 200 mg/ Multivitamins/Minerals IVPB Not Given 10 ml/ Amino Acids Q24H [facility] Amino Acids 1,000 mls @ 84 mls/hr 08/03/18 10:53 08/07/18 02:14 Clinimix - IV 84 mls/hr Q24H TRISHA Administration Levetiracetam 500 mg 07/24/18 22:00 08/07/18 10:03 Keppra Injection - IVPB 500 mg BID TRISHA Administration Nicotine 21 mg 07/25/18 10:00 08/07/18 10:03 Nicoderm Patch - TD 21 mg DAILY TRISHA Administration Promethazine HCl 25 mg 07/24/18 16:29 Phenergan Injection - IM Q6H PRN NAUSEA AND/OR VOMITING ASSESSMENT/PLAN: 68 alcoholic man presenting s/p fall 3 days ago with N,V and headaches, found to have bilateral frontal contusion, subdural and subarachnoid hemorrhage and comminuted fracture of the occipital bone. Now with agitation and possible symptoms of alcohol withdrawal. No seizures witnessed. #SDH/SAH 2/2 Mechanical Fall - Neurocheck Q4H - Keppra 500 mg BID seizure ppx - Neurosurgery on board Dr Marcelino Hayes - Head CT- Occipital bone midline fx to inion; B frontal hemorrhagic contusion with SDH; B anterior temporal contusion with SAH R > L and small SDH -Repeat Head CT 07/21/18---> interval increase edema in the left frontal lobe. Head CT 07/22--> unchanged from CT on 07/21/18. 07/31/18 -Speech/Swallow eval. " Suggest MBS to include esophagus. r/o Dysphagia to determine nutritional plan." MBS --> Trace aspiration. 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 Social work on board #Agitation -Remeron discontinued per Psych Started on Abilify 5 MG PO Daily, Ativan 1 mg PRN if agitated per Psych #Substance Abuse -Phenergan 25 MG IM Q6H PRN -Nicotine Patch #HTN - Labetolol 5mg for SBP >140, PRN #FEN: No Fluids Monitor Electrolytes Clinimix. Pending PEG placement. Spoke with Dr Man. Will evaluate pt later today. GI ppx -Famotidine 20mg daily DVT ppx - SCDs Dispo: Med Surg Visit type - Emergency Visit Emergency Visit: Yes ED Registration Date: 07/18/18 Care time: The patient presented to the Emergency Department on the above date and was hospitalized for further evaluation of their emergent condition. - New Patient This patient is new to me today: No - Critical Care Critical Care patient: No - Discharge Referral [facility] No
--- NOTE | 2018-08-07 12:46 | PN ---
Progress Note, DRESSAGE JUDGE - Note Progress Note: Recent events noted.Psych consult noted. Pending GI re-evaluation/consent for PEG. NPO at this time. Had cup of soda, per RESPIRATORY SCIENTIST this am. Agitated, adamantly refused trial of anything by mouth for me. "I don't want to eat or drink anything!" Swallowing may have improved since MBS, performed on 07/31,however, pt refusing all PO intake. Reviewed case with staff. Day 20. F/u GI/Palliative care re: peg insertion for nutritional intake. Will likely need abdominal binder to protect PEG.
--- NOTE | 2018-08-07 16:12 | PN ---
Progress Note (short form) - Note Progress Note: GI follow up note Patient alert but confabulating. Reportedly drank soda this am, but refusing to eat or drink other things. On PPN Vital Signs - 24 hr 08/06/18 08/06/18 08/07/18 18:00 21:00 06:00 Temperature 98.5 F 97.7 F Pulse Rate 66 77 Respiratory 20 18 Rate Blood Pressure 112/60 136/60 O2 Sat by Pulse 96 Oximetry (%) NAD soft NT ND Labs reviewed Imp: Dysphagia, aspiration risk, secondary to subarachnoid hemorrhage, +/- underlying Wernicke's encephalopathy given longstanding ETOH. Is refusing PO nutrition. Confabulating and lacks capacity for medical decision making. Discussed care with Sister, Dania Chaudhari - [phone]. She would like to give the patient one more day of trying to take by mouth. If he fails to take sufficient PO for nutrition and hydration, would place PEG. Consent obtained. - if does not meet nutritional needs tomorrow 08/08, please keep NPO after midnight for PEG on Tuesday. Hold SQH in am on Tuesday. Please ensure INR< 1.5. 1g cefazolin IV one hour prior to procedure.
[2018-08-07] MEDS: FAT EMULSIONS 250 ML IV SCH (22:55)
[2018-08-08] MEDS: AMINO ACIDS 4.25%/D5W 1,000 ML IV SCH ×3 (04:20→22:01)
[2018-08-08 07:33] LABS: HEMATOCRIT 37.9 % (35.4-49); HEMOGLOBIN 12.9 GM/dL (11.7-16.9); MCH 33.9 pg (25.7-33.7); MCHC 33.9 g/dl (32.0-35.9); MEAN CELL VOLUME 100.1 fl (80-96); MEAN PLT VOLUME 8.2 fl (7.5-11.1); PLATELET COUNT 397 K/MM3 (134-434); RBC 3.79 M/mm3 (4.00-5.60); RDW 12.5 % (11.9-15.9); WHITE BLOOD COUNT 8.6 K/mm3 (4.0-10.0)
[2018-08-08 08:07] LABS: ANION GAP 9 MMOL/L (8-16); BLOOD UREA NITROGEN 14 mg/dL (7-18); CALCIUM 8.6 mg/dL (8.5-10.1); CHLORIDE 111 mmol/L (98-107); CO2 22 mmol/L (21-32); CREATININE 0.7 mg/dL (0.55-1.3); GLUCOSE,RANDOM 88 mg/dL (74-106); MAGNESIUM 1.7 mg/dL (1.8-2.4); PHOSPHOROUS 2.8 mg/dL (2.5-4.9); POTASSIUM 3.4 mmol/L (3.5-5.1); SODIUM 142 mmol/L (136-145)
[2018-08-08] MEDS ORDERED: KCL 10 MEQ IVPB 10 MEQ/100 ML INFUS.BAG IVPB SCH (08:15)
[2018-08-08] MEDS ORDERED: AMINO ACIDS 4.25%/D5W 1,000 ML IV SCH (08:26)
[2018-08-08] MEDS ORDERED: MAGNESIUM SULF 50% (8.12 MEQ/2 ML-1 GM VIAL) IVPB ONE (08:55)
[2018-08-08] MEDS: FAMOTIDINE 20 MG/50 ML IVPB 20 MG/50 ML MG IVPB SCH (09:07)
[2018-08-08] MEDS ORDERED: AMINO ACIDS 4.25%/D5W 1,000 ML with POTASSIUM CHLORIDE 20 MEQ IV ONE (09:30)
[2018-08-08] MEDS: levETIRAcetam 500 MG/5 ML INJECTION VIAL IVPB SCH ×2 (10:05→21:54)
[2018-08-08] MEDS: ARIPiprazole 5 MG TABLET (FP) PO SCH (10:42)
[2018-08-08] MEDS: CYANOCOBALAMIN (VITAMIN B-12) 1000 MCG/1 ML VIAL IM SCH (10:42)
[2018-08-08] MEDS: NICOTINE 21 MG/24 HOURS TOPICAL PATCH TD SCH (10:43)
--- NOTE | 2018-08-08 12:56 | PN ---
Progress Note, SURGICAL SUPPLY ASSISTANT - Note Progress Note: Gi note reviewed and appreciate. Soft/mechanical diet ordered. Pt reportedly tolerated 25% of yogurt this am. Reassessed swallowing- Chewed and spit out cat cracker. Chewed and swallowed moist brownie, reporting no difficulty, denying stasis in pharynx. A minute later, pt began swallowing repeatedly, asking for water because his "throat was dry". Tolerated water through straw. Stasis with solids, noted on MBS last week, or improved with failure to thrive? Either way, PEG likely needed with poor nutrition over last 21 days. Suggest MBS to determine safety of solids. Pending PEG.
--- NOTE | 2018-08-08 12:59 | PN ---
Teaching Attending Note Name of Resident: Sebastien Villalobos ATTENDING PHYSICIAN STATEMENT I saw and evaluated the patient. I reviewed the resident's note and discussed the case with the resident. I agree with the resident's findings and plan as documented. SUBJECTIVE:asymptomatic. denies CP, SOB, fever, chills, N/V/C/D OBJECTIVE: Last Vital Signs Temp Pulse Resp BP Pulse Ox 97.8 F 77 20 92/66 100 08/08/18 07:08 08/08/18 07:08 08/08/18 07:08 08/08/18 07:08 08/08/18 01:14 General NAD A&O x3 CV S1 S2 RRR no murmur/rub/gallop Lungs CTA B/L no wheezing/rales/rhonchi ASSESSMENT AND PLAN: 68 yo M with PMH continuous alcohol abuse presented to the ER with unwitnessed fall, suspected 2 days ago admitted with SDH/SAH/Intraparenchymal Haemorrhage with edema, Occipital bone fracture. 1. SDH/SAH/intraparenchymal haemorrhage with edema, suspect traumatic-alert. follows commands and significant improvement from last week. continues to have some periods of confusion/agitation. seen by psych and started on abilify. cont keppra BID. will cont seizure and fall precautions 2. Occipital bone fracture- due to mechanical fall 3. Fever- possible aspiration. afebrile x48H. leukocytosis resolved. no abx at this time. 4. dysphagia- likely due to deconditioning. was advanced to liquid diet however not consuming enough calories. NPO tonight for PEG in the AM. repeat MBS to see if diet can be advanced as may be partial due to distaste of diet. GI and Swallow therapist on board. 5. Hypokalemia- KCl po 6. Hypomagnesemia- Mg po 7. Continuous ETOH abuse- no signs of withdrawal. CIWA 0. hold detox at this time. detox consulted 8. Hypernatremia- resolved 9. DVT ppx- SCD. hold pharmacologic in setting of ICH 10. will need SNF once medically optimized.
--- NOTE | 2018-08-08 13:45 | PN ---
Physical Exam: SUBJECTIVE: Patient seen and examined at bedside. Agitated overnight. One to One observation remains in place. OBJECTIVE: Vital Signs Period Temp Pulse Resp BP Sys/Dawn Pulse Ox Last 24 Hr 97.8 F-97.9 F 76-82 18-20 92-132/58-66 100-100 GENERAL: Agitated, Awake , Alert HEAD: NC/AT EYES: EOMI ENT: MMM Poor dentition . NECK: Supple LUNGS: CTA B/L HEART: RRR No MRG Appreciated ABDOMEN: Soft, NDNT No HSM EXTREMITIES: 2+ pulses, warm, well-perfused, no edema. NEUROLOGICAL: . No gross neuro def appreciated Strength 5/5 upper/lower extremities. SILT PSYCH: Normal mood, normal affect. SKIN: No rashes or lesions appreciated Laboratory Results - last 24 hr 08/08/18 08/08/18 06:30 06:30 WBC 8.6 RBC 3.79 L Hgb 12.9 Hct 37.9 MCV 100.1 H MCH 33.9 H MCHC 33.9 RDW 12.5 Plt Count 397 MPV 8.2 Sodium 142 Potassium 3.4 L Chloride 111 H Carbon Dioxide 22 Anion Gap 9 BUN 14 Creatinine 0.7 Creat Clearance w eGFR > 60 Random Glucose 88 Calcium 8.6 Phosphorus 2.8 Magnesium 1.7 L Active Medications Generic Name Dose Route Start Last Admin Trade Name Freq PRN Reason Stop Dose Admin Acetaminophen 650 mg 07/24/18 16:29 08/05/18 10:56 Tylenol - PO 650 mg Q6H PRN Administration PAIN LEVEL 1 - 3 Aripiprazole 5 mg 08/06/18 10:00 08/08/18 10:42 Abilify PO 5 mg DAILY TRISHA Administration Cyanocobalamin 1,000 mcg 07/25/18 10:00 08/08/18 10:42 Vitamin B12 Injection - IM 1,000 mcg DAILY [facility] Administration Famotidine/Sodium Chloride 20 mg in 50 mls @ 100 mls/hr 07/25/18 08:00 09:07 Pepcid 20 Mg Premixed Ivpb - IVPB 100 mls/hr DAILY@0800 TRISHA Administration Fat Emulsion Intravenous 250 mls @ 20.833 mls/hr 07/24/18 22:00 08/07/18 22: 55 Intralipid - IV 20.833 mls/hr DAILY@2200 TRISHA Administration Amino Acids 1,000 mls @ 84 mls/hr 08/08/18 08:30 Clinimix - IV Q24H TRISHA Folic Acid 1 mg/ Thiamine HCl 1,012.2 mls @ 84 mls/hr 08/09/18 11:00 200 mg/ Multivitamins/Minerals IVPB 10 ml/ Amino Acids Q24H [facility] Potassium Chloride 20 meq/ 1,022.2 mls @ 84 mls/hr 08/08/18 10:07 Folic Acid 1 mg/ Thiamine HCl IV 08/08/18 21:40 200 mg/ Multivitamins/Minerals ONCE ONE 10 ml/ Amino Acids Levetiracetam 500 mg 07/24/18 22:00 08/08/18 10:05 Keppra Injection - IVPB 500 mg BID TRISHA Administration Nicotine 21 mg 07/25/18 10:00 08/08/18 10:43 Nicoderm Patch - TD 21 mg DAILY [facility]IS[facility] Administration Promethazine HCl 25 mg 07/24/18 16:29 Phenergan Injection - IM Q6H PRN NAUSEA AND/OR VOMITING ASSESSMENT/PLAN: 68 alcoholic man presenting s/p fall 3 days ago with N,V and headaches, found to have bilateral frontal contusion, subdural and subarachnoid hemorrhage and comminuted fracture of the occipital bone. Now with agitation and possible symptoms of alcohol withdrawal. No seizures witnessed. #SDH/SAH 2/2 Mechanical Fall - Neurocheck Q4H - Keppra 500 mg BID seizure ppx - Neurosurgery on board Dr Marcelino Hayes - Head CT- Occipital bone midline fx to inion; B frontal hemorrhagic contusion with SDH; B anterior temporal contusion with SAH R > L and small SDH -Repeat Head CT 07/21/18---> interval increase edema in the left frontal lobe. Head CT 07/22--> unchanged from CT on 07/21/18. 07/31/18 -Speech/Swallow eval. " Suggest MBS to include esophagus. r/o Dysphagia to determine nutritional plan." MBS --> Trace aspiration. 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 NPO after midnight. #Agitation -Condition 10 called overhead as pt very agitated, abusive. Haldol 2.5 MG IM given to pt. Dr Arias Notified. Abilify Discontinued. Zyprexa 5 MG BID per Psych. Haldol PRN Q8H #Substance Abuse -Phenergan 25 MG IM Q6H PRN -Nicotine Patch #Hypokalemia/Hypomagnesemia -Repleat PRN #HTN - Labetolol 5mg for SBP >140, PRN #FEN: No Fluids Monitor Electrolytes Was placed on soft diet earlier today. NPO after midnight GI ppx -Famotidine 20mg daily DVT ppx - SCDs Dispo: Med Surg Visit type - Emergency Visit Emergency Visit: Yes ED Registration Date: 07/18/18 Care time: The patient presented to the Emergency Department on the above date and was hospitalized for further evaluation of their emergent condition. - New Patient This patient is new to me today: No - Critical Care Critical Care patient: No - Discharge Referral Referred to [facility] Med [facility].C.: No
[2018-08-08] MEDS ORDERED: HALOPERIDOL 1 MG TABLET (FP) PO ONE (14:54)
[2018-08-08] MEDS ORDERED: HALOPERIDOL LACTATE 5 MG/ML IM ONE (15:12)
[2018-08-08] MEDS: AMINO ACIDS IV ONE ×2 (15:18→16:19)
[2018-08-08] MEDS: POTASSIUM CHLORIDE IV ONE ×2 (15:18→16:19)
[2018-08-08] MEDS: [UNRECOGNIZED DRUG - OTHER] IV ONE ×2 (15:18→16:19)
[2018-08-08] MEDS: MULTIVIT IVPB SCH (15:19)
[2018-08-08] MEDS: THIAMINE HCL IVPB SCH (15:19)
[2018-08-08] MEDS: [UNRECOGNIZED DRUG - OTHER] IVPB SCH (15:19)
[2018-08-08] MEDS: FOLIC ACID IVPB SCH (15:19)
--- NOTE | 2018-08-08 17:13 | PN ---
GI Progress Note Subjective: MBS performed today: advised trial of pureed dysphagia diet. Heather Regan also explained that PEG indicated as he is still poorly cooperating with meals. He did not take his pureed meals today. I spoke with the patient. I discussed things with him and explained that feeding tube could be placed to allow for nutrition as he is having difficulty swallowing and not cooperating with the trial of food they are providing him. he stated that he "does not want a feeding tube in his body". I then called his sister Dania and explained the situation to her again. She had discussed things with Dr. De Los Santos as well yesterday and wanted to give her brother another day. We discussed PEG again. I did explain that given her brother's level of alertness and uncooperativeness, he would likely be at a higher risk pull out a feeding tube that was placed despite having an abdominal binder in place and potential life threatening sequela of perotinitis. She stated that she would like to respect his wishes at this time. Consider ethics evaluation Trial of dysphagia Pureed diet if patient cooperates PEG on hold at this time until the above clarified - Objective Vital Signs: Vital Signs Temperature 97.8 F 08/08/18 07:08 Pulse Rate 77 08/08/18 07:08 Respiratory Rate 20 08/08/18 07:08 Blood Pressure 92/66 08/08/18 07:08 O2 Sat by Pulse Oximetry (%) 100 08/08/18 01:14 Labs: CBC, BMP 08/08/18 06:30 08/08/18 06:30 INR, PTT INR 1.03 (0.83-1.09) 08/07/18 06:15
[2018-08-08] MEDS: POTASSIUM CHLORIDE TABS 20 MEQ TABLET.ER (FP) PO ONE ×2 (17:52→19:17)
[2018-08-08] MEDS ORDERED: LORazepam 2 MG/ML SDV VIAL IM PRN (18:31)
--- NOTE | 2018-08-08 18:31 | PN ---
Progress Note (short form) - Note Progress Note: Increased agitation and physically aggressive behaviour. Refusing po meds. Still appears cognitively impaired. Plan Ativan 2mg im Q8 hrs prn for acute agitation.
[2018-08-08] MEDS: OLANZapine 5 MG TABLET PO SCH (22:00)
[2018-08-08] MEDS ORDERED: PT OWN MED DRAWER 7, Y5N ONE (22:02)
[2018-08-08] MEDS: FAT EMULSIONS 250 ML IV SCH (22:05)
[2018-08-08] MEDS: HALOPERIDOL LACTATE 5 MG/ML IM PRN (22:10)
[2018-08-09] MEDS: HALOPERIDOL LACTATE 5 MG/ML IM PRN (05:18)
[2018-08-09 07:27] LABS: HEMATOCRIT 35.5 % (35.4-49); HEMOGLOBIN 12.6 GM/dL (11.7-16.9); MCH 35.2 pg (25.7-33.7); MCHC 35.4 g/dl (32.0-35.9); MEAN CELL VOLUME 99.6 fl (80-96); MEAN PLT VOLUME 8.3 fl (7.5-11.1); PLATELET COUNT 356 K/MM3 (134-434); RBC 3.57 M/mm3 (4.00-5.60); RDW 12.6 % (11.9-15.9); WHITE BLOOD COUNT 7.8 K/mm3 (4.0-10.0)
[2018-08-09 08:21] LABS: ANION GAP 11 MMOL/L (8-16); BLOOD UREA NITROGEN 13 mg/dL (7-18); CALCIUM 8.6 mg/dL (8.5-10.1); CHLORIDE 112 mmol/L (98-107); CO2 21 mmol/L (21-32); CREATININE 0.7 mg/dL (0.55-1.3); GLUCOSE,RANDOM 79 mg/dL (74-106); PHOSPHOROUS 3.3 mg/dL (2.5-4.9); POTASSIUM 3.3 mmol/L (3.5-5.1); SODIUM 144 mmol/L (136-145)
[2018-08-09] MEDS: FAMOTIDINE 20 MG/50 ML IVPB 20 MG/50 ML MG IVPB SCH (08:24)
[2018-08-09] MEDS: AMINO ACIDS 4.25%/D5W 1,000 ML IV SCH (09:31)
[2018-08-09] MEDS: CYANOCOBALAMIN (VITAMIN B-12) 1000 MCG/1 ML VIAL IM SCH (10:51)
[2018-08-09] MEDS: levETIRAcetam 500 MG/5 ML INJECTION VIAL IVPB SCH ×2 (10:51→22:24)
[2018-08-09] MEDS: OLANZapine 5 MG TABLET PO SCH ×2 (10:52→22:17)
[2018-08-09] MEDS: NICOTINE 21 MG/24 HOURS TOPICAL PATCH TD SCH (10:58)
--- NOTE | 2018-08-09 11:53 | PN ---
Physical Exam: SUBJECTIVE: Patient seen and examined at bedside. Haldol 1 MG IM administered overnight due to agitation. OBJECTIVE: Vital Signs Period Temp Pulse Resp BP Sys/Dawn Pulse Ox Last 24 Hr 98.1 F-99.1 F 92 20-20 110/48 100 GENERAL: Awake, responding to questions appropriately HEAD: NC/AT EYES: EOMI ENT: MMM Poor dentition . NECK: Supple LUNGS: CTA B/L HEART: RRR No MRG Appreciated ABDOMEN: Soft, NDNT No HSM EXTREMITIES: 2+ pulses, warm, well-perfused, no edema. NEUROLOGICAL: Speech coherent, Strength 5/5 throughout. SILT PSYCH: Agitated overnight. SKIN: No rashes or lesions appreciated Laboratory Results - last 24 hr 08/09/18 08/09/18 06:30 06:30 WBC 7.8 RBC 3.57 L Hgb 12.6 Hct 35.5 MCV 99.6 H MCH 35.2 H MCHC 35.4 RDW 12.6 Plt Count 356 MPV 8.3 Sodium 144 Potassium 3.3 L Chloride 112 H Carbon Dioxide 21 Anion Gap 11 BUN 13 Creatinine 0.7 Creat Clearance w eGFR > 60 Random Glucose 79 Calcium 8.6 Phosphorus 3.3 Magnesium 2.0 Active Medications Generic Name Dose Route Start Last Admin Trade Name Freq PRN Reason Stop Dose Admin Acetaminophen 650 mg 07/24/18 16:29 08/05/18 10:56 Tylenol - PO 650 mg Q6H PRN Administration PAIN LEVEL 1 - 3 Cyanocobalamin 1,000 mcg 07/25/18 10:00 08/09/18 10:51 Vitamin B12 Injection - IM 1,000 mcg DAILY TRISHA Administration Haloperidol 1 mg 08/08/18 16:18 08/09/18 05:18 Haldol Injection (Fast Acting) - IM 1 mg Q8H PRN Administration AGITATION Famotidine/Sodium Chloride 20 mg in 50 mls @ 100 mls/hr 07/25/18 08:00 08:24 Pepcid 20 Mg Premixed Ivpb - IVPB 100 mls/hr DAILY@0800 TRISHA Administration Fat Emulsion Intravenous 250 mls @ 20.833 mls/hr 07/24/18 22:00 08/08/18 22: 05 Intralipid - IV 20.833 mls/hr DAILY@2200 TRISHA Administration Amino Acids 1,000 mls @ 84 mls/hr 08/08/18 08:30 08/09/18 09:31 Clinimix - IV Not Given Q24H TRISHA Folic Acid 1 mg/ Thiamine HCl 1,012.2 mls @ 84 mls/hr 08/09/18 11:00 200 mg/ Multivitamins/Minerals IVPB 10 ml/ Amino Acids Q24H TRISHA Levetiracetam 500 mg 07/24/18 22:00 08/09/18 10:51 Keppra Injection - IVPB 500 mg BID TRISHA Administration Lorazepam 2 mg 08/08/18 18:31 Ativan Injection - IM Q8H PRN ANXIETY Nicotine 21 mg 07/25/18 10:00 08/09/18 10:58 Nicoderm Patch - TD 21 mg DAILY TRISHA Administration Olanzapine 5 mg 08/08/18 22:00 08/09/18 10:52 Zyprexa - PO 5 mg BID TRISHA Administration Promethazine HCl 25 mg 07/24/18 16:29 Phenergan Injection - IM Q6H PRN NAUSEA AND/OR VOMITING ASSESSMENT/PLAN: 68 alcoholic man presenting s/p fall 3 days ago with N,V and headaches, found to have bilateral frontal contusion, subdural and subarachnoid hemorrhage and comminuted fracture of the occipital bone. Now with agitation and possible symptoms of alcohol withdrawal. No seizures witnessed. #SDH/SAH 2/2 Mechanical Fall - Neurocheck Q4H - Keppra 500 mg BID seizure ppx - Neurosurgery on board Dr Marcelino Hayes - Head CT- Occipital bone midline fx to inion; B frontal hemorrhagic contusion with SDH; B anterior temporal contusion with SAH R > L and small SDH -Repeat Head CT 07/21/18---> interval increase edema in the left frontal lobe. Head CT 07/22--> unchanged from CT on 07/21/18. 07/31/18 -Speech/Swallow eval. " Suggest MBS to include esophagus. r/o Dysphagia to determine nutritional plan." MBS --> Trace aspiration. Will need to establish contact with TBI facility as pt will require care home rehabilitation #Agitation Zyprexa 5 MG BID per Psych. Ativan Q8H PRN Agitation #Substance Abuse -Phenergan 25 MG IM Q6H PRN -Nicotine Patch #Hypokalemia/Hypomagnesemia -Repleat PRN #HTN - Labetolol 5mg for SBP >140, PRN #FEN: No Fluids Monitor Electrolytes MBS completed yesterday-Puree/thin liquid recommended. GI ppx -Famotidine 20mg daily DVT ppx - SCDs Dispo: To be Transferred to TBI facility. Visit type - Emergency Visit Emergency Visit: Yes ED Registration Date: 07/18/18 Care time: The patient presented to the Emergency Department on the above date and was hospitalized for further evaluation of their emergent condition. - New Patient This patient is new to me today: No - Critical Care Critical Care patient: No - Discharge Referral Referred to [facility] No
[2018-08-09] MEDS: [UNRECOGNIZED DRUG - OTHER] IVPB SCH ×2 (12:06→13:47)
[2018-08-09] MEDS: MULTIVIT IVPB SCH ×2 (12:06→13:47)
[2018-08-09] MEDS: FOLIC ACID IVPB SCH ×2 (12:06→13:47)
[2018-08-09] MEDS: THIAMINE HCL IVPB SCH ×2 (12:06→13:47)
--- NOTE | 2018-08-09 14:41 | PN ---
Progress Note, OPERATIONS SPECIALIST - Note Progress Note: Selected Entries 08/08/18 08/08/18 08/09/18 10:00 22:45 08:34 Breakfast 0 Diet Tolerated Poor Supper 25% 25% Laboratory Tests 08/09/18 08/09/18 06:30 06:30 WBC 7.8 BUN 13 Creatinine 0.7 Random Glucose 79 MBS performed. Medical notes reviewed. Diet order [facility] soft. Pt recieved marg[facility] slaw. Too k a couple of bites, chewed and spit out. MBS completed yesterday-Puree/thin liquid recommended. Counseled pt on need for nutrition to get stronger and be discharged-choice of eating drinking or TF. Response was tangential with impaired reasoning. Pt said he will drink Vanilla Boost. Call place to Dietary to request.
--- NOTE | 2018-08-09 18:08 | PN ---
Teaching Attending Note Name of Resident: Sebastien Villalobos ATTENDING PHYSICIAN STATEMENT I saw and evaluated the patient. I reviewed the resident's note and discussed the case with the resident. I agree with the resident's findings and plan as documented. SUBJECTIVE: Patient is confused and at times agitated. He is asking for vodka. He knows he is in the hospital and says that he lives in another location in this building. OBJECTIVE: Vital Signs Period Temp Pulse Resp BP Sys/Dawn Pulse Ox Last 24 Hr 97.5 F-99.1 F 77-85 18-20 91-135/72-77 100 HEART: S1S2, RRR LUNGS: Clear ABDOMEN: Soft, non-tender, non-distended, normal BS EXTREMITIES: No edema Laboratory Results - last 24 hr 08/09/18 08/09/18 06:30 06:30 WBC 7.8 RBC 3.57 L Hgb 12.6 Hct 35.5 MCV 99.6 H MCH 35.2 H MCHC 35.4 RDW 12.6 Plt Count 356 MPV 8.3 Sodium 144 Potassium 3.3 L Chloride 112 H Carbon Dioxide 21 Anion Gap 11 BUN 13 Creatinine 0.7 Creat Clearance w eGFR > 60 Random Glucose 79 Calcium 8.6 Phosphorus 3.3 Magnesium 2.0 Current Medications Generic Name Dose Route Start Last Admin Trade Name Freq PRN Reason Stop Dose Admin Acetaminophen 650 mg 07/24/18 16:29 08/05/18 10:56 Tylenol - PO 650 mg Q6H PRN Administration PAIN LEVEL 1 - 3 Cyanocobalamin 1,000 mcg 07/25/18 10:00 08/09/18 10:51 Vitamin B12 Injection - IM 1,000 mcg DAILY TRISHA Administration Haloperidol 1 mg 08/08/18 16:18 08/09/18 05:18 Haldol Injection (Fast Acting) - IM 1 mg Q8H PRN Administration AGITATION Famotidine/Sodium Chloride 20 mg in 50 mls @ 100 mls/hr 07/25/18 08:00 08:24 Pepcid 20 Mg Premixed Ivpb - IVPB 100 mls/hr DAILY@0800 TRISHA Administration Fat Emulsion Intravenous 250 mls @ 20.833 mls/hr 07/24/18 22:00 08/08/18 22: 05 Intralipid - IV 20.833 mls/hr DAILY@2200 TRISHA Administration Amino Acids 1,000 mls @ 84 mls/hr 08/08/18 08:30 08/09/18 09:31 Clinimix - IV Not Given Q24H [facility] Folic Acid 1 mg/ Thiamine HCl 1,012.2 mls @ 84 mls/hr 08/09/18 11:00 13:47 200 mg/ Multivitamins/Minerals IVPB 84 mls/hr 10 ml/ Amino Acids Q24H TRISHA Administration Levetiracetam 500 mg 07/24/18 22:00 08/09/18 10:51 Keppra Injection - IVPB 500 mg BID TRISHA Administration Lorazepam 2 mg 08/08/18 18:31 Ativan Injection - IM Q8H PRN ANXIETY Nicotine 21 mg 07/25/18 10:00 08/09/18 10:58 Nicoderm Patch - TD 21 mg DAILY TRISHA Administration Olanzapine 5 mg 08/08/18 22:00 08/09/18 10:52 Zyprexa - PO 5 mg BID TRISHA Administration Promethazine HCl 25 mg 07/24/18 16:29 Phenergan Injection - IM Q6H PRN NAUSEA AND/OR VOMITING ASSESSMENT AND PLAN: This is a 68 year old man with a history of alcohol abuse who presented to the ED with nausea, vomiting, headache after being found in the stairwell by a neighbor. 1. Bilateral subdural, bilateral subarachnoid, left frontal and left temporal intraparenchymal hemorrhages - No neurosurgical intervention indicated - Continue Keppra for seizure prophylaxis - Continue Zyprexa for agitation and aggression 2. Occipital bone fracture - Likely secondary to trauma from fall 3. Fever - Resolved 4. Dysphagia - Tolerating full liquids - advance to pureed - Family refused PEG 5. Hypokalemia - Continue to replete potassium as needed 6. Hypomagnesemia - Continue to supplement magnesium as needed 7. Continuous alcohol dependence - Continue multivitamin, thiamine, folic acid 8. Hypernatremia 9. Disposition - Plan for subacute rehab
[2018-08-09] MEDS ORDERED: POTASSIUM CHLORIDE TABS 20 MEQ TABLET.ER (FP) PO ONE (20:54)
[2018-08-09] MEDS ORDERED: PT OWN MED DRAWER 7, Y5N ONE (21:36)
[2018-08-09] MEDS: FAT EMULSIONS 250 ML IV SCH (22:17)
[2018-08-10 07:37] LABS: HEMATOCRIT 37.6 % (35.4-49); HEMOGLOBIN 13.5 GM/dL (11.7-16.9); MCH 35.8 pg (25.7-33.7); MCHC 35.8 g/dl (32.0-35.9); MEAN CELL VOLUME 100.1 fl (80-96); MEAN PLT VOLUME 8.2 fl (7.5-11.1); PLATELET COUNT 349 K/MM3 (134-434); RBC 3.76 M/mm3 (4.00-5.60); RDW 12.6 % (11.9-15.9); WHITE BLOOD COUNT 7.3 K/mm3 (4.0-10.0)
[2018-08-10 08:25] LABS: ANION GAP 9 MMOL/L (8-16); BLOOD UREA NITROGEN 12 mg/dL (7-18); CALCIUM 8.5 mg/dL (8.5-10.1); CHLORIDE 114 mmol/L (98-107); CO2 23 mmol/L (21-32); CREATININE 0.7 mg/dL (0.55-1.3); GLUCOSE,RANDOM 90 mg/dL (74-106); MAGNESIUM 1.9 mg/dL (1.8-2.4); PHOSPHOROUS 2.4 mg/dL (2.5-4.9); POTASSIUM 3.5 mmol/L (3.5-5.1); SODIUM 146 mmol/L (136-145)
[2018-08-10] MEDS ORDERED: PT OWN MED DRAWER 7, Y5N ONE ×3 (08:34→20:45)
[2018-08-10] MEDS: FAMOTIDINE 20 MG/50 ML IVPB 20 MG/50 ML MG IVPB SCH (08:45)
[2018-08-10] MEDS: OLANZapine 5 MG TABLET PO SCH ×2 (10:03→21:01)
[2018-08-10] MEDS: levETIRAcetam 500 MG/5 ML INJECTION VIAL IVPB SCH ×2 (10:04→21:01)
[2018-08-10] MEDS: FOLIC ACID IVPB SCH (10:06)
[2018-08-10] MEDS: MULTIVIT IVPB SCH (10:06)
[2018-08-10] MEDS: AMINO ACIDS 4.25%/D5W 1,000 ML IV SCH ×2 (10:06→23:46)
[2018-08-10] MEDS: CYANOCOBALAMIN (VITAMIN B-12) 1000 MCG/1 ML VIAL IM SCH (10:06)
[2018-08-10] MEDS: [UNRECOGNIZED DRUG - OTHER] IVPB SCH (10:06)
[2018-08-10] MEDS: THIAMINE HCL IVPB SCH (10:06)
[2018-08-10] MEDS: NICOTINE 21 MG/24 HOURS TOPICAL PATCH TD SCH (10:08)
--- NOTE | 2018-08-10 11:28 | PN ---
Progress Note, ORNAMENT SETTER - Note Progress Note: MBS completed.Dysphagia improving, still evident. Limited cooperation during study. Puree/thin liquid ordered. Pt said he would drink Vanilla Boost, which we dont have but we do have Ensure vanilla. Pt completed 1 Ensure vanilla lunch time yesterday and 1 Ensure Clear this am. He would prefer Vanilla. This is the most nutrition he has accepted orally since admission. Counseled pt on drinking at least 4 daily for sufficient nutritional intake and to try to eat puree as well. Pt was in agreement with trying. Reviewed with Resident, dietary, SW, GUIDE TRAVEL plan for nutritional intake. PEG deferred due to risk of pulling it out at this time. Please document % of puree and how many supplements he accepts. Hopefully with improved nutritional intake pt will be closer to d/c. Consider [facility] for Rehab placement, which have accepted similar pts in the past.
--- NOTE | 2018-08-10 12:20 | PN ---
Physical Exam: SUBJECTIVE: Patient seen and examined at bedside. Appropriate responses to questions. No acute events overnight. OBJECTIVE: Vital Signs Period Temp Pulse Resp BP Sys/Dawn Pulse Ox Last 24 Hr 97.5 F-98.1 F 72-85 18-24 91-135/54-77 100 GENERAL: NAD Alert Oriented HEAD: NC/AT EYES: EOMI ENT: MMM Poor dentition . NECK: Supple LUNGS: CTA B/L HEART: RRR No MRG Appreciated ABDOMEN: Soft, NDNT No HSM EXTREMITIES: No CCE NEUROLOGICAL: Speech coherent, Strength 5/5 throughout. SILT, unchanged fro previous exam. PSYCH: Agitated overnight. SKIN: No rashes or lesions appreciated Laboratory Results - last 24 hr 08/10/18 08/10/18 08/10/18 06:00 06:00 11:54 WBC 7.3 RBC 3.76 L Hgb 13.5 Hct 37.6 MCV 100.1 H MCH 35.8 H MCHC 35.8 RDW 12.6 Plt Count 349 MPV 8.2 Sodium 146 H Potassium 3.5 Chloride 114 H Carbon Dioxide 23 Anion Gap 9 BUN 12 Creatinine 0.7 Creat Clearance w eGFR > 60 POC Glucometer 110 Random Glucose 90 Calcium 8.5 Phosphorus 2.4 L Magnesium 1.9 Active Medications Generic Name Dose Route Start Last Admin Trade Name Xaviq PRN Reason Stop Dose Admin Acetaminophen 650 mg 07/24/18 16:29 08/05/18 10:56 Tylenol - PO 650 mg Q6H PRN Administration PAIN LEVEL 1 - 3 Cyanocobalamin 1,000 mcg 07/25/18 10:00 08/10/18 10:06 Vitamin B12 Injection - IM 1,000 mcg DAILY TRISHA Administration Famotidine/Sodium Chloride 20 mg in 50 mls @ 100 mls/hr 07/25/18 08:00 08:45 Pepcid 20 Mg Premixed Ivpb - IVPB 100 mls/hr DAILY@0800 TRISHA Administration Fat Emulsion Intravenous 250 mls @ 20.833 mls/hr 07/24/18 22:00 08/09/18 22: 17 Intralipid - IV 20.833 mls/hr DAILY@2200 TRISHA Administration Amino Acids 1,000 mls @ 84 mls/hr 08/08/18 08:30 08/10/18 10:06 Clinimix - IV Not Given Q24H TRISHA Folic Acid 1 mg/ Thiamine HCl 1,012.2 mls @ 84 mls/hr 08/09/18 11:00 10:06 200 mg/ Multivitamins/Minerals IVPB 84 mls/hr 10 ml/ Amino Acids Q24H TRISHA Administration Levetiracetam 500 mg 07/24/18 22:00 08/10/18 10:04 Keppra Injection - IVPB 500 mg BID TRISHA Administration Lorazepam 2 mg 08/08/18 18:31 Ativan Injection - IM Q8H PRN ANXIETY Nicotine 21 mg 07/25/18 10:00 08/10/18 10:08 Nicoderm Patch - TD 21 mg DAILY TRISHA Administration Olanzapine 5 mg 08/08/18 22:00 08/10/18 10:03 Zyprexa - PO 5 mg BID TRISHA Administration Promethazine HCl 25 mg 07/24/18 16:29 Phenergan Injection - IM Q6H PRN NAUSEA AND/OR VOMITING ASSESSMENT/PLAN: 68 alcoholic man presenting s/p fall 3 days ago with N,V and headaches, found to have bilateral frontal contusion, subdural and subarachnoid hemorrhage and comminuted fracture of the occipital bone. Now with agitation and possible symptoms of alcohol withdrawal. No seizures witnessed. # Malnutrition 2/2 Traumatic Brain Injury Dietary recommendations---> Diet is now Dysphagia puree, thin liquids per WELD TECHNICIAN recommendations. Discussed intake & tolerance with WELD TECHNICIAN today; Pt presents with poor intake of food, does not want TF, requesting vanilla Boost b/c prefers to drink rather than eat; Agreed to trial Ensure Enlive five times (1 at each meal; 2 in between meals) to meet Calorie needs as pt is not eating. P: Will follow up with intake, acceptance and tolerance of supplements. Subcutaneous fat loss orbital region: Moderate (hollow look,loose skin,dark circles) Muscle Loss Temporal Region: Moderate (slight depression) Severe Malnutrition Evidenced by caloric intake < or = 50% of nutritional needs for > or Equal to 5 days. Moderate depletion of subcutaneous fat. Moderate depletion of muscle mass. #SDH/SAH 2/2 Mechanical Fall - Neurocheck Q4H - Keppra 500 mg BID seizure ppx - Neurosurgery on board Dr Marcelino Hayes - Head CT- Occipital bone midline fx to inion; B frontal hemorrhagic contusion with SDH; B anterior temporal contusion with SAH R > L and small SDH -Repeat Head CT 07/21/18---> interval increase edema in the left frontal lobe. Head CT 07/22--> unchanged from CT on 07/21/18. 07/31/18 -Speech/Swallow eval. " Suggest MBS to include esophagus. r/o Dysphagia to determine nutritional plan." MBS --> Trace aspiration. Will need to establish contact with TBI facility as pt will require [facility] rehabilitation #Agitation Zyprexa 5 MG BID per Psych. Ativan Q8H PRN Agitation #Substance Abuse -Phenergan 25 MG IM Q6H PRN -Nicotine Patch #Hypokalemia/Hypomagnesemia -Repleat PRN #HTN - Labetolol 5mg for SBP >140, PRN #FEN: No Fluids Monitor Electrolytes MBS ---> Puree/thin liquid recommended. GI ppx -Famotidine 20mg daily DVT ppx - SCDs Dispo: Pending Rehab facility placement. Visit type - Emergency Visit Emergency Visit: Yes ED Registration Date: 07/18/18 Care time: The patient presented to the Emergency Department on the above date and was hospitalized for further evaluation of their emergent condition. - New Patient This patient is new to me today: No - Critical Care Critical Care patient: No - Discharge Referral Referred to [facility] No
--- NOTE | 2018-08-10 13:07 | DS ---
Physical Exam: SUBJECTIVE: Patient seen and examined OBJECTIVE: Vital Signs Period Temp Pulse Resp BP Sys/Dawn Pulse Ox Last 24 Hr 97.5 F-98.1 F 72-85 18-24 91-135/54-77 100 PHYSICAL EXAM GENERAL: The patient is awake, alert, and fully oriented, in no acute distress. HEAD: Normal with no signs of trauma. EYES: PERRL, extraocular movements intact, sclera anicteric, conjunctiva clear. ENT: Ears normal, nares patent, oropharynx clear without exudates, moist mucous membranes. NECK: Trachea midline, full range of motion, supple. LUNGS: Breath sounds equal, clear to auscultation bilaterally, no wheezes, no crackles, no accessory muscle use. HEART: Regular rate and rhythm, S1, S2 without murmur, rub or gallop. ABDOMEN: Soft, nontender, nondistended, normoactive bowel sounds, no guarding, no rebound, no hepatosplenomegaly, no masses. EXTREMITIES: 2+ pulses, warm, well-perfused, no edema. NEUROLOGICAL: Cranial nerves II through XII grossly intact. Normal speech, gait not observed. PSYCH: Normal mood, normal affect. SKIN: Warm, dry, normal turgor, no rashes or lesions noted. LABS Laboratory Results - last 24 hr 08/10/18 08/10/18 08/10/18 06:00 06:00 11:54 WBC 7.3 RBC 3.76 L Hgb 13.5 Hct 37.6 MCV 100.1 H MCH 35.8 H MCHC 35.8 RDW 12.6 Plt Count 349 MPV 8.2 Sodium 146 H Potassium 3.5 Chloride 114 H Carbon Dioxide 23 Anion Gap 9 BUN 12 Creatinine 0.7 Creat Clearance w eGFR > 60 POC Glucometer 110 Random Glucose 90 Calcium 8.5 Phosphorus 2.4 L Magnesium 1.9 HOSPITAL COURSE: Date of Admission:07/18/18 Date of Discharge: 08/10/18 Discharge Summary Reason For Visit: SUBDURAL HEMATOMA FX OF OCCIPITAL Current Active Problems Alcohol abuse (Acute) Dysphagia as late effect of cerebrovascular accident (CVA) (Acute) Fever (Acute) Occipital bone fracture (Acute) Subarachnoid hemorrhage (Acute) Subdural hematoma (Acute) Condition: Fair - Instructions - Home Medications Comprehensive Discharge Medication List: Ambulatory Orders NK [No Known Home Medication] 07/18/18 - Discharge Referral Referred to [facility] No
--- NOTE | 2018-08-10 16:06 | PN ---
Teaching Attending Note Name of Resident: Sebastien Villalobos ATTENDING PHYSICIAN STATEMENT I saw and evaluated the patient. I reviewed the resident's note and discussed the case with the resident. I agree with the resident's findings and plan as documented. SUBJECTIVE: Patient has no complaints. He says his appetite has improved. He did not require Haldol or Ativan last night. OBJECTIVE: Vital Signs Period Temp Pulse Resp BP Sys/Dawn Pulse Ox Last 24 Hr 97.5 F-98.1 F 72-85 18-24 100-135/54-77 100 HEART: S1S2, RRR LUNGS: Clear ABDOMEN: Soft, non-tender, non-distended, normal BS EXTREMITIES: No edema Laboratory Results - last 24 hr 08/10/18 08/10/18 08/10/18 06:00 06:00 11:54 WBC 7.3 RBC 3.76 L Hgb 13.5 Hct 37.6 MCV 100.1 H MCH 35.8 H MCHC 35.8 RDW 12.6 Plt Count 349 MPV 8.2 Sodium 146 H Potassium 3.5 Chloride 114 H Carbon Dioxide 23 Anion Gap 9 BUN 12 Creatinine 0.7 Creat Clearance w eGFR > 60 POC Glucometer 110 Random Glucose 90 Calcium 8.5 Phosphorus 2.4 L Magnesium 1.9 Current Medications Generic Name Dose Route Start Last Admin Trade Name Xaviq PRN Reason Stop Dose Admin Acetaminophen 650 mg 07/24/18 16:29 08/05/18 10:56 Tylenol - PO 650 mg Q6H PRN Administration PAIN LEVEL 1 - 3 Cyanocobalamin 1,000 mcg 07/25/18 10:00 08/10/18 10:06 Vitamin B12 Injection - IM 1,000 mcg DAILY TRISHA Administration Famotidine/Sodium Chloride 20 mg in 50 mls @ 100 mls/hr 07/25/18 08:00 08:45 Pepcid 20 Mg Premixed Ivpb - IVPB 100 mls/hr DAILY@0800 TRISHA Administration Fat Emulsion Intravenous 250 mls @ 20.833 mls/hr 07/24/18 22:00 08/09/18 22: 17 Intralipid - IV 20.833 mls/hr DAILY@2200 TRISHA Administration Amino Acids 1,000 mls @ 84 mls/hr 08/08/18 08:30 08/10/18 10:06 Clinimix - IV Not Given Q24H TRISHA Folic Acid 1 mg/ Thiamine HCl 1,012.2 mls @ 84 mls/hr 08/09/18 11:00 10:06 200 mg/ Multivitamins/Minerals IVPB 84 mls/hr 10 ml/ Amino Acids Q24H TRISHA Administration Levetiracetam 500 mg 07/24/18 22:00 08/10/18 10:04 Keppra Injection - IVPB 500 mg BID TRISHA Administration Nicotine 21 mg 07/25/18 10:00 08/10/18 10:08 Nicoderm Patch - TD 21 mg DAILY TRISHA Administration Olanzapine 5 mg 08/08/18 22:00 08/10/18 10:03 Zyprexa - PO 5 mg BID TRISHA Administration Promethazine HCl 25 mg 07/24/18 16:29 Phenergan Injection - IM Q6H PRN NAUSEA AND/OR VOMITING ASSESSMENT AND PLAN: This is a 68 year old man with a history of alcohol abuse who presented to the ED with nausea, vomiting, headache after being found in the stairwell by a neighbor. 1. Bilateral subdural, bilateral subarachnoid, left frontal and left temporal intraparenchymal hemorrhages - No neurosurgical intervention indicated - Continue Keppra for seizure prophylaxis - Continue Zyprexa for agitation and aggression 2. Occipital bone fracture - Likely secondary to trauma from fall 3. Fever - Resolved 4. Dysphagia - Tolerating full liquids - advance to pureed 5. Hypokalemia - Continue to replete potassium as needed 6. Hypomagnesemia - Continue to supplement magnesium as needed 7. Continuous alcohol dependence - Continue multivitamin, thiamine, folic acid 8. Hypernatremia 9. Severe protein calorie malnutrition - PO intake improving - Ensure - Family refused PEG - Change diet to pureed 10. Disposition - Plan for subacute rehab
[2018-08-10] MEDS ORDERED: HALOPERIDOL LACTATE 5 MG/ML IM ONE (20:56)
[2018-08-10] MEDS: FAT EMULSIONS 250 ML IV SCH (21:58)
[2018-08-11] MEDS ORDERED: LORazepam 2 MG/ML SDV VIAL IM ONE ×2 (00:58→01:15)
[2018-08-11 07:29] LABS: HEMATOCRIT 38.2 % (35.4-49); HEMOGLOBIN 13.8 GM/dL (11.7-16.9); MCH 35.6 pg (25.7-33.7); MCHC 36.1 g/dl (32.0-35.9); MEAN CELL VOLUME 98.8 fl (80-96); MEAN PLT VOLUME 8.2 fl (7.5-11.1); PLATELET COUNT 348 K/MM3 (134-434); RBC 3.86 M/mm3 (4.00-5.60); RDW 12.7 % (11.9-15.9); WHITE BLOOD COUNT 8.4 K/mm3 (4.0-10.0)
[2018-08-11 08:04] LABS: ANION GAP 9 MMOL/L (8-16); BLOOD UREA NITROGEN 14 mg/dL (7-18); CALCIUM 9.1 mg/dL (8.5-10.1); CHLORIDE 113 mmol/L (98-107); CO2 23 mmol/L (21-32); CREATININE 0.7 mg/dL (0.55-1.3); GLUCOSE,RANDOM 82 mg/dL (74-106); MAGNESIUM 1.8 mg/dL (1.8-2.4); PHOSPHOROUS 2.6 mg/dL (2.5-4.9); POTASSIUM 3.4 mmol/L (3.5-5.1); SODIUM 145 mmol/L (136-145)
[2018-08-11] MEDS ORDERED: POTASSIUM CHLORIDE TABS 20 MEQ TABLET.ER (FP) PO ONE (08:50)
[2018-08-11] MEDS ORDERED: POTASSIUM CITRATE/CITRIC ACID 2 MEQ/ML ML PO SCH (10:00)
[2018-08-11] MEDS ORDERED: PT OWN MED DRAWER 7, Y5N ONE ×2 (10:36→19:40)
[2018-08-11] MEDS: OLANZapine 5 MG TABLET PO SCH ×2 (10:47→21:12)
[2018-08-11] MEDS: CYANOCOBALAMIN (VITAMIN B-12) 1000 MCG/1 ML VIAL IM SCH (10:47)
[2018-08-11] MEDS: NICOTINE 21 MG/24 HOURS TOPICAL PATCH TD SCH (10:48)
--- NOTE | 2018-08-11 13:47 | PN ---
Progress Note, SAMPLE STEAMER - Note Progress Note: Selected Entries 08/09/18 08/10/18 08/10/18 19:17 07:55 11:52 Breakfast 50% Lunch Supper 0 Temperature 97.7 F 08/10/18 08/10/18 08/10/18 14:35 17:54 18:21 Breakfast Lunch 25% Supper 25% Temperature 97.7 F 08/11/18 08/11/18 08/11/18 06:00 08:30 12:03 Breakfast 25% Lunch Supper Temperature 98.3 F 98.6 F Laboratory Tests 08/11/18 06:00 WBC 8.4 Pt sleeping when I attended and I let him sleep. Case reviewed with staff. Pt has been taking Ensure, completed 1 1/2 bottles this am before lunch. Continue to encourage Ensure, ideally 5 daily, as well as puree if he will accept.
[2018-08-11] MEDS ORDERED: POTASSIUM CHLORIDE ORAL LIQUID 20 MEQ/15 ML PO ONE (14:21)
--- NOTE | 2018-08-11 14:36 | PN ---
Teaching Attending Note Name of Resident: Sebastien Villalobos ATTENDING PHYSICIAN STATEMENT I saw and evaluated the patient. I reviewed the resident's note and discussed the case with the resident. I agree with the resident's findings and plan as documented. SUBJECTIVE: No complaints. Minimal oral intake this am. Denies headache/visual disturbance. No vomiting. OBJECTIVE: Afebrile, Hemodynamically stable. Last Vital Signs Temp Pulse Resp BP Pulse Ox 98.6 F 92 H 20 101/70 98 08/11/18 08:30 08/11/18 08:30 08/11/18 08:30 08/11/18 08:30 08/10/18 21:00 Neuro - AAO x 2-3. Tone/Power normal all 4 extremities Heart - S1, S2, RRR Lungs - clear to auscultation Abdomen - soft, non-tender. Bowel Sounds normal. Extremities - no edema. No calf tenderness. R arm swelling/mild erythema. Laboratory Results - last 24 hr 08/10/18 08/11/18 08/11/18 16:40 06:00 06:00 WBC 8.4 RBC 3.86 L Hgb 13.8 Hct 38.2 MCV 98.8 H MCH 35.6 H MCHC 36.1 H RDW 12.7 Plt Count 348 MPV 8.2 Sodium 145 Potassium 3.4 L Chloride 113 H Carbon Dioxide 23 Anion Gap 9 BUN 14 Creatinine 0.7 Creat Clearance w eGFR > 60 POC Glucometer 103 Random Glucose 82 Calcium 9.1 Phosphorus 2.6 Magnesium 1.8 08/11/18 11:41 WBC RBC Hgb Hct MCV MCH MCHC RDW Plt Count MPV Sodium Potassium Chloride Carbon Dioxide Anion Gap BUN Creatinine Creat Clearance w eGFR POC Glucometer 107 Random Glucose Calcium Phosphorus Magnesium Current Medications Generic Name Dose Route Start Last Admin Trade Name Freq PRN Reason Stop Dose Admin Acetaminophen 650 mg 07/24/18 16:29 08/05/18 10:56 Tylenol - PO 650 mg Q6H PRN Administration PAIN LEVEL 1 - 3 Cyanocobalamin 1,000 mcg 07/25/18 10:00 08/11/18 10:47 Vitamin B12 Injection - IM 1,000 mcg DAILY TRISHA Administration Famotidine/Sodium Chloride 20 mg in 50 mls @ 100 mls/hr 07/25/18 08:00 08:45 Pepcid 20 Mg Premixed Ivpb - IVPB 100 mls/hr DAILY@0800 TRISHA Administration Fat Emulsion Intravenous 250 mls @ 20.833 mls/hr 07/24/18 22:00 08/10/18 21: 58 Intralipid - IV 20.833 mls/hr DAILY@2200 TRISHA Administration Amino Acids 1,000 mls @ 84 mls/hr 08/08/18 08:30 08/10/18 23:46 Clinimix - IV 84 mls/hr Q24H TRISHA Administration Folic Acid 1 mg/ Thiamine HCl 1,012.2 mls @ 84 mls/hr 08/09/18 11:00 10:06 200 mg/ Multivitamins/Minerals IVPB 84 mls/hr 10 ml/ Amino Acids Q24H TRISHA Administration Levetiracetam 500 mg 07/24/18 22:00 08/10/18 21:01 Keppra Injection - IVPB 500 mg BID TRISHA Administration Lorazepam 2 mg 08/11/18 07:34 Ativan Injection - IM Q8H PRN AGITATION Nicotine 21 mg 07/25/18 10:00 08/11/18 10:48 Nicoderm Patch - TD 21 mg DAILY TRISHA Administration Olanzapine 5 mg 08/08/18 22:00 08/11/18 10:47 Zyprexa - PO 5 mg BID TRISHA Administration Potassium Citrate/Citric Acid 20 meq 08/11/18 10:00 08/11/18 11:05 Cytra-K - PO 20 meq DAILY TRISHA Administration Promethazine HCl 25 mg 07/24/18 16:29 Phenergan Injection - IM Q6H PRN NAUSEA AND/OR VOMITING ASSESSMENT AND PLAN: 68 year old male with history of alcohol abuse who presented with nausea, vomiting, headache after being found lying in the stairwell by a neighbor, and was found to have intracranial hemorrhage. 1. Bilateral subdural, bilateral subarachnoid, left frontal and left temporal intraparenchymal hemorrhages. Evaluated by Neurosurgery - No neurosurgical intervention indicated Continue seizure prophylaxis with Keppra. 2. Behavioral Disturbance likely seocndary to brain trauma and hemorrhage versus underlying psychiatric illness (possibly related to alcohol excess) Currently requires 1:1 and a dose of IV Ativan overnight. Continue Zyprexa for agitation and aggression - Psych following. 2. Occipital bone fracture - due to trauma - appears stable. Eval by Neurosurgery - will monitor. 3. Dysphagia - tolerating full liquids like ensure. For assist feeds. Diet advanced to Puree. 4. Hypokalemia - persistent. Will replete. 5. Hypomagnesemia - likely secondary to poor oral intake. Will replete as required. 6. History of Alcohol Abuse. Mild tongue fasciculation. No signs of overt withdrawal. Ativan prn. Continue multivitamin, thiamine, folic acid. 8. Severe protein calorie malnutrition - continue Ensure. Diet progressed to Puree. Family declined PEG. 9. Disposition - Plan for rehab/TBI unit once Psychiatrically stable. 10. R arm IV infiltrated with swelling/tenderness - warm compresses. Afebrile. Unlikely DVT clinically.
[2018-08-11] MEDS: FOLIC ACID IVPB SCH (15:29)
[2018-08-11] MEDS: [UNRECOGNIZED DRUG - OTHER] IVPB SCH (15:29)
[2018-08-11] MEDS: MULTIVIT IVPB SCH (15:29)
[2018-08-11] MEDS: THIAMINE HCL IVPB SCH (15:29)
[2018-08-11] MEDS: FAMOTIDINE 20 MG/50 ML IVPB 20 MG/50 ML MG IVPB SCH (15:36)
[2018-08-11] MEDS: AMINO ACIDS 4.25%/D5W 1,000 ML IV SCH (15:44)
--- NOTE | 2018-08-11 15:44 | PN ---
Physical Exam: SUBJECTIVE: Patient seen and examined at bedside. Received ativan 2 mg overnight for agitation. OBJECTIVE: Vital Signs Period Temp Pulse Resp BP Sys/Dawn Pulse Ox Last 24 Hr 97.7 F-98.6 F 86-101 18-20 99-129/54-70 98 GENERAL: Atraumatic Normocephalic HEAD: NC/AT EYES: EOMI ENT: MMM Poor dentition NECK: Supple LUNGS: poor inspiratory effort HEART: RRR No MRG Appreciated ABDOMEN: Soft, NDNT No HSM EXTREMITIES: Right arm swelling NEUROLOGICAL: Strength 5/5 throughout. Sensation intact PSYCH: Agitated overnight. SKIN: No rashes or lesions appreciated Laboratory Results - last 24 hr 08/10/18 08/11/18 08/11/18 16:40 06:00 06:00 WBC 8.4 RBC 3.86 L Hgb 13.8 Hct 38.2 MCV 98.8 H MCH 35.6 H MCHC 36.1 H RDW 12.7 Plt Count 348 MPV 8.2 Sodium 145 Potassium 3.4 L Chloride 113 H Carbon Dioxide 23 Anion Gap 9 BUN 14 Creatinine 0.7 Creat Clearance w eGFR > 60 POC Glucometer 103 Random Glucose 82 Calcium 9.1 Phosphorus 2.6 Magnesium 1.8 08/11/18 11:41 WBC RBC Hgb Hct MCV MCH MCHC RDW Plt Count MPV Sodium Potassium Chloride Carbon Dioxide Anion Gap BUN Creatinine Creat Clearance w eGFR POC Glucometer 107 Random Glucose Calcium Phosphorus Magnesium Active Medications Generic Name Dose Route Start Last Admin Trade Name Freq PRN Reason Stop Dose Admin Acetaminophen 650 mg 07/24/18 16:29 08/05/18 10:56 Tylenol - PO 650 mg Q6H PRN Administration PAIN LEVEL 1 - 3 Cyanocobalamin 1,000 mcg 07/25/18 10:00 08/11/18 10:47 Vitamin B12 Injection - IM 1,000 mcg DAILY TRISHA Administration Famotidine/Sodium Chloride 20 mg in 50 mls @ 100 mls/hr 07/25/18 08:00 15:36 Pepcid 20 Mg Premixed Ivpb - IVPB 100 mls/hr DAILY@0800 TRISHA Administration Fat Emulsion Intravenous 250 mls @ 20.833 mls/hr 07/24/18 22:00 08/10/18 21: 58 Intralipid - IV 20.833 mls/hr DAILY@2200 TRISHA Administration Amino Acids 1,000 mls @ 84 mls/hr 08/08/18 08:30 08/11/18 15:44 Clinimix - IV Not Given Q24H TRISHA Folic Acid 1 mg/ Thiamine HCl 1,012.2 mls @ 84 mls/hr 08/09/18 11:00 15:29 200 mg/ Multivitamins/Minerals IVPB 84 mls/hr 10 ml/ Amino Acids Q24H TRISHA Administration Levetiracetam 500 mg 07/24/18 22:00 08/10/18 21:01 Keppra Injection - IVPB 500 mg BID TRISHA Administration Lorazepam 2 mg 08/11/18 07:34 Ativan Injection - IM Q8H PRN AGITATION Nicotine 21 mg 07/25/18 10:00 08/11/18 10:48 Nicoderm Patch - TD 21 mg DAILY TRISHA Administration Olanzapine 5 mg 08/08/18 22:00 08/11/18 10:47 Zyprexa - PO 5 mg BID TRISHA Administration Potassium Citrate/Citric Acid 20 meq 08/11/18 10:00 08/11/18 11:05 Cytra-K - PO 20 meq DAILY TRISHA Administration Promethazine HCl 25 mg 07/24/18 16:29 Phenergan Injection - IM Q6H PRN NAUSEA AND/OR VOMITING ASSESSMENT/PLAN: 68 alcoholic man presenting s/p fall 3 days ago with N,V and headaches, found to have bilateral frontal contusion, subdural and subarachnoid hemorrhage and comminuted fracture of the occipital bone. Now with agitation and possible symptoms of alcohol withdrawal. No seizures witnessed. # Malnutrition 2/2 Traumatic Brain Injury Dietary recommendations---> Diet is now Dysphagia puree, thin liquids per [employer] recommendations. Discussed intake & tolerance with [employer] today; Pt presents with poor intake of food, does not want TF, requesting vanilla Boost b/c prefers to drink rather than eat; Agreed to trial Ensure Enlive five times (1 at each meal; 2 in between meals) to meet Calorie needs as pt is not eating. P: Will follow up with intake, acceptance and tolerance of supplements. Subcutaneous fat loss orbital region: Moderate (hollow look,loose skin,dark circles) Muscle Loss Temporal Region: Moderate (slight depression) Severe Malnutrition Evidenced by caloric intake < or = 50% of nutritional needs for > or Equal to 5 days. Moderate depletion of subcutaneous fat. Moderate depletion of muscle mass. #SDH/SAH 2/2 Mechanical Fall - Neurocheck Q4H - Keppra 500 mg BID seizure ppx - Neurosurgery on board Dr Marcelino Hayes - Head CT- Occipital bone midline fx to inion; B frontal hemorrhagic contusion with SDH; B anterior temporal contusion with SAH R > L and small SDH -Repeat Head CT 07/21/18---> interval increase edema in the left frontal lobe. Head CT 07/22--> unchanged from CT on 07/21/18. 07/31/18 -Speech/Swallow eval. " Suggest MBS to include esophagus. r/o Dysphagia to determine nutritional plan." MBS --> Trace aspiration. Will need to establish contact with TBI facility as pt will require rn long term care rehabilitation #Agitation Zyprexa 5 MG BID per Psych. Ativan Q8H PRN Agitation. Psychiatry on board- Dr Arias -Received Ativan overnight. 1:[address]. #Substance Abuse -Phenergan 25 MG IM Q6H PRN -Nicotine Patch #Hypokalemia/Hypomagnesemia -Repleat PRN #HTN - Labetolol 5mg for SBP >140, PRN #FEN: No Fluids Monitor Electrolytes MBS ---> Puree/thin liquid recommended. Ensure 5 x Daily per Speech/Swallow. PEG placement refused by pt and sister (HCP). GI ppx -Famotidine 20mg daily DVT ppx - SCDs Dispo: Pending TBI /Rehab placement Visit type - Emergency Visit Emergency Visit: Yes ED Registration Date: 07/18/18 Care time: The patient presented to the Emergency Department on the above date and was hospitalized for further evaluation of their emergent condition. - New Patient This patient is new to me today: No - Critical Care Critical Care patient: No - Discharge Referral Referred to [facility] Med P.C.: No
[2018-08-11] MEDS: levETIRAcetam 500 MG/5 ML INJECTION VIAL IVPB SCH ×2 (16:20→21:12)
[2018-08-11] MEDS: LORazepam 2 MG/ML SDV VIAL IM PRN (17:32)
[2018-08-11] MEDS: FAT EMULSIONS 250 ML IV SCH (21:12)
[2018-08-12] MEDS: LORazepam 2 MG/ML SDV VIAL IM PRN (00:58)
[2018-08-12 07:18] LABS: HEMATOCRIT 37.6 % (35.4-49); HEMOGLOBIN 13.5 GM/dL (11.7-16.9); MCH 35.7 pg (25.7-33.7); MCHC 35.8 g/dl (32.0-35.9); MEAN CELL VOLUME 99.7 fl (80-96); MEAN PLT VOLUME 8.6 fl (7.5-11.1); PLATELET COUNT 315 K/MM3 (134-434); RBC 3.77 M/mm3 (4.00-5.60); RDW 12.9 % (11.9-15.9); WHITE BLOOD COUNT 7.2 K/mm3 (4.0-10.0)
[2018-08-12 08:13] LABS: ANION GAP 6 MMOL/L (8-16); BLOOD UREA NITROGEN 12 mg/dL (7-18); CALCIUM 8.7 mg/dL (8.5-10.1); CHLORIDE 113 mmol/L (98-107); CO2 26 mmol/L (21-32); CREATININE 0.7 mg/dL (0.55-1.3); GLUCOSE,RANDOM 80 mg/dL (74-106); MAGNESIUM 1.8 mg/dL (1.8-2.4); PHOSPHOROUS 3.6 mg/dL (2.5-4.9); SODIUM 145 mmol/L (136-145)
[2018-08-12] MEDS: AMINO ACIDS 4.25%/D5W 1,000 ML IV SCH (08:40)
[2018-08-12] MEDS: FAMOTIDINE 20 MG/50 ML IVPB 20 MG/50 ML MG IVPB SCH (08:41)
[2018-08-12] MEDS: NICOTINE 21 MG/24 HOURS TOPICAL PATCH TD SCH (11:30)
[2018-08-12] MEDS: levETIRAcetam 500 MG/5 ML INJECTION VIAL IVPB SCH ×2 (11:30→21:32)
[2018-08-12] MEDS: CYANOCOBALAMIN (VITAMIN B-12) 1000 MCG/1 ML VIAL IM SCH (11:31)
[2018-08-12] MEDS: POTASSIUM CITRATE/CITRIC ACID 2 MEQ/ML ML PO SCH (11:41)
[2018-08-12] MEDS: OLANZapine 5 MG TABLET PO SCH ×2 (11:41→21:32)
[2018-08-12] MEDS: FOLIC ACID IVPB SCH ×2 (12:08→15:26)
[2018-08-12] MEDS: THIAMINE HCL IVPB SCH ×2 (12:08→15:26)
[2018-08-12] MEDS: MULTIVIT IVPB SCH ×2 (12:08→15:26)
[2018-08-12] MEDS: [UNRECOGNIZED DRUG - OTHER] IVPB SCH ×2 (12:08→15:26)
--- NOTE | 2018-08-12 14:20 | PN ---
Progress Note (short form) - Note Progress Note: Feels okay. Complains of sore mouth/throat. No cough/sputum/fever/chills. No nausea/vomiting. Poor oral intake Agitated overnight requring mits and Ativan. PHYSICAL EXAM Afebrile, Hemodynamically Stable. Last Vital Signs Temp Pulse Resp BP Pulse Ox 97.7 F 101 H 18 122/43 L 98 08/11/18 17:26 08/12/18 06:00 08/12/18 06:00 08/12/18 06:00 08/11/18 21:00 Neuro - AAO x 2-3 today (knows he is in hospital but not which one) HEENT - dry mucosa. No pharyngeal erythema/exudate Heart - S1, S2, RRR Lungs - clear to auscultation Abdomen - soft, non-tender. Bowel Sounds normal. Extremities - no LE edema. Mild swelling RUE at infiltration site - no superimposed infection. Laboratory Results - last 24 hr 08/11/18 08/12/18 08/12/18 16:29 06:00 06:00 WBC 7.2 RBC 3.77 L Hgb 13.5 Hct 37.6 MCV 99.7 H MCH 35.7 H MCHC 35.8 RDW 12.9 Plt Count 315 MPV 8.6 Sodium 145 Potassium 4.0 Chloride 113 H Carbon Dioxide 26 Anion Gap 6 L BUN 12 Creatinine 0.7 Creat Clearance w eGFR > 60 POC Glucometer 101 Random Glucose 80 Calcium 8.7 Phosphorus 3.6 Magnesium 1.8 Current Medications Generic Name Dose Route Start Last Admin Trade Name Freq PRN Reason Stop Dose Admin Acetaminophen 650 mg 07/24/18 16:29 08/05/18 10:56 Tylenol - PO 650 mg Q6H PRN Administration PAIN LEVEL 1 - 3 Cyanocobalamin 1,000 mcg 07/25/18 10:00 08/12/18 11:31 Vitamin B12 Injection - IM 1,000 mcg DAILY TRISHA Administration Famotidine/Sodium Chloride 20 mg in 50 mls @ 100 mls/hr 07/25/18 08:00 08:41 Pepcid 20 Mg Premixed Ivpb - IVPB 100 mls/hr DAILY@0800 TRISHA Administration Fat Emulsion Intravenous 250 mls @ 20.833 mls/hr 07/24/18 22:00 08/11/18 21: 12 Intralipid - IV 20.833 mls/hr DAILY@2200 TRISHA Administration Amino Acids 1,000 mls @ 84 mls/hr 08/08/18 08:30 08/12/18 08:40 Clinimix - IV Not Given Q24H TRISHA Folic Acid 1 mg/ Thiamine HCl 1,012.2 mls @ 84 mls/hr 08/09/18 11:00 12:08 200 mg/ Multivitamins/Minerals IVPB Not Given 10 ml/ Amino Acids Q24H TRISHA Levetiracetam 500 mg 07/24/18 22:00 08/12/18 11:30 Keppra Injection - IVPB 500 mg BID TRISHA Administration Lorazepam 2 mg 08/11/18 07:34 08/12/18 00:58 Ativan Injection - IM 2 mg Q8H PRN Administration AGITATION Nicotine 21 mg 07/25/18 10:00 08/12/18 11:30 Nicoderm Patch - TD 21 mg DAILY TRISHA Administration Olanzapine 5 mg 08/08/18 22:00 08/12/18 11:41 Zyprexa - PO 5 mg BID TRISHA Administration Potassium Citrate/Citric Acid 20 meq 08/12/18 10:00 08/12/18 11:41 Cytra-K - PO 20 meq DAILY TRISHA Administration Promethazine HCl 25 mg 07/24/18 16:29 Phenergan Injection - IM Q6H PRN NAUSEA AND/OR VOMITING ASSESSMENT AND PLAN: 68 year old male with history of alcohol abuse who presented with nausea, vomiting, headache after being found lying in the stairwell by a neighbor, and was found to have intracranial hemorrhages. 1. Bilateral subdural, bilateral subarachnoid, left frontal and left temporal intraparenchymal hemorrhages. Evaluated by Neurosurgery - No neurosurgical intervention indicated Continue seizure prophylaxis with Keppra. 2. Behavioral Disturbance likely multifactorial - secondary to brain trauma and hemorrhage versus underlying psychiatric illness (possibly related to alcohol excess) Currently requires 1:1 and a dose of IV Ativan again overnight. Continue Zyprexa for agitation and aggression - Psych for further recommendation re: medications. 2. Occipital bone fracture - due to trauma - appears stable. Eval by Neurosurgery - will monitor. 3. Dysphagia - intermittently tolerating full liquids like ensure. For assist feeds. Diet advanced to Puree. Appears dry clinically and will start on maintenance fluids at 75mls/hr in addition to fat emulsion due to poor oral intake. Family declined PEG. 4. Hypokalemia - resolved s/p repletion. 5. Hypomagnesemia - likely secondary to poor oral intake. Will replete as required. 6. History of Alcohol Abuse. No signs of overt withdrawal. Ativan prn. Continue multivitamin, thiamine, folic acid. 8. Severe protein calorie malnutrition - continue Ensure and fat emulsion IV. Diet progressed to Puree but oral intake remains poor. Family declined PEG. 9. Disposition - Plan for rehab/TBI unit once Psychiatrically stable and is able to feed. Will likely require Palliative Care/Ethics committee input at this point. 10. R arm IV infiltrated with swelling/tenderness - improving with warm compresses. Afebrile. Unlikely DVT clinically. DVT Px - SCDs Visit type - Emergency Visit Emergency Visit: Yes ED Registration Date: 07/18/18 Care time: The patient presented to the Emergency Department on the above date and was hospitalized for further evaluation of their emergent condition. - New Patient This patient is new to me today: No - Critical Care Critical Care patient: No - Discharge Referral Referred to [facility] Med P.C.: No
[2018-08-12] MEDS: DEXTROSE 5%-NORMAL SALINE 1,000 ML IV SCH (20:05)
[2018-08-12] MEDS ORDERED: PT OWN MED DRAWER 7, Y5N ONE (21:09)
[2018-08-12] MEDS: FAT EMULSIONS 250 ML IV SCH (21:42)
[2018-08-13] MEDS: LORazepam 2 MG/ML SDV VIAL IM PRN ×2 (02:19→11:10)
[2018-08-13] MEDS: AMINO ACIDS 4.25%/D5W 1,000 ML IV SCH ×2 (06:41→09:20)
[2018-08-13 08:10] LABS: BASO % 0.7 % (0-2.0); EOS % 5.8 % (0-4.5); HEMATOCRIT 36.6 % (35.4-49); HEMOGLOBIN 13.1 GM/dL (11.7-16.9); MCH 35.4 pg (25.7-33.7); MCHC 35.8 g/dl (32.0-35.9); MEAN PLT VOLUME 7.9 fl (7.5-11.1); MONO % 11.2 % (3.8-10.2); NEUT % 65.3 % (42.8-82.8); PLATELET COUNT 304 K/MM3 (134-434); RBC 3.69 M/mm3 (4.00-5.60); RDW 12.6 % (11.9-15.9); WHITE BLOOD COUNT 7.3 K/mm3 (4.0-10.0)
[2018-08-13] MEDS: FAMOTIDINE 20 MG/50 ML IVPB 20 MG/50 ML MG IVPB SCH (08:19)
[2018-08-13 08:39] LABS: ANION GAP 6 MMOL/L (8-16); BLOOD UREA NITROGEN 12 mg/dL (7-18); CALCIUM 8.6 mg/dL (8.5-10.1); CHLORIDE 114 mmol/L (98-107); CO2 26 mmol/L (21-32); CREATININE 0.6 mg/dL (0.55-1.3); GLUCOSE,RANDOM 105 mg/dL (74-106); MAGNESIUM 1.8 mg/dL (1.8-2.4); POTASSIUM 3.9 mmol/L (3.5-5.1); SODIUM 146 mmol/L (136-145)
[2018-08-13] MEDS: levETIRAcetam 500 MG/5 ML INJECTION VIAL IVPB SCH ×2 (10:40→21:00)
[2018-08-13] MEDS: NICOTINE 21 MG/24 HOURS TOPICAL PATCH TD SCH (10:40)
[2018-08-13] MEDS: CYANOCOBALAMIN (VITAMIN B-12) 1000 MCG/1 ML VIAL IM SCH (10:40)
[2018-08-13] MEDS: OLANZapine 5 MG TABLET PO SCH (10:41)
[2018-08-13] MEDS: POTASSIUM CITRATE/CITRIC ACID 2 MEQ/ML ML PO SCH (10:41)
[2018-08-13] MEDS ORDERED: OLANZapine 5 MG TABLET PO SCH (10:44)
[2018-08-13] MEDS ORDERED: OLANZapine 5 MG TABLET PO ONE (10:44)
[2018-08-13] MEDS: DEXTROSE 5%-NORMAL SALINE 1,000 ML IV SCH (10:57)
[2018-08-13] MEDS: FOLIC ACID IVPB SCH (11:08)
[2018-08-13] MEDS: [UNRECOGNIZED DRUG - OTHER] IVPB SCH (11:08)
[2018-08-13] MEDS: MULTIVIT IVPB SCH (11:08)
[2018-08-13] MEDS: THIAMINE HCL IVPB SCH (11:08)
--- NOTE | 2018-08-13 16:38 | PN ---
Physical Exam: SUBJECTIVE: Patient seen and examined at bedside. Ativan overnight for agitation. OBJECTIVE: Vital Signs Period Temp Pulse Resp BP Sys/Dawn Pulse Ox Last 24 Hr 97.6 F-98.9 F 86-92 18-20 96-124/56-78 96-96 GENERAL: NAD, sitting in chair, responding coherently to questions. HEAD: Atraumatic Normocephalic EYES: EOMI ENT: MMM NECK: Supple LUNGS: CTA B/L HEART: RRR No MRG Appreciated ABDOMEN: Soft, NDNT No HSM EXTREMITIES: Right arm swelling NEUROLOGICAL: Strength/Sensation intact upper/lower extremities. PSYCH: Tangential speech, Agitated SKIN: No rashes or lesions appreciated Laboratory Results - last 24 hr 08/13/18 08/13/18 07:45 07:45 WBC 7.3 RBC 3.69 L Hgb 13.1 Hct 36.6 MCV 99.0 H MCH 35.4 H MCHC 35.8 RDW 12.6 Plt Count 304 MPV 7.9 Absolute Neuts (auto) 4.7 Neutrophils % 65.3 Lymphocytes % 17.0 D Monocytes % 11.2 H Eosinophils % 5.8 H Basophils % 0.7 Nucleated RBC % 0 Sodium 146 H Potassium 3.9 Chloride 114 H Carbon Dioxide 26 Anion Gap 6 L BUN 12 Creatinine 0.6 Creat Clearance w eGFR > 60 Random Glucose 105 Calcium 8.6 Magnesium 1.8 Active Medications Generic Name Dose Route Start Last Admin Trade Name Freq PRN Reason Stop Dose Admin Acetaminophen 650 mg 07/24/18 16:29 08/05/18 10:56 Tylenol - PO 650 mg Q6H PRN Administration PAIN LEVEL 1 - 3 Amino Acids 30 ml 08/13/18 17:30 Prosource No Carb Liquid Pkt PO BID@0800,1730 TRISHA Cyanocobalamin 1,000 mcg 07/25/18 10:00 08/13/18 10:40 Vitamin B12 Injection - IM 1,000 mcg DAILY TRISHA Administration Famotidine/Sodium Chloride 20 mg in 50 mls @ 100 mls/hr 07/25/18 08:00 08:19 Pepcid 20 Mg Premixed Ivpb - IVPB 100 mls/hr DAILY@0800 TRISHA Administration Fat Emulsion Intravenous 250 mls @ 20.833 mls/hr 07/24/18 22:00 08/12/18 21: 42 Intralipid - IV 20.833 mls/hr DAILY@2200 TRISHA Administration Amino Acids 1,000 mls @ 84 mls/hr 08/08/18 08:30 08/13/18 09:20 Clinimix - IV Not Given Q24H TRISHA Folic Acid 1 mg/ Thiamine HCl 1,012.2 mls @ 84 mls/hr 08/09/18 11:00 11:08 200 mg/ Multivitamins/Minerals IVPB Not Given 10 ml/ Amino Acids Q24H TRISHA Dextrose/Sodium Chloride 1,000 mls @ 75 mls/hr 08/12/18 16:30 08/13/18 10:57 D5-Ns - IV 75 mls/hr ASDIR TRISHA Administration Levetiracetam 500 mg 07/24/18 22:00 08/13/18 10:40 Keppra Injection - IVPB 500 mg BID TRISHA Administration Lorazepam 2 mg 08/11/18 07:34 08/13/18 11:10 Ativan Injection - IM 2 mg Q8H PRN Administration AGITATION Nicotine 21 mg 07/25/18 10:00 08/13/18 10:40 Nicoderm Patch - TD 21 mg DAILY TRISHA Administration Olanzapine 10 mg 08/13/18 10:44 Zyprexa - PO BID TRISHA Potassium Citrate/Citric Acid 20 meq 08/12/18 10:00 08/13/18 10:41 Cytra-K - PO 20 meq DAILY TRISHA Administration Promethazine HCl 25 mg 07/24/18 16:29 Phenergan Injection - IM Q6H PRN NAUSEA AND/OR VOMITING ASSESSMENT/PLAN: 68 alcoholic man presenting s/p fall 3 days ago with N,V and headaches, found to have bilateral frontal contusion, subdural and subarachnoid hemorrhage and comminuted fracture of the occipital bone. Now with agitation and possible symptoms of alcohol withdrawal. No seizures witnessed. # Malnutrition 2/2 Traumatic Brain Injury Dietary recommendations---> Diet is now Dysphagia puree, thin liquids per [employer] recommendations. Discussed intake & tolerance with [employer] today; Pt presents with poor intake of food, does not want TF, requesting vanilla Boost b/c prefers to drink rather than eat; Agreed to trial Ensure Enlive five times (1 at each meal; 2 in between meals) to meet Calorie needs as pt is not eating. P: Will follow up with intake, acceptance and tolerance of supplements. Subcutaneous fat loss orbital region: Moderate (hollow look,loose skin,dark circles) Muscle Loss Temporal Region: Moderate (slight depression) Severe Malnutrition Evidenced by caloric intake < or = 50% of nutritional needs for > or Equal to 5 days. Moderate depletion of subcutaneous fat. Moderate depletion of muscle mass. #SDH/SAH 2/2 Mechanical Fall - Neurocheck Q4H - Keppra 500 mg BID seizure ppx - Neurosurgery on board Dr Marcelino Hayes - Head CT- Occipital bone midline fx to inion; B frontal hemorrhagic contusion with SDH; B anterior temporal contusion with SAH R > L and small SDH -Repeat Head CT 07/21/18---> interval increase edema in the left frontal lobe. Head CT 07/22--> unchanged from CT on 07/21/18. 07/31/18 -Speech/Swallow eval. " Suggest MBS to include esophagus. r/o Dysphagia to determine nutritional plan." MBS --> Trace aspiration. 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 Ativan Q8H PRN Agitation. Psychiatry on board- Dr Arias -Received Ativan overnight again #Substance Abuse -Phenergan 25 MG IM Q6H PRN -Nicotine Patch #Hypokalemia/Hypomagnesemia -Repleat PRN #HTN - Labetolol 5mg for SBP >140, PRN #FEN: No Fluids Monitor Electrolytes MBS ---> Puree/thin liquid recommended. Ensure 5 x Daily per Speech/Swallow. PEG placement refused by pt and sister (HCP). GI ppx -Famotidine 20mg daily DVT ppx - SCDs Dispo: Pending TBI /Rehab placement Visit type - Emergency Visit Emergency Visit: Yes ED Registration Date: 07/18/18 Care time: The patient presented to the Emergency Department on the above date and was hospitalized for further evaluation of their emergent condition. - New Patient This patient is new to me today: No - Critical Care Critical Care patient: No - Discharge Referral Referred to [facility] No
--- NOTE | 2018-08-13 16:47 | PN ---
Teaching Attending Note Name of Resident: Sebastien Villalobos ATTENDING PHYSICIAN STATEMENT I saw and evaluated the patient. I reviewed the resident's note and discussed the case with the resident. I agree with the resident's findings and plan as documented. SUBJECTIVE: Feeling okay - sitting up in chair. No complaints. Nursing reports agitation overnight requiring Ativan. Still on 1:1. Minimal oral intake. OBJECTIVE: Afebrile, Hemodynamically Stable. Last Vital Signs Temp Pulse Resp BP Pulse Ox 98.9 F 90 18 124/78 96 08/13/18 06:58 08/13/18 06:58 08/13/18 09:00 08/13/18 06:58 08/13/18 09:00 Neuro - AAO x 2-3. intermittent confabulation/agitation. Tone/Power normal all 4 extremities. HEENT - oral mucosa more moist compared to yesterday. No pharyngeal erythema/ exudate appreciated although difficult to visualize as patient was unable to fully cooperate with exam. Heart - S1, S2, RRR Lungs - good air entry bilaterally Abdomen - soft, non-tender. Bowel Sounds normal. Extremities - no edema. No calf tenderness. Laboratory Results - last 24 hr 08/13/18 08/13/18 07:45 07:45 WBC 7.3 RBC 3.69 L Hgb 13.1 Hct 36.6 MCV 99.0 H MCH 35.4 H MCHC 35.8 RDW 12.6 Plt Count 304 MPV 7.9 Absolute Neuts (auto) 4.7 Neutrophils % 65.3 Lymphocytes % 17.0 D Monocytes % 11.2 H Eosinophils % 5.8 H Basophils % 0.7 Nucleated RBC % 0 Sodium 146 H Potassium 3.9 Chloride 114 H Carbon Dioxide 26 Anion Gap 6 L BUN 12 Creatinine 0.6 Creat Clearance w eGFR > 60 Random Glucose 105 Calcium 8.6 Magnesium 1.8 Current Medications Generic Name Dose Route Start Last Admin Trade Name Freq PRN Reason Stop Dose Admin Acetaminophen 650 mg 07/24/18 16:29 08/05/18 10:56 Tylenol - PO 650 mg Q6H PRN Administration PAIN LEVEL 1 - 3 Amino Acids 30 ml 08/13/18 17:30 Prosource No Carb Liquid Pkt PO BID@0800,1730 TRISHA Cyanocobalamin 1,000 mcg 07/25/18 10:00 08/13/18 10:40 Vitamin B12 Injection - IM 1,000 mcg DAILY TRISHA Administration Famotidine/Sodium Chloride 20 mg in 50 mls @ 100 mls/hr 07/25/18 08:00 08:19 Pepcid 20 Mg Premixed Ivpb - IVPB 100 mls/hr DAILY@0800 TRISHA Administration Fat Emulsion Intravenous 250 mls @ 20.833 mls/hr 07/24/18 22:00 08/12/18 21: 42 Intralipid - IV 20.833 mls/hr DAILY@2200 TRISHA Administration Amino Acids 1,000 mls @ 84 mls/hr 08/08/18 08:30 08/13/18 09:20 Clinimix - IV Not Given Q24H TRISHA Folic Acid 1 mg/ Thiamine HCl 1,012.2 mls @ 84 mls/hr 08/09/18 11:00 11:08 200 mg/ Multivitamins/Minerals IVPB Not Given 10 ml/ Amino Acids Q24H TRISHA Dextrose/Sodium Chloride 1,000 mls @ 75 mls/hr 08/12/18 16:30 08/13/18 10:57 D5-Ns - IV 75 mls/hr ASDIR TRISHA Administration Levetiracetam 500 mg 07/24/18 22:00 08/13/18 10:40 Keppra Injection - IVPB 500 mg BID TRISHA Administration Lorazepam 2 mg 08/11/18 07:34 08/13/18 11:10 Ativan Injection - IM 2 mg Q8H PRN Administration AGITATION Nicotine 21 mg 07/25/18 10:00 08/13/18 10:40 Nicoderm Patch - TD 21 mg DAILY TRISHA Administration Olanzapine 10 mg 08/13/18 10:44 Zyprexa - PO BID TRISHA Potassium Citrate/Citric Acid 20 meq 08/12/18 10:00 08/13/18 10:41 Cytra-K - PO 20 meq DAILY TRISHA Administration Promethazine HCl 25 mg 07/24/18 16:29 Phenergan Injection - IM Q6H PRN NAUSEA AND/OR VOMITING ASSESSMENT AND PLAN: 68 year old male with history of alcohol abuse who presented with nausea, vomiting, headache after being found lying in the stairwell by a neighbor, shown to have intracranial hemorrhages on imaging in ED. 1. Bilateral subdural, bilateral subarachnoid, left frontal and left temporal intra-parenchymal hemorrhages. Evaluated by Neurosurgery - No neurosurgical intervention indicated. Continue seizure prophylaxis with Keppra. No focal neurological deficits. 2. Behavioral Disturbance likely multifactorial - secondary to brain trauma and hemorrhage versus underlying psychiatric illness (possibly related to history of alcohol excess) Currently requires 1:1 and a dose of IV Ativan once again overnight. Continue Zyprexa for agitation and aggression - Psych recommends increasing dose to 10mg bid. Multivitamin supplementation. 2. Occipital bone fracture - due to trauma - evaluated by Neurosurgery - appears stable. Will monitor. 3. Dysphagia - not really tolerating full liquid diet - sometimes tolerates ensure. Will give prostat. For assist feeds. Diet advanced to Puree if tolerated. Appears less dry clinically - continue on maintenance fluids at 75mls /hr in addition to fat emulsion and Citrix due to poor oral intake. Family declined PEG. 4. Hypokalemia - resolved s/p repletion. 5. Hypomagnesemia - likely secondary to poor oral intake. Will replete as required. 6. History of Alcohol Abuse. No signs of overt withdrawal. Ativan prn. Continue multivitamin, thiamine, folic acid. 7. Severe protein calorie malnutrition - continue Ensure and fat emulsion IV. Diet progressed to Puree but oral intake remains poor. Family declined PEG. Needs Palliative Care/Ethics committee input given lack of capacity, inability to eat, and declination of PEG by family member. 8. Disposition - Plan for rehab/TBI unit once Psychiatrically stable and is able to feed vs Hospice if unable to eat and decision made to avoid PEG. Will require Palliative Care/Ethics committee input at this point. 9. R arm IV infiltrated with swelling/tenderness - improved with warm compresses. Afebrile. Unlikely DVT clinically. DVT Px - SCDs
[2018-08-13] MEDS: AMINO ACIDS/PROTEIN HYDROLYS 30 ML LIQUID.PKT PO SCH (17:38)
[2018-08-13] MEDS ORDERED: PT OWN MED DRAWER 7, Y5N ONE (20:27)
[2018-08-13] MEDS: FAT EMULSIONS 250 ML IV SCH (21:00)
[2018-08-14] MEDS: LORazepam 2 MG/ML SDV VIAL IM PRN (03:08)
[2018-08-14 06:08] LABS: HEMATOCRIT 41.1 % (35.4-49); HEMOGLOBIN 13.6 GM/dL (11.7-16.9); MCH 33.3 pg (25.7-33.7); MCHC 33.2 g/dl (32.0-35.9); MEAN CELL VOLUME 100.4 fl (80-96); MEAN PLT VOLUME 8.3 fl (7.5-11.1); PLATELET COUNT 267 K/MM3 (134-434); RBC 4.09 M/mm3 (4.00-5.60); RDW 12.5 % (11.9-15.9); WHITE BLOOD COUNT 7.4 K/mm3 (4.0-10.0)
[2018-08-14 06:37] LABS: ANION GAP 5 MMOL/L (8-16); BLOOD UREA NITROGEN 12 mg/dL (7-18); CALCIUM 8.6 mg/dL (8.5-10.1); CHLORIDE 113 mmol/L (98-107); CO2 28 mmol/L (21-32); CREATININE 0.7 mg/dL (0.55-1.3); GLUCOSE,RANDOM 95 mg/dL (74-106); MAGNESIUM 1.7 mg/dL (1.8-2.4); POTASSIUM 3.8 mmol/L (3.5-5.1); SODIUM 146 mmol/L (136-145)
[2018-08-14] MEDS ORDERED: MAGNESIUM SULF 50% (8.12 MEQ/2 ML-1 GM VIAL) IVPB ONE ×2 (08:20→08:47)
[2018-08-14] MEDS ORDERED: PT OWN MED DRAWER 7, Y5N ONE ×6 (09:23→23:13)
[2018-08-14] MEDS: DEXTROSE 5%-NORMAL SALINE 1,000 ML IV SCH ×2 (09:31→18:22)
[2018-08-14] MEDS: levETIRAcetam 500 MG/5 ML INJECTION VIAL IVPB SCH ×2 (09:38→21:06)
[2018-08-14] MEDS: AMINO ACIDS 4.25%/D5W 1,000 ML IV SCH (09:38)
[2018-08-14] MEDS: NICOTINE 21 MG/24 HOURS TOPICAL PATCH TD SCH (09:38)
[2018-08-14] MEDS: FAMOTIDINE 20 MG/50 ML IVPB 20 MG/50 ML MG IVPB SCH (09:38)
[2018-08-14] MEDS: CYANOCOBALAMIN (VITAMIN B-12) 1000 MCG/1 ML VIAL IM SCH (10:02)
[2018-08-14] MEDS: OLANZapine 10 MG TABLET PO SCH ×2 (10:02→21:06)
[2018-08-14] MEDS: POTASSIUM CITRATE/CITRIC ACID 2 MEQ/ML ML PO SCH (10:02)
[2018-08-14] MEDS: AMINO ACIDS/PROTEIN HYDROLYS 30 ML LIQUID.PKT PO SCH ×2 (10:02→18:22)
--- NOTE | 2018-08-14 13:39 | PN ---
Progress Note, [employer] [facility] - Note Progress Note: Selected Entries 08/13/18 08/13/18 08/13/18 06:58 09:42 10:26 Breakfast 25% Supper Temperature 98.9 F 98.3 F 08/13/18 08/13/18 08/13/18 18:00 22:00 22:24 Breakfast Supper 25% Temperature 97.4 F L 97.8 F 08/14/18 08/14/18 01:57 06:24 Breakfast Supper Temperature 98.2 F 97.5 F L Laboratory Tests 08/14/18 05:30 WBC 7.4 Unfortunately still confused, impaired insight. Poor PO acceptance of puree. Completed 2 Ensure plus by 1 pm. with encouragement of sitter.
[2018-08-14] MEDS: [UNRECOGNIZED DRUG - OTHER] IVPB SCH ×2 (14:22→18:22)
[2018-08-14] MEDS: MULTIVIT IVPB SCH ×2 (14:22→18:22)
[2018-08-14] MEDS: THIAMINE HCL IVPB SCH ×2 (14:22→18:22)
[2018-08-14] MEDS: FOLIC ACID IVPB SCH ×2 (14:22→18:22)
[2018-08-14 16:00] VITALS: BMI 19.9
--- NOTE | 2018-08-14 18:26 | PN ---
Physical Exam: SUBJECTIVE: Patient seen and examined. No events overnight. Offers no complaints. Lethargic, given ativan overnight. OBJECTIVE: Vital Signs Period Temp Pulse Resp BP Sys/Dawn Pulse Ox Last 24 Hr 97.5 F-98.2 F 82-110 20-20 88-106/46-70 96 Neuro - AAO x 2. confused HEENT - moist mucous membranes. Heart - S1, S2, RRR Lungs - good air entry bilaterally Abdomen - soft, non-tender. Bowel Sounds normal. Extremities - no edema. No calf tenderness. Laboratory Results - last 24 hr 08/14/18 08/14/18 05:30 05:30 WBC 7.4 RBC 4.09 Hgb 13.6 Hct 41.1 MCV 100.4 H MCH 33.3 MCHC 33.2 RDW 12.5 Plt Count 267 MPV 8.3 Sodium 146 H Potassium 3.8 Chloride 113 H Carbon Dioxide 28 Anion Gap 5 L BUN 12 Creatinine 0.7 Creat Clearance w eGFR > 60 Random Glucose 95 Calcium 8.6 Phosphorus 4.0 Magnesium 1.7 L Active Medications Generic Name Dose Route Start Last Admin Trade Name Freq PRN Reason Stop Dose Admin Acetaminophen 650 mg 07/24/18 16:29 08/05/18 10:56 Tylenol - PO 650 mg Q6H PRN Administration PAIN LEVEL 1 - 3 Amino Acids 30 ml 08/13/18 17:30 08/14/18 10:02 Prosource No Carb Liquid Pkt PO 30 ml BID@0800,1730 TRISHA Administration Cyanocobalamin 1,000 mcg 07/25/18 10:00 08/14/18 10:02 Vitamin B12 Injection - IM 1,000 mcg DAILY TRISHA Administration Famotidine/Sodium Chloride 20 mg in 50 mls @ 100 mls/hr 07/25/18 08:00 09:38 Pepcid 20 Mg Premixed Ivpb - IVPB 100 mls/hr DAILY@0800 TRISHA Administration Fat Emulsion Intravenous 250 mls @ 20.833 mls/hr 07/24/18 22:00 08/13/18 21: 00 Intralipid - IV 20.833 mls/hr DAILY@2200 TRISHA Administration Amino Acids 1,000 mls @ 84 mls/hr 08/08/18 08:30 08/14/18 09:38 Clinimix - IV Not Given Q24H TRISHA Folic Acid 1 mg/ Thiamine HCl 1,012.2 mls @ 84 mls/hr 08/09/18 11:00 14:22 200 mg/ Multivitamins/Minerals IVPB Not Given 10 ml/ Amino Acids Q24H TRISHA Dextrose/Sodium Chloride 1,000 mls @ 75 mls/hr 08/12/18 16:30 08/14/18 09:31 D5-Ns - IV Not Given ASDIR TRISHA Levetiracetam 500 mg 07/24/18 22:00 08/14/18 09:38 Keppra Injection - IVPB 500 mg BID TRISHA Administration Lorazepam 2 mg 08/11/18 07:34 08/14/18 03:08 Ativan Injection - IM 2 mg Q8H PRN Administration AGITATION Nicotine 21 mg 07/25/18 10:00 08/14/18 09:38 Nicoderm Patch - TD 21 mg DAILY TRISHA Administration Olanzapine 10 mg 08/14/18 10:00 08/14/18 10:02 Zyprexa - PO 10 mg BID TRISHA Administration Potassium Citrate/Citric Acid 20 meq 08/12/18 10:00 08/14/18 10:02 Cytra-K - PO 20 meq DAILY TRISHA Administration Promethazine HCl 25 mg 07/24/18 16:29 Phenergan Injection - IM Q6H PRN NAUSEA AND/OR VOMITING ASSESSMENT/PLAN: 68 year old male with history of alcohol abuse who presented with nausea, vomiting, headache after being found lying in the stairwell by a neighbor, shown to have intracranial hemorrhages on imaging in ED. #Bilateral subdural, bilateral subarachnoid, left frontal and left temporal intra-parenchymal hemorrhages. Evaluated by Neurosurgery - No neurosurgical intervention indicated. Continue seizure prophylaxis with Keppra. No focal neurological deficits. #Behavioral Disturbance -likely multifactorial - secondary to brain trauma and hemorrhage versus underlying psychiatric illness (possibly related to history of alcohol excess) Currently requires 1:1 and a dose of IV Ativan once again overnight. Continue Zyprexa Multivitamin supplementation. #Occipital bone fracture - due to trauma - evaluated by Neurosurgery - appears stable. Will monitor. #Dysphagia -not really tolerating full liquid diet - sometimes tolerates ensure. Will give prostat. For assist feeds. Diet advanced to Puree if tolerated. Appears less dry clinically - continue on maintenance fluids at 75mls/hr in addition to fat emulsion and Citrix due to poor oral intake. Family declined PEG. #History of Alcohol Abuse. -No signs of overt withdrawal. Ativan prn. Continue multivitamin, thiamine, folic acid. #Severe protein calorie malnutrition -continue Ensure and fat emulsion IV. Diet progressed to Puree but oral intake remains poor. Family declined PEG. Needs Palliative Care/Ethics committee input given lack of capacity, inability to eat, and declination of PEG by family member. #Disposition -Plan for rehab/TBI unit once Psychiatrically stable and is able to feed vs Hospice if unable to eat and decision made to avoid PEG. Will require Palliative Care/Ethics committee input at this point. DVT Px - SCDs Visit type - Emergency Visit Emergency Visit: Yes ED Registration Date: 07/18/18 Care time: The patient presented to the Emergency Department on the above date and was hospitalized for further evaluation of their emergent condition. - New Patient This patient is new to me today: Yes Date on this admission: 08/17/18 - Critical Care Critical Care patient: No
--- NOTE | 2018-08-14 19:04 | PN ---
Teaching Attending Note Name of Resident: Prem Noble ATTENDING PHYSICIAN STATEMENT I saw and evaluated the patient. I reviewed the resident's note and discussed the case with the resident. I agree with the resident's findings and plan as documented. SUBJECTIVE: Lethargic s/p Ativan. Later on in the afternoon more awake and cooperative. No complaints. Ongoing intermittent confabulation and agitation overnight. OBJECTIVE: Afebrile, Hemodynamically Stable. Last Vital Signs Temp Pulse Resp BP Pulse Ox 97.5 F L 86 18 100/60 96 08/14/18 10:00 08/14/18 10:00 08/14/18 10:00 08/14/18 10:00 08/14/18 09:00 Neuro - Lethargic s/p Ativan. Oriented x 2. Tone/Power normal all 4 extremities. HEENT - No pharyngeal erythema/exudate - some dryness of mucosa appreciated. Heart - S1, S2, RRR Lungs - good air entry bilaterally Abdomen - soft, non-tender. Bowel Sounds normal. Extremities - no edema. No calf tenderness. Laboratory Results - last 24 hr 08/14/18 08/14/18 05:30 05:30 WBC 7.4 RBC 4.09 Hgb 13.6 Hct 41.1 MCV 100.4 H MCH 33.3 MCHC 33.2 RDW 12.5 Plt Count 267 MPV 8.3 Sodium 146 H Potassium 3.8 Chloride 113 H Carbon Dioxide 28 Anion Gap 5 L BUN 12 Creatinine 0.7 Creat Clearance w eGFR > 60 Random Glucose 95 Calcium 8.6 Phosphorus 4.0 Magnesium 1.7 L Current Medications Generic Name Dose Route Start Last Admin Trade Name Jackson PRN Reason Stop Dose Admin Acetaminophen 650 mg 07/24/18 16:29 08/05/18 10:56 Tylenol - PO 650 mg Q6H PRN Administration PAIN LEVEL 1 - 3 Amino Acids 30 ml 08/13/18 17:30 08/14/18 18:22 Prosource No Carb Liquid Pkt PO 30 ml BID@0800,1730 TRISHA Administration Cyanocobalamin 1,000 mcg 07/25/18 10:00 08/14/18 10:02 Vitamin B12 Injection - IM 1,000 mcg DAILY TRISHA Administration Famotidine/Sodium Chloride 20 mg in 50 mls @ 100 mls/hr 07/25/18 08:00 09:38 Pepcid 20 Mg Premixed Ivpb - IVPB 100 mls/hr DAILY@0800 TRISHA Administration Fat Emulsion Intravenous 250 mls @ 20.833 mls/hr 07/24/18 22:00 08/13/18 21: 00 Intralipid - IV 20.833 mls/hr DAILY@2200 TRISHA Administration Amino Acids 1,000 mls @ 84 mls/hr 08/08/18 08:30 08/14/18 09:38 Clinimix - IV Not Given Q24H TRISHA Folic Acid 1 mg/ Thiamine HCl 1,012.2 mls @ 84 mls/hr 08/09/18 11:00 18:22 200 mg/ Multivitamins/Minerals IVPB 84 mls/hr 10 ml/ Amino Acids Q24H TRISHA Administration Dextrose/Sodium Chloride 1,000 mls @ 75 mls/hr 08/12/18 16:30 08/14/18 18:22 D5-Ns - IV 75 mls/hr ASDIR TRISHA Administration Levetiracetam 500 mg 07/24/18 22:00 08/14/18 09:38 Keppra Injection - IVPB 500 mg BID TRISHA Administration Lorazepam 2 mg 08/11/18 07:34 08/14/18 03:08 Ativan Injection - IM 2 mg Q8H PRN Administration AGITATION Nicotine 21 mg 07/25/18 10:00 08/14/18 09:38 Nicoderm Patch - TD 21 mg DAILY TRISHA Administration Olanzapine 10 mg 08/14/18 10:00 08/14/18 10:02 Zyprexa - PO 10 mg BID TRISHA Administration Potassium Citrate/Citric Acid 20 meq 08/12/18 10:00 08/14/18 10:02 Cytra-K - PO 20 meq DAILY TRISHA Administration Promethazine HCl 25 mg 07/24/18 16:29 Phenergan Injection - IM Q6H PRN NAUSEA AND/OR VOMITING ASSESSMENT AND PLAN: 68 year old male with history of alcohol abuse who presented with nausea, vomiting, headache after being found lying in the stairwell by a neighbor, shown to have intracranial hemorrhages on imaging in ED. 1. Bilateral subdural, bilateral subarachnoid, left frontal and left temporal intra-parenchymal hemorrhages. Evaluated by Neurosurgery - No neurosurgical intervention indicated. Continue seizure prophylaxis with Keppra. No focal neurological deficits. 2. Behavioral Disturbance, Delirium - likely multifactorial - secondary to brain trauma and hemorrhage versus underlying psychiatric illness (possibly related to history of alcohol excess) Currently requires 1:1 and a dose of IV Ativan almost nightly. Continue Zyprexa for agitation and aggression - Psych recommended increased dose to 10mg bid. Will monitor on increased Zyprexa dose. Multivitamin supplementation. 2. Occipital bone fracture - due to trauma - evaluated by Neurosurgery - appears stable. Will monitor. 3. Dysphagia - not really tolerating full liquid diet - tolerates ensure periodically. Will give prostat. For assist feeds. Pureed diet when tolerated. Appears less dry clinically - continue on maintenance fluids at 75mls/hr in addition to fat emulsion and Citrix due to poor oral intake. Family declined PEG. 4. Hypokalemia - resolved s/p repletion. 5. Hypomagnesemia - likely secondary to poor oral intake - repleted. 6. History of Alcohol Abuse. No signs of overt withdrawal. Ativan prn. Continue multivitamin, thiamine, folic acid. 7. Severe protein calorie malnutrition - continue Ensure and fat emulsion IV. Diet progressed to Puree but oral intake remains poor. Family declined PEG. Needs Palliative Care/Ethics committee input given lack of capacity, inability to eat, and declination of PEG by family member. 8. Disposition - Plan for rehab/TBI unit once Psychiatrically stable and is able to feed vs Hospice if unable to eat and decision made to avoid PEG. Will require Palliative Care/Ethics committee input at this point. 9. R arm IV infiltrated with swelling/tenderness - improved - not infected. Afebrile. Unlikely DVT clinically. 10. Macrocytosis - MCV 100 - B12/Folate normal - likely secondary to history of alcohol excess. DVT Px - SCDs
[2018-08-14] MEDS: ACETAMINOPHEN 325 MG TABLET (FP) PO PRN (21:05)
[2018-08-14] MEDS: FAT EMULSIONS 250 ML IV SCH (22:02)
[2018-08-15] MEDS: LORazepam 2 MG/ML SDV VIAL IM PRN ×3 (01:04→18:22)
[2018-08-15] MEDS ORDERED: MULTIVIT IVPB SCH (06:30)
[2018-08-15] MEDS ORDERED: THIAMINE HCL IVPB SCH (06:30)
[2018-08-15] MEDS ORDERED: FOLIC ACID IVPB SCH (06:30)
[2018-08-15] MEDS ORDERED: [UNRECOGNIZED DRUG - OTHER] IVPB SCH (06:30)
[2018-08-15] MEDS ORDERED: PT OWN MED DRAWER 7, Y5N ONE ×4 (06:44→21:37)
[2018-08-15 07:13] LABS: HEMATOCRIT 36.4 % (35.4-49); MCH 35.5 pg (25.7-33.7); MCHC 35.7 g/dl (32.0-35.9); MEAN CELL VOLUME 99.6 fl (80-96); MEAN PLT VOLUME 8.4 fl (7.5-11.1); PLATELET COUNT 292 K/MM3 (134-434); RBC 3.66 M/mm3 (4.00-5.60); RDW 12.8 % (11.9-15.9); WHITE BLOOD COUNT 6.9 K/mm3 (4.0-10.0)
[2018-08-15 08:11] LABS: ALBUMIN 2.6 g/dl (3.4-5.0); ALK PHOS 75 U/L (45-117); ANION GAP 6 MMOL/L (8-16); BILIRUBIN,TOTAL 0.3 mg/dL (0.2-1); BLOOD UREA NITROGEN 17 mg/dL (7-18); CALCIUM 7.5 mg/dL (8.5-10.1); CHLORIDE 114 mmol/L (98-107); CO2 25 mmol/L (21-32); CREATININE 0.6 mg/dL (0.55-1.3); GLUCOSE,RANDOM 95 mg/dL (74-106); PHOSPHOROUS 3.9 mg/dL (2.5-4.9); POTASSIUM 3.8 mmol/L (3.5-5.1); SGOT/AST 22 U/L (15-37); SGPT/ALT 25 U/L (13-61); SODIUM 145 mmol/L (136-145); TOT PROT 5.4 g/dl (6.4-8.2)
--- NOTE | 2018-08-15 08:23 | PN ---
Physical Exam: SUBJECTIVE: Patient seen and examined this AM. He states he is "feeling lethargic". He is A&OX3 though his speech is confused and he mentioned something about a change of staff and calls from the [facility]. He denies any pain or other complaints at this time. OBJECTIVE: Vital Signs Period Temp Pulse Resp BP Sys/Dawn Pulse Ox Last 24 Hr 97.5 F-98.4 F 80-95 18-20 94-149/53-77 96-97 GENERAL: A&OX3, no acute distress HEAD: Normocephalic, atraumatic. EYES: PERRL, no scleral icterus EARS, NOSE, THROAT: oropharynx clear without exudates. Moist mucous membranes. NECK: supple without lymphadenopathy LUNGS: CTA b/l, no crackles or wheezes HEART: Regular rate and rhythm, normal S1 and S2 without murmur ABDOMEN: Soft, nontender to palpation, normoactive bowel sounds MUSCULOSKELETAL: No bony deformities or tenderness. EXTREMITIES: 2+ pulses, warm, well-perfused. No peripheral edema. NEUROLOGICAL: Cranial nerves II-XII grossly intact. Confused speech, can speak in full sentences but does not make sense and often inappropriate responses Laboratory Results - last 24 hr 08/15/18 08/15/18 06:15 06:15 WBC 6.9 RBC 3.66 L Hgb 13.0 Hct 36.4 MCV 99.6 H MCH 35.5 H MCHC 35.7 RDW 12.8 Plt Count 292 MPV 8.4 Sodium 145 Potassium 3.8 Chloride 114 H Carbon Dioxide 25 Anion Gap 6 L BUN 17 Creatinine 0.6 Creat Clearance w eGFR > 60 Random Glucose 95 Calcium 7.5 L Phosphorus 3.9 Magnesium 2.0 Total Bilirubin 0.3 AST 22 ALT 25 Alkaline Phosphatase 75 Total Protein 5.4 L Albumin 2.6 L Active Medications Generic Name Dose Route Start Last Admin Trade Name Freq PRN Reason Stop Dose Admin Acetaminophen 650 mg 07/24/18 16:29 08/14/18 21:05 Tylenol - PO 650 mg Q6H PRN Administration PAIN LEVEL 1 - 3 Amino Acids 30 ml 08/13/18 17:30 08/14/18 18:22 Prosource No Carb Liquid Pkt PO 30 ml BID@0800,1730 TRISHA Administration Cyanocobalamin 1,000 mcg 07/25/18 10:00 08/14/18 10:02 Vitamin B12 Injection - IM 1,000 mcg DAILY TRISHA Administration Famotidine/Sodium Chloride 20 mg in 50 mls @ 100 mls/hr 07/25/18 08:00 09:38 Pepcid 20 Mg Premixed Ivpb - IVPB 100 mls/hr DAILY@0800 TRISHA Administration Fat Emulsion Intravenous 250 mls @ 20.833 mls/hr 07/24/18 22:00 08/14/18 22: 02 Intralipid - IV 20.833 mls/hr DAILY@2200 [facility] Administration Folic Acid 1 mg/ Thiamine HCl 1,012.2 mls @ 84 mls/hr 08/15/18 06:30 06:32 200 mg/ Multivitamins/Minerals IVPB 84 mls/hr 10 ml/ Amino Acids DAILY@0630 TRISHA Administration Amino Acids 1,000 mls @ 84 mls/hr 08/15/18 18:30 Clinimix - IV DAILY@1830 [facility] Dextrose/Lactated Ringer's 1,000 mls @ 75 mls/hr 08/15/18 07:00 D5-Lr - IV ASDIR [facility] Levetiracetam 500 mg 07/24/18 22:00 08/14/18 21:06 Keppra Injection - IVPB 500 mg BID TRISHA Administration Lorazepam 2 mg 08/11/18 07:34 08/15/18 01:04 Ativan Injection - IM 2 mg Q8H PRN Administration AGITATION Nicotine 21 mg 07/25/18 10:00 08/14/18 09:38 Nicoderm Patch - TD 21 mg DAILY TRISHA Administration Olanzapine 10 mg 08/14/18 10:00 08/14/18 21:06 Zyprexa - PO 10 mg BID TRISHA Administration Potassium Citrate/Citric Acid 20 meq 08/12/18 10:00 08/14/18 10:02 Cytra-K - PO 20 meq DAILY TRISHA Administration Promethazine HCl 25 mg 07/24/18 16:29 Phenergan Injection - IM Q6H PRN NAUSEA AND/OR VOMITING ASSESSMENT/PLAN: 68 Male with PMH Alcohol Abuse admitted s/p fall with nausea, vomiting, and headaches, found to have bilateral frontal contusion, subdural and subarachnoid hemorrhage and comminuted fracture of the occipital bone. Now with agitation and refusing PO intake. Bilateral subdural, bilateral subarachnoid, left frontal and left temporal intra -parenchymal hemorrhages -Evaluated by neurosurgery who did not recommend any surgical intervention at this time -Keppra 500 mg PO BID for seizure prophylaxis -Pt without any physical neurological deficits on exam other than mental status Behavioral Disturbance -Pt consistently requiring PRN Ativan 2 mg IM each night -likely multifactorial secondary to chronic alcohol abuse vs current brain hemorrhages -Currently on Zyprexa 10 mg PO BID, recently increased from 5-10 by psychiatry -Case discussed with psychiatry who will reevaluate the pt Severe Protein Calorie Malnutrition, refusing PO intake -Ensure with meals -Continue encouraging PO intake -More likely psychiatric refusal of PO than mechanical as pt is able to tolerate with MBS, but refuses -Intralipid -Clinimix -Pt and family both declining PEG at this time -Palliative/Ethics consult appreciated -Case discussed with psychiatry who will reevaluate the pt -Trial MegAce for appetite stimulant Macrocytosis -likely secondary to long standing alcohol abuse -B12 2665, Folate 18, TSH 2.71 -Currently stable, no anemia, plts 292 DVT Prophylaxis -SCDs FEN -Fluids: D5 LR @ 75 cc/hr -Electrolytes: No electrolyte abnormalities, BMP in AM -Nutrition: Dysphagia puree with Ensure Disposition Med/Surg - will likely need SNF or TBI unit once tolerating PO and behavioral disturbances stabilized Visit type - Emergency Visit Emergency Visit: Yes ED Registration Date: 07/18/18 Care time: The patient presented to the Emergency Department on the above date and was hospitalized for further evaluation of their emergent condition. - New Patient This patient is new to me today: Yes Date on this admission: 08/15/18 - Critical Care Critical Care patient: No
[2018-08-15] MEDS: FAMOTIDINE 20 MG/50 ML IVPB 20 MG/50 ML MG IVPB SCH (10:50)
[2018-08-15] MEDS: DEXTROSE 5%-LACTATED RINGERS 1,000 ML IV SCH (10:50)
[2018-08-15] MEDS: AMINO ACIDS/PROTEIN HYDROLYS 30 ML LIQUID.PKT PO SCH ×2 (10:50→17:02)
[2018-08-15] MEDS: NICOTINE 21 MG/24 HOURS TOPICAL PATCH TD SCH (10:50)
[2018-08-15] MEDS: POTASSIUM CITRATE/CITRIC ACID 2 MEQ/ML ML PO SCH (10:52)
[2018-08-15] MEDS: CYANOCOBALAMIN (VITAMIN B-12) 1000 MCG/1 ML VIAL IM SCH (10:52)
[2018-08-15] MEDS: OLANZapine 10 MG TABLET PO SCH ×2 (10:53→22:36)
--- NOTE | 2018-08-15 12:41 | PN ---
Teaching Attending Note Name of Resident: Tha Isabel ATTENDING PHYSICIAN STATEMENT I saw and evaluated the patient. I reviewed the resident's note and discussed the case with the resident. I agree with the resident's findings and plan as documented with exceptions below. SUBJECTIVE: Patient seen and examined. Oriented to self but not to place or time. NO complaints. Goes on tangential conversations, unable to do detailed ROS but no complaints currently. OBJECTIVE: Vital Signs Period Temp Pulse Resp BP Sys/Dawn Pulse Ox Last 24 Hr 97.6 F-98.4 F 80-95 18-20 94-149/53-77 97 Intake & Output 08/12/18 08/13/18 08/14/18 08/15/18 23:59 23:59 23:59 23:59 Intake Total 2410 7130 1507 1360 Output Total 300 400 Balance 2410 6830 1107 1360 Weight 131 lb 4.8 oz 132 lb 4.8 oz 135 lb 8 oz 136 lb 8 oz general: sitting in bed in no acute distress Chest: CTAB, no rales or wheezing Abdomen: soft, NT, nD, positive bowel sounds Extremities: right forearm edema at prior IV site Home Medications Medication Instructions Recorded Acetaminophen [Tylenol .Regular 650 mg PO Q6H PRN tablet 08/10/18 Strength -] Cyanocobalamin/Folic Acid [Vitamin 1 each PO ONCE #30 tablet 08/10/18 R54-Nslap Acid Tablet] LORazepam [Ativan] 1 mg PO Q8H PRN #30 tablet MDD 3 mg 08/10/18 Nicotine Patch [Nicoderm Patch -] 21 mg TD DAILY patch 08/10/18 Olanzapine [Zyprexa -] 5 mg PO BID tablet 08/10/18 Thiamine Mononitrate [Vitamin B-1] 100 mg PO ONCE #30 tablet 08/10/18 levETIRAcetam [Keppra -] 500 mg PO BID #14 tablet 08/10/18 Active Medications Acetaminophen (Tylenol -) 650 mg PO Q6H PRN PRN Reason: PAIN LEVEL 1 - 3 Last Admin: 08/14/18 21:05 Dose: 650 mg Amino Acids (Prosource No Carb Liquid Pkt) 30 ml PO BID@0800,1730 [facility] Last Admin: 08/15/18 10:50 Dose: 30 ml Cyanocobalamin (Vitamin B12 Injection -) 1,000 mcg IM DAILY [facility] Last Admin: 08/15/18 10:52 Dose: 1,000 mcg Famotidine/Sodium Chloride (Pepcid 20 Mg Premixed Ivpb -) 20 mg in 50 mls @ 100 mls/hr IVPB DAILY@0800 [facility] Last Admin: 08/15/18 10:50 Dose: 100 mls/hr Fat Emulsion Intravenous (Intralipid -) 250 mls @ 20.833 mls/hr IV DAILY@2200 [facility] Last Admin: 08/14/18 22:02 Dose: 20.833 mls/hr Folic Acid 1 mg/ Thiamine HCl 200 mg/ Multivitamins/Minerals 10 ml/ Amino Acids 1,012.2 mls @ 84 mls/hr IVPB DAILY@0630 [facility] Last Admin: 08/15/18 06:32 Dose: 84 mls/hr Amino Acids (Clinimix -) 1,000 mls @ 84 mls/hr IV DAILY@1830 [facility] Dextrose/Lactated Ringer's (D5-Lr -) 1,000 mls @ 75 mls/hr IV ASDIR [facility] Last Admin: 08/15/18 10:50 Dose: 75 mls/hr Levetiracetam (Keppra -) 500 mg PO BID [facility] Lorazepam (Ativan Injection -) 2 mg IM Q8H PRN PRN Reason: AGITATION Last Admin: 08/15/18 11:06 Dose: 2 mg Megestrol Acetate (Megace Oral Suspension -) 400 mg PO DAILY [facility] Nicotine (Nicoderm Patch -) 21 mg TD DAILY [facility] Last Admin: 08/15/18 10:50 Dose: 21 mg Olanzapine (Zyprexa -) 10 mg PO BID [facility] Last Admin: 08/15/18 10:53 Dose: 10 mg Potassium Citrate/Citric Acid (Cytra-K -) 20 meq PO DAILY [facility] Last Admin: 08/15/18 10:52 Dose: 20 meq Promethazine HCl (Phenergan Injection -) 25 mg IM Q6H PRN PRN Reason: NAUSEA AND/OR VOMITING Laboratory Results - last 24 hr 08/15/18 08/15/18 06:15 06:15 WBC 6.9 RBC 3.66 L Hgb 13.0 Hct 36.4 MCV 99.6 H MCH 35.5 H MCHC 35.7 RDW 12.8 Plt Count 292 MPV 8.4 Sodium 145 Potassium 3.8 Chloride 114 H Carbon Dioxide 25 Anion Gap 6 L BUN 17 Creatinine 0.6 Creat Clearance w eGFR > 60 Random Glucose 95 Calcium 7.5 L Phosphorus 3.9 Magnesium 2.0 Total Bilirubin 0.3 AST 22 ALT 25 Alkaline Phosphatase 75 Total Protein 5.4 L Albumin 2.6 L ASSESSMENT AND PLAN: 68 year old male with history of alcohol abuse who presented with nausea, vomiting, headache after being found lying in the stairwell by a neighbor, shown to have intracranial hemorrhages on imaging in ED, course complicated by DTs, dysphagia, poor oral intake and ongoing confusion/agitation. - Bilateral subdural, bilateral subarachnoid, left frontal and left temporal intra-parenchymal hemorrhages. -AMS, suspected multifactorial from toxic metabolic encephalopathy/Intracranial bleed/?underlying alcohol related dementia +/- wernicke's encephalopathy -Traumatic occipital bone fracture -Dysphagia -Severe protein calorie malnutrition -Hypokalemia/Hypomagnesemia -Failure to thrive -Alcohol abuse -Delirium tremens -Right forearm swelling, likely from IV infiltration -Macrocytosis, B12/Folate normal Plan: Neurosurgery input noted. Keppra for seizure prophylaxis. Ongoing agitation/confusion/refusal to take PO. Patient high risk for pulling PEG, also reportedly declined feeding tube. Surrogate wants to follow patient wishes. Start megace/calorie count. Ongoing nutrition/speech/swallow follow up. Palliative care /ethics consult. Psychiatry input, discuss if candidate for inpatient psych. RUE duplex to r/o DVT. Warm compresses, arm elevation. DVTPPX SCDs Dispo SNF vs inpatient psych vs ?hospice pending above discussion of goals of care and clinical course. PLan discussed with nursing, Dr. Brennan.
--- NOTE | 2018-08-15 12:43 | PN ---
Progress Note (short form) - Note Progress Note: Ethics: Consult placed regarding decision making by patient and surrogate who is his sister. Considering the normal consequences of his fall and TBI with an occipital fracture and a subdural and subarachnoid hemorrhage the patient can at least respond to questions and move his extremities even though he is abrasive and agitated at times. The patient would normally be at a stage where he could by transferred to SNF but refuses meds and current diet in a haphazard manner. The MD's are providing some IV hyperalimentation and his current lab is acceptable. His weight on admission was 142lbs and it is now 136lbs. He doesn't wish a feeding tube but currently is considered to not having medical decision making ability. His surrogate agrees that under these circumstances she agrees with that decision. One could protest that there are possible complications from a feeding tube that are numerous and I suppose more importantly that he would very likely attempt to pull the PEG tube out with his current agitation and behavior but ultimately if the surrogate agrees with his decision that should be honored. Even if she wished that the feeding tube be placed that could not be forced upon him with some form of restraint. We would then need a ammonia still operator's order for this decision making. I would recommend another visit by Psychiatry to evaluate current meds for his behavior. He is on Megace 400mg and although DVT risk possibly more Rx if he takes it might improve his appetite and possibly a low dose Dexamethasone 4-6mg if not contraindicated would help stimulate his appetite even thought that could exacerbate his conduct. Finally he has been on Keppra since admission. It seems to be an effective agent but there have been reports of sudden hostility, emotional lability, mood swings, negativism and sleep disorder in a small group of patients. His conduct may not change due to his history of alcoholism. NeuroMD may be loathe to change Keppra but we are searching for a answer to help him accept the oral nutrition and meds.
--- NOTE | 2018-08-15 14:10 | PN ---
Progress Note (short form) - Note Progress Note: Psych follow up: case discussed with staff and the aid doing 1:1. Patient continues to be uncooperative and refusing to take PO meds and displaying acute agitation. Patient visited by friends and family. Aid reports that Patient tends have visual hallucinations and on and off confused behaviour. MS; Alert, eating his pudding, easy to anger, using vulger language. refusing or unable to answer. Speaks in a rambling manner with Korsakoff Syndrome like speach. Plan; Will try Haldol Decanoate 12.5mg im for visual hallucinations oin light of Po med refusal. 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 3) Possible NH Placement .
[2018-08-15] MEDS ORDERED: HALOPERIDOL DECANOATE 100 MG/ML IM ONE (14:11)
--- NOTE | 2018-08-15 15:15 | PN ---
Progress Note, SERVICE DISPATCHER - Note Progress Note: Selected Entries 08/14/18 08/15/18 22:46 06:00 Supper 25% Temperature 98.4 F Laboratory Tests 08/15/18 06:15 WBC 6.9 Pt accepting supplements with encouragement by OFFICE AUTOMATION TECHNICIAN/Sitter. Per OFFICE AUTOMATION TECHNICIAN, pt needs much encouragement and time with Ensure. Yesterday, pt took 3 Ensure by about ~ 3pm and took a few spoonfuls of Ensure pudding Today,He had an Ensure plus this am and 2 Ensure puddings. Supplements are more dense nutritionally than the pureed food which he is refusing and may be sufficient if he takes enough of them daily, as beneficial as the PEG feedings would have been. Per RD-Pureed diet and recommend continue Ensure Enlive 5 x day and Ensure pudding daily Magic cup at dinner
[2018-08-15] MEDS: MEGESTROL ACETATE 400 MG/10 ML UNIT DOSE CUP PO SCH (17:02)
[2018-08-15] MEDS ORDERED: AMINO ACIDS 4.25%/D5W 1,000 ML IV SCH (18:30)
[2018-08-15] MEDS: FAT EMULSIONS 250 ML IV SCH (22:10)
[2018-08-15] MEDS: levETIRAcetam 500 MG TABLET (FP) PO SCH (22:12)
[2018-08-16] MEDS ORDERED: AMINO ACIDS 4.25%/D5W 1,000 ML IV SCH (00:15)
[2018-08-16] MEDS: levETIRAcetam 500 MG/5 ML INJECTION VIAL IVPB SCH (07:17)
[2018-08-16 07:53] LABS: HEMATOCRIT 38.6 % (35.4-49); MCH 35.7 pg (25.7-33.7); MCHC 36.4 g/dl (32.0-35.9); MEAN CELL VOLUME 98.3 fl (80-96); MEAN PLT VOLUME 8.5 fl (7.5-11.1); PLATELET COUNT 295 K/MM3 (134-434); RBC 3.93 M/mm3 (4.00-5.60); RDW 12.7 % (11.9-15.9); WHITE BLOOD COUNT 8.5 K/mm3 (4.0-10.0)
[2018-08-16 08:13] LABS: ANION GAP 7 MMOL/L (8-16); BLOOD UREA NITROGEN 14 mg/dL (7-18); CALCIUM 8.7 mg/dL (8.5-10.1); CHLORIDE 114 mmol/L (98-107); CO2 25 mmol/L (21-32); CREATININE 0.6 mg/dL (0.55-1.3); GLUCOSE,RANDOM 92 mg/dL (74-106); PHOSPHOROUS 3.4 mg/dL (2.5-4.9); POTASSIUM 3.9 mmol/L (3.5-5.1); SODIUM 145 mmol/L (136-145)
--- NOTE | 2018-08-16 08:35 | PN ---
Physical Exam: SUBJECTIVE: Patient seen and examined this AM. He states that he had a weird night but cannot elaborate with any specific detail. He does endorse that his appetite is "better than it has been." Pt states he is willing to try eating breakfast if it is not overdone. OBJECTIVE: Vital Signs Period Temp Pulse Resp BP Sys/Dawn Pulse Ox Last 24 Hr 97.2 F-98.1 F 84-90 20-20 111-145/74-82 97-97 GENERAL: A&O2 pt is able to give the year, month and is only 3 days off of the date. oriented to self, oriented to city and hospital but states he is not sure if he is in [place] or another hospital because he cant keep track, no acute distress. Currently requiring restraints HEAD: Normocephalic, atraumatic. EYES: PERRL, no scleral icterus EARS, NOSE, THROAT: oropharynx clear without exudates. Moist mucous membranes. NECK: supple without lymphadenopathy LUNGS: CTA b/l, no crackles or wheezes HEART: Regular rate and rhythm, normal S1 and S2 without murmur ABDOMEN: Soft, nontender to palpation, normoactive bowel sounds EXTREMITIES: 2+ pulses, warm, well-perfused. No peripheral edema. NEUROLOGICAL: Cranial nerves II-XII grossly intact. Normal speech. SKIN: Warm, dry, no rashes or lesions noted Laboratory Results - last 24 hr 08/16/18 06:15 Sodium 145 Potassium 3.9 Chloride 114 H Carbon Dioxide 25 Anion Gap 7 L BUN 14 Creatinine 0.6 Creat Clearance w eGFR > 60 Random Glucose 92 Calcium 8.7 Phosphorus 3.4 Magnesium 2.0 Active Medications Generic Name Dose Route Start Last Admin Trade Name Freq PRN Reason Stop Dose Admin Acetaminophen 650 mg 07/24/18 16:29 08/14/18 21:05 Tylenol - PO 650 mg Q6H PRN Administration PAIN LEVEL 1 - 3 Amino Acids 30 ml 08/13/18 17:30 08/15/18 17:02 Prosource No Carb Liquid Pkt PO 30 ml BID@0800,1730 [facility] Administration Cyanocobalamin 1,000 mcg 07/25/18 10:00 08/15/18 10:52 Vitamin B12 Injection - IM 1,000 mcg DAILY [facility] Administration Famotidine/Sodium Chloride 20 mg in 50 mls @ 100 mls/hr 07/25/18 08:00 10:50 Pepcid 20 Mg Premixed Ivpb - IVPB 100 mls/hr DAILY@0800 [facility] Administration Fat Emulsion Intravenous 250 mls @ 20.833 mls/hr 07/24/18 22:00 08/15/18 22: 10 Intralipid - IV 20.833 mls/hr DAILY@2200 [facility] Administration Dextrose/Lactated Ringer's 1,000 mls @ 75 mls/hr 08/15/18 07:00 08/15/18 10: 50 D5-Lr - IV 75 mls/hr ASDIR [facility] Administration Amino Acids 1,000 mls @ 84 mls/hr 08/16/18 00:15 08/16/18 00:25 Clinimix - IV 84 mls/hr DAILY@0000 [facility] Administration Folic Acid 1 mg/ Thiamine HCl 1,012.2 mls @ 84 mls/hr 08/16/18 12:00 200 mg/ Multivitamins/Minerals IVPB 10 ml/ Amino Acids DAILY@1200 [facility] Levetiracetam 500 mg 08/15/18 22:00 08/15/18 22:12 Keppra - PO 500 mg BID [facility] Administration Lorazepam 2 mg 08/11/18 07:34 08/15/18 18:22 Ativan Injection - IM 2 mg Q8H PRN Administration AGITATION Megestrol Acetate 400 mg 08/15/18 12:00 08/15/18 17:02 Megace Oral Suspension - PO 400 mg DAILY [facility] Administration Nicotine 21 mg 07/25/18 10:00 08/15/18 10:50 Nicoderm Patch - TD 21 mg DAILY [facility] Administration Olanzapine 10 mg 08/14/18 10:00 08/15/18 22:36 Zyprexa - PO 10 mg BID [facility] Administration Potassium Citrate/Citric Acid 20 meq 08/12/18 10:00 08/15/18 10:52 Cytra-K - PO 20 meq DAILY [facility] Administration Promethazine HCl 25 mg 07/24/18 16:29 Phenergan Injection - IM Q6H PRN NAUSEA AND/OR VOMITING ASSESSMENT/PLAN:
[2018-08-16] MEDS: AMINO ACIDS/PROTEIN HYDROLYS 30 ML LIQUID.PKT PO SCH (09:01)
[2018-08-16] MEDS: FAMOTIDINE 20 MG/50 ML IVPB 20 MG/50 ML MG IVPB SCH (09:01)
[2018-08-16] MEDS: DEXTROSE 5%-LACTATED RINGERS 1,000 ML IV SCH (09:05)
[2018-08-16] MEDS ORDERED: PT OWN MED DRAWER 7, Y5N ONE (10:08)
[2018-08-16] MEDS: NICOTINE 21 MG/24 HOURS TOPICAL PATCH TD SCH (10:10)
[2018-08-16] MEDS: CYANOCOBALAMIN (VITAMIN B-12) 1000 MCG/1 ML VIAL IM SCH (10:10)
[2018-08-16] MEDS: levETIRAcetam 500 MG TABLET (FP) PO SCH (10:10)
[2018-08-16] MEDS: OLANZapine 10 MG TABLET PO SCH (10:11)
[2018-08-16] MEDS: MEGESTROL ACETATE 400 MG/10 ML UNIT DOSE CUP PO SCH (10:11)
[2018-08-16] MEDS: POTASSIUM CITRATE/CITRIC ACID 2 MEQ/ML ML PO SCH (10:12)
[2018-08-16] MEDS ORDERED: MULTIVIT IVPB SCH (12:00)
[2018-08-16] MEDS ORDERED: FOLIC ACID IVPB SCH (12:00)
[2018-08-16] MEDS ORDERED: THIAMINE HCL IVPB SCH (12:00)
[2018-08-16] MEDS ORDERED: [UNRECOGNIZED DRUG - OTHER] IVPB SCH (12:00)
--- NOTE | 2018-08-16 12:17 | PN ---
Progress Note, SOFTWARE DEVELOPER MID LEVEL - Note Progress Note: Pt accepting supplements with encouragement by PVC LOADER/Sitter. Continue to encourage supplements and pureed food MBS can be done as out pt, if indicated, to upgrade diet. Per rd recommendations-Pureed diet and continue Ensure Enlive 5 x day and Ensure pudding daily Magic cup at dinner
--- NOTE | 2018-08-16 14:12 | PN ---
Teaching Attending Note Name of Resident: Tha Isabel ATTENDING PHYSICIAN STATEMENT I saw and evaluated the patient. I reviewed the resident's note and discussed the case with the resident. I agree with the resident's findings and plan as documented with exceptions below. SUBJECTIVE: Patient seen and examined. Awake, conversing but tangential conversations, intermittent confabulation. No complaints. Needs frequent redirection. OBJECTIVE: Vital Signs Period Temp Pulse Resp BP Sys/Dawn Pulse Ox Last 24 Hr 97.2 F-98.1 F 84-90 20-20 111-112/77-82 97 Intake & Output 08/13/18 08/14/18 08/15/18 08/16/18 23:59 23:59 23:59 23:59 Intake Total 7130 1507 3740 Output Total 300 400 Balance 6830 1107 3740 Weight 132 lb 4.8 oz 135 lb 8 oz 136 lb 8 oz 132 lb 13.12 oz General: sitting in bed in no acute distress Chest: CTAB, no rales or wheezing Abdomen;Soft, NT, ND Extremities: no edema Neuro: AA, oriented to self, occasional tangential conversations, unchanged exam otherwise Home Medications Medication Instructions Recorded Acetaminophen [Tylenol .Regular 650 mg PO Q6H PRN tablet 08/10/18 Strength -] Cyanocobalamin/Folic Acid [Vitamin 1 each PO ONCE #30 tablet 08/10/18 G15-Pnljv Acid Tablet] Nicotine Patch [Nicoderm Patch -] 21 mg TD DAILY patch 08/10/18 Thiamine Mononitrate [Vitamin B-1] 100 mg PO ONCE #30 tablet 08/10/18 Megestrol Acetate Oral Susp 400 mg PO DAILY cup 08/16/18 [Megace Oral Suspension -] Olanzapine [ZyPREXA -] 10 mg PO BID tablet 08/16/18 levETIRAcetam [Keppra -] 500 mg PO BID tablet 08/16/18 Active Medications Acetaminophen (Tylenol -) 650 mg PO Q6H PRN PRN Reason: PAIN LEVEL 1 - 3 Last Admin: 08/14/18 21:05 Dose: 650 mg Amino Acids (Prosource No Carb Liquid Pkt) 30 ml PO BID@0800,1730 [facility] Last Admin: 08/16/18 09:01 Dose: 30 ml Cyanocobalamin (Vitamin B12 Injection -) 1,000 mcg IM DAILY [facility] Last Admin: 08/16/18 10:10 Dose: 1,000 mcg Famotidine/Sodium Chloride (Pepcid 20 Mg Premixed Ivpb -) 20 mg in 50 mls @ 100 mls/hr IVPB DAILY@0800 [facility] Last Admin: 08/16/18 09:01 Dose: 100 mls/hr Fat Emulsion Intravenous (Intralipid -) 250 mls @ 20.833 mls/hr IV DAILY@2200 [facility] Last Admin: 08/15/18 22:10 Dose: 20.833 mls/hr Dextrose/Lactated Ringer's (D5-Lr -) 1,000 mls @ 75 mls/hr IV ASDIR [facility] Last Admin: 08/16/18 09:05 Dose: Not Given Amino Acids (Clinimix -) 1,000 mls @ 84 mls/hr IV DAILY@0000 [facility] Last Admin: 08/16/18 00:25 Dose: 84 mls/hr Folic Acid 1 mg/ Thiamine HCl 200 mg/ Multivitamins/Minerals 10 ml/ Amino Acids 1,012.2 mls @ 84 mls/hr IVPB DAILY@1200 [facility] Last Admin: 08/16/18 13:44 Dose: Not Given Levetiracetam (Keppra -) 500 mg PO BID [facility] Last Admin: 08/16/18 10:10 Dose: 500 mg Lorazepam (Ativan Injection -) 2 mg IM Q8H PRN PRN Reason: AGITATION Last Admin: 08/15/18 18:22 Dose: 2 mg Megestrol Acetate (Megace Oral Suspension -) 400 mg PO DAILY [facility] Last Admin: 08/16/18 10:11 Dose: 400 mg Nicotine (Nicoderm Patch -) 21 mg TD DAILY [facility] Last Admin: 08/16/18 10:10 Dose: 21 mg Olanzapine (Zyprexa -) 10 mg PO BID [facility] Last Admin: 08/16/18 10:11 Dose: 10 mg Potassium Citrate/Citric Acid (Cytra-K -) 20 meq PO DAILY [facility] Last Admin: 08/16/18 10:12 Dose: 20 meq Promethazine HCl (Phenergan Injection -) 25 mg IM Q6H PRN PRN Reason: NAUSEA AND/OR VOMITING Laboratory Results - last 24 hr 08/16/18 08/16/18 06:15 06:15 WBC 8.5 RBC 3.93 L Hgb 14.0 Hct 38.6 MCV 98.3 H MCH 35.7 H MCHC 36.4 H RDW 12.7 Plt Count 295 MPV 8.5 Sodium 145 Potassium 3.9 Chloride 114 H Carbon Dioxide 25 Anion Gap 7 L BUN 14 Creatinine 0.6 Creat Clearance w eGFR > 60 Random Glucose 92 Calcium 8.7 Phosphorus 3.4 Magnesium 2.0 Microbiology 07/27/18 11:35 Sputum - Expectorated Gram Stain - Final 07/27/18 11:35 Sputum - Expectorated Sputum Culture - Final Beta Hem Streptococcus Group F Yeast Like Organism 07/21/18 07:30 Blood - Peripheral Venous Blood Culture - Final NO GROWTH AFTER 5 DAYS INCUBATION 07/18/18 14:30 Blood - Peripheral Venous Blood Culture - Final NO GROWTH AFTER 5 DAYS INCUBATION 07/18/18 14:10 Blood - Peripheral Venous Blood Culture - Final NO GROWTH AFTER 5 DAYS INCUBATION 07/18/18 13:45 Urine - Urine Clean Catch Urine Culture - Final NO GROWTH OBTAINED ASSESSMENT AND PLAN: 68 year old male with history of alcohol abuse who presented with nausea, vomiting, headache after being found lying in the stairwell by a neighbor, shown to have intracranial hemorrhages on imaging in ED, course complicated by DTs, dysphagia, poor oral intake and ongoing confusion/agitation. -Bilateral subdural, bilateral subarachnoid, left frontal and left temporal intra-parenchymal hemorrhages. -AMS, suspected multifactorial from toxic metabolic encephalopathy/Intracranial bleed/?underlying alcohol related dementia +/- wernicke's encephalopathy -Traumatic occipital bone fracture -Dysphagia -Severe protein calorie malnutrition -Hypokalemia/Hypomagnesemia -Failure to thrive -Alcohol abuse -Delirium tremens -RUE superficial thrombophlebitis -Macrocytosis, B12/Folate normal Plan: Neurosurgery input noted. Keppra for seizure prophylaxis. PO intake improved. 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 Discussed with Dr. Arias, continue zyprexa for now. patient and surrogate declined Peg. GI/ethics input appreciated. d/c Megace given thrombogenic and avoid given recent ICH. Right forearm elevation/warm compresses. DVTPPX SCDs Dispo d/c to [facility] today with outpatient Neurosurgery/PCP/speech/swallow follow up Plan discussed with nursing and social work and all questions answered.
--- NOTE | 2018-08-16 14:58 | DS ---
Physical Exam: SUBJECTIVE: Patient seen and examined this AM. He states that he had a weird night but cannot elaborate with any specific detail. He does endorse that his appetite is "better than it has been." Pt states he is willing to try eating breakfast if it is not overdone. OBJECTIVE: Vital Signs Period Temp Pulse Resp BP Sys/Dawn Pulse Ox Last 24 Hr 97.2 F-98.1 F 84-90 20-20 111-112/77-82 97 PHYSICAL EXAM GENERAL: A&O2 pt is able to give the year, month and is only 3 days off of the date. oriented to self, oriented to city and hospital but states he is not sure if he is in [place] or another hospital because he cant keep track, no acute distress. Currently requiring restraints HEAD: Normocephalic, atraumatic. EYES: PERRL, no scleral icterus EARS, NOSE, THROAT: oropharynx clear without exudates. Moist mucous membranes. NECK: supple without lymphadenopathy LUNGS: CTA b/l, no crackles or wheezes HEART: Regular rate and rhythm, normal S1 and S2 without murmur ABDOMEN: Soft, nontender to palpation, normoactive bowel sounds EXTREMITIES: 2+ pulses, warm, well-perfused. No peripheral edema. NEUROLOGICAL: Cranial nerves II-XII grossly intact. Normal speech. SKIN: Warm, dry, no rashes or lesions noted LABS Laboratory Results - last 24 hr 08/16/18 08/16/18 06:15 06:15 WBC 8.5 RBC 3.93 L Hgb 14.0 Hct 38.6 MCV 98.3 H MCH 35.7 H MCHC 36.4 H RDW 12.7 Plt Count 295 MPV 8.5 Sodium 145 Potassium 3.9 Chloride 114 H Carbon Dioxide 25 Anion Gap 7 L BUN 14 Creatinine 0.6 Creat Clearance w eGFR > 60 Random Glucose 92 Calcium 8.7 Phosphorus 3.4 Magnesium 2.0 IMAGING: Extensive imaging on admission summarized below: Midline and left parasagittal nondepressed occipital bone fracture extending to the suboccipital region. There is also a a fracture of the right occipital condyle with minimal displacement, medially of approximately 2 mm deforming the right lateral wall of the foramen magnum. Small bilateral subdural acute hemorrhage with layering over the tentorium, left more the right as well as blood seen in the interhemispheric fissure measuring 11 mm in width, superiorly. There is also bilateral subarachnoid hemorrhage with blood seen along the anterior and lateral aspect of the frontal and temporal sulci including the sylvian fissures, right more than left. Focal intraparenchymal hematoma and the anterior/inferior aspect of the left frontal lobe and probably a smaller focus of intraparenchymal hematoma in the left temporal lobe, anteriorly. There is no shift of the midline structures Close follow-up is recommended. CT scan of the cervical spine without intravenous contrast Coronal and sagittal reconstruction images were obtained. No gross fracture, subluxation or prevertebral soft tissue swelling is seen. No jumped facets are identified. There is marked left facet hypertrophy at C3-C4 level, moderate right facet hypertrophy at C4-C5 level and marked left facet hypertrophy at C5-C6 level. Lymph nodes are identified. Small calcified plaque at the right and left common carotid bifurcation. The airway is patent and symmetric without gross narrowing. Lung windows demonstrates biapical pleural thickening and suggestion of mild COPD changes. Modified Barium Swallow: IMPRESSION: Limited cooperation with PO trials. The epiglottis did not invert, and there was mild hang-up with repeated swallows needed to clear the puree and liquid. Severity seemed improved as compared to last study. Patient adamantly refused any solids or further testing. RECOMMENDATIONS: Trial of dysphagia puree, thinned out with soup or gravy, and thin liquid. Half teaspoon at a time, multiple swallows to clear the residue. If patient complains of difficulty, terminate meal. Trial of Ensure. Out of bed for all meals and for an hour after meals. Supervision with all meals. Do not recline patient after meals. PEG insertion is indicated at this time due to poor po acceptance and oral pharyngeal dysphagia. HOSPITAL COURSE: Date of Admission:07/18/18 Date of Discharge: 08/16/18 HPI from Admission: 68 year old Alcoholic male presented to the hospital S/p fall, N/V for 2 days. his neighbor found him in stairs [place], last drink last night , he drink 10 shots of Vodka daily. pt is poor historian, he reports headache occipital, 5/10 , pulsating, local non radiating, he complain of neck pain as well. Pt dont remember what happened, he lost his consciousness, does not know how long he staid on the floor. Pt denies any fever, chills, blurry vision , denies any chest pain , palp- itation, denies any abdominal pain, D/C, denies any urinary symptoms, denies any withdrawal symptoms, anxiety. Hospital Course: Extensive imaging revealed Occipital fracture, b/l subdural hematomas, b/l subarrachnoid hemmorrhages without any midline shift. He was seen by neurosurgery who did not recommend any acute surgical intervention. His course was complicated by likely alcohol withdrawal for which he was given ativan. He had frequent behavioral disturbances and was seen by psychiatry multiple times throughout the admission. He was started on Zyprexa 5 mg BID for his aggression and intolerance of PO intake. It was then increased to 10 mg BID. He was given Ativan PRN on numerous occasions especially at night. He often displayed tangential thought process and confabulation consistent with a Wernicke's encephalopathy. He was seen by speech and swallow for his intolerance of PO. While there was some mechanical component as determined in multiple Modified barium swallows, a large component was more so the pt's refusal. Diet recommendations were made as above and it was recommended that he consume 5 Ensure's per day. Pt refused PEG placement, family also refused as per patients wishes, ethics was consulted and agreed PEG was not the best plan for the pt. His medical issues were all stabilized and he was deemed medically safe for discharge to SNF. He should follow up with Neurosurgery and psychiatry. Minutes to complete discharge: 50 Discharge Summary Reason For Visit: SUBDURAL HEMATOMA FX OF OCCIPITAL Current Active Problems Dysphagia as late effect of cerebrovascular accident (CVA) (Acute) Occipital bone fracture (Acute) Alcohol abuse (Chronic) Subarachnoid hemorrhage (Chronic) Subdural hematoma (Chronic) Condition: Stable - Instructions Diet, Activity, Other Instructions: You presented to the hospital due to a fall you encountered. You were found to have bleeding in your brain. You were noted to have some superficial clots in your right arm on ultrasound, however blood thinners are not advised with the bleeding in your brain. You were given warm compresses and right arm elevation in the hospital which should be continued on discharge. You have had a lot of confusions and behavioral disturbances during the admission likely secondary to chronic alcohol abuse and the bleeding in your brain. You were started on a new medication Zyprexa which you should continue on discharge. Alcohol abuse is known to cause many negative effects on the body including brain disease, heart disease, and liver injury. Please limit your alcohol intake. We have attached some information regarding alcohol abuse with your discharge papers. If you do not have a primary medical doctor, you may follow up at our medical clinic. A referral has been attached. Your nutritional intake has been inadequate since your admission. You were evaluated by our dietary team. The following diet has been recommended for you below: DIET: - Dysphagia puree, thin liquids - Ensure Enlive five times (1 at each meal; 2 in between meals) to meet Calorie needs as pt with poor PO intake ACTIVITY: Assistance and supervision with all activities and fall precautions. Right forearm elevated and warm compresses. FOLLOW UP: Please follow up with the following physicians in 1 week: Dr Marcelino Hayes, Neurosurgeon Dr Huerta, Primary Medical Doctor Dr Arias, Psychiatrist Speech and swallow therapist follow up at the rehab. Load Builder follow up at SNF. You were started on Zyprexa 10 mg TWICE daily. Keppra 500 MG TWICE per day. Please continue to take these medications as prescribed. Please take the following medications as prescribed on your discharge papers. Do not take any aspirin, blood thinners, or NSAIDs until cleared by your Neurologist. If you begin to experience worsening of your symptoms, headache, chest pain, shortness of breath, progressive right arm/forearm swelling/redness, pain or any new concerns, please return immediately to the emergency room and call 911. Referrals: Mark Huerta MD [Staff Physician] - 1 Week Myron Arias MD [Staff Physician] - 1 Week Marcelino Hayes MD [Staff Physician] - 1 Week Dariela Regan MS, [facility] [Speech Therapist] - 1 Week Disposition: [facility] - Home Medications Comprehensive Discharge Medication List: Ambulatory Orders Acetaminophen [Tylenol .Regular Strength -] 650 mg PO Q6H PRN tablet 08/10/18 Nicotine Patch [Nicoderm Patch -] 21 mg TD DAILY patch 08/10/18 Multivitamin [Daily Multiple Vitamin] 1 each PO DAILY #30 tablet 08/16/18 Olanzapine [ZyPREXA -] 10 mg PO BID tablet 08/16/18 levETIRAcetam [Keppra -] 500 mg PO BID tablet 08/16/18 This patient is new to me today: No Emergency Visit: Yes ED Registration Date: 07/18/18 Care time: The patient presented to the Emergency Department on the above date and was hospitalized for further evaluation of their emergent condition. Critical Care patient: No - Discharge Referral Referred to [facility] No
[2018-08-16 15:36] VITALS: BP 106/54; PULSE 104; TEMP 98
== END 2018-08-16 16:27 | DRG 82 ==
LOC: JER 23:53 → JERBED 07-18 06:36 → JICU 07-18 22:00 → J8W 07-24 16:39
PROVIDERS: ADMIT Internal Medicine; ATTEND Hospitalist
PROC: HZ2ZZZZ Detoxification Services for Substance Abuse Treatment (ICD-10-PCS; principal; 2018-07-18)
PROC: 0DH67UZ Insertion of Feeding Device into Stomach, Via Natural or Artificial Opening (ICD-10-PCS; 2018-07-27)
DX: S06.6X9A Traumatic subarachnoid hemorrhage with loss of consciousness of unspecified duration, initial encounter (principal); G93.6 Cerebral edema; E43 Unspecified severe protein-calorie malnutrition; G93.41 Metabolic encephalopathy; F10.231 Alcohol dependence with withdrawal delirium; E87.0 Hyperosmolality and hypernatremia; F10.230 Alcohol dependence with withdrawal, uncomplicated; S06.5X9A Traumatic subdural hemorrhage with loss of consciousness of unspecified duration, initial encounter; S02.118A Other fracture of occiput, unspecified side, initial encounter for closed fracture; D72.829 Elevated white blood cell count, unspecified; E87.6 Hypokalemia; R45.1 Restlessness and agitation; R50.9 Fever, unspecified; D69.6 Thrombocytopenia, unspecified; S50.02XA Contusion of left elbow, initial encounter; F19.10 Other psychoactive substance abuse, uncomplicated; I10 Essential (primary) hypertension; F17.210 Nicotine dependence, cigarettes, uncomplicated; I69.991 Dysphagia following unspecified cerebrovascular disease; E83.42 Hypomagnesemia; F91.9 Conduct disorder, unspecified; R62.7 Adult failure to thrive; M79.89 Other specified soft tissue disorders; D75.89 Other specified diseases of blood and blood-forming organs; I80.9 Phlebitis and thrombophlebitis of unspecified site; Y92.098 Other place in other non-institutional residence as the place of occurrence of the external cause; W17.89XA Other fall from one level to another, initial encounter
CPT/HCPCS: 36415; 70450-TC; 71045-TC-FY; 72125-TC; 73070-TC-LT-FY; 73110-TC-LR-FY; 73130-TC-LT-FY; 74150-TC; 74230-TC-FY; 80048; 80053; 80307; 81003; 82140; 82247; 82248; 82272; 82550; 82553; 82607; 82746; 82962; 83605; 83735; 84100; 84443; 84484; 85025; 85027; 85610; 85730; 86593; 86850; 86900; 86901; 87040; 87070; 87086; 87205; 90670; 90688; 92611-GN; 93005; 93010; 93971; 97116-GP; 97162-GP; 99285-25; G0008; G0009; J0131; J7030